=== PATIENT | male | born 1940 | race Caucasian/White ===

== ENCOUNTER 2016-07-22 03:59 | Observation (INO) | payer OTHER ==
[2016-07-22] MEDS ORDERED: DILTIAZEM 25 MG/5 ML VIAL IVP ONE (04:08)
[2016-07-22 04:13] LABS: % IMMATURE GRANULYOCYTES 0.2 % (0.0-1.1); ABSOLUTE IMMATURE GRANULOCYTES 0.02 10^3/uL (0.00-0.10); ADD DIFF? NO; ADD MORPH? NO; ADD SCAN? NO; ATYPICAL LYMPHOCYTE FLAG 0 (0-99); FRAGMENT RBC FLAG 0 (0-99); HEMATOCRIT 46.8 % (40.0-51.0); HEMOGLOBIN 16.5 g/dL (13.7-17.5); LEFT SHIFT FLG 0 (0-99); LIPEMIA HEMOLYSIS FLAG 90 (0-99); MEAN CELL HEMOGLOBIN 32.1 pg (27.9-34.1); MEAN CELL HEMOGLOBIN CONCENTR. 35.3 g/dL (32.4-36.7); MEAN CELL VOLUME 91.1 fL (81.5-99.8); MEAN PLATELET VOLUME 9.2 fL (8.7-11.7); PLATELET CLUMPS FLAG 10 (0-99); PLATELET COUNT 207 10^3/uL (150-400); RED BLOOD CELL COUNT 5.14 10^6/uL (4.40-6.38); RED CELL DISTRIBUTION WIDTH 13.9 % (11.5-15.2)
[2016-07-22 04:22] LABS: INR 1.3 (0.83-1.16); PROTIME(PATIENT) 16.2 SEC (12.0-15.0)
[2016-07-22 04:23] LABS: APTT 35.1 SEC (23.0-38.0)
[2016-07-22 04:24] LABS: ANION GAP 17 mEq/L (8-16); CALCIUM 9.3 mg/dL (8.5-10.4); CARBON DIOXIDE 16 mEq/l (22-31); CHLORIDE 109 mEq/L (97-110); CREATININE 1.2 mg/dL (0.7-1.3); GLOMERULAR FILTRATION RATE 59; GLUCOSE 170 mg/dL (70-100); POTASSIUM 4.2 mEq/L (3.5-5.2); SODIUM 142 mEq/L (134-144)
[2016-07-22 04:38] LABS: DIGOXIN < 0.4 ng/mL (0.8-2.0)
[2016-07-22 04:41] LABS: TROPONIN I 0.076 ng/mL (0-0.034)
--- NOTE | 2016-07-22 05:56 | EDPHY ---
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 which awoke him from sleep tonight. He is brought in by ambulance after receiving an aspirin in the field. He describes it as a squeezing pain located in his epigastric region. It lasted for about 2 hours until he arrived in the emergency department. The pain was associated with a feeling of clamminess. He has had several episodes of similar pain. He has not had any associated shortness of breath, nausea, vomiting, diaphoresis. He is followed by Dr. Mack and he says his last appointment was 1 week ago. He has been compliant with all of his medications and is keeping a journal. He was admitted to the hospital in May for chest pain. He had a normal evaluation, please see Dr. gustafson takes discharge summary for further information. REVIEW OF SYSTEMS Constitutional: No fever, no chills. Eyes: No discharge. ENT: No sore throat. Cardiovascular: +chest pain, no palpitations. Respiratory: No cough, no shortness of breath. Gastrointestinal: No abdominal pain, no vomiting. Genitourinary: No hematuria. Musculoskeletal: No back pain. Skin: No rashes. Neurological: No headache. PMHx: CAD with stent in place in the LAD, CHF Soc Hx: Lives alone PHYSICAL General Appearance: Alert, no distress Eyes: Pupils equal and round no pallor or injection ENT, Mouth: Mucous membranes moist Respiratory: There are no retractions, lungs are clear to auscultation Cardiovascular: Tachycardic and irregular Gastrointestinal: Abdomen is soft and non-tender, no masses, bowel sounds normal Neurological: A&O, moves all extremities Skin: Warm and dry, no rashes Musculoskeletal: Neck is supple non tender Extremities: symmetrical, full range of motion Psychiatric: Patient is oriented X 3, there is no agitation Source: Patient, EMS Exam Limitations: No limitations - Personal History Tetanus Vaccine Date: 09/2009 - Medical/Surgical History Hx Asthma: No Hx Chronic Respiratory Disease: No Hx Diabetes: No Hx Cardiac Disease: Yes Hx Renal Disease: Yes Hx Cirrhosis: No Hx Alcoholism: No Hx HIV/AIDS: No Hx Splenectomy or Spleen Trauma: No Other PMH: 1. Chronic systolic heart failure the chest Ibis fraction of 25%. 2. Coronary artery disease status post stenting on 05/25/2016. 3. Chronic atrial fibrillation. 4. Hypertension. 5. Chronic renal insufficiency. 6. Nephrolithiasis with ureteral stent placement May of 2016. 7. Gout. 8. Right total knee arthroplasty. 9. Appendectomy - Social History Smoking Status: Never smoked Constitutional: Initial Vital Signs Temperature (C) 36.7 C 07/22/16 04:07 Heart Rate 117 H 07/22/16 04:07 Respiratory Rate 26 H 07/22/16 04:07 Blood Pressure 144/90 H 07/22/16 04:07 O2 Sat (%) 94 07/22/16 04:07 O2 Delivery Mode Nasal Cannula O2 (L/minute) 2 Allergies/Adverse Reactions: atorvastatin calcium [From Lipitor] Allergy (Severe, Verified 07/22/16 04:13) Other-Enter Comments Home Medications: Medication Instructions Recorded Allopurinol [Allopurinol 300 MG 150 mg PO DAILY 06/01/16 (RX)] Aspirin EC [Aspirin EC 81 mg (*)] 81 mg PO DAILY 06/01/16 Clopidogrel Bisulfate [Plavix (*)] 75 mg PO DAILY 06/01/16 Digoxin [Lanoxin 125 mcg (RX)] 125 mcg PO HS 06/01/16 Furosemide [Lasix 40 MG (*)] 40 mg PO DAILY PRN 06/01/16 Metoprolol Succinate Xr [Toprol Xl 50 mg PO DAILY 06/01/16 50 mg (*)] Spironolactone [Aldactone 25 MG 12.5 mg PO DAILY 06/01/16 (*)] Acetaminophen [Tylenol 325mg (*)] 650 mg PO Q4HRS PRN #0 tab 06/03/16 Isosorbide Mononitrate [Imdur 30 30 mg PO DAILY #30 tab.sr 06/03/16 mg (*)] Warfarin Sodium [Coumadin 5MG (*)] 5 mg PO MOWE@16 #0 tab 06/03/16 Warfarin Sodium [Coumadin 7.5MG 7.5 mg PO SUTUTHFRSA@16 #0 tab 06/03/16 (*)] Medical Decision Making - Diagnostics EKG Interpretation: EKG EKG: Complete interpretation has been separately recorded in the [employer] archive. Summary impression: 1. Demonstrates atrial fibrillation with RVR, EKG 2. Shows atrial fibrillation with rate in the 100s, no ST segment elevation Imaging: Chest x-ray two views shows cardiomegaly, no infiltrate, interpreted by me, radiology interpretation is pending. ED Course/Re-evaluation: 5:00 a.m.- The patient has had no recurrence of his chest pain. Labs have been checked and do demonstrate elevated troponin, similar to priors. His BNP is also elevated, higher than his usual. On reassessment he says he feels well. Plan to repeat troponin and will discuss the case with Cardiology. The patient has had frequent admissions for chest pain. 7:00 a.m.- The patient continues to be chest pain-free repeat troponin is slightly more elevated than the 1st. He was given a dose of diltiazem with improvement in his heart rate from the 160s to the low 100s. I discussed the case with the steward/stewardess dining room Dr. Izquierdo who recommends admission and is restarting the patient on his medications that he does not appear to be taking at home. I have discussed the case with the hospitalist Dr. Mcclure and we will admit the patient to the PCU. Differential Diagnosis: This is a 76-year-old male with past medical history of CAD, ischemic cardiomyopathy, chronic kidney disease, possible cognitive impairment who presents brought in by ambulance for chest pain which began at 2:00 a.m. this morning while at rest and is now resolved. On exam, he is in atrial fibrillation with RVR. The remainder of his exam is unremarkable. Differential diagnosis includes ACS, decompensated CHF, GERD. - Data Points Laboratory Results: Laboratory Results 07/22/16 04:03 07/22/16 04:03 07/22/16 07/22/16 06:01 04:03 WBC 10.70 H 10^3/uL (3.80-9.50) RBC 5.14 10^6/uL (4.40-6.38) Hgb 16.5 g/dL (13.7-17.5) Hct 46.8 % (40.0-51.0) MCV 91.1 fL (81.5-99.8) MCH 32.1 pg (27.9-34.1) MCHC 35.3 g/dL (32.4-36.7) RDW 13.9 % (11.5-15.2) Plt Count 207 10^3/uL (150-400) MPV 9.2 fL (8.7-11.7) Neut % (Auto) 78.0 H % (39.3-74.2) Lymph % (Auto) 15.3 % (15.0-45.0) [place] % (Auto) 5.3 % (4.5-13.0) Eos % (Auto) 0.5 L % (0.6-7.6) Baso % (Auto) 0.7 % (0.3-1.7) Nucleat RBC Rel Count 0.0 % (0.0-0.2) Absolute Neuts (auto) 8.35 H 10^3/uL (1.70-6.50) Absolute Lymphs (auto) 1.64 10^3/uL (1.00-3.00) Absolute Monos (auto) 0.57 10^3/uL (0.30-0.80) Absolute Eos (auto) 0.05 10^3/uL (0.03-0.40) Absolute Basos (auto) 0.07 10^3/uL (0.02-0.10) Absolute Nucleated RBC 0.00 10^3/uL (0-0.01) Immature Gran % 0.2 % (0.0-1.1) Immature Gran # 0.02 10^3/uL (0.00-0.10) PT 16.2 H SEC (12.0-15.0) INR 1.30 H (0.83-1.16) APTT 35.1 SEC (23.0-38.0) Sodium 142 mEq/L (134-144) Potassium 4.2 mEq/L (3.5-5.2) Chloride 109 mEq/L (97-110) Carbon Dioxide 16 L mEq/l (22-31) Anion Gap 17 mEq/L (8-16) BUN 18 mg/dL (7-23) Creatinine 1.2 mg/dL (0.7-1.3) Estimated GFR 59 Glucose 170 H mg/dL (70-100) Calcium 9.3 mg/dL (8.5-10.4) Troponin I 0.079 H ng/mL 0.076 H ng/mL (0-0.034) (0-0.034) NT-Pro-B Natriuret Pep 33674 H pg/mL (0-450) Digoxin < 0.4 L ng/mL (0.8-2.0) Medications Given: Discontinued Medications Diltiazem HCl (Cardizem 25 Mg/5 Ml Vial) 20 mg IVP EDNOW ONE Stop: 07/22/16 04:09 Last Admin: 07/22/16 04:24 Dose: 20 mg Departure - Departure Disposition: [facility] Inpatient Acute Clinical Impression: Acute exacerbation of CHF (congestive heart failure), Chest pain, Atrial fibrillation with rapid ventricular response Condition: Fair
--- NOTE | 2016-07-22 05:59 | CPEKG ---
Heart Rate: 107 RR Interval: 561 QRSD Interval: 162 QT Interval: 400 QTC Interval: 534 QRS [place]: 2 T Wave [place]: 89 EKG Severity - ABNORMAL ECG - EKG Impression: ATRIAL FIBRILLATION, V-RATE 75-136 EKG Impression: PAIRED VENTRICULAR PREMATURE COMPLEXES EKG Impression: RIGHT BUNDLE BRANCH BLOCK EKG Impression: ST DEPRESSION, CONSIDER ISCHEMIA, ANT-LAT LDS Electronically Signed By: Lalito Borja 26-Jul-2016 13:43:14
[2016-07-22] MEDS ORDERED: ONDANSETRON 4 MG/2 ML VIAL IVP PRN (07:50)
[2016-07-22] MEDS ORDERED: ACETAMINOPHEN 325 MG TAB PO PRN ×2 (07:50→13:01)
[2016-07-22] MEDS ORDERED: METOPROLOL TARTRATE 5 MG/5 ML INJ IVP PRN (07:51)
[2016-07-22] MEDS ORDERED: FUROSEMIDE 20 MG/2 ML VIAL IVP ONE (07:51)
--- NOTE | 2016-07-22 08:10 | DX ---
PA and Lateral Chest July 22, 2016 Clinical Indications: Chest pain. Comparison: June 01, 2016. Findings: The lungs are clear, and no masses are found. The heart is enlarged and pulmonary vessels are normal. There are no pleural effusions and no pneumothorax. The bones are unremarkable for thi s age. Impression: Stable cardiomegaly without failure.
--- NOTE | 2016-07-22 08:38 | GHP ---
[f rep st] HISTORY AND PHYSICAL DATE OF ADMISSION: 07/22/2016 CHIEF COMPLAINT: Shortness of breath. HISTORY: Moses Alvarez is a 76-year-old male, with systolic congestive heart failure, ejection fract ion 25%, who has recurrent admissions for CHF exacerbation. Despite weekly visits with Dr. Mack we have been unable to keep him out of the hospital for any sustained period of time. There has been co ncern about his cognition and inability to take his medications properly. He now re-presents to the hospital with acute onset of shortness of breath which woke him from sleep at 2 o'clock in the mornin g. He did have some associated chest tightness. He adamantly denies any medication noncompliance; h vickeyever, on presentation his digoxin level is undetectable, and his INR is only 1.3, despite him repor tedly on Coumadin. He does admit that sometimes he falls asleep in the evening and misses his evenin g medication, but otherwise has a journal and pill boxes and tries to be very consistent with his med ications. He also felt confused and foggy when he woke up in the middle of the night. He now feels back to baseline and he is hoping to go home. He does complain that his daily fatigue it is increasi ng and he gets exhausted just going to the grocery store for 30 minutes. He denies any lower extremi ty edema and his weight has been very stable. He weighs himself twice a day. He also recently has h ad viral upper respiratory tract infections and is concerned he may have developed the flu. PAST MEDICAL HISTORY: Systolic congestive heart failure. Ejection fraction 25%. Coronary artery raine anthony, status post stent to the LAD, May 2016. Chronic kidney disease. Atrial fibrillation. Chalino keene stone status post stent. Dementia. PAST SURGERIES: Appendectomy. MEDICATIONS: Please see computer record for full detailed list. ALLERGIES: Atorvastatin. SOCIAL HISTORY: No smoking. No alcohol. He lives alone. REVIEW OF SYSTEMS: Complete review of systems obtained. Review of systems negative for constitution al, HEENT, GI, pulmonary, cardiovascular, , hematology, skin, musculoskeletal, endocrine, psych, e xcept for positives and negatives as in HPI. FAMILY HISTORY: Reviewed, noncontributory to presenting complaint. PHYSICAL EXAMINATION: GENERAL: Well-developed, well-nourished male, in no acute distress. VITAL SI GNS: Temp 36.7, pulse 117, blood pressure 123/86, saturating 94% on room air. HEENT: Eye examination normal conjunctiva. Pupils equal and react to light. ENT, normal ears and nose. Hearing intact. Normal teeth. Oropharynx moist. NECK: Trachea midline. No thyromegaly. CHEST: Normal. LUNGS: C lear to auscultation bilaterally. CARDIOVASCULAR: Irregularly irregular. No murmur. No lower extre mity edema. ABDOMEN: Soft, nontender. No hepatosplenomegaly. SKIN: Warm, dry, intact. No rash. MUSCULOSKELETAL: No cyanosis or clubbing. Strength 5/5 upper and lower extremities. NEURO: Crani al nerves intact. Normal sensation to light touch. PSYCHOSOCIAL: Alert and oriented x3. Normal moo d and affect. Normal judgment and insight. Normal memory On gross testing. LABS: White count 10.7, hematocrit 46.8, platelets 207. Sodium 142, potassium 4.2, chloride 109, bi carb 16, BUN 18, creatinine 1.2. Glucose 170. Troponin initially 0.076. BNP is 16,200. INR is 1.3 . Digoxin level is undetectable. EKG reviewed by me. My personal interpretation is atrial fibrillation with right bundle branch block . Chest x-ray shows possible mild pulmonary edema. ASSESSMENT/PLAN: 1. Shortness of breath. Acute onset at 2 a.m. Differential diagnosis is congestive heart failure e xacerbation versus infection versus ischemia versus pulmonary embolus versus obstructive sleep apnea. We will give a 1 time dose of IV Lasix. Will check flu swab. Will follow serial troponins. We wi ll check a D-dimer as he is on warfarin, but likely noncompliant given his INR on presentation of 1.3 . These recurrent episodes also seem to happen in the middle of the night. Perhaps he is having nig httime hypoxemia. Would consider outpatient nocturnal oximetry. 2. Acute on chronic systolic congestive heart failure. Ejection fraction 25%. Medication complianc e has been the main issue in the past. Patient seems motivated and denies noncompliance although con cern for dementia and cognitive issues have been raised in the past. Will order a cognitive evaluati on and speech therapy. 3. Coronary artery disease, status post recent stent on May 25. Lack of Plavix compliance woul d be very concerning in this situation. Will follow troponins. 4. Chronic kidney disease, is currently at his baseline. 5. Atrial fibrillation, rapid ventricular response. Suspect this is also due to poor medication com pliance. We will resume metoprolol. 6. Suspected dementia. Cognitive evaluation with speech therapy as discussed above. CODE STATUS: Full. ADMISSION STATUS: Will admit to observation as hopefully can discharge after 1 midnight. DVT PROPHYLAXIS: He is high risk due to his Coumadin noncompliance. Will give him subcu Lovenox. /[id number]/MODL
[2016-07-22] MEDS ORDERED: FUROSEMIDE 20 MG/2 ML VIAL ONE (09:49)
[2016-07-22] MEDS: ENOXAPARIN 40 MG/0.4 ML SYR SC SCH (10:08)
--- NOTE | 2016-07-22 10:15 | ECHO ---
[id number] + + [address] : : [place] [id number] : : [phone] + + Adult Echocardiographic Report + -----+ :Name: BRIA MALONE CStudy Date: 07/22/2016 08:09 AM : : Hospital Admission Number: [id number] Locatio n: ER: :: 1940 Gender: Male Height: 852 in : :Age: 76 yrs Race: WH,UN,U Weight: 189 lb : :Reason For Study: Eval LV Fx : : BSA: 12.5 meter s2 : :History: Known History of CHF, New onset A-Fib, SOB : + -----+ MMode/2D Measurements & Calculations IVSd: 1.4 cm LVIDd: 8.5 cm FS: 10.6 % MV Diam: 4.7 cm LVPWd: 1.3 cm LVIDs: 7.6 cm EDV(Teich): 391.2 ml ESV(Teich): 304.5 ml EF(Teich): 22.2 % Ao root diam: LVOT diam: 2.1 cmLVLd ap4: 8.4 cm SV(MOD-sp4): 3.9 cm LVOT area: EDV(MOD-sp4): 69.0 ml ACS: 2.1 cm 3.5 cm2 206.0 ml LA dimension: LVLs ap4: 8.3 cm 5.2 cm ESV(MOD-sp4): 137.0 ml EF(MOD-sp4): 33.5 % Normal Measurement Values: + + :LVIDd (3.5-5.7cm) IVSd (0.6-1.1cm) LVPWd (0.6-1.1cm) Aortic Root (2.0-3.7cm)Left Atrium (1.5-4.0cm): :LV Vol(d) (76-115ml) LV Vol(s) (29-48ml) Ejec Fraction (50-65%)PV Josué (0.6- 1.2m/s) TV Josué (0.4-1.0m/s) : :MV E Josué (0.8-1.0m/s)MV A Josué (0.3-1.0m/s)LVOT Josué (0.7-1.2m/s) Asc Ao Josué ( 0.9-1.8m/s) : + + Doppler Measurements & Calculations MV V2 max: Ao mean PG: AI max josué: LV V1 mean P.2 cm/sec 7.8 mmHg 439.4 cm/sec 2.0 mmHg MV max P.3 mmHg Ao V2 mean: AI max PG: LV V1 mean: MV V2 mean: 130.4 cm/sec 77.2 mmHg 62.6 cm/sec 71.5 cm/sec Ao V2 VTI: 30.8 cm AI dec slope: LV V1 VTI: MV mean P.3 mmHgAVA(I,D): 2.0 cm2 208.6 cm/sec2 17.4 cm MV V2 VTI: 20.1 cm AI P1/2t: MV area (1 diam): 616.9 msec 17.4 cm2 MVA(VTI): 3.0 cm2 MV Flow area(1diam): 17.4 cm2 MR max josué: MR(RF 1 diam): SV(MV 1 diam): PA V2 max: 482.8 cm/sec 10.2 % 349.7 ml 100.4 cm/sec MR max P.5 mmHg SI(MV 1 diam): PA max P.0 ml/m2 4.0 mmHg SV(LVOT): 60.3 ml TR max josué: RF(MV,Ao)(1 diam): 308.1 cm/sec -0.06 TR max P.0 mmHgRF(MV,LVOT) RAP systole: (1diam): 0.83 5.0 mmHg RVSP(TR): 43.0 mmHg Left Ventricle The left ventricle is severely dilated. There is mild to moderate concentric left ventricular hypertrophy. Ejection Fraction = 15-20%. The rhythm is atrial fibrillation. There is severe global hypokinesis of the left ventricle. Right Ventricle The right ventricle is normal size. The right ventricular systolic function is mildly reduced. Atria The left atrium is moderate to severely dilated. The Left Atrial Volume is 48 ml/m2. The right atrium is mildly dilated. Mitral Valve There is mild to moderate mitral annular calcification. There is no evidence of mitral valve prolapse. There is no mitral valve stenosis. There is moderate to severe mitral regurgitation. Tricuspid Valve There is mild tricuspid regurgitation. Aortic Valve The aortic valve is trileaflet. The aortic valve opens well. There is no aortic stenosis. Moderate aortic regurgitation. Pulmonic Valve The pulmonic valve is normal in structure and function. There is no pulmonic valvular regurgitation. Great Vessels The aortic root is normal size. Pericardium/Pleural There is no pericardial effusion. Conclusion A complete two-dimensional transthoracic echocardiogram was performed (2D, M-mode, Doppler and color flow Doppler). Compared to previous the rhythm is atrial fibrillation and the EF appears to have decreased to 20% range from 30%. The left ventricle is severely dilated. There is mild to moderate concentric left ventricular hypertrophy. Ejection Fraction = 15-20%. The rhythm is atrial fibrillation. The right ventricular systolic function is mildly reduced. The left atrium is moderate to severely dilated. There is mild to moderate mitral annular calcification. There is moderate to severe mitral regurgitation. There is mild tricuspid regurgitation. The aortic valve is trileaflet. The aortic valve opens well. Moderate aortic regurgitation. The aortic root is normal size. Compared to previous the rhythm is atrial fibrillation and the EF appears to have decreased to 20% range from 30% There is severe global hypokinesis of the left ventricle. Final Reading Physician: Marisol Gonsalves signed on 07/22/2016 10:13 AM Ordering Physician: Dotty Mcclure Performed By: Froylan Fish, CS
[2016-07-22] MEDS ORDERED: CLOPIDOGREL BISULFATE 75 MG TAB ONE (13:33)
[2016-07-22] MEDS: CLOPIDOGREL BISULFATE 75 MG TAB PO SCH (14:34)
[2016-07-22] MEDS: ISOSORBIDE MONONITRATE 30 MG TAB.SR PO SCH (14:34)
[2016-07-22] MEDS: SPIRONOLACTONE 25 MG TAB PO SCH (14:35)
--- NOTE | 2016-07-22 15:32 | PDCARPN ---
Cardiology Progress Note Assessment/Plan: 76-year-old male well-known to our practice. Has a long-standing history of systolic CHF related to cardiomyopathy with severely reduced left ventricular systolic function out of proportion to his coronary artery disease. Has had multiple catheterizations over the years demonstrating mild to moderate irregularities. Ultimately, underwent PCI of the mid-LAD 2 months ago. LVEF is chronically in the range of 20%. He also has chronic atrial fibrillation. Has a history of issues with medical noncompliance in part due to cognitive issues. This has improved recently with a systematic plan including a medication journal. Presented to the emergency room early this morning after he woke at approximately 2 AM with significant shortness of breath and chest discomfort. Two troponin levels have been minimally elevated with a "flat curve" consistent with myocardial oxygen supply/demand mismatch. Received intravenous Lasix in the emergency room. He is not experiencing chest discomfort at the time of my evaluation. Does not demonstrate evidence of significant volume overload. His chest x-ray is clear. Perhaps trace rales at the lung bases. No peripheral edema. Currently borderline with respect to rate control of his atrial fibrillation. Interestingly, has not been on a standing dose of a loop diuretic for the past few weeks since he had not manifested significant volume retention. He will be going to PCU. Would consider one or 2 additional doses of intravenous Lasix since his BNP is significantly higher than usual. Will be seen by Dr. Mack over the weekend. Agree with additional metoprolol via IV ass needed to help with rate control. Continue the other components of his CHF med regimen. He has declined ICD implantation. Has been declined by [facility] for destination LVAD. 07/22/16 15:42 Subjective: Shortness of breath and chest discomfort. Objective: Vital Signs (8 Hrs) Pulse Resp BP Pulse Ox 07/22/16 10:00 110 H 21 H 103/71 94 Result Diagrams: 07/22/16 04:03 07/22/16 04:03 Cardiac Labs: Cardiac Lab Results (72 Hrs) 07/22/16 12:10 Troponin I 0.094 H - Physical Exam Constitutional: WDWN, no apparent distress Eyes: anicteric sclera Ears, Nose, Mouth, Throat: moist mucous membranes Cardiovascular: irregularly irregular, No jugular vein distention Respiratory: other (trace rales at bases) Gastrointestinal: normoactive bowel sounds, no tenderness, no masses Skin: no rashes, no edema Neurologic: AAOx3 Psychiatric: interactive, not anxious ICD10 Worksheet Patient Problems: Problems Problem Status Diagnosed Acute exacerbation of CHF (congestive heart failure) Acute Atrial fibrillation Acute Atrial fibrillation with rapid ventricular response Acute Cardiomyopathy Acute Chest pain Acute Chest pain at rest Acute Congestive heart failure Acute Constipation Acute Nephrolithiasis Acute Ureterolithiasis Acute Chest pain in adult Acute Confusion with nonfocal neurological examination Acute Near syncope Acute
[2016-07-22] MEDS ORDERED: WARFARIN SODIUM 7.5 MG TAB PO SCH (16:00)
[2016-07-22] MEDS ORDERED: DIGOXIN 125 MCG TAB PO SCH (21:00)
[2016-07-23 04:06] VITALS: BP 110/79
[2016-07-23 07:54] VITALS: TEMP 97.6; O2SAT 95
[2016-07-23 08:18] VITALS: PULSE 105; RESP 20
[2016-07-23] MEDS ORDERED: METOPROLOL SUCCINATE XR 50 MG TAB PO SCH (09:00)
[2016-07-23] MEDS ORDERED: ASPIRIN EC 81 MG TAB PO SCH (09:00)
[2016-07-23] MEDS ORDERED: ALLOPURINOL 300 MG TAB PO SCH (09:00)
[2016-07-23] MEDS: SPIRONOLACTONE 25 MG TAB PO SCH (09:13)
[2016-07-23] MEDS: CLOPIDOGREL BISULFATE 75 MG TAB PO SCH (09:13)
[2016-07-23] MEDS: ISOSORBIDE MONONITRATE 30 MG TAB.SR PO SCH (09:13)
[2016-07-23] MEDS: ENOXAPARIN 40 MG/0.4 ML SYR SC SCH (09:16)
--- NOTE | 2016-07-23 09:31 | SOAPPROG ---
FLORENCIO Progress Note Assessment/Plan: Assessment: 76 y/o man with CAD s/p several PCI, permanent afib, and chronic ischemic systolic CHF LVEF 27% having refused AICDs in past with brief decompensation of his CHF with pulmomary edema doing better now after IV lasix. Appears compensated and wants to go home. I do not think he is having unstable angina. REC: 1)start Lasix 40mg PO qam daily,,,,, not prn 2)restart Losartan 25mg PO qHS. 3)increase Toprol XL to 75mg PO qam 4)rest of meds without changes. 5)okay to discharge home from CHF standpoint today. Was scheduled to see me in [facility] in ten days but will move his appt up to this MondayJul 25 to make sure doing stable to better. 6)Thanks. 07/23/16 09:28 Subjective: overall feels better and back to his baseline. Denies CP, PND, near syncope, palpitations or cough. Wants to go home. Objective: Vital Signs Temp Pulse Resp BP Pulse Ox 36.4 C 105 H 20 110/79 95 07/23/16 07:48 07/23/16 08:18 07/23/16 08:18 07/23/16 07:48 07/23/16 07:48 07/22/16 07/23/16 07/24/16 05:59 05:59 05:59 Intake Total 970 240 Output Total 175 Balance 795 240 PT 16.2 SEC (12.0-15.0) H 07/22/16 04:03 INR 1.30 (0.83-1.16) H 07/22/16 04:03 Physical Exam - Physical Exam General Appearance: alert EENT: PERRL/EOMI Neck: non-tender Respiratory: lungs clear Cardiac/Chest: gallop, JVD (jvp to 7-8cm), systolic murmur, irregularly irregular Peripheral Pulses: 2+: carotid (R), carotid (L), femoral (R), femoral (L), dorsalis-pedis (R), dorsalis-pedis (L) Abdomen: normal bowel sounds, non-tender, soft, No ascites Skin: warm/dry Extremities: non-tender, No pedal edema Neuro/Psych: alert ICD10 Worksheet Patient Problems: Problems Problem Status Diagnosed Acute exacerbation of CHF (congestive heart failure) Acute Atrial fibrillation Acute Atrial fibrillation with rapid ventricular response Acute Cardiomyopathy Acute Chest pain Acute Chest pain at rest Acute Congestive heart failure Acute Constipation Acute Nephrolithiasis Acute Ureterolithiasis Acute Chest pain in adult Acute Confusion with nonfocal neurological examination Acute Near syncope Acute
[2016-07-23] MEDS ORDERED: FUROSEMIDE 40 MG TAB PO SCH (10:00)
[2016-07-23] MEDS ORDERED: METOPROLOL SUCCINATE XR 100 MG TAB PO SCH (10:00)
[2016-07-23] MEDS ORDERED: METOPROLOL SUCCINATE XR 25 MG TAB PO SCH (10:00)
[2016-07-23] MEDS ORDERED: LOSARTAN POTASSIUM 25 MG TAB PO SCH (10:00)
--- NOTE | 2016-07-23 15:01 | GDS ---
[f rep st] DISCHARGE SUMMARY DISCHARGE DIAGNOSES: 1. Acute on chronic systolic congestive heart failure. 2. Chronic ischemic systolic heart failure with left ventricular ejection fraction of 27%, refusing AICD. 3. Coronary artery disease. 4. Chronic kidney disease. 5. Atrial fibrillation. CONSULTANTS: Dr. Byron Mack, [facility]. HOSPITAL COURSE AND STAY BY PROBLEM: Acute on chronic systolic heart failure: The patient was place d on observation, where he received 2 doses of IV Lasix. With diuresis, the patient's symptoms seeme d to be better. He was seen by Cardiology, who did not think his symptoms were consistent with acute coronary syndrome. On the day of discharge, the patient states he feels well and would like to go home. Once again, he has been seen by Cardiology, who thought discharge was appropriate. PHYSICAL EXAM: VITAL SIGNS: On the day of discharge, blood pressure 110/79, pulse 105, respiratory rate 20, O2 sat 95% on 2 L, temperature afebrile. GENERAL: No acute distress. HEART: S1, S2. Tac hycardic. LUNGS: Clear. No wheezes or rales. ABDOMEN: Soft. EXTREMITIES: No edema. PROCEDURES DONE THIS HOSPITAL STAY: Echocardiogram done 07/22/2016. Refer to report. DISCHARGE MEDICATIONS: Please refer to discharge medication reconciliation in [facility] for full deta ils. Below is a preliminary list. Home medications that have been changed: Lasix was changed to 40 mg daily instead of p.r.n. Metopro lol was increased to 75 mg daily. Losartan was ordered at 25 mg daily. All other home medications were continued at the same dosages. DISCHARGE INSTRUCTIONS: The patient will be discharged from the hospital, where he is to follow up a t the [facility] next week as scheduled. /[id number]/MODL
[2016-07-24] MEDS ORDERED: METOPROLOL SUCCINATE XR 25 MG TAB PO SCH (09:00)
[2016-07-25] MEDS ORDERED: WARFARIN SODIUM 5 MG TAB PO SCH (16:00)
== END 2016-07-23 11:47 | disposition home or self-care (01) ==
LOC: EDBD → EDUNIT# → F2W 16:50
PROVIDERS: ADMIT Internal Medicine; ATTEND Internal Medicine
DX: I50.23 Acute on chronic systolic (congestive) heart failure (principal); I25.10 Atherosclerotic heart disease of native coronary artery without angina pectoris; R07.9 Chest pain, unspecified; R06.02 Shortness of breath; N18.9 Chronic kidney disease, unspecified; I42.9 Cardiomyopathy, unspecified; I48.2 Chronic atrial fibrillation; Z95.5 Presence of coronary angioplasty implant and graft; I50.22 Chronic systolic (congestive) heart failure; I13.0 Hypertensive heart and chronic kidney disease with heart failure and stage 1 through stage 4 chronic kidney disease, or unspecified chronic kidney disease; M10.9 Gout, unspecified; Z91.19 Patient's noncompliance with other medical treatment and regimen; G31.84 Mild cognitive impairment of uncertain or unknown etiology; Z87.442 Personal history of urinary calculi; Z96.651 Presence of right artificial knee joint; Z79.01 Long term (current) use of anticoagulants
CPT/HCPCS: 71020; 93005; 93306; 96374; 99285; G0378; J1650

== ENCOUNTER 2016-07-28 05:14 | Inpatient (IN) | payer OTHER ==
[2016-07-28] MEDS ORDERED: NS 500 ML IV ONE (05:22)
--- NOTE | 2016-07-28 05:23 | CPEKG ---
Heart Rate: 114 RR Interval: 526 QRSD Interval: 170 QT Interval: 392 QTC Interval: 540 QRS [place]: 78 T Wave [place]: 15 EKG Severity - ABNORMAL ECG - EKG Impression: ATRIAL FIBRILLATION, V-RATE 85-158 EKG Impression: PAIRED VENTRICULAR PREMATURE COMPLEXES EKG Impression: RBBB AND LPFB Electronically Signed By: Dionicio Bergeron 28-Jul-2016 06:53:10
[2016-07-28 05:29] LABS: % IMMATURE GRANULYOCYTES 0.3 % (0.0-1.1); ABSOLUTE IMMATURE GRANULOCYTES 0.03 10^3/uL (0.00-0.10); ADD DIFF? NO; ADD MORPH? NO; ADD SCAN? NO; ATYPICAL LYMPHOCYTE FLAG 0 (0-99); FRAGMENT RBC FLAG 0 (0-99); HEMATOCRIT 47.2 % (40.0-51.0); HEMOGLOBIN 15.9 g/dL (13.7-17.5); LEFT SHIFT FLG 0 (0-99); LIPEMIA HEMOLYSIS FLAG 80 (0-99); MEAN CELL HEMOGLOBIN 32.1 pg (27.9-34.1); MEAN CELL HEMOGLOBIN CONCENTR. 33.7 g/dL (32.4-36.7); MEAN CELL VOLUME 95.4 fL (81.5-99.8); MEAN PLATELET VOLUME 9.5 fL (8.7-11.7); PLATELET CLUMPS FLAG 0 (0-99); PLATELET COUNT 218 10^3/uL (150-400); RED BLOOD CELL COUNT 4.95 10^6/uL (4.40-6.38); RED CELL DISTRIBUTION WIDTH 14.4 % (11.5-15.2)
--- NOTE | 2016-07-28 05:32 | EDPHY ---
[id number] male he has significant past medical history for congestive heart failure EF of 27%, coronary artery disease, chronic kidney disease, AFib, presents emergency room by EMS for shortness of breath and pressure type pain in his chest. He states he woke up around 2:00 a.m. feeling short of breath having discomfort pressure like in his chest. He called 911 and EMS brought him to the emergency room they gave him full-dose aspirin and his chest pain resolved. He tells me that he is due to see Dr. Borja today for his AFib and pacemaker. Past Medical History: Coronary artery disease with stents, CHF, ischemic cardiomyopathy, last known EF 27%, AFib Past Surgical History: Coronary artery disease with stents Social History: Denies use of drugs alcohol tobacco products Family History: Noncontributory ROS REVIEW OF SYSTEMS: A comprehensive 10 point review of systems is otherwise negative aside from elements mentioned in the history of present illness. Exam Constitutional triage nursing summary reviewed, vital signs reviewed, awake/ alert. Eyes normal conjunctivae and sclera, EOMI, PERRLA. HENT normal inspection, atraumatic, moist mucus membranes, no epistaxis, neck supple/ no meningismus, no raccoon eyes. Respiratory clear to auscultation bilaterally, normal breath sounds, no respiratory distress, no wheezing. Cardiovascular rate normal, regular rhythm, no murmur, no edema, distal pulses normal. Gastrointestinal soft, non-tender, no rebound, no guarding, normal bowel sounds, no distension, no pulsatile mass. Genitourinary no CVA tenderness. Musculoskeletal no midline vertebral tenderness, full range of motion, no calf swelling, no tenderness of extremities, no meningismus, good pulses, neurovascularly intact. Skin pink, warm, & dry, no rash, skin atraumatic. Neurologic awake, alert and oriented x 3, AAOx3, moves all 4 extremities equally, motor intact, sensory intact, CN II-XII intact, normal cerebellar, normal vision, normal speech. Psychiatric normal mood/affect. Heme/Lymph/Immune no lymphadenopathy. Differential diagnosis includes but is not limited to: ACS, atypical chest pain , pneumothorax, pneumonia, pulmonary embolism, aortic dissection, congestive heart failure, tumor, musculoskeletal pain, esophageal pain, GERD, peptic ulcer disease, pancreatitis Medical Decision Making: this patient had an IV established will obtain blood work patient will have an EKG, chest x-ray troponin he is chest pain-free at this time. Receive full-dose aspirin prior to arrival. Most likely patient will need to be admitted given he was here with recent stent placement now has chest discomfort. Re-evaluation: EKG interpretation by me on record in [employer] system. Impression time of EKG 5:21 a.m., this is AFib rate of 114, PVC present right bundle-branch block present. This is similar in appearance to his previous EKG dated 07/22/2016 I do not appreciate any acute focal ischemic changes specifically ST elevation. 0628: Re-evaluation at this time I have ordered this patient IV Lasix 40 mg patient is requiring 3 L nasal cannula. I have ordered this patient's stat echocardiogram. 0628: I spoke with her Dr. Reynolds, section cutter business applications analyst who will be glad to see this patient and evaluate him inpatient. Is noted I did review this patient's recent hospitalization for decompensated heart failure. ED x-ray chest one view: Shows significant cardiomegaly increased in size from his previous x-ray 5 days ago he has pulmonary edema present there is no pleural effusions. Image interpreted by me. Echo is pending. 0629: at this time this patient is hemodynamically stable no acute distress he is requiring 3 L nasal cannula supplemental oxygen he is not requiring BiPAP he is not overtly hypertensive he is resting comfortably and is safe for admission to the PCU. It is also noted he has a positive troponin most likely due to decompensated heart failure. Source: Patient, EMS - Personal History Tetanus Vaccine Date: 09/2009 - Medical/Surgical History Hx Asthma: No Hx Chronic Respiratory Disease: No Hx Diabetes: No Hx Cardiac Disease: Yes Hx Renal Disease: Yes Hx Cirrhosis: No Hx Alcoholism: No Hx HIV/AIDS: No Hx Splenectomy or Spleen Trauma: No Other PMH: 1. Chronic systolic heart failure the chest Ibis fraction of 25%. 2. Coronary artery disease status post stenting on 05/25/2016. 3. Chronic atrial fibrillation. 4. Hypertension. 5. Chronic renal insufficiency. 6. Nephrolithiasis with ureteral stent placement May of 2016. 7. Gout. 8. Right total knee arthroplasty. 9. Appendectomy - Social History Smoking Status: Never smoked Constitutional: Initial Vital Signs O2 Sat (%) 96 07/28/16 05:15 O2 Delivery Mode Nasal Cannula O2 (L/minute) 2 Allergies/Adverse Reactions: atorvastatin calcium [From Lipitor] Allergy (Severe, Verified 07/22/16 04:13) Other-Enter Comments Home Medications: Medication Instructions Recorded Allopurinol [Allopurinol 300 MG 300 mg PO DAILY 06/01/16 (RX)] Aspirin EC [Aspirin EC 81 mg (*)] 81 mg PO DAILY 06/01/16 Clopidogrel Bisulfate [Plavix (*)] 75 mg PO DAILY 06/01/16 Digoxin [Lanoxin 125 mcg (RX)] 125 mcg PO HS 06/01/16 Furosemide [Lasix 40 MG (*)] 60 mg PO DAILY 06/01/16 Spironolactone [Aldactone 25 MG 12.5 mg PO DAILY 06/01/16 (*)] Acetaminophen [Tylenol 325mg (*)] 325 mg PO Q4HRS PRN 07/28/16 Losartan Potassium [Cozaar 25 mg 12.5 mg PO DAILY 07/28/16 (*)] Metoprolol Succinate Xr [Toprol Xl 100 mg PO DAILY 07/28/16 100 mg (*)] Warfarin Sodium [Coumadin 5MG (*)] 5 mg PO DAILY 07/28/16 Medical Decision Making - Data Points Laboratory Results: Laboratory Results 07/28/16 05:18 07/28/16 05:18 Medications Given: Discontinued Medications Bacitracin (Bacitracin 1000 Ml Irrigation) 50,000 units IRR ONCALL ONE Stop: 07/28/16 09:38 Last Admin: 07/28/16 10:11 Dose: Not Given Diazepam (Valium) 5 mg PO ONCALL ONE Stop: 07/28/16 09:38 Last Admin: 07/28/16 10:11 Dose: Not Given Diphenhydramine HCl (Benadryl) 25 mg PO ONCALL ONE Stop: 07/28/16 09:38 Last Admin: 07/28/16 10:11 Dose: Not Given Furosemide (Lasix Injection) 40 mg IVP EDNOW ONE Stop: 07/28/16 06:19 Last Admin: 07/28/16 06:38 Dose: 40 mg Sodium Chloride (Ns) 500 mls @ 0 mls/hr IV ONCE ONE PRN Reason: As Directed Stop: 07/28/16 05:23 Last Admin: 07/28/16 06:43 Dose: Not Given Sodium Chloride (Ns) 1,000 mls @ 0 mls/hr IV ONCALL ONE PRN Reason: TKO Stop: 07/28/16 09:38 Last Admin: 07/28/16 10:11 Dose: Not Given Sodium Chloride (Ns) 1,000 mls @ 0 mls/hr IV ONCALL ONE PRN Reason: TKO Stop: 07/28/16 09:41 Last Admin: 07/28/16 10:11 Dose: Not Given Cefazolin Sodium/Dextrose (Ancef 2 Gm (Premix)) 100 mls @ 200 mls/hr IV ONCALL ONE Stop: 07/28/16 10:29 Last Admin: 07/28/16 10:11 Dose: Not Given Metoprolol Succinate (Toprol Xl) 100 mg PO DAILY GENOVEVA Stop: 01/25/17 08:59 Last Admin: 07/29/16 08:40 Dose: 100 mg Metoprolol Succinate (Toprol Xl) 50 mg PO ONCE ONE Stop: 07/29/16 12:31 Last Admin: 07/29/16 12:27 Dose: 50 mg Departure - Departure Disposition: [facility] Acute Clinical Impression: Acute decompensated heart failure Condition: Fair
[2016-07-28 05:39] LABS: INR 1.41 (0.83-1.16); PROTIME(PATIENT) 17.2 SEC (12.0-15.0)
[2016-07-28 05:40] LABS: APTT 46.2 SEC (23.0-38.0)
[2016-07-28 05:42] LABS: ALANINE AMINOTRANSFERASE 27 IU/L (21-72); ALBUMIN 4.3 g/dL (3.5-5.0); ALKALINE PHOSPHATASE 114 IU/L (38-126); ANION GAP 15 mEq/L (8-16); ASPARTATE AMINOTRANSFERASE 26 IU/L (17-59); BILIRUBIN,TOTAL 1.4 mg/dL (0.1-1.4); BILIRUBIN-CONJUGATED 0.3 mg/dL (0.0-0.5); BILIRUBIN-UNCONJUGATED 1.1 mg/dL (0.0-1.1); CALCIUM 9.6 mg/dL (8.5-10.4); CARBON DIOXIDE 19 mEq/l (22-31); CHLORIDE 110 mEq/L (97-110); CREATININE 1.2 mg/dL (0.7-1.3); GLOMERULAR FILTRATION RATE 59; GLUCOSE 119 mg/dL (70-100); POTASSIUM 4.5 mEq/L (3.5-5.2); SODIUM 144 mEq/L (134-144); TOTAL PROTEIN 7.7 g/dL (6.3-8.2)
[2016-07-28 05:54] LABS: CREATINE KINASE-MB FRACTION 1.36 ng/mL (0-3.19); TROPONIN I 0.105 ng/mL (0-0.034)
[2016-07-28] MEDS ORDERED: FUROSEMIDE 40 MG/4 ML VIAL IVP ONE (06:18)
[2016-07-28] MEDS ORDERED: ceFAZolin 2 GM/DEXTROSE 100 ML IV ONE ×2 (09:37→10:00)
[2016-07-28] MEDS ORDERED: BACITRACIN IRRIGATION/NS 50,000 UNITS/1,000 ML BTL IRR ONE (09:37)
[2016-07-28] MEDS ORDERED: diphenhydrAMINE 25 MG CAP PO ONE (09:37)
[2016-07-28] MEDS ORDERED: DIAZEPAM 5 MG TAB PO ONE (09:37)
[2016-07-28] MEDS ORDERED: NS 1,000 ML IV ONE ×2 (09:37→09:40)
--- NOTE | 2016-07-28 10:19 | DX ---
Portable AP Upright Chest, at 5:36 a.m. Clinical History: 76-year-old male with chest pain. COMPARISON STUDY: Chest, dated July 22, 2016, at 3:50 a.m. FINDINGS: Oxygen tubing and telemetry monitoring lead lines are present. The cardiac silhouette remai ns enlarged. There is mild peribronchial thickening, and the pulmonary vasculature is equalized, alth ough there is no peripheral interstitial edema, focal infiltrate, pleural effusion, or pneumothorax. The osseous structures are age-appropriate, and unchanged. IMPRESSION: Cardiac silhouette enlargement with mild pulmonary venous hypertension, but no evidence o f interstitial edema or focal infiltrate.
[2016-07-28 10:26] LABS: % IMMATURE GRANULYOCYTES 0.3 % (0.0-1.1); ABSOLUTE IMMATURE GRANULOCYTES 0.02 10^3/uL (0.00-0.10); ADD DIFF? NO; ADD MORPH? NO; ADD SCAN? NO; ATYPICAL LYMPHOCYTE FLAG 0 (0-99); FRAGMENT RBC FLAG 0 (0-99); HEMATOCRIT 43.4 % (40.0-51.0); HEMOGLOBIN 14.9 g/dL (13.7-17.5); LEFT SHIFT FLG 0 (0-99); LIPEMIA HEMOLYSIS FLAG 90 (0-99); MEAN CELL HEMOGLOBIN 32.2 pg (27.9-34.1); MEAN CELL HEMOGLOBIN CONCENTR. 34.3 g/dL (32.4-36.7); MEAN CELL VOLUME 93.7 fL (81.5-99.8); PLATELET CLUMPS FLAG 0 (0-99); PLATELET COUNT 183 10^3/uL (150-400); RED BLOOD CELL COUNT 4.63 10^6/uL (4.40-6.38); RED CELL DISTRIBUTION WIDTH 14.3 % (11.5-15.2)
[2016-07-28 10:29] LABS: INR 1.37 (0.83-1.16); PROTIME(PATIENT) 16.9 SEC (12.0-15.0)
[2016-07-28 10:30] LABS: APTT 36.5 SEC (23.0-38.0)
[2016-07-28 10:32] LABS: ANION GAP 10 mEq/L (8-16); CARBON DIOXIDE 21 mEq/l (22-31); CHLORIDE 112 mEq/L (97-110); CREATININE 1.2 mg/dL (0.7-1.3); GLOMERULAR FILTRATION RATE 59; GLUCOSE 103 mg/dL (70-100); MAGNESIUM 1.9 mg/dL (1.6-2.3); POTASSIUM 5.1 mEq/L (3.5-5.2); SODIUM 143 mEq/L (134-144); SPECIMEN HEMOLYSIS 127
--- NOTE | 2016-07-28 11:05 | CPEKG ---
Heart Rate: 88 RR Interval: 682 QRSD Interval: 166 QT Interval: 404 QTC Interval: 489 QRS [place]: 82 T Wave [place]: 56 EKG Severity - ABNORMAL ECG - EKG Impression: ATRIAL FIBRILLATION, V-RATE 63-111 EKG Impression: MULTIFORM VENTRICULAR PREMATURE COMPLEXES EKG Impression: RIGHT BUNDLE BRANCH BLOCK EKG Impression: BORDERLINE ST DEPRESSION, LATERAL LEADS Electronically Signed By: Jay Izquierdo 28-Jul-2016 15:04:09
[2016-07-28] MEDS ORDERED: HEPARIN 10,000 UNIT/10 ML MDV ONE (11:31)
[2016-07-28] MEDS ORDERED: ISOPROTERENOL HCL 0.2 MG/ML 5ML AMP ONE (11:31)
[2016-07-28] MEDS ORDERED: BUPIVACAINE 0.5% 30 ML SDV ONE ×2 (11:31→11:33)
[2016-07-28] MEDS ORDERED: LIDOCAINE 1% 30 ML SDV ONE ×2 (11:31→11:32)
[2016-07-28] MEDS ORDERED: IOPAMIDOL (ISOVUE-300) 50 ML VIAL IV ONE (11:33)
--- NOTE | 2016-07-28 11:58 | ECHO ---
[id number] + + [address] : : [place] [address] : : [phone] + + Adult Echocardiographic Report + ------+ :Name: BRIA MALONE CStudy Date: 07/28/2016 07:43 AM : : Hospital Admission Number: [id number] Locatio n: ER5: :: 1940 Gender: Male Height: 71 in : :Age: 76 yrs Race: WH,UN,U Weight: 184 lb : :Reason For Study: Eval LV Fx : : BSA: 2.0 meters 2 : :History: Acute SOB, A-Fib : + ------+ MMode/2D Measurements & Calculations IVSd: 1.4 cm LVIDd: 9.2 cm FS: 9.6 % LVLd ap4: 8.9 cm LVPWd: 1.3 cm LVIDs: 8.3 cm EDV(Teich): 466.5 mlEDV(MOD-sp4): 304.0 ml ESV(Teich): 373.1 mlLVLs ap4: 9.1 cm EF(Teich): 20.0 % ESV(MOD-sp4): 243.0 ml EF(MOD-sp4): 20.1 % SV(MOD-sp4): 61.0 ml Normal Measurement Values: + + :LVIDd (3.5-5.7cm) IVSd (0.6-1.1cm) LVPWd (0.6-1.1cm) Aortic Root (2.0-3.7cm)Left Atrium (1.5-4.0cm): :LV Vol(d) (76-115ml) LV Vol(s) (29-48ml) Ejec Fraction (50-65%)PV Josué (0.6- 1.2m/s) TV Josué (0.4-1.0m/s) : :MV E Josué (0.8-1.0m/s)MV A Josué (0.3-1.0m/s)LVOT Josué (0.7-1.2m/s) Asc Ao Josué ( 0.9-1.8m/s) : + + Doppler Measurements & Calculations TR max josué: 303.0 cm/sec TR max P.7 mmHg RAP systole: 10.0 mmHg RVSP(TR): 46.7 mmHg Left Ventricle The left ventricle is severely dilated. There is mild to moderate concentric left ventricular hypertrophy. The rhythm is atrial fibrillation. Ejection Fraction = 20%%. There is severe global hypokinesis of the left ventricle. There is severe apical wall akinesis. Atria Known Severly dilated LA...on some views a possible mobile LA mass noted..d/w dr Aguillon who will perform KIMMY to further evaluate. Mitral Valve There is moderate to severe mitral regurgitation. Tricuspid Valve There is mild tricuspid regurgitation. Right ventricular systolic pressure is 47mmHg. There is Doppler evidence for moderate pulmonary hypertension. Aortic Valve Moderate aortic regurgitation. Pericardium/Pleural There is no pericardial effusion. Conclusion This is a limited echo to evaluate for LV function. The left ventricle is severely dilated. There is mild to moderate concentric left ventricular hypertrophy. There is severe global hypokinesis of the left ventricle. The rhythm is atrial fibrillation. There is moderate to severe mitral regurgitation. There is mild tricuspid regurgitation. Right ventricular systolic pressure is 47mmHg. There is Doppler evidence for moderate pulmonary hypertension. Moderate aortic regurgitation. There is no pericardial effusion. Ejection Fraction = 20%%. There is severe apical wall akinesis. Known Severly dilated LA...on some views a possible mobile LA mass noted..d/w dr Aguillon who will perform KIMMY to further evaluate Final Reading Physician: Marisol Garcia signed on 07/28/2016 11:57 AM Ordering Physician: Dionicio Bergeron Performed By: Froylan Fish, RDCS
[2016-07-28] MEDS ORDERED: fentaNYL 100 MCG/2 ML INJ ONE (12:06)
[2016-07-28] MEDS ORDERED: ETOMIDATE 20 MG/10 ML VIAL ONE (12:27)
[2016-07-28] MEDS ORDERED: PHENYLEPHRINE HCL 100 MCG/ML SYR ONE (13:07)
[2016-07-28] MEDS ORDERED: epHEDrine SULFATE 10 MG/ML SYR ONE (13:10)
[2016-07-28] MEDS ORDERED: ONDANSETRON 4 MG/2 ML VIAL ONE (13:25)
[2016-07-28] MEDS ORDERED: DEXAMETHASONE 4 MG/ML VIAL ONE (13:25)
[2016-07-28] MEDS ORDERED: ACETAMINOPHEN 325 MG TAB PO PRN (15:30)
--- NOTE | 2016-07-28 15:53 | PDCARPN ---
Cardiology Progress Note Chief Complaint: sCHF Assessment/Plan: Assessment: 76 y/o M with ischemic CM with most recent measured EF 17%, CAD s/p PCI LAD in 05/25, permanent AF, frequent CHF hospitalizations, here for CHF exacerbation. He was admitted this AM for worsening shortness of breath at rest. #. sCHF: NYHA FC III-IV symptoms he is mildly volume overloaded based on CXR, elevated BNP, and crackles on lung auscultation was to have bi-V ICD implantation today with AVN ablation but found to have LA thrombus on TTE.KIMMY #. AF: permanent Dr. Mack feels RVR is contributing to worsening CHF his Metoprolol dose was just increased at his OV yesterday will keep on tele and evaluate #. LA thrombus he has been on coumadin but there is some concern about medical noncompliance will change to Xarelto 20 mg daily/ R/B/A reviewed #. CKD: at b/l currently #. CAD: no cp currently continue Plavix and med mgmt for CAD 07/28/16 15:53 Subjective: Feels improved. No cp currently. Reviewed/Discussed With: hospitalist Objective: Vital Signs (8 Hrs) Temp Pulse Resp BP Pulse Ox 07/28/16 14:47 107 H 25 H 103/73 93 07/28/16 08:48 97.3 F 103 H 18 98/72 L 97 Intake/Output (24 Hrs) 07/27/16 07/28/16 07/29/16 05:59 05:59 05:59 Other: Weight 83.461 kg Result Diagrams: 07/28/16 10:05 07/28/16 10:05 - Physical Exam Constitutional: no apparent distress, No general pain Eyes: PERRL, anicteric sclera Ears, Nose, Mouth, Throat: moist mucous membranes Cardiovascular: systolic murmur, irregularly irregular Respiratory: reduced air movement, inspiratory crackles Gastrointestinal: normoactive bowel sounds, no tenderness Genitourinary: No serna in urethra Skin: no ulcers, warm Psychiatric: following commands, No anxious ICD10 Worksheet Patient Problems: Problems Problem Status Diagnosed Acute decompensated heart failure Acute Atrial fibrillation Acute Cardiomyopathy Acute Chest pain at rest Acute Congestive heart failure Acute Constipation Acute Nephrolithiasis Acute Ureterolithiasis Acute Acute exacerbation of CHF (congestive heart failure) Acute Atrial fibrillation with rapid ventricular response Acute Chest pain Acute Chest pain in adult Acute Confusion with nonfocal neurological examination Acute Near syncope Acute
--- NOTE | 2016-07-28 16:41 | GHP ---
[f rep st] HISTORY AND PHYSICAL DATE OF ADMISSION: 07/28/2016 CHIEF COMPLAINT: Chest pain and shortness of breath. HISTORY: The patient is a 76-year-old male with multiple recurrent admissions for acute CHF exacerba tion and chest pain. He has a known ejection fraction of only 25%. He follows closely with Dr. Montez polanco. There has been concern about his cognitive ability, as he is clearly noncompliant with medication s although he adamantly denies this. He always presents with an INR near normal despite being on Cou madin, and the digoxin level also often undetectable. He usually presents after acute onset of short ness of breath in the middle of the night. This episode is the exact same as last time. He was awok en at 2 a.m. with acute onset of shortness of breath and chest pain. He states it persisted for 2 ho urs until 4 a.m. when he finally called 911. He describes an anterior chest tightness. He is curren tly chest pain free. He has not had any increased lower extremity edema. PAST MEDICAL HISTORY: 1. Systolic congestive heart failure, ejection fraction 25%. 2. Coronary disease, status post stent to the LAD, May 2016. 3. Chronic kidney disease. 4. Atrial fibrillation. 5. Kidney stones, status post stent. 6. Dementia. PAST SURGICAL HISTORY: Appendectomy. MEDICATIONS: Please see computer record for full detailed list. ALLERGIES: Atorvastatin. SOCIAL HISTORY: No smoking. No alcohol. He lives alone. REVIEW OF SYSTEMS: Complete review of systems obtained. Review of systems is negative regarding con stitutional, HEENT, GI, pulmonary, vascular, , hematology, skin, musculoskeletal, endocrine, psych, except for positive and pertinent negatives as in HPI. FAMILY HISTORY: Reviewed and noncontributory to presenting complaint. PHYSICAL EXAMINATION: GENERAL: Well-developed, well-nourished male in no acute distress. VITAL SIG NS: Blood pressure 154/88, pulse 113, respiration rate 16, saturating 94% on room air, temperature i s 36.9. HEENT: Normal conjunctivae. Pupils equal, round, reactive to light. ENT: Normal ears and nose. Hearing intact. Normal lips. Normal teeth. Oropharynx moist. NECK: Trachea midline. No thyromegaly. CHEST: Normal respiratory effort. LUNGS: Clear to auscultation bilaterally. CARDIOV ASCULAR: Regular rate and rhythm. No murmur. No lower extremity edema. ABDOMEN: Soft, nontender. No hepatosplenomegaly. SKIN: Warm, dry, intact without rash. MUSCULOSKELETAL: No cyanosis or cl ubbing. Strength 5/5 bilateral upper and lower extremities. NEURO: Cranial nerves intact. Normal sensation to light touch. PSYCH: Alert and oriented x3. Normal mood and affect. Normal judgment a nd insight. Normal memory. LABS: White count 9.0, hematocrit 47, platelets 218. Sodium 144, potassium 4.5, chloride 110, bicar b 19, BUN 20, creatinine 1.2, glucose 119. LFTs are normal. Troponin 0.105. BNP is 16,000. Lipase is 202. INR is 1.37. Digoxin level 0.6. EKG interpreted by me. My personal interpretation is atrial fibrillation with a heart rate of 114. Suspect ST changes relatively stable. Chest x-ray shows mild pulmonary edema. Echocardiogram shows severely dilated left atrium with a pos sible mobile left atrial mass. ASSESSMENT/PLAN: 1. Recurrent congestive heart failure exacerbation, systolic ejection fraction 25%. Suspect this is due to medication noncompliance. He has received a dose of IV Lasix in the emergency room and now a ppears to be approaching baseline. We will resume his usual medications and monitor. 2. Left atrial thrombus. This was found on initial echo and Cardiology has since brought him to [facility] and confirmed. This is likely due to his warfarin noncompliance. I have spoken with Laurita Flanagan, who intends to switch him to Xarelto. Hopefully, this will improve his compliance. 3. Coronary artery disease, status post recent stent in May with triple therapy with aspirin, P lavix and warfarin. His greater than 30 days out from his stent, so aspirin can be discontinued and he is to continue on Plavix and anticoagulation only. We will continue to follow troponins. 4. Chronic kidney disease. Currently at baseline creatinine of 1.2. 5. Atrial fibrillation. We will continue metoprolol. 6. Cognitive issues. Neurology has seen him in consultation in the past. They did feel he had a mi ld dementia. It is unclear whether this is truly significant, however, because at times he has a lakhwinder y good memory for recent details. There has been some question of malingering. Unclear what his mot ivations are. His story is inconsistent regarding his home compliance and what we are seeing when he presents. We will have speech therapy see him for a repeat of formal cognitive evaluation as it has not been done in some time. I have also asked Tamie Guidry of Psychiatry to see him to see whether th ere may be some underlying psych contribution to his poor compliance. We did do a tox screen in the past that was unremarkable. CODE STATUS: Full. ADMISSION STATUS: 1. We will admit to inpatient as with this left atrial thrombus we will definitely need further obse rvation to ensure stability and compliance is obtained at the time of hospital discharge. 2. DVT prophylaxis. He is high risk. Cardiology likely to put him on Xarelto soon. /[id number]/MODL
[2016-07-28] MEDS: RIVAROXABAN 10 MG TAB PO SCH (18:18)
[2016-07-28] MEDS: DIGOXIN 125 MCG TAB PO SCH (20:09)
[2016-07-29 04:38] LABS: % IMMATURE GRANULYOCYTES 0.1 % (0.0-1.1); ABSOLUTE IMMATURE GRANULOCYTES 0.01 10^3/uL (0.00-0.10); ADD DIFF? NO; ADD MORPH? NO; ADD SCAN? NO; ATYPICAL LYMPHOCYTE FLAG 0 (0-99); FRAGMENT RBC FLAG 0 (0-99); HEMATOCRIT 42.8 % (40.0-51.0); HEMOGLOBIN 14.3 g/dL (13.7-17.5); LEFT SHIFT FLG 0 (0-99); LIPEMIA HEMOLYSIS FLAG 80 (0-99); MEAN CELL HEMOGLOBIN 31.2 pg (27.9-34.1); MEAN CELL HEMOGLOBIN CONCENTR. 33.4 g/dL (32.4-36.7); MEAN CELL VOLUME 93.4 fL (81.5-99.8); MEAN PLATELET VOLUME 9.6 fL (8.7-11.7); PLATELET CLUMPS FLAG 0 (0-99); PLATELET COUNT 164 10^3/uL (150-400); RED BLOOD CELL COUNT 4.58 10^6/uL (4.40-6.38); RED CELL DISTRIBUTION WIDTH 14.3 % (11.5-15.2)
[2016-07-29 05:04] LABS: ANION GAP 8 mEq/L (8-16); CALCIUM 8.7 mg/dL (8.5-10.4); CARBON DIOXIDE 22 mEq/l (22-31); CHLORIDE 110 mEq/L (97-110); CHOLESTEROL 138 mg/dL (140-220); CHOLESTEROL/HDL RATIO 5.31 RATIO (1.00-4.97); CREATININE 1.3 mg/dL (0.7-1.3); GLOMERULAR FILTRATION RATE 54; GLUCOSE 91 mg/dL (70-100); HIGH DENSITY LIPOPROTEIN 26 mg/dL (40-65); LDL/HDL RATIO 3.19 RATIO (1.00-3.64); LOW DENSITY LIPOPROTEIN 83 mg/dL (80-100); NON-HIGH DENSITY LIPOPROTEIN 112 mg/dL (90-129); POTASSIUM 4.2 mEq/L (3.5-5.2); SODIUM 140 mEq/L (134-144); TRIGLYCERIDE 148 mg/dL (40-150); VERY LOW DENSITY LIPOPROTEINS 29 mg/dL (8-25)
--- NOTE | 2016-07-29 06:33 | CPEKG ---
Heart Rate: 94 RR Interval: 638 QRSD Interval: 166 QT Interval: 412 QTC Interval: 516 QRS [place]: 70 T Wave [place]: 108 EKG Severity - ABNORMAL ECG - EKG Impression: ATRIAL FIBRILLATION, V-RATE 77-107 EKG Impression: MULTIFORM VENTRICULAR PREMATURE COMPLEXES EKG Impression: RBBB AND LPFB EKG Impression: BORDERLINE ST DEPRESSION, LATERAL LEADS Electronically Signed By: Jon Sarmiento 30-Jul-2016 13:10:59
[2016-07-29] MEDS: CLOPIDOGREL BISULFATE 75 MG TAB PO SCH (08:39)
[2016-07-29] MEDS: SPIRONOLACTONE 25 MG TAB PO SCH (08:40)
[2016-07-29] MEDS: ALLOPURINOL 300 MG TAB PO SCH (08:41)
[2016-07-29] MEDS: LOSARTAN POTASSIUM 25 MG TAB PO SCH (08:41)
[2016-07-29] MEDS: FUROSEMIDE 40 MG TAB PO SCH (08:41)
[2016-07-29] MEDS ORDERED: METOPROLOL SUCCINATE XR 100 MG TAB PO SCH (09:00)
--- NOTE | 2016-07-29 12:17 | SOAPPROG ---
[facility] Progress Note Assessment/Plan: Assessment: 76 y/o man with CAD s/p previous stents most recently LAD PCI in 05/25 with chronic ischemic systolic CHF with LVEF 17%, moderate AI and severe MR, permanent afib with RVR. He is doing better but not ready for discharge yet. We have corrected all aspects but his fast afib and his valvular issues. He is not a VAD, OHT or multivalvuar replacement candidate. REC: 1)increase Toprol XL to 150mg PO qday (give extra 50mg PO now). 2)rest of meds without changes. 3)repeat labs in AM (07/30): CBC, BMP and BNP level 4)if afib rate < 90bpm most of time and feels well, can discharge home Monday. 5)I have scheduled f/u [facility] Tuesday 08/01 with me. 6)planned AV nicola ablation and BIVAICD in four weeks with Dr. Aguillon. Thanks. 07/29/16 12:14 Subjective: feels better. Denies CP, PND or orthopnea. Walked hallway with PT with mild STANLEY. No dizziness. Objective: Vital Signs Temp Pulse Resp BP Pulse Ox 37.2 C 82 14 109/62 92 07/29/16 10:55 07/29/16 10:55 07/29/16 10:55 07/29/16 10:55 07/29/16 10:55 Laboratory Results 07/29/16 04:20 07/29/16 04:20 07/28/16 07/29/16 07/30/16 05:59 05:59 05:59 Intake Total 2290 Output Total 1800 Balance 490 PT 16.9 SEC (12.0-15.0) H 07/28/16 10:05 INR 1.37 (0.83-1.16) H 07/28/16 10:05 Physical Exam - Physical Exam EENT: PERRL/EOMI Neck: non-tender Respiratory: lungs clear Cardiac/Chest: gallop, JVD (JVP to 8cm.), systolic murmur, irregularly irregular Peripheral Pulses: 2+: carotid (R), carotid (L), femoral (R), femoral (L), dorsalis-pedis (R), dorsalis-pedis (L) Abdomen: normal bowel sounds, non-tender, soft, No organomegaly, No ascites Skin: warm/dry Extremities: No pedal edema Neuro/Psych: alert ICD10 Worksheet Patient Problems: Problems Problem Status Diagnosed Acute decompensated heart failure Acute Atrial fibrillation Acute Cardiomyopathy Acute Chest pain at rest Acute Congestive heart failure Acute Constipation Acute Nephrolithiasis Acute Ureterolithiasis Acute Acute exacerbation of CHF (congestive heart failure) Acute Atrial fibrillation with rapid ventricular response Acute Chest pain Acute Chest pain in adult Acute Confusion with nonfocal neurological examination Acute Near syncope Acute
[2016-07-29] MEDS ORDERED: METOPROLOL SUCCINATE XR 50 MG TAB PO ONE (12:30)
--- NOTE | 2016-07-29 16:32 | HOSPPROG ---
Hospitalist Progress Note Assessment/Plan: * CHF - EF 17% - acute on chronic systolic -recurrent admissions for medication non-compliance -cognitive testing by ST completely normal -patient now admits to being "creative" with his meds -counselled at length regarding life threatening nature of his non-compliance -s/p IV Lasix -continue Cozaar, PO Lasix, Aldactone -previously decline AICD -now agreeable but has new LA clot - needs 1 month anticoag before procedure -bi-V ICD in [address] Aguillon planned -consider life vest * Rapid afib -increasing metoprolol per Dr. 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 but INR < 1.5 with each presentation -change to Xarelto for improved compliance * CAD/stent - May 2016 -continue ASA/Plavix -chronic low level troponin elevation * Hyperlipidemia - atorvastatin allergy * CKD - baseline creatinine 1.2 Subjective: Feels good Objective: Vital Signs Temp Pulse Resp BP Pulse Ox 37.2 C 94 14 109/62 92 07/29/16 10:55 07/29/16 12:27 07/29/16 10:55 07/29/16 12:27 07/29/16 10:55 Laboratory Results 07/29/16 04:20 07/29/16 04:20 07/28/16 07/29/16 07/30/16 05:59 05:59 05:59 Intake Total 2290 Output Total 1800 475 Balance 490 -475 PT 16.9 SEC (12.0-15.0) H 07/28/16 10:05 INR 1.37 (0.83-1.16) H 07/28/16 10:05 d/w Laurita HENDERSON regarding strategies for improved compliance EKG viewed, my personal interpretation is: afib, rate 94 - Physical Exam Constitutional: no apparent distress, appears nourished, not in pain Cardiovascular: regular rate and rhythym, no murmur, rub, or gallop Respiratory: no respiratory distress, no rales or rhonchi, clear to auscultation Gastrointestinal: normoactive bowel sounds, soft, non-tender abdomen, no palpable masses Skin: no rashes or abrasions, no fluctuance, no induration Neurologic: AAOx3, sensation intact bilaterally Psychiatric: interacting appropriately, not anxious, not encephalopathic, thought process linear ICD10 Worksheet Patient Problems: Problems Problem Status Diagnosed Acute decompensated heart failure Acute Atrial fibrillation Acute Cardiomyopathy Acute Chest pain at rest Acute Congestive heart failure Acute Constipation Acute Nephrolithiasis Acute Ureterolithiasis Acute Acute exacerbation of CHF (congestive heart failure) Acute Atrial fibrillation with rapid ventricular response Acute Chest pain Acute Chest pain in adult Acute Confusion with nonfocal neurological examination Acute Near syncope Acute
[2016-07-29] MEDS: RIVAROXABAN 10 MG TAB PO SCH (18:46)
[2016-07-29] MEDS: DIGOXIN 125 MCG TAB PO SCH (20:57)
[2016-07-30] MEDS ORDERED: TEMAZEPAM 15 MG CAP PO PRN (00:30)
[2016-07-30 04:38] LABS: HEMATOCRIT 42.6 % (40.0-51.0); HEMOGLOBIN 14.4 g/dL (13.7-17.5); MEAN CELL HEMOGLOBIN 32.2 pg (27.9-34.1); MEAN CELL HEMOGLOBIN CONCENTR. 33.8 g/dL (32.4-36.7); MEAN CELL VOLUME 95.3 fL (81.5-99.8); RED BLOOD CELL COUNT 4.47 10^6/uL (4.40-6.38)
[2016-07-30 04:51] LABS: ANION GAP 10 mEq/L (8-16); CALCIUM 9.1 mg/dL (8.5-10.4); CARBON DIOXIDE 24 mEq/l (22-31); CHLORIDE 106 mEq/L (97-110); CREATININE 1.4 mg/dL (0.7-1.3); GLOMERULAR FILTRATION RATE 49; GLUCOSE 93 mg/dL (70-100); POTASSIUM 4.4 mEq/L (3.5-5.2); SODIUM 140 mEq/L (134-144)
[2016-07-30] MEDS: ONDANSETRON 4 MG/2 ML VIAL IVP PRN ×2 (08:28→21:32)
[2016-07-30] MEDS: SPIRONOLACTONE 25 MG TAB PO SCH (08:32)
[2016-07-30] MEDS: ALLOPURINOL 300 MG TAB PO SCH (08:32)
[2016-07-30] MEDS: CLOPIDOGREL BISULFATE 75 MG TAB PO SCH (08:32)
[2016-07-30] MEDS: LOSARTAN POTASSIUM 25 MG TAB PO SCH (08:33)
[2016-07-30] MEDS: METOPROLOL SUCCINATE XR 50 MG TAB PO SCH (08:33)
[2016-07-30] MEDS: FUROSEMIDE 40 MG TAB PO SCH (08:34)
--- NOTE | 2016-07-30 08:47 | HOSPPROG ---
Hospitalist Progress Note Assessment/Plan: #Acutely decompensated systolic HF (EF 17%) -due to med noncompliance -agreeable to AICD now, but has to be anticoagulated 4 weeks with new LV thrombus before procedure -cont ARB, lasix, digoxin, BB -at high risk for sudden cardiac . Cards had lengthy conversation with him and declines vest at this time #LV thrombus -Xarelto #Permanent a fib -BB, digoxin -Xarelto #CAD -ASA, BB, Plavix. Not currently on statin bc patient stopped it. Will readdress outpatient #CONSTANTIN: due to diuresis. Cont current lasix dose #Diet: cardiac #DVT ppx: on Xarelto Disp: plan for DC in morning Time spent on visit: 60 min in which >50% spent counseling on medication compliance, treatment plan Subjective: CP and SOB this morning Objective: Vital Signs Temp Pulse Resp BP Pulse Ox 36.8 C 80 16 115/62 96 07/30/16 07:56 07/30/16 08:33 07/30/16 07:56 07/30/16 08:33 07/30/16 07:56 Laboratory Results 07/30/16 03:47 07/30/16 03:47 07/29/16 07/30/16 07/31/16 05:59 05:59 05:59 Intake Total 2290 700 Output Total 1800 1425 100 Balance 490 -725 -100 PT 16.9 SEC (12.0-15.0) H 07/28/16 10:05 INR 1.37 (0.83-1.16) H 07/28/16 10:05 - Physical Exam Constitutional: no apparent distress Eyes: PERRL Ears, Nose, Mouth, Throat: moist mucous membranes Cardiovascular: regular rate and rhythym, edema (trace LE edema) Respiratory: no respiratory distress, no rales or rhonchi Gastrointestinal: normoactive bowel sounds, soft, non-tender abdomen Genitourinary: no bladder fullness Skin: warm Musculoskeletal: full muscle strength Neurologic: AAOx3 Psychiatric: anxious ICD10 Worksheet Patient Problems: Problems Problem Status Diagnosed Acute decompensated heart failure Acute Atrial fibrillation Acute Cardiomyopathy Acute Chest pain at rest Acute Congestive heart failure Acute Constipation Acute Nephrolithiasis Acute Ureterolithiasis Acute Acute exacerbation of CHF (congestive heart failure) Acute Atrial fibrillation with rapid ventricular response Acute Chest pain Acute Chest pain in adult Acute Confusion with nonfocal neurological examination Acute Near syncope Acute
--- NOTE | 2016-07-30 10:35 | PDCARPN ---
Cardiology Progress Note Chief Complaint: Continuation of shortness of breath and fatigue Assessment/Plan: Assessment: 76-year-old male with history of CAD status post PCI of LAD/2015, permanent atrial fibrillation ischemic cardiomyopathy, and history medication noncompliance. Admitted hospital worsening shortness of rest, admitted for CHF exacerbation. Noted to have elevated troponin 16,100 on admission. Limited Echocardiogram (07/28/2016) showed severely dilated LV [id number] concentric LVH severe global hypokinesis, EF decreased to 20%, moderate to severe MR, mild TR, moderate AI, RVSP 47 mm Hg. Was plan to undergo Bi V AICD implantation on 07/28/2016, KIMMY noted left atrial appendage thrombus. Patient noted to have long history of subtherapeutic INRs, recently had been switched to Xarelto warfarin for hopefully better medication compliance. AV node ablation/Bi V AICD procedure delayed for a minimum of 4 weeks. IV diuresed and switch back to home dose of Lasix. Increased Toprol XL to 150 mg q.day yesterday for better rate control AFib. Patient reporting overnight no chest pain pressure or pressure. Troponins have been flat since hospital admission. Denies of any palpitations or lightheadedness. Does report mild shortness of breath. [place] [id number]. Continues cardiac technologist showing AFib, occasional premature ventricular contraction, no significant pauses noted. Plan: 1. Systolic heart failure, NYHA class III-IV: Improvement in symptoms with better rate control with Toprol. No change in current dosage. Continue on Cozaar, Aldactone, and Lasix dosage. Plan on Bi V AICD implantation in the next 4 weeks. 2. Permanent AF: Better rate control on higher dose of Toprol and digoxin, no change at this time. Noted LA thrombus on KIMMY, history of noncompliance he on warfarin, switched over to Xarelto. AV nicola ablation to be done at the same time Bi V AICD implanted 3. CAD: Patient denies any chest pressure, history of previous stent to the LAD 05/2016. The troponin since hospital admission, probably due worsening systolic CHF. In greater than 30 days since PCI, ASA discontinued due to being on Xarelto, continue on clopidogrel. Mildly flat elevated troponin to hospitalization. Repeat troponin level today to make sure downward decline. Reviewing our office notes, patient had been on simvastatin in the past, for our outpatient notes patient had self discontinued. When asked, patient is uncertain why he stopped it. He has history of allergy to atorvastatin, will revisit with her starting statin therapy as an outpatient. 4. Renal insufficiency: mildly elevated creatinine today of 1.4, probable due to diuresis, no changes at this time, but will monitor as an outpatient. 5. LA thrombus: Patient with history of noncompliance he on warfarin therapy, recently switched to Xarelto for hopes of better compliance. Re-evaluate in 4 weeks. 6. Risk of sudden cardiac : With patient's history of CAD, dilated cardiomyopathy with EF of less than 35%, does place him at high risk sudden cardiac . AICD implantation held due to recent LA thrombus. Patient does meet criteria life vest until AICD implantation can be done. Long discussion with patient today with recommendation of having life vest as outpatient until AICD implantation can be done. He verbalizes understanding risks and benefits, does not want to have life vest fitted at this time, if he changes his mind, he will notify our office. Pending on troponin level, patient could potentially be discharged today. He has follow-up office visit set with Dr. Bowling on Monday. 07/30/16 10:33 Subjective: Patient reports improvement in his dyspnea on exertion, but still experiences shortness of breath after walking 20-30 feet. Denies of any chest pain or pressure. Denies of any palpitations. Reviewed/Discussed With: hospitalist (Dr Valencia), other (Dr Jensen) Objective: Vital Signs (8 Hrs) Temp Pulse Resp BP Pulse Ox 07/30/16 08:33 80 115/62 07/30/16 07:56 36.8 C 80 16 115/62 96 07/30/16 04:00 36.8 C 55 L 20 107/70 94 Intake/Output (24 Hrs) 07/29/16 07/30/16 07/31/16 05:59 05:59 05:59 Intake Total 2290 700 Output Total 1800 1425 100 Balance 490 -725 -100 Intake: Oral (ml) 1540 700 IV Infused (ml) 750 Ns 1,000 ml @ TKO IV 750 ONCALL ONE Rx#:[id number] Output: Urine (ml) 1800 1425 100 Urinal 1300 1425 100 Catheter 500 Other: Weight 83.461 kg 83.2 kg Output Comment Urinal It was hard to tell if it was brown or dark red. Catheter catheter placed in union laborer for procedure and removed prior to xfer to unit Number of Voids Urinal 3 1 Result Diagrams: 07/30/16 03:47 07/30/16 03:47 Cardiac Labs: Cardiac Lab Results (72 Hrs) 07/29/16 07/28/16 04:20 18:05 Troponin I 0.110 H 0.082 H - Physical Exam Constitutional: WDWN Ears, Nose, Mouth, Throat: moist mucous membranes Cardiovascular: no murmurs, systolic murmur (2 to 3/6 left sternal border), irregularly irregular (AFib with normal rate.), jugular vein distention (5-6 cm above sternal at 45 degree angle), pulses symmetric bilat, No carotid bruit Peripheral Pulses: 1+: dorsalis-pedis (R), dorsalis-pedis (L), 2+: carotid (R), carotid (L) Respiratory: other (Lungs diminished in bases bilateral, no rhonchi rales or wheezes noted.) Gastrointestinal: normoactive bowel sounds Skin: warm, no edema Neurologic: AAOx3 Psychiatric: cooperative, anxious ICD10 Worksheet Patient Problems: Problems Problem Status Diagnosed Acute decompensated heart failure Acute Atrial fibrillation Acute Cardiomyopathy Acute Chest pain at rest Acute Congestive heart failure Acute Constipation Acute Nephrolithiasis Acute Ureterolithiasis Acute Acute exacerbation of CHF (congestive heart failure) Acute Atrial fibrillation with rapid ventricular response Acute Chest pain Acute Chest pain in adult Acute Confusion with nonfocal neurological examination Acute Near syncope Acute
[2016-07-30] MEDS: RIVAROXABAN 10 MG TAB PO SCH (19:01)
[2016-07-30] MEDS: DIGOXIN 125 MCG TAB PO SCH (21:41)
[2016-07-31 04:35] LABS: CARBON DIOXIDE 22 mEq/l (22-31); CHLORIDE 107 mEq/L (97-110); CREATININE 1.5 mg/dL (0.7-1.3); GLOMERULAR FILTRATION RATE 45; GLUCOSE 93 mg/dL (70-100); MAGNESIUM 1.9 mg/dL (1.6-2.3); SODIUM 139 mEq/L (134-144)
[2016-07-31 04:37] LABS: ANION GAP 10 mEq/L (8-16); POTASSIUM 4.3 mEq/L (3.5-5.2)
[2016-07-31] MEDS: CLOPIDOGREL BISULFATE 75 MG TAB PO SCH (09:09)
[2016-07-31] MEDS: ALLOPURINOL 300 MG TAB PO SCH (09:09)
[2016-07-31] MEDS: METOPROLOL SUCCINATE XR 50 MG TAB PO SCH (09:15)
[2016-07-31] MEDS: LOSARTAN POTASSIUM 25 MG TAB PO SCH (09:17)
[2016-07-31] MEDS: FUROSEMIDE 40 MG TAB PO SCH (09:18)
[2016-07-31] MEDS: SPIRONOLACTONE 25 MG TAB PO SCH (09:18)
[2016-07-31 11:06] VITALS: O2SAT 90
[2016-07-31 12:52] VITALS: BP 107/69; PULSE 70; RESP 16; TEMP 98.6
--- NOTE | 2016-07-31 17:17 | GDS ---
[f rep st] DISCHARGE SUMMARY DISCHARGE DIAGNOSES: 1. Acutely decompensated systolic heart failure EF 17% 2. Left atrial thrombus. 3. Permanent atrial fibrillation. 4. Coronary artery disease. 5. Acute kidney injury. 6. Hypotension. CONSULTATIONS: Cardiology. PROCEDURES: Echocardiogram 07/28/2016: Limited echo. The LV is severely dilated. EF is 20%. There is severe apical wall akinesis and then an LA mass was noted. HPI: Patient is a 76-year-old male with known heart failure and CAD with multiple admissions recently for CHF exacerbation and chest pain. He had a known ejection fraction of 25%. He follows with Dr. Mack. There has been some concern about his cognitive ability as he is clearly noncompliant with his medications, although he denies this. He presented day of admission with acute onset shortness of breath in the middle of the night. Also with chest pain that lasted approximately 2 hours and then he finally called 9-1-1. The pain was tight in nature. He did not endorse PND, pillow orthopnea, or lower extremity edema. HOSPITAL COURSE BY PROBLEM: 1. Acutely decompensated systolic heart failure, NYH class 3-4: Patient was evaluated by Cardiology. TTE showed decreased EF to 20% with moderate to severe MR,TR, moderate AI. Was to undergo BiV AICD implantation, but, KIMMY showed LA thrombus. IV diuresis while here and Toprol-XL was increased to 150 mg daily. Had a mild bump in his creatinine day of discharge, so rec take only 40 mg of Lasix tomorrow and then follow up with Dr. Mack. 2. Permanent atrial fibrillation: increased Toprol to 150 mg and digoxin. Changed to Xarelto since warfarin noncompliant. Plan for AV nicola ablation to be done at the same time as Bi V AICD implantation. 3. CAD: no CP. LAD stent May 2016. Cont Xarelto, BB. He stopped his statin. Reconsider as outpatient. 4. CONSTANTIN: Creatinine bumped to 1.4-1.5. He was taking 60 of Lasix. Rec only take 40 tomorrow and then follow up with Dr. Mack with a repeat BMP. 5. LA thrombus: noncompliant with warfarin. Switched to Xarelto x 4 weeks. 6. Risks of sudden cardiac : Given complicated cardiac history of CAD, dilated cardiomyopathy, and reduced EF, this does place him at a high risk of cardiac . Cardiology had several extensive conversations regarding a LifeVest until AICD could be implanted, but he declined. 7. Mild hypotension: had a systolic of 88 this afternoon with some dizziness. The symptoms resolved and most recent blood pressure was 107. His Toprol was just uptitrated to 150 yesterday. I would recommend repeat blood pressure in clinic tomorrow and determine if a dose reduction is needed. 8. Health care maintenance: Query if patient has the cognitive ability to manage all these medications. I offered a home health nurse to help assist. He states that he has 2 nurses who live by him who assist with those medications. However, the concern is that he is noncompliant given he has had undetectable digoxin and low INRs when states was compliant with warfarin and digoxin. Would readdress this as an outpatient. DISPOSITION: Patient is stable for discharge, MEDICATIONS: New medications: 1. Toprol-XL 150 mg daily. 2. Xarelto 20 mg daily. 3. Recommend patient take only 40 of Lasix tomorrow until he gets a repeat BMP with Dr. Mack. FOLLOWUP: With Dr. Mack on Monday, August 01. Time spent on discharge 60 minutes, of which greater than 50% was spent on coordinating, explaining medications to the patient. /[id number]/MODL MTDD
--- NOTE | 2016-08-24 15:54 | ECHO ---
[id number] + + [address] : : [place] [address] : : [phone] + + Transesophageal Echocardiographic Report + + :Name: BRIA MALONE Esther Study Date: 07/28/2016 12:43 PM : : Hospital Admission Number: [id number] : :: 1940 Gender: Male : :Age: 76 yrs Race: WH,UN,U : :Reason For Study: Eval for clot : + + Atria Echodensity on ridge entering LA appendage suggestive of thrombus. Mitral Valve The mitral valve is normal in structure and function. Aortic Valve The aortic valve is normal in structure and function. Pericardium There is no pericardial effusion. Conclusion A 2D transesophageal echocardiogram with color flow Doppler was performed. Echodensity on ridge entering LA appendage suggestive of thrombus. The aortic valve is normal in structure and function. Final Reading Physician: Marisol Persaud signed on 08/24/2016 03:52 PM Ordering Physician: Margareth North Performed By: Saurabh Aguillon MD
== END 2016-07-31 15:58 | disposition home or self-care (01) | DRG 292 ==
LOC: EDUNIT# → F2N 08:26 → F2W 07-29 10:48
PROVIDERS: ADMIT Internal Medicine; ATTEND Internal Medicine
DX: I50.21 Acute systolic (congestive) heart failure (principal); N17.9 Acute kidney failure, unspecified; I51.3 Intracardiac thrombosis, not elsewhere classified; T45.516A Underdosing of anticoagulants, initial encounter; I48.2 Chronic atrial fibrillation; I25.10 Atherosclerotic heart disease of native coronary artery without angina pectoris; I95.9 Hypotension, unspecified; I11.0 Hypertensive heart disease with heart failure; Z96.651 Presence of right artificial knee joint; Z53.09 Procedure and treatment not carried out because of other contraindication
CPT/HCPCS: 92523-GN; 96374; 97161-GP; 97165-GO; G8987-GO-CI; G8988-GO-CI; G8989-GO-CI; J0690; J1100; J1644; J2370; J2405; J3010; Q9967

== ENCOUNTER 2016-08-06 15:29 | Observation (INO) | payer OTHER ==
[2016-08-06] MEDS ORDERED: NS 1,000 ML IV ONE (15:39)
--- NOTE | 2016-08-06 15:53 | EDPHY ---
H & P Time Seen by Provider: 08/06/16 15:30 HPI/ROS: CHIEF COMPLAINT: Hematuria HISTORY OF PRESENT ILLNESS: Patient is a 76-year-old male who comes to the emergency department complaining of hematuria. He was supposed to go to [facility] but when EMS arrived they noticed that he was in atrial fibrillation and decided to bring him here. However it turns out that the atrial fibrillation is permanent and chronic and that he is currently on Plavix and Xarelto. He denies chest pain or shortness of breath. He denies having any dysuria or pelvic pain. No fevers. He did have a the left ureteral stent placed in May for kidney stones. He follows with Dr. Puente and Dr. Becky Hernandez. He was admitted 2 weeks ago for heart failure and found to have a left atrial thrombus and a ejection fraction of 20%. Because of this thrombus he was switched from Coumadin to Xarelto. He had been noncompliant on the Coumadin. He states that he called the nurse advice line to ask about the hematuria he had been experiencing for the last 2 days and they advised him to come into the [facility] to be seen. REVIEW OF SYSTEMS: Constitutional: denies: chills, fever, recent illness, recent injury EENTM: denies: blurred vision, double vision, nose congestion Respiratory: denies: cough, shortness of breath Cardiac: denies: chest pain, irregular heart rate, lightheadedness, palpitations Gastrointestinal/Abdominal: denies: abdominal pain, diarrhea, nausea, vomiting, blood streaked stools Genitourinary: See HPI Musculoskeletal: denies: joint pain, muscle pain Skin: denies: lesions, rash, jaundice, bruising Neurological: denies: headache, numbness, paresthesia, tingling, dizziness, weakness Hematologic/Lymphatic: denies: blood clots, easy bleeding, easy bruising Immunologic/allergic: denies: HIV/AIDS, transplant EXAM: GENERAL: Well-appearing, well-nourished and in no acute distress. HEAD: Atraumatic, normocephalic. EYES: Pupils equal round and reactive to light, extraocular movements intact, sclera anicteric, conjunctiva are normal. ENT: TMs normal, nares patent, oropharynx clear without exudates. Moist mucous membranes. NECK: Normal range of motion, supple without lymphadenopathy or JVD. LUNGS: Breath sounds clear to auscultation bilaterally and equal. No wheezes rales or rhonchi. HEART: Regular rate and rhythm without murmurs, rubs or gallops. ABDOMEN: Soft, nontender, normoactive bowel sounds. No guarding, no rebound. No masses appreciated. BACK: No CVA tenderness, no spinal tenderness, step-offs or deformities EXTREMITIES: Normal range of motion, no pitting or edema. No clubbing or cyanosis. NEUROLOGICAL: Cranial nerves II through XII grossly intact. Normal speech, normal gait. 5/5 strength, normal movement in all extremities, normal sensation PSYCH: Normal mood, normal affect. SKIN: Warm, dry, normal turgor, no visible rashes or lesions. Source: Patient, EMS Exam Limitations: No limitations - Personal History Tetanus Vaccine Date: 09/2009 - Medical/Surgical History Hx Asthma: No Hx Chronic Respiratory Disease: No Hx Diabetes: No Hx Cardiac Disease: Yes Hx Renal Disease: Yes Hx Cirrhosis: No Hx Alcoholism: No Hx HIV/AIDS: No Hx Splenectomy or Spleen Trauma: No Other PMH: 1. Chronic systolic heart failure the chest Ibis fraction of 25%. 2. Coronary artery disease status post stenting on 05/25/2016. 3. Chronic atrial fibrillation. 4. Hypertension. 5. Chronic renal insufficiency. 6. Nephrolithiasis with ureteral stent placement May of 2016. 7. Gout. 8. Right total knee arthroplasty. 9. Appendectomy - Family History Significant Family History: No pertinent family hx - Social History Smoking Status: Never smoked Alcohol Use: Sober Drug Use: None Constitutional: Initial Vital Signs Temperature (C) 36.5 C 08/06/16 15:51 Heart Rate 81 08/06/16 15:51 Respiratory Rate 20 08/06/16 15:51 Blood Pressure 119/85 H 08/06/16 15:51 O2 Sat (%) 96 08/06/16 15:51 O2 Delivery Mode Room Air Allergies/Adverse Reactions: atorvastatin calcium [From Lipitor] Allergy (Severe, Verified 07/22/16 04:13) Other-Enter Comments Home Medications: Medication Instructions Recorded Allopurinol [Allopurinol 300 MG 300 mg PO DAILY 06/01/16 (RX)] Aspirin EC [Aspirin EC 81 mg (*)] 81 mg PO DAILY 06/01/16 Clopidogrel Bisulfate [Plavix (*)] 75 mg PO DAILY 06/01/16 Acetaminophen [Tylenol 325mg (*)] 325 mg PO Q4HRS PRN 07/28/16 Digoxin [Lanoxin 125 mcg (RX)] 125 mcg PO HS #30 tab 07/30/16 Furosemide [Lasix 40 MG (*)] 60 mg PO DAILY #45 tab 07/30/16 Spironolactone [Aldactone 25 MG 12.5 mg PO DAILY #30 tab 07/30/16 (*)] Losartan Potassium [Cozaar 25 mg 12.5 mg PO DAILY #30 tab 07/31/16 (*)] Metoprolol Succinate Xr [Toprol Xl 50 mg PO TIDMEAL 08/06/16 50 mg (*)] Rivaroxaban [Xarelto 15mg (*)] 15 mg PO DAILY@1800 08/06/16 Medical Decision Making - Diagnostics EKG Interpretation: An EKG obtained and was read and documented in trace view. Please see trace view for full reading and report. Atrial fibrillation, no acute ischemic changes, similar to previous ED Course/Re-evaluation: The patient is somewhat confused about his history. Initially he told me that the stent was placed this week and that he spoke with Dr. Puente about his hematuria. On my 2nd interview the patient Denies ever saying this. 5:45 p.m. I discussed the case with Dr. Becky Hernandez. He recommends hydration of the patient is safely as possible considering his CHF and minimal activity to try and help the bleeding to stop. He was asking about the options for stopping Xarelto. I will also discussed the case with Cardiology. 6:00 p.m. I discussed the case with Dr. Reynolds to agrees with the plan and definitely does not want to stop his Xarelto. He will follow up with the patient early next week. He will also follow up with Urology. 6:30 p.m. the patient has nitrates and white cells in his urine as well. I will treat him for urinary tract infection. This is concerning in the setting of a stent in his ureter. On re-evaluation he does complain of mild left flank pain. He is slightly tachycardic but this is in the setting of atrial fibrillation. His blood pressures remained stable. I will admit him to the hospital and start him on IV antibiotics. I spoke with Dr. Dale Monge who agrees and have paged Dr. Hernandez again. 6:40 p.m. I discussed the case with Dr. Hernandez agrees with admission and will consult if needed. Differential Diagnosis: Partial list of the Differential diagnosis considered include but were not limited to; hematuria, anticoagulation, infection and although unlikely based on the history and physical exam, I also considered aneurysm, fistula, stone. I discussed these differential diagnoses and the plan with the patient as well as the usual and expected course. The patient understands that the diagnosis is provisional and that in medicine we are not always correct and that further workup is often warranted. Usual and customary warnings were given. All of the patient's questions were answered. The patient was instructed to return to the emergency department should the symptoms at all worsen or return, otherwise to followup with the physician as we discussed. - Data Points Laboratory Results: Laboratory Results 08/06/16 15:42 08/06/16 15:42 08/06/16 08/06/16 17:58 15:42 WBC 7.58 10^3/uL (3.80-9.50) RBC 4.90 10^6/uL (4.40-6.38) Hgb 15.5 g/dL (13.7-17.5) Hct 45.2 % (40.0-51.0) MCV 92.2 fL (81.5-99.8) MCH 31.6 pg (27.9-34.1) MCHC 34.3 g/dL (32.4-36.7) RDW 13.9 % (11.5-15.2) Plt Count 205 10^3/uL (150-400) MPV 10.0 fL (8.7-11.7) Neut % (Auto) 66.2 % (39.3-74.2) Lymph % (Auto) 24.8 % (15.0-45.0) Dickens % (Auto) 6.5 % (4.5-13.0) Eos % (Auto) 1.6 % (0.6-7.6) Baso % (Auto) 0.8 % (0.3-1.7) Nucleat RBC Rel Count 0.0 % (0.0-0.2) Absolute Neuts (auto) 5.02 10^3/uL (1.70-6.50) Absolute Lymphs (auto) 1.88 10^3/uL (1.00-3.00) Absolute Monos (auto) 0.49 10^3/uL (0.30-0.80) Absolute Eos (auto) 0.12 10^3/uL (0.03-0.40) Absolute Basos (auto) 0.06 10^3/uL (0.02-0.10) Absolute Nucleated RBC 0.00 10^3/uL (0-0.01) Immature Gran % 0.1 % (0.0-1.1) Immature Gran # 0.01 10^3/uL (0.00-0.10) PT 20.8 H SEC (12.0-15.0) INR 1.78 H (0.83-1.16) APTT 44.8 H SEC (23.0-38.0) Sodium 140 mEq/L (134-144) Potassium 3.9 mEq/L (3.5-5.2) Chloride 106 mEq/L (97-110) Carbon Dioxide 22 mEq/l (22-31) Anion Gap 12 mEq/L (8-16) BUN 26 H mg/dL (7-23) Creatinine 1.3 mg/dL (0.7-1.3) Estimated GFR 54 Glucose 111 H mg/dL (70-100) Calcium 9.0 mg/dL (8.5-10.4) Urine Color RED Urine Appearance MODERATELY TURBID Urine pH 6.0 (5.0-7.5) Ur Specific Barnard 1.011 (1.002-1.030) Urine Protein 2+ H (NEGATIVE) Urine Ketones NEGATIVE (NEGATIVE) Urine Blood 3+ H (NEGATIVE) Urine Nitrate POSITIVE H (NEGATIVE) Urine Bilirubin NEGATIVE (NEGATIVE) Urine Urobilinogen NEGATIVE EU (0.2-1.0) Ur Leukocyte Esterase 3+ H (NEGATIVE) Urine RBC 50-182 H /hpf (0-3) Urine WBC 50-182 H /hpf (0-3) Ur Epithelial Cells NONE SEEN /lpf (NONE-1+) Urine Bacteria TRACE H /hpf (NONE SEEN) Ur Culture Indicated? INDICATED H (NI) Urine Glucose NEGATIVE (NEGATIVE) Digoxin 0.8 ng/mL (0.8-2.0) Medications Given: Discontinued Medications Cephalexin HCl (Keflex) 500 mg PO EDNOW ONE PRN Reason: Protocol Stop: 08/06/16 18:16 Last Admin: 08/06/16 20:01 Dose: Not Given Sodium Chloride (Ns) 1,000 mls @ 0 mls/hr IV ONCE ONE PRN Reason: Wide Open Stop: 08/06/16 15:40 Last Admin: 08/06/16 15:56 Dose: 1,000 mls Ceftriaxone Sodium/Dextrose (Rocephin 1 Gm (Premix)) 50 mls @ 100 mls/hr IV EDNOW ONE PRN Reason: Protocol Stop: 08/06/16 18:55 Last Admin: 08/06/16 18:41 Dose: 50 mls Departure - Departure Disposition: Home, Routine, Self-Care Clinical Impression: Hematuria Condition: Fair
--- NOTE | 2016-08-06 15:53 | CPEKG ---
Heart Rate: 86 RR Interval: 698 QRSD Interval: 126 QT Interval: 384 QTC Interval: 460 QRS [place]: -36 T Wave [place]: 159 EKG Severity - ABNORMAL ECG - EKG Impression: ATRIAL FIBRILLATION, V-RATE 51-60 EKG Impression: MULTIFORM VENTRICULAR PREMATURE COMPLEXES EKG Impression: NONSPECIFIC IVCD WITH LAD EKG Impression: LVH WITH SECONDARY REPOLARIZATION ABNORMALITY EKG Impression: Similar to previous Electronically Signed By: Teodoro Morris 06-Aug-2016 15:55:16
[2016-08-06 16:23] LABS: INR 1.78 (0.83-1.16); PROTIME(PATIENT) 20.8 SEC (12.0-15.0)
[2016-08-06 16:24] LABS: APTT 44.8 SEC (23.0-38.0)
[2016-08-06 16:25] LABS: % IMMATURE GRANULYOCYTES 0.1 % (0.0-1.1); ABSOLUTE IMMATURE GRANULOCYTES 0.01 10^3/uL (0.00-0.10); ADD DIFF? NO; ADD MORPH? NO; ADD SCAN? NO; ANION GAP 12 mEq/L (8-16); ATYPICAL LYMPHOCYTE FLAG 20 (0-99); CARBON DIOXIDE 22 mEq/l (22-31); CHLORIDE 106 mEq/L (97-110); CREATININE 1.3 mg/dL (0.7-1.3); FRAGMENT RBC FLAG 0 (0-99); GLOMERULAR FILTRATION RATE 54; GLUCOSE 111 mg/dL (70-100); HEMATOCRIT 45.2 % (40.0-51.0); HEMOGLOBIN 15.5 g/dL (13.7-17.5); LEFT SHIFT FLG 0 (0-99); LIPEMIA HEMOLYSIS FLAG 90 (0-99); MEAN CELL HEMOGLOBIN 31.6 pg (27.9-34.1); MEAN CELL HEMOGLOBIN CONCENTR. 34.3 g/dL (32.4-36.7); MEAN CELL VOLUME 92.2 fL (81.5-99.8); PLATELET CLUMPS FLAG 10 (0-99); PLATELET COUNT 205 10^3/uL (150-400); POTASSIUM 3.9 mEq/L (3.5-5.2); RED CELL DISTRIBUTION WIDTH 13.9 % (11.5-15.2); SODIUM 140 mEq/L (134-144)
--- NOTE | 2016-08-06 17:57 | US ---
Ultrasound Abdomen Retroperitoneal Comparison: Abdomen x-ray from May 2016. History: Left flank pain. Hematuria. Findings: Left kidney measures 13.8 cm in length and the right kidney measures 14 cm in length. No si gnificant hydronephrosis is seen in either kidney. Focal area of echogenicity and shadowing is seen i n the superior pole of the left kidney and in the midpole right kidney indicating nephrolithiasis. Th e one in the midpole right kidney measures 16 mm. A cyst is seen in the inferior pole the of right ki dney, measuring 3.3 cm. Images of the bladder demonstrate significant debris in the bladder. The left ureteral stent is seen in the bladder. Bilateral ureteral jets are visualized. There is mild cortica l thinning in both kidneys. Small gallstones are incidentally seen in the gallbladder without evidenc e for gallbladder wall thickening or pericholecystic fluid. Impression: 1. Bilateral nonobstructive nephrolithiasis. No significant hydronephrosis. 2. Ureteral stent is seen in the left bladder. Both ureteral jets are visualized. Debris in the bladd er. 3. Incidental cholelithiasis. Results called to Dr. Teodoro Morris.
[2016-08-06 18:12] LABS: COLOR RED; LEUKOCYTE ESTERASE,URINE 3+ (NEGATIVE); NITRITE,URINE POSITIVE (NEGATIVE)
[2016-08-06] MEDS ORDERED: CEPHALEXIN 500 MG CAP PO ONE (18:15)
[2016-08-06 18:18] LABS: BACTERIA TRACE /hpf (NONE SEEN); RBC,URINE 50-182 /hpf (0-3); WBC,URINE 50-182 /hpf (0-3)
[2016-08-06] MEDS ORDERED: ONDANSETRON DISINTEGRATING 4 MG TAB PO PRN (19:03)
[2016-08-06] MEDS ORDERED: ACETAMINOPHEN 325 MG TAB PO PRN (19:03)
[2016-08-06] MEDS ORDERED: ONDANSETRON 4 MG/2 ML VIAL IVP PRN (19:03)
[2016-08-06] MEDS ORDERED: RIVAROXABAN 20 MG TAB PO SCH (19:30)
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
[2016-08-07] MEDS ORDERED: oxyCODONE IR 5 MG TAB PO PRN (04:15)
[2016-08-07 05:50] LABS: % IMMATURE GRANULYOCYTES 0.3 % (0.0-1.1); ABSOLUTE IMMATURE GRANULOCYTES 0.02 10^3/uL (0.00-0.10); ADD DIFF? NO; ADD MORPH? NO; ADD SCAN? NO; ATYPICAL LYMPHOCYTE FLAG 40 (0-99); FRAGMENT RBC FLAG 0 (0-99); HEMATOCRIT 41.2 % (40.0-51.0); HEMOGLOBIN 13.8 g/dL (13.7-17.5); LEFT SHIFT FLG 10 (0-99); LIPEMIA HEMOLYSIS FLAG 80 (0-99); MEAN CELL HEMOGLOBIN 31.4 pg (27.9-34.1); MEAN CELL HEMOGLOBIN CONCENTR. 33.5 g/dL (32.4-36.7); MEAN CELL VOLUME 93.8 fL (81.5-99.8); MEAN PLATELET VOLUME 9.7 fL (8.7-11.7); PLATELET CLUMPS FLAG 10 (0-99); PLATELET COUNT 168 10^3/uL (150-400); RED BLOOD CELL COUNT 4.39 10^6/uL (4.40-6.38); RED CELL DISTRIBUTION WIDTH 13.8 % (11.5-15.2)
[2016-08-07 06:11] LABS: INR 2.97 (0.83-1.16); PROTIME(PATIENT) 31.3 SEC (12.0-15.0)
[2016-08-07 06:19] LABS: ANION GAP 11 mEq/L (8-16); CALCIUM 8.3 mg/dL (8.5-10.4); CARBON DIOXIDE 20 mEq/l (22-31); CHLORIDE 109 mEq/L (97-110); CREATININE 1.1 mg/dL (0.7-1.3); GLOMERULAR FILTRATION RATE > 60; GLUCOSE 104 mg/dL (70-100); POTASSIUM 3.6 mEq/L (3.5-5.2); SODIUM 140 mEq/L (134-144)
[2016-08-07 07:48] VITALS: RESP 16; TEMP 98; O2SAT 96
[2016-08-07] MEDS: METOPROLOL SUCCINATE XR 50 MG TAB PO SCH ×2 (08:43→12:45)
[2016-08-07] MEDS ORDERED: FUROSEMIDE 40 MG TAB PO SCH (09:00)
[2016-08-07] MEDS ORDERED: ASPIRIN EC 81 MG TAB PO SCH (09:00)
[2016-08-07] MEDS ORDERED: LOSARTAN POTASSIUM 25 MG TAB PO SCH (09:00)
[2016-08-07] MEDS ORDERED: SPIRONOLACTONE 25 MG TAB PO SCH (09:00)
[2016-08-07] MEDS ORDERED: CLOPIDOGREL BISULFATE 75 MG TAB PO SCH (09:00)
[2016-08-07] MEDS ORDERED: ALLOPURINOL 300 MG TAB PO SCH (09:00)
[2016-08-07 12:50] VITALS: BP 115/79; PULSE 74
[2016-08-07] MEDS ORDERED: CEPHALEXIN 500 MG CAP PO ONE (13:12)
--- NOTE | 2016-08-07 13:13 | PDDCSUM ---
Discharge Summary Discharge Summary: Dates of service 08/06-08/07/16 Procedures/consultations: none Hospital course by problem # hematuria # UTI # left atrial clot # CAD # nephrolithiasis with indwelling stent # persistent atrial fibrillation # chronic systolic HF w/EF of 20% Patient w/hx of a fib, left atrial clot, sysotlic HF on chronic AC presenting with hematuria and UTI Hospital course: # hematuria: resolved, likely realted to ureteral stent. Will need to continue AC given comorbidities # UTI: culture with >100k Staph aureus, s/s pending. Dc on keflex, will need to f/u s/s # Left atrial clot/afib/CHF: continue current meds including AC Dc home f/u with urology and cardiology >35 min spent in care of this patient more than half in coordination of care
[2016-08-07] MEDS ORDERED: DIGOXIN 125 MCG TAB PO SCH (21:00)
== END 2016-08-07 13:50 | disposition home or self-care (01) ==
LOC: EDUNIT# → F3N 19:37
PROVIDERS: ADMIT Internal Medicine; ATTEND Internal Medicine
DX: R31.9 Hematuria, unspecified (principal); N39.0 Urinary tract infection, site not specified; B95.61 Methicillin susceptible Staphylococcus aureus infection as the cause of diseases classified elsewhere; N20.0 Calculus of kidney; Z96.0 Presence of urogenital implants; I48.2 Chronic atrial fibrillation; I50.22 Chronic systolic (congestive) heart failure; I51.3 Intracardiac thrombosis, not elsewhere classified; I25.10 Atherosclerotic heart disease of native coronary artery without angina pectoris; I11.0 Hypertensive heart disease with heart failure; I13.0 Hypertensive heart and chronic kidney disease with heart failure and stage 1 through stage 4 chronic kidney disease, or unspecified chronic kidney disease; N18.9 Chronic kidney disease, unspecified; M10.9 Gout, unspecified; F03.90 Unspecified dementia, unspecified severity, without behavioral disturbance, psychotic disturbance, mood disturbance, and anxiety; K80.20 Calculus of gallbladder without cholecystitis without obstruction; Z79.01 Long term (current) use of anticoagulants; Z87.440 Personal history of urinary (tract) infections; Z96.651 Presence of right artificial knee joint; Z95.5 Presence of coronary angioplasty implant and graft
CPT/HCPCS: 76770; 93005; 97161; G0378; G8978; G8979; G8980; J0696; 96365

== ENCOUNTER 2016-08-08 09:10 | Emergency (ER) | payer OTHER ==
--- NOTE | 2016-08-08 09:16 | EDPHY ---
H & P Time Seen by Provider: 08/08/16 09:12 HPI/ROS: CHIEF COMPLAINT: Hematuria HISTORY OF PRESENT ILLNESS: The patient presents to the emergency department with complaints of hematuria. The patient was discharged from the hospital yesterday after he was admitted for treatment of urinary tract infection and concurrent hematuria. The patient is anticoagulated for history of chronic atrial fibrillation and cardiomyopathy with an ejection fraction of 20%. The patient has a chronic left ureteral stent. The patient was noted to have a Staph aureus UTI which was sensitive to Keflex during his last hospitalization. The patient reports that yesterday prior to discharge he did get catheterized so that he urine sample could be obtained. The patient reported his hematuria had resolved prior to being discharged yesterday but returned today. The patient reports he is still urinating with normal frequency. He denies fever or flank pain. REVIEW OF SYSTEMS: A comprehensive 10 point review of systems is otherwise negative aside from elements mentioned in the history of present illness. Source: Patient, EMS Exam Limitations: No limitations - Personal History Tetanus Vaccine Date: 09/2009 - Medical/Surgical History Hx Asthma: No Hx Chronic Respiratory Disease: No Hx Diabetes: No Hx Cardiac Disease: Yes Hx Renal Disease: Yes Hx Cirrhosis: No Hx Alcoholism: No Hx HIV/AIDS: No Hx Splenectomy or Spleen Trauma: No Other PMH: 1. Chronic systolic heart failure the chest Ibis fraction of 25%. 2. Coronary artery disease status post stenting on 05/25/2016. 3. Chronic atrial fibrillation. 4. Hypertension. 5. Chronic renal insufficiency. 6. Nephrolithiasis with ureteral stent placement May of 2016. 7. Gout. 8. Right total knee arthroplasty. 9. Appendectomy - Social History Smoking Status: Never smoked - Physical Exam Exam: General Appearance: Alert, no distress Eyes: Pupils equal and round no pallor or injection ENT, Mouth: Mucous membranes moist Respiratory: There are no retractions, lungs are clear to auscultation Cardiovascular: Regular rate and rhythm Gastrointestinal: Abdomen is soft and nontender, no masses, bowel sounds normal Genitourinary: Blood noted at urethral meatus Neurological: 5/5 strength all 4 extremities Skin: Warm and dry, no rashes Musculoskeletal: Neck is supple nontender Extremities: symmetrical, full range of motion Constitutional: Initial Vital Signs Temperature (C) 36.7 C 08/08/16 09:16 Heart Rate 89 08/08/16 09:16 Respiratory Rate 20 08/08/16 09:16 Blood Pressure 135/75 H 08/08/16 09:16 O2 Sat (%) 94 08/08/16 09:16 O2 Delivery Mode Room Air Allergies/Adverse Reactions: atorvastatin calcium [From Lipitor] Allergy (Severe, Verified 08/08/16 09:16) Other-Enter Comments Home Medications: Medication Instructions Recorded Allopurinol [Allopurinol 300 MG 300 mg PO DAILY 06/01/16 (RX)] Aspirin EC [Aspirin EC 81 mg (*)] 81 mg PO DAILY 06/01/16 Clopidogrel Bisulfate [Plavix (*)] 75 mg PO DAILY 06/01/16 Acetaminophen [Tylenol 325mg (*)] 325 mg PO Q4HRS PRN 07/28/16 Digoxin [Lanoxin 125 mcg (RX)] 125 mcg PO HS #30 tab 07/30/16 Furosemide [Lasix 40 MG (*)] 60 mg PO DAILY #45 tab 07/30/16 Spironolactone [Aldactone 25 MG 12.5 mg PO DAILY #30 tab 07/30/16 (*)] Losartan Potassium [Cozaar 25 mg 12.5 mg PO DAILY #30 tab 07/31/16 (*)] Metoprolol Succinate Xr [Toprol Xl 50 mg PO TIDMEAL 08/06/16 50 mg (*)] Rivaroxaban [Xarelto 15mg (*)] 15 mg PO DAILY@1800 08/06/16 Acetaminophen [Tylenol 325mg (*)] 650 mg PO Q4HRS PRN #0 tab 08/07/16 Cephalexin [Keflex (*)] 500 mg PO BID #20 cap 08/07/16 Medical Decision Making ED Course/Re-evaluation: The patient presents to the ED with ongoing hematuria in the setting of urinary tract infection and anticoagulant use. It is fairly well documented the patient 's history of AFib and cardiomyopathy would warrant ongoing anticoagulation. The patient has no evidence of urinary retention. His postvoid residual is 150 mL. The patient is currently being treated with Keflex for his UTI. I did speak with the patient's regular non destructive testing supervisor Dr. Byron Mack who reports the patient can stop taking his Xarelto for the next several days. He will see him in follow-up later this week. Differential Diagnosis: Differential diagnosis considered includes urinary tract infection, urinary retention, excessive anticoagulation Departure - Departure Disposition: Home, Routine, Self-Care Clinical Impression: Atrial fibrillation, Hematuria, Cardiomyopathy Condition: Good Instructions: Hematuria (ED) Additional Instructions: 1. Your non destructive testing supervisor states that it is okay to stop Xarelto given your ongoing bloody urine. 2. Please follow up with them as scheduled this week. 3. Please work with your [place] primary care provider and schedule a follow-up with Urology. Referrals: Byron Mack MD [Medical Doctor] - As per Instructions
[2016-08-08 12:03] VITALS: BP 108/72; PULSE 71; RESP 18; TEMP 98.2; O2SAT 96
== END 2016-08-08 12:02 | disposition home or self-care (01) ==
LOC: EDBD → EDUNIT#
DX: R31.9 Hematuria, unspecified (principal); I48.91 Unspecified atrial fibrillation; I42.9 Cardiomyopathy, unspecified; I25.10 Atherosclerotic heart disease of native coronary artery without angina pectoris; I12.9 Hypertensive chronic kidney disease with stage 1 through stage 4 chronic kidney disease, or unspecified chronic kidney disease; N18.9 Chronic kidney disease, unspecified; Z79.82 Long term (current) use of aspirin

== ENCOUNTER 2016-10-26 06:49 | Emergency (ER) | payer OTHER ==
--- NOTE | 2016-10-26 06:56 | EDPHY ---
H & P HPI/ROS: CHIEF COMPLAINT: Chest pain HPI: The patient is a 76 year old male, brought in by EMS, who complains of chest pain that started 1.5 hours ago when he woke up.The patient is anticoagulated for history of chronic atrial fibrillation and cardiomyopathy with an ejection fraction of 20%. The patient had a ureteral stent placed last week because of nephrolithiasis. This morning her reports 8/10 chest pain when he woke up. He felt lightheaded and off balance. The patient has associated arm tingling and shortness of breath. He states it "feels like someone is sitting on my chest". He received 324mg Aspirin and 0.4mg Nitro during transport. His pain is now a 6/10. Vitals in the field were BP of 100/74 and HR of 86. REVIEW OF SYSTEMS: Aside from elements discussed in the HPI, a comprehensive 10-point review of systems was reviewed and is negative. PMH: 1. Chronic systolic heart failure. 2. CAD s/p stent placement 05/25/16. 3. Chronic atrial fibrillation. 4. Hypertension. 5. Chronic renal insufficiency. 6 Nephrolithiasis with ureteral stent placed 2015. 7. Gout. 8. Right total knee arthroplasty. 9. Appendectomy. SOCIAL HISTORY: Nonsmoker. No alcohol. Lives alone. [place] patient. PHYSICAL EXAM: General: Patient is alert, in no acute distress. ENT: Eyes are normal to inspection. ENT inspection normal. Neck: Normal inspection. Full range of motion. Respiratory: No respiratory distress. Breath sounds normal bilaterally. Cardiovascular: Irregularly irregular. Strong peripheral pulses. Abdomen: The abdomen is nontender to palpation. There are no peritoneal signs. There are normal bowel sounds. Back: Normal to inspection. No tenderness to palpation. Skin: Normal color. No rash. Warm and dry. Extremities: Normal appearance. Full range of motion. Neuro: Oriented x3. Normal motor function. Normal sensory function. Source: Patient, EMS - Personal History Tetanus Vaccine Date: 09/2009 - Medical/Surgical History Hx Asthma: No Hx Chronic Respiratory Disease: No Hx Diabetes: No Hx Cardiac Disease: Yes Hx Renal Disease: Yes Hx Cirrhosis: No Hx Alcoholism: No Hx HIV/AIDS: No Hx Splenectomy or Spleen Trauma: No Other PMH: 1. Chronic systolic heart failure the chest Ibis fraction of 25%. 2. Coronary artery disease status post stenting on 05/25/2016. 3. Chronic atrial fibrillation. 4. Hypertension. 5. Chronic renal insufficiency. 6. Nephrolithiasis with ureteral stent placement May of 2016. 7. Gout. 8. Right total knee arthroplasty. 9. Appendectomy - Social History Smoking Status: Never smoked Constitutional: Initial Vital Signs Temperature (C) 36.4 C 10/26/16 06:59 Heart Rate 63 10/26/16 06:59 Respiratory Rate 20 10/26/16 06:59 Blood Pressure 122/84 H 10/26/16 06:59 O2 Sat (%) 97 10/26/16 06:59 O2 Delivery Mode Room Air Allergies/Adverse Reactions: atorvastatin calcium [From Lipitor] Allergy (Severe, Verified 10/26/16 06:58) Other-Enter Comments haloperidol [From Haldol] Allergy (Verified 10/26/16 06:58) Home Medications: Medication Instructions Recorded Allopurinol [Allopurinol 300 MG 300 mg PO DAILY 06/01/16 (RX)] Aspirin EC [Aspirin EC 81 mg (*)] 81 mg PO DAILY 06/01/16 Clopidogrel Bisulfate [Plavix (*)] 75 mg PO DAILY 06/01/16 Acetaminophen [Tylenol 325mg (*)] 325 mg PO Q4HRS PRN 07/28/16 Digoxin [Lanoxin 125 mcg (RX)] 125 mcg PO HS #30 tab 07/30/16 Furosemide [Lasix 40 MG (*)] 60 mg PO DAILY #45 tab 07/30/16 Spironolactone [Aldactone 25 MG 12.5 mg PO DAILY #30 tab 07/30/16 (*)] Losartan Potassium [Cozaar 25 mg 12.5 mg PO DAILY #30 tab 07/31/16 (*)] Metoprolol Succinate Xr [Toprol Xl 50 mg PO TIDMEAL 08/06/16 50 mg (*)] Rivaroxaban [Xarelto 15mg (*)] 15 mg PO DAILY@1800 08/06/16 Acetaminophen [Tylenol 325mg (*)] 650 mg PO Q4HRS PRN #0 tab 08/07/16 Cephalexin [Keflex (*)] 500 mg PO BID #20 cap 08/07/16 Medical Decision Making ED Course/Re-evaluation: The patient is a 76 year old male who complains of 8/10 chest pain. The patient is anticoagulated for history of chronic atrial fibrillation and cardiomyopathy with an ejection fraction of 20%. The patient had a ureteral stent placed last week because of nephrolithiasis. I reviewed the patient's past medical records from last admission here 06/01/16 and last ED visit 08/08/16. The patient's security incident handler is Byron Mack at [facility]. EMS was en route there, but patient complained his chest pain was getting worse so EMS diverted here. Plan for cardiac workup including chest x-ray, EKG, labs, and troponin. Chemistry is normal. INR is therapeutic. Patient has an elevated troponin of 0.057. Creatinine is elevated at 1.4, this is normal for the patient. 7:30 a.m.: I spoke to [place]. The patient will be transferred to [facility]. - Data Points Laboratory Results: Laboratory Results 10/26/16 06:45 10/26/16 06:45 10/26/16 10/26/16 10/26/16 06:45 06:45 06:45 WBC 6.45 10^3/uL 10^3/uL (3.80-9.50) RBC 5.40 10^6/uL 10^6/uL (4.40-6.38) Hgb 16.5 g/dL g/dL (13.7-17.5) Hct 48.2 % % (40.0-51.0) MCV 89.3 fL fL (81.5-99.8) MCH 30.6 pg pg (27.9-34.1) MCHC 34.2 g/dL g/dL (32.4-36.7) RDW 14.6 % % (11.5-15.2) Plt Count 208 10^3/uL 10^3/uL (150-400) MPV 9.4 fL fL (8.7-11.7) Neut % (Auto) 57.8 % % (39.3-74.2) Lymph % (Auto) 33.8 % % (15.0-45.0) [place] % (Auto) 5.6 % % (4.5-13.0) Eos % (Auto) 1.6 % % (0.6-7.6) Baso % (Auto) 0.9 % % (0.3-1.7) Nucleat RBC Rel Count 0.0 % % (0.0-0.2) Absolute Neuts (auto) 3.73 10^3/uL 10^3/uL (1.70-6.50) Absolute Lymphs (auto) 2.18 10^3/uL 10^3/uL (1.00-3.00) Absolute Monos (auto) 0.36 10^3/uL 10^3/uL (0.30-0.80) Absolute Eos (auto) 0.10 10^3/uL 10^3/uL (0.03-0.40) Absolute Basos (auto) 0.06 10^3/uL 10^3/uL (0.02-0.10) Absolute Nucleated RBC 0.00 10^3/uL 10^3/uL (0-0.01) Immature Gran % 0.3 % % (0.0-1.1) Immature Gran # 0.02 10^3/uL 10^3/uL (0.00-0.10) PT 23.1 SEC H SEC (12.0-15.0) INR 2.03 H (0.83-1.16) APTT 41.1 SEC H SEC (23.0-38.0) Sodium 141 mEq/L mEq/L (134-144) Potassium 3.5 mEq/L mEq/L (3.5-5.2) Chloride 105 mEq/L mEq/L (97-110) Carbon Dioxide 25 mEq/l mEq/l (22-31) Anion Gap 11 mEq/L mEq/L (8-16) BUN 27 mg/dL H mg/dL (7-23) Creatinine 1.4 mg/dL H mg/dL (0.7-1.3) Estimated GFR 49 Glucose 117 mg/dL H mg/dL (70-100) Calcium 9.1 mg/dL mg/dL (8.5-10.4) Troponin I 0.057 ng/mL H ng/mL (0-0.034) NT-Pro-B Natriuret Pep 5470 pg/mL H pg/mL (0-450) Departure - Departure Referrals: Patient,NotPresent [Unknown] - As per Instructions Report Scribed for: Binu Franks Report Scribed by: Nguyen Hameed Date of Report: 10/26/16 Time of Report: 07:09
--- NOTE | 2016-10-26 07:01 | CPEKG ---
Heart Rate: 80 RR Interval: 750 QRSD Interval: 170 QT Interval: 468 QTC Interval: 540 QRS [place]: -50 T Wave [place]: 22 EKG Severity - ABNORMAL ECG - EKG Impression: ATRIAL FIBRILLATION, V-RATE 60-103 EKG Impression: VENTRICULAR PREMATURE COMPLEX EKG Impression: RBBB AND LPFB Electronically Signed By: Denae Hogan 26-Oct-2016 18:58:22
[2016-10-26 07:03] LABS: % IMMATURE GRANULYOCYTES 0.3 % (0.0-1.1); ABSOLUTE IMMATURE GRANULOCYTES 0.02 10^3/uL (0.00-0.10); ADD DIFF? NO; ADD MORPH? NO; ADD SCAN? NO; ATYPICAL LYMPHOCYTE FLAG 10 (0-99); FRAGMENT RBC FLAG 0 (0-99); HEMATOCRIT 48.2 % (40.0-51.0); HEMOGLOBIN 16.5 g/dL (13.7-17.5); LEFT SHIFT FLG 0 (0-99); LIPEMIA HEMOLYSIS FLAG 90 (0-99); MEAN CELL HEMOGLOBIN 30.6 pg (27.9-34.1); MEAN CELL HEMOGLOBIN CONCENTR. 34.2 g/dL (32.4-36.7); MEAN CELL VOLUME 89.3 fL (81.5-99.8); MEAN PLATELET VOLUME 9.4 fL (8.7-11.7); PLATELET CLUMPS FLAG 0 (0-99); PLATELET COUNT 208 10^3/uL (150-400); RED CELL DISTRIBUTION WIDTH 14.6 % (11.5-15.2)
[2016-10-26 07:13] LABS: ANION GAP 11 mEq/L (8-16); CALCIUM 9.1 mg/dL (8.5-10.4); CARBON DIOXIDE 25 mEq/l (22-31); CHLORIDE 105 mEq/L (97-110); CREATININE 1.4 mg/dL (0.7-1.3); GLOMERULAR FILTRATION RATE 49; GLUCOSE 117 mg/dL (70-100); INR 2.03 (0.83-1.16); POTASSIUM 3.5 mEq/L (3.5-5.2); PROTIME(PATIENT) 23.1 SEC (12.0-15.0); SODIUM 141 mEq/L (134-144)
[2016-10-26 07:14] LABS: APTT 41.1 SEC (23.0-38.0)
[2016-10-26 07:25] LABS: TROPONIN I 0.057 ng/mL (0-0.034)
--- NOTE | 2016-10-26 07:49 | EDPHY ---
HPI/HX/ROS/PE/MDM Narrative: CHIEF COMPLAINT: Chest pain HPI: The patient is a 76 year old male, brought in by EMS, who complains of chest pain that started 1.5 hours ago when he woke up.The patient is anticoagulated for history of chronic atrial fibrillation and cardiomyopathy with an ejection fraction of 20%. The patient had a ureteral stent placed 2015 and claims he had one placed last week as well because of nephrolithiasis. This morning her reports 8/10 chest pain when he woke up. He felt lightheaded and off balance. The patient has associated arm tingling and shortness of breath. He states it "feels like someone is sitting on my chest". He received 324mg Aspirin and 0.4mg Nitro during transport. His pain is now a 6/10. Vitals in the field were BP of 100/74 and HR of 86. History is difficult to obtain from the patient. Apparently the patient was en route to [facility] by ambulance when he demanded to go to the nearest hospital, which is [facility]. REVIEW OF SYSTEMS: Aside from elements discussed in the HPI, a comprehensive 10-point review of systems was reviewed and is negative. PMH: 1. Chronic systolic heart failure. 2. CAD s/p stent placement 05/25/16. 3. Chronic atrial fibrillation. 4. Hypertension. 5. Chronic renal insufficiency. 6 Nephrolithiasis with ureteral stent placed 2015. 7. Gout. 8. Right total knee arthroplasty. 9. Appendectomy. SOCIAL HISTORY: Nonsmoker. No alcohol. Lives alone. [place] patient. PHYSICAL EXAM: General: Patient is alert, in no acute distress. ENT: Eyes are normal to inspection. ENT inspection normal. Neck: Normal inspection. Full range of motion. Respiratory: No respiratory distress. Breath sounds normal bilaterally. Cardiovascular: Irregularly irregular. Strong peripheral pulses. Abdomen: The abdomen is nontender to palpation. There are no peritoneal signs. There are normal bowel sounds. Back: Normal to inspection. No tenderness to palpation. Skin: Normal color. No rash. Warm and dry. Extremities: Normal appearance. Full range of motion. Neuro: Normal motor function. Normal sensory function. ED Course: The patient is a 76 year old male who complains of 8/10 chest pain. The patient is anticoagulated for history of chronic atrial fibrillation and cardiomyopathy with an ejection fraction of 20%. The patient had a ureteral stent placed in 2015 because of nephrolithiasis. I reviewed the patient's past medical records from last admission here 06/01/16 and last ED visit 08/08/16. 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 EMS was en route there, but patient complained his chest pain was getting worse so EMS diverted here. Plan for cardiac workup including chest x-ray, EKG, labs, and troponin. Chemistry is normal. INR is therapeutic. Patient has slightly elevated troponin of 0.057 this is normal for him. Creatinine is elevated at 1.4, this is normal for the patient. EKG was ordered and interpreted by myself. Please see [employer] Just [employer] system for official reading. No change from prior. 7:30 a.m.: I spoke to [facility]. They will have a doctor call back in regards to transferring the patient to [facility]. 8:00 a.m.: I called [facility] again, they said the patient did not get a ureteral stent last week as patient claimed. They will call back with a decision about transfer. 8:20 a.m.: I spoke to Dr. Marinelli who said the patient will be admitted to Dr. Shoemaker. An x-ray of chest was obtained. I viewed the images myself on the PACS system. See the full radiology report in the imaging section. MDM: This patient presents with chest pain in the setting of cardiac history and mildly elevated troponin. His ECG does not show signs of acute ischemia. 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 The patient tells me he had several stents placed last week at [facility], but they nor us have record of this. The patient is now demanding to be transferred to [facility], who has accepted him. I think he is safe for transfer. - Data Points Imaging Results: Imaging Impressions Chest X-Ray 10/26/16 06:57 Impression: 1. Stable mild cardiomegaly. 2. No active cardiopulmonary disease seen. 3. Smooth oval nodule right upper lobe and left base that may have developed. Findings discussed with Binu Franks MD at 8:54 hour, 10/26/2016. Laboratory Results: Laboratory Results 10/26/16 06:45 10/26/16 06:45 0410/26/16 10/26/16 06:45 06:45 06:45 WBC 6.45 10^3/uL 10^3/uL (3.80-9.50) RBC 5.40 10^6/uL 10^6/uL (4.40-6.38) Hgb 16.5 g/dL g/dL (13.7-17.5) Hct 48.2 % % (40.0-51.0) MCV 89.3 fL fL (81.5-99.8) MCH 30.6 pg pg (27.9-34.1) MCHC 34.2 g/dL g/dL (32.4-36.7) RDW 14.6 % % (11.5-15.2) Plt Count 208 10^3/uL 10^3/uL (150-400) MPV 9.4 fL fL (8.7-11.7) Neut % (Auto) 57.8 % % (39.3-74.2) Lymph % (Auto) 33.8 % % (15.0-45.0) [place] % (Auto) 5.6 % % (4.5-13.0) Eos % (Auto) 1.6 % % (0.6-7.6) Baso % (Auto) 0.9 % % (0.3-1.7) Nucleat RBC Rel Count 0.0 % % (0.0-0.2) Absolute Neuts (auto) 3.73 10^3/uL 10^3/uL (1.70-6.50) Absolute Lymphs (auto) 2.18 10^3/uL 10^3/uL (1.00-3.00) Absolute Monos (auto) 0.36 10^3/uL 10^3/uL (0.30-0.80) Absolute Eos (auto) 0.10 10^3/uL 10^3/uL (0.03-0.40) Absolute Basos (auto) 0.06 10^3/uL 10^3/uL (0.02-0.10) Absolute Nucleated RBC 0.00 10^3/uL 10^3/uL (0-0.01) Immature Gran % 0.3 % % (0.0-1.1) Immature Gran # 0.02 10^3/uL 10^3/uL (0.00-0.10) PT 23.1 SEC H SEC (12.0-15.0) INR 2.03 H (0.83-1.16) APTT 41.1 SEC H SEC (23.0-38.0) Sodium 141 mEq/L mEq/L (134-144) Potassium 3.5 mEq/L mEq/L (3.5-5.2) Chloride 105 mEq/L mEq/L (97-110) Carbon Dioxide 25 mEq/l mEq/l (22-31) Anion Gap 11 mEq/L mEq/L (8-16) BUN 27 mg/dL H mg/dL (7-23) Creatinine 1.4 mg/dL H mg/dL (0.7-1.3) Estimated GFR 49 Glucose 117 mg/dL H mg/dL (70-100) Calcium 9.1 mg/dL mg/dL (8.5-10.4) Troponin I 0.057 ng/mL H ng/mL (0-0.034) NT-Pro-B Natriuret Pep 5470 pg/mL H pg/mL (0-450) General Time Seen by Provider: 10/26/16 06:54 Initial Vital Signs: Initial Vital Signs Temperature (C) 36.4 C 10/26/16 06:59 Heart Rate 63 10/26/16 06:59 Respiratory Rate 20 10/26/16 06:59 Blood Pressure 122/84 H 10/26/16 06:59 O2 Sat (%) 97 10/26/16 06:59 O2 Delivery Mode Room Air Allergies/Adverse Reactions: atorvastatin calcium [From Lipitor] Allergy (Severe, Verified 10/26/16 06:58) Other-Enter Comments haloperidol [From Haldol] Allergy (Verified 10/26/16 06:58) Home Medications: Medication Instructions Recorded Allopurinol [Allopurinol 300 MG 300 mg PO DAILY 06/01/16 (RX)] Aspirin EC [Aspirin EC 81 mg (*)] 81 mg PO DAILY 06/01/16 Clopidogrel Bisulfate [Plavix (*)] 75 mg PO DAILY 06/01/16 Acetaminophen [Tylenol 325mg (*)] 325 mg PO Q4HRS PRN 07/28/16 Digoxin [Lanoxin 125 mcg (RX)] 125 mcg PO HS #30 tab 07/30/16 Furosemide [Lasix 40 MG (*)] 60 mg PO DAILY #45 tab 07/30/16 Spironolactone [Aldactone 25 MG 12.5 mg PO DAILY #30 tab 07/30/16 (*)] Losartan Potassium [Cozaar 25 mg 12.5 mg PO DAILY #30 tab 07/31/16 (*)] Metoprolol Succinate Xr [Toprol Xl 50 mg PO TIDMEAL 08/06/16 50 mg (*)] Rivaroxaban [Xarelto 15mg (*)] 15 mg PO DAILY@1800 08/06/16 Acetaminophen [Tylenol 325mg (*)] 650 mg PO Q4HRS PRN #0 tab 08/07/16 Cephalexin [Keflex (*)] 500 mg PO BID #20 cap 08/07/16 Departure - Departure Disposition: [facility] hospital Clinical Impression: Elevated troponin Chest pain Qualifiers: Chest pain type: unspecified Qualified Code(s): R07.9 - Chest pain, unspecified Condition: Good Referrals: JAIDEN SALINAS [Other] - As per Instructions Report Scribed for: Binu Franks Report Scribed by: Nguyen Hameed Date of Report: 10/26/16 Time of Report: 07:49
[2016-10-26 08:52] VITALS: TEMP 97.9
[2016-10-26 09:44] VITALS: BP 111/73; PULSE 61; RESP 16; O2SAT 94
== END 2016-10-26 10:06 | disposition short-term general hospital (02) ==
LOC: EDUNIT#
DX: R07.9 Chest pain, unspecified (principal); R79.89 Other specified abnormal findings of blood chemistry; I25.10 Atherosclerotic heart disease of native coronary artery without angina pectoris; I10 Essential (primary) hypertension; I50.9 Heart failure, unspecified; Z95.5 Presence of coronary angioplasty implant and graft; Z79.82 Long term (current) use of aspirin; Z79.01 Long term (current) use of anticoagulants

== ENCOUNTER 2016-11-01 13:48 | Emergency (ER) | payer OTHER ==
--- NOTE | 2016-11-01 14:33 | EDPHY ---
H & P Time Seen by Provider: 11/01/16 13:48 HPI/ROS: Chief complaint. Chest pain HPI. 76-year-old male here by EMS after being discharged earlier today from [facility]. He went to [facility] this morning after developing chest discomfort shortness of breath at 4:00 a.m.. He has had similar symptoms off and on for the past 3 months. He describes a pressure sensation across his chest without radiation. Associated shortness of breath. However his pain is not worse with breathing, exertion or movement. In the emergency department he was apparently ruled out at [facility]. They did diagnose a infection in his kidney the patient says. He was prescribed antibiotics and has taken 1 dose. ROS Constitutional. no fever/chills, no weakness Eyes. no problems with vision ENT. no sore throat, no nasal drainage Cardiovascular. Chest pain Respiratory. shortness of breath Abdominal. no abdominal pain, no nausea/vomiting, no diarrhea . Urinary frequency MS. no calf pain/swelling, no neck/back pain, no joint pain Skin. no rash Lymph. no swollen glands Neuro. no headache, no dizziness, no difficulty walking or with speech Past Medical/Surgical History: Past fall history significant for chronic systolic heart failure, coronary artery disease with stent, chronic atrial fibrillation on anticoagulation, hypertension, chronic renal insufficiency, kidney stones with ureteral stent, gout, knee replacement, appendectomy Social History: Single, nonsmoker, no alcohol Smoking Status: Never smoked Physical Exam: General Appearance: Alert well-developed male mild distress vital signs are stable Eyes: Pupils equal and round no pallor or injection. ENT, Mouth: Mucous membranes are moist. Respiratory: There are no retractions, lungs are clear to auscultation. Cardiovascular: Regular rate and rhythm. Gastrointestinal: Abdomen is soft and nontender, no masses, bowel sounds normal. Neurological: Awake and alert, sensory and motor exams grossly normal. Skin: Warm and dry, no rashes. Musculoskeletal: Neck is supple nontender. Extremities symmetrical, full range of motion. Psychiatric: Patient is oriented X 3, there is no agitation. Constitutional: Initial Vital Signs Temperature (C) 36.6 C 11/01/16 14:00 Heart Rate 80 11/01/16 14:00 Respiratory Rate 18 11/01/16 14:00 Blood Pressure 107/81 H 11/01/16 14:00 O2 Sat (%) 97 11/01/16 14:00 O2 Delivery Mode Room Air Allergies/Adverse Reactions: atorvastatin calcium [From Lipitor] Allergy (Severe, Verified 10/26/16 06:58) Other-Enter Comments haloperidol [From Haldol] Allergy (Verified 10/26/16 06:58) Home Medications: Medication Instructions Recorded Allopurinol [Allopurinol 300 MG 300 mg PO DAILY 06/01/16 (RX)] Aspirin EC [Aspirin EC 81 mg (*)] 81 mg PO DAILY 06/01/16 Clopidogrel Bisulfate [Plavix (*)] 75 mg PO DAILY 06/01/16 Acetaminophen [Tylenol 325mg (*)] 325 mg PO Q4HRS PRN 07/28/16 Digoxin [Lanoxin 125 mcg (RX)] 125 mcg PO HS #30 tab 07/30/16 Furosemide [Lasix 40 MG (*)] 60 mg PO DAILY #45 tab 07/30/16 Spironolactone [Aldactone 25 MG 12.5 mg PO DAILY #30 tab 07/30/16 (*)] Losartan Potassium [Cozaar 25 mg 12.5 mg PO DAILY #30 tab 07/31/16 (*)] Metoprolol Succinate Xr [Toprol Xl 50 mg PO TIDMEAL 08/06/16 50 mg (*)] Rivaroxaban [Xarelto 15mg (*)] 15 mg PO DAILY@1800 08/06/16 Acetaminophen [Tylenol 325mg (*)] 650 mg PO Q4HRS PRN #0 tab 08/07/16 Cephalexin [Keflex (*)] 500 mg PO BID #20 cap 08/07/16 Medical Decision Making - Diagnostics Imaging Results: Imaging Impressions Chest X-Ray 11/01/16 14:50 Impression: 1. Cardiomegaly and mild pulmonary venous hypertension. 2. No focal pneumonia. Procedures: IV normal saline, monitor ED Course/Re-evaluation: 3:25 p.m. the patient on re-evaluation tells me he wants to leave. The patient and I discussed existing lab EKG and imaging studies that we have done. We discussed treatment plan. I had already told the patient that I would like to speak to [facility] and would happy to work on admission for him there. I have reiterated this discussion however he refuses and he says I am going to go home want to go home. We discussed risks and benefits of this including going home, following up with his regular physician at [facility], being admitted for continuing chest discomfort and shortness of breath. He tells me he will follow up with his regular physician at [facility] but he does not wish to be admitted he does not wish further workup and he wants to be discharged. Patient appears competent to make decision and have a discussion about risks and benefits of this decision Differential Diagnosis: Chronic chest discomfort and shortness of breath. No acute findings at this point. The patient is in chronic atrial fibrillation. His chest x-ray shows no pneumonia does show pulmonary hypertension. He was diagnosed with urinary tract infection at [facility] earlier today and prescribed an antibiotic which he has had his 1st dose after filling it at the pharmacy. I considered acute coronary syndrome, pulmonary embolus, congestive heart failure - Data Points Laboratory Results: Laboratory Results 11/01/16 14:00 11/01/16 14:00 11/01/16 11/01/16 11/01/16 14:41 14:41 14:00 WBC RBC Hgb Hct MCV MCH MCHC RDW Plt Count MPV Neut % (Auto) Lymph % (Auto) [place] % (Auto) Eos % (Auto) Baso % (Auto) Nucleat RBC Rel Count Absolute Neuts (auto) Absolute Lymphs (auto) Absolute Monos (auto) Absolute Eos (auto) Absolute Basos (auto) Absolute Nucleated RBC Immature Gran % Immature Gran # PT 22.5 SEC H SEC (12.0-15.0) INR 1.97 H (0.83-1.16) APTT 40.5 SEC H SEC (23.0-38.0) Sodium 143 mEq/L mEq/L (134-144) Potassium 3.6 mEq/L mEq/L (3.5-5.2) Chloride 105 mEq/L mEq/L (97-110) Carbon Dioxide 22 mEq/l mEq/l (22-31) Anion Gap 16 mEq/L mEq/L (8-16) BUN 23 mg/dL mg/dL (7-23) Creatinine 1.3 mg/dL mg/dL (0.7-1.3) Estimated GFR 54 Glucose 132 mg/dL H mg/dL (70-100) Calcium 9.9 mg/dL mg/dL (8.5-10.4) Troponin I Pending 11/01/16 14:00 WBC 7.98 10^3/uL 10^3/uL (3.80-9.50) RBC 5.26 10^6/uL 10^6/uL (4.40-6.38) Hgb 16.4 g/dL g/dL (13.7-17.5) Hct 48.6 % % (40.0-51.0) MCV 92.4 fL fL (81.5-99.8) MCH 31.2 pg pg (27.9-34.1) MCHC 33.7 g/dL g/dL (32.4-36.7) RDW 15.0 % % (11.5-15.2) Plt Count 187 10^3/uL 10^3/uL (150-400) MPV 10.1 fL fL (8.7-11.7) Neut % (Auto) 79.9 % H % (39.3-74.2) Lymph % (Auto) 15.2 % % (15.0-45.0) [place] % (Auto) 2.6 % L % (4.5-13.0) Eos % (Auto) 1.4 % % (0.6-7.6) Baso % (Auto) 0.6 % % (0.3-1.7) Nucleat RBC Rel Count 0.0 % % (0.0-0.2) Absolute Neuts (auto) 6.38 10^3/uL 10^3/uL (1.70-6.50) Absolute Lymphs (auto) 1.21 10^3/uL 10^3/uL (1.00-3.00) Absolute Monos (auto) 0.21 10^3/uL L 10^3/uL (0.30-0.80) Absolute Eos (auto) 0.11 10^3/uL 10^3/uL (0.03-0.40) Absolute Basos (auto) 0.05 10^3/uL 10^3/uL (0.02-0.10) Absolute Nucleated RBC 0.00 10^3/uL 10^3/uL (0-0.01) Immature Gran % 0.3 % % (0.0-1.1) Immature Gran # 0.02 10^3/uL 10^3/uL (0.00-0.10) PT INR APTT Sodium Potassium Chloride Carbon Dioxide Anion Gap BUN Creatinine Estimated GFR Glucose Calcium Troponin I Departure - Departure Disposition: Home, Routine, Self-Care Clinical Impression: Atrial fibrillation Qualifiers: Atrial fibrillation type: chronic Qualified Code(s): I48.2 - Chronic atrial fibrillation Chest pain Qualifiers: Chest pain type: unspecified Qualified Code(s): R07.9 - Chest pain, unspecified Condition: Good Instructions: Chest Pain (ED) Additional Instructions: Continue your antibiotics at [facility] were prescribed to you for urinary tract infection at [facility] this morning. Return for worsening chest discomfort or trouble breathing. Please call your regular physician at [facility] in the morning and make a follow-up appointment in the next 2-3 days Referrals: NONE *PRIMARY CARE P,. [Primary Care Provider] - As per Instructions [facility] [Outside] - 2-3 days, call for appt.
[2016-11-01 14:49] LABS: % IMMATURE GRANULYOCYTES 0.3 % (0.0-1.1); ABSOLUTE IMMATURE GRANULOCYTES 0.02 10^3/uL (0.00-0.10); ADD DIFF? NO; ADD MORPH? NO; ADD SCAN? NO; ATYPICAL LYMPHOCYTE FLAG 0 (0-99); FRAGMENT RBC FLAG 0 (0-99); HEMATOCRIT 48.6 % (40.0-51.0); HEMOGLOBIN 16.4 g/dL (13.7-17.5); LEFT SHIFT FLG 0 (0-99); LIPEMIA HEMOLYSIS FLAG 80 (0-99); MEAN CELL HEMOGLOBIN 31.2 pg (27.9-34.1); MEAN CELL HEMOGLOBIN CONCENTR. 33.7 g/dL (32.4-36.7); MEAN CELL VOLUME 92.4 fL (81.5-99.8); MEAN PLATELET VOLUME 10.1 fL (8.7-11.7); PLATELET CLUMPS FLAG 0 (0-99); PLATELET COUNT 187 10^3/uL (150-400); RED BLOOD CELL COUNT 5.26 10^6/uL (4.40-6.38)
[2016-11-01 15:00] LABS: ANION GAP 16 mEq/L (8-16); CALCIUM 9.9 mg/dL (8.5-10.4); CARBON DIOXIDE 22 mEq/l (22-31); CHLORIDE 105 mEq/L (97-110); CREATININE 1.3 mg/dL (0.7-1.3); GLOMERULAR FILTRATION RATE 54; GLUCOSE 132 mg/dL (70-100); POTASSIUM 3.6 mEq/L (3.5-5.2); SODIUM 143 mEq/L (134-144)
[2016-11-01 15:00] LABS: INR 1.97 (0.83-1.16); PROTIME(PATIENT) 22.5 SEC (12.0-15.0)
[2016-11-01 15:01] LABS: APTT 40.5 SEC (23.0-38.0)
--- NOTE | 2016-11-01 15:02 | CPEKG ---
Heart Rate: 89 RR Interval: 674 QRSD Interval: 170 QT Interval: 428 QTC Interval: 521 QRS [place]: 80 T Wave [place]: 11 EKG Severity - ABNORMAL ECG - EKG Impression: ATRIAL FIBRILLATION, V-RATE 66-105 EKG Impression: RBBB AND LPFB Electronically Signed By: Alejandro Campos 01-Nov-2016 15:49:52
[2016-11-01 16:05] VITALS: BP 121/72; PULSE 75; RESP 16; TEMP 97.5; O2SAT 96
== END 2016-11-01 16:00 | disposition home or self-care (01) ==
LOC: EDUNIT#
DX: I48.2 Chronic atrial fibrillation (principal); I50.9 Heart failure, unspecified; I25.10 Atherosclerotic heart disease of native coronary artery without angina pectoris; I10 Essential (primary) hypertension; Z79.01 Long term (current) use of anticoagulants; Z79.82 Long term (current) use of aspirin; Z95.5 Presence of coronary angioplasty implant and graft

== ENCOUNTER 2016-11-18 18:23 | Inpatient (IN) | payer OTHER ==
--- NOTE | 2016-11-18 18:31 | EDPHY ---
H & P Time Seen by Provider: 11/18/16 18:23 HPI/ROS: CHIEF COMPLAINT: Chest pain HISTORY OF PRESENT ILLNESS: Patient is a history of coronary disease in atrial fibrillation with stenting in May in his LAD her at [facility]. He was admitted 2 days ago for kidney stones at [facility]. He presents today with 2 hours of substernal chest pain without radiation. No associated cough or nausea or diaphoresis. Symptoms were moderate but in our ED states pretty much gone. He got full-dose aspirin by paramedics. REVIEW OF SYSTEMS: Eye: no change in vision ENT: no sore throat Cardiac: HPI Pulmonary: no cough or SOB Abdomen: no vomiting, diarrhea, abdominal pain Musculoskeletal: no back pain Skin: no rash Neuro: no headache Constitutional: no fever : no urinary symptoms A comprehensive 10 point review of systems is otherwise negative aside from elements mentioned in the history of present illness. PAST MEDICAL HISTORY: Discussed [facility] 182, Admit 11/14 EGS nonischemic CM, Atrial fibrillation on warfarin, diabetes, renal colic, CKD. CHF, PCI to LAD on 05/25/2016. Admit 10/09/16 for CP at [facility]. Recent admission to [facility] for kidney stones with ureteral stent. Social history: Nonsmoker General Appearance: Alert and conversant, cooperative. Eyes: No scleral icterus. ENT, Mouth: Normal mucous membranes. Respiratory: Normal respiratory effort, breath sounds equal, lungs are clear to auscultation. Cardiovascular: Regular rate and rhythm. Gastrointestinal: Abdomen is soft and non tender. Neurological: Alert and oriented x3. Normally conversant. Face symmetric, normal movement and sensation in all extremities. Skin: Warm and dry, no rashes. Musculoskeletal: No peripheral edema and no joint swelling. No calf tenderness. Psychiatric: Not agitated. Emergency Department course/MDM: Received aspirin in the field by EMS. 1930: Troponin 0.091 Per [facility] the a requests that we admit the patient to [facility], no transfer. No CP now after 2 hours of symptoms. Admit for risk stratification patient with chest pain elevated troponin and recent cardiac stenting within the past year. Smoking Status: Never smoked Constitutional: Initial Vital Signs Temperature (C) 36.9 C 11/18/16 18:37 Heart Rate 94 11/18/16 18:37 Respiratory Rate 16 11/18/16 18:37 Blood Pressure 118/84 H 11/18/16 18:37 O2 Sat (%) 95 11/18/16 18:37 O2 Delivery Mode Room Air Allergies/Adverse Reactions: atorvastatin calcium [From Lipitor] Allergy (Severe, Verified 10/26/16 06:58) Other-Enter Comments haloperidol [From Haldol] Allergy (Verified 10/26/16 06:58) simvastatin Allergy (Verified 11/18/16 18:42) Home Medications: Medication Instructions Recorded Acetaminophen [Tylenol 325mg (*)] 325 - 650 mg PO Q4H PRN 11/18/16 Allopurinol [Allopurinol 300 MG 150 mg PO DAILY 11/18/16 (RX)] Clopidogrel Bisulfate [Plavix (*)] 75 mg PO DAILY 11/18/16 Digoxin [Lanoxin 125 mcg (RX)] 125 mcg PO HS 11/18/16 Furosemide [Lasix 20 MG (*)] 20 mg PO DAILY@1600 11/18/16 Furosemide [Lasix 40 MG (*)] 40 mg PO DAILY 11/18/16 Losartan Potassium [Cozaar 25 mg 12.5 mg PO DAILY 11/18/16 (*)] Metoprolol Succinate Xr [Toprol Xl 100 mg PO DAILY 11/18/16 100 mg (*)] Nitroglycerin [Nitrostat 0.4 mg 0.4 mg SL AD PRN 11/18/16 (*)] Spironolactone [Aldactone 25 MG 12.5 mg PO DAILY 11/18/16 (*)] Warfarin Sodium [Coumadin 5MG (*)] 5 mg PO SUMOWETHFR 11/18/16 Warfarin Sodium [Coumadin 7.5MG 7.5 mg PO TUSA 11/18/16 (*)] oxyCODONE IR [Oxycodone Ir (*)] 2.5 - 5 mg PO Q4H PRN 11/18/16 Medical Decision Making - Diagnostics EKG Interpretation: 12-lead EKG interpreted by me; official reading is in trace master. My interpretation is atrial fibrillation rate 94 with PVC and right bundle branch block. Imaging Results: Imaging Impressions Chest X-Ray 11/18/16 18:31 Impression: Cardiomegaly and pulmonary venous hypertension. No rodrigue failure. Differential Diagnosis: Differential diagnosis considered for chest pain including but not limited to myocardial ischemia, aortic dissection, pericarditis, pulmonary embolus, chest wall pain, pleural inflammation and pulmonary infectious causes. Consult/Admit Bed Type: Nishant Cooley [facility] 193, [place] 1958 - Data Points Laboratory Results: Laboratory Results 11/18/16 18:35 11/18/16 18:35 11/18/1617 11/18/16 18:35 18:35 18:35 WBC 7.09 10^3/uL 10^3/uL (3.80-9.50) RBC 4.78 10^6/uL 10^6/uL (4.40-6.38) Hgb 14.9 g/dL g/dL (13.7-17.5) Hct 44.7 % % (40.0-51.0) MCV 93.5 fL fL (81.5-99.8) MCH 31.2 pg pg (27.9-34.1) MCHC 33.3 g/dL g/dL (32.4-36.7) RDW 15.4 % H % (11.5-15.2) Plt Count 273 10^3/uL 10^3/uL (150-400) MPV 9.3 fL fL (8.7-11.7) Neut % (Auto) 61.9 % % (39.3-74.2) Lymph % (Auto) 29.6 % % (15.0-45.0) [place] % (Auto) 6.5 % % (4.5-13.0) Eos % (Auto) 0.8 % % (0.6-7.6) Baso % (Auto) 0.8 % % (0.3-1.7) Nucleat RBC Rel Count 0.0 % % (0.0-0.2) Absolute Neuts (auto) 4.38 10^3/uL 10^3/uL (1.70-6.50) Absolute Lymphs (auto) 2.10 10^3/uL 10^3/uL (1.00-3.00) Absolute Monos (auto) 0.46 10^3/uL 10^3/uL (0.30-0.80) Absolute Eos (auto) 0.06 10^3/uL 10^3/uL (0.03-0.40) Absolute Basos (auto) 0.06 10^3/uL 10^3/uL (0.02-0.10) Absolute Nucleated RBC 0.00 10^3/uL 10^3/uL (0-0.01) Immature Gran % 0.4 % % (0.0-1.1) Immature Gran # 0.03 10^3/uL 10^3/uL (0.00-0.10) PT 16.5 SEC H SEC (12.0-15.0) INR 1.33 H (0.83-1.16) APTT 36.0 SEC SEC (23.0-38.0) Sodium 141 mEq/L mEq/L (134-144) Potassium 4.1 mEq/L mEq/L (3.5-5.2) Chloride 107 mEq/L mEq/L (97-110) Carbon Dioxide 21 mEq/l L mEq/l (22-31) Anion Gap 13 mEq/L mEq/L (8-16) BUN 23 mg/dL mg/dL (7-23) Creatinine 1.3 mg/dL mg/dL (0.7-1.3) Estimated GFR 54 Glucose 98 mg/dL mg/dL (70-100) Calcium 9.9 mg/dL mg/dL (8.5-10.4) Troponin I 0.091 ng/mL H ng/mL (0-0.034) Medications Given: Discontinued Medications Furosemide (Lasix Injection) 40 mg IVP ONCE ONE Stop: 11/18/16 21:46 Last Admin: 11/18/16 22:29 Dose: 40 mg Departure - Departure Disposition: [facility] In[facility] Acute Clinical Impression: Troponin level elevated Chest pain Qualifiers: Chest pain type: unspecified Qualified Code(s): R07.9 - Chest pain, unspecified Condition: Good
--- NOTE | 2016-11-18 18:32 | CPEKG ---
Heart Rate: 94 RR Interval: 638 QRSD Interval: 164 QT Interval: 432 QTC Interval: 541 QRS [place]: 100 T Wave [place]: 17 EKG Severity - ABNORMAL ECG - EKG Impression: ATRIAL FIBRILLATION, V-RATE 65-115 EKG Impression: VENTRICULAR PREMATURE COMPLEX EKG Impression: RIGHT BUNDLE BRANCH BLOCK EKG Impression: LVH BY VOLTAGE Electronically Signed By: Ozzy Delgadillo 18-Nov-2016 23:01:10
[2016-11-18 18:42] LABS: % IMMATURE GRANULYOCYTES 0.4 % (0.0-1.1); ABSOLUTE IMMATURE GRANULOCYTES 0.03 10^3/uL (0.00-0.10); ADD DIFF? NO; ADD MORPH? NO; ADD SCAN? NO; ATYPICAL LYMPHOCYTE FLAG 0 (0-99); FRAGMENT RBC FLAG 0 (0-99); HEMATOCRIT 44.7 % (40.0-51.0); HEMOGLOBIN 14.9 g/dL (13.7-17.5); LEFT SHIFT FLG 0 (0-99); LIPEMIA HEMOLYSIS FLAG 80 (0-99); MEAN CELL HEMOGLOBIN 31.2 pg (27.9-34.1); MEAN CELL HEMOGLOBIN CONCENTR. 33.3 g/dL (32.4-36.7); MEAN CELL VOLUME 93.5 fL (81.5-99.8); MEAN PLATELET VOLUME 9.3 fL (8.7-11.7); PLATELET CLUMPS FLAG 0 (0-99); PLATELET COUNT 273 10^3/uL (150-400); RED BLOOD CELL COUNT 4.78 10^6/uL (4.40-6.38); RED CELL DISTRIBUTION WIDTH 15.4 % (11.5-15.2)
[2016-11-18 18:53] LABS: INR 1.33 (0.83-1.16); PROTIME(PATIENT) 16.5 SEC (12.0-15.0)
[2016-11-18 18:56] LABS: ANION GAP 13 mEq/L (8-16); CALCIUM 9.9 mg/dL (8.5-10.4); CARBON DIOXIDE 21 mEq/l (22-31); CHLORIDE 107 mEq/L (97-110); CREATININE 1.3 mg/dL (0.7-1.3); GLOMERULAR FILTRATION RATE 54; GLUCOSE 98 mg/dL (70-100); POTASSIUM 4.1 mEq/L (3.5-5.2); SODIUM 141 mEq/L (134-144)
[2016-11-18 19:20] LABS: TROPONIN I 0.091 ng/mL (0-0.034)
[2016-11-18] MEDS ORDERED: ACETAMINOPHEN 325 MG TAB PO PRN (21:03)
--- NOTE | 2016-11-18 21:38 | PDGENHP ---
History and Physical - Chief Complaint acute chest pain - History of Present Illness primary care provider: [facility] Primary automotive electrical helper: Dr. Kurtz Primary urologist: Dr. Puente HPI: 76-year-old male presenting with acute chest pain characterized as a pressure sensation located on his left anterior chest with associated shortness of breath, symptom onset mid afternoon and duration approximately 2 hours. Patient reports the symptoms began at rest while he was asleep and awoke him from a nap. The symptoms were alleviated by full-dose aspirin received during EMS transport. They went from level 6 to level 3. he reports that it is difficult to determine whether his chest pain symptoms are similar to those which he has experienced in the past in the setting of CHF as well as obstructive coronary disease. He reports he has otherwise been taking all of his home medications and prior to his onset of symptoms, he had otherwise been feeling well. He reports he is not particularly physically active but he has not been experiencing any chest pain or shortness of breath with the minimal physical exertion he does do. History Information - Allergies/Home Medication List Allergies/Adverse Reactions: atorvastatin calcium [From Lipitor] Allergy (Severe, Verified 10/26/16 06:58) Other-Enter Comments haloperidol [From Haldol] Allergy (Verified 10/26/16 06:58) simvastatin Allergy (Verified 11/18/16 18:42) Home Medications: Acetaminophen [Tylenol 325mg (*)] 325 - 650 mg PO Q4H PRN 11/18/16 [Last Taken Unknown] Allopurinol [Allopurinol 300 MG (RX)] 150 mg PO DAILY 11/18/16 [Last Taken 11/18] Clopidogrel Bisulfate [Plavix (*)] 75 mg PO DAILY 11/18/16 [Last Taken 11/18/16] Digoxin [Lanoxin 125 mcg (RX)] 125 mcg PO HS 11/18/16 [Last Taken 11/17/16] Furosemide [Lasix 20 MG (*)] 20 mg PO DAILY@1600 11/18/16 [Last Taken 11/18/16] Furosemide [Lasix 40 MG (*)] 40 mg PO DAILY 11/18/16 [Last Taken 11/18/16] Losartan Potassium [Cozaar 25 mg (*)] 12.5 mg PO DAILY 11/18/16 [Last Taken 06/25] Metoprolol Succinate Xr [Toprol Xl 100 mg (*)] 100 mg PO DAILY 11/18/16 [Last Taken 11/18/16] Nitroglycerin [Nitrostat 0.4 mg (*)] 0.4 mg SL AD PRN 11/18/16 [Last Taken Unknown] Spironolactone [Aldactone 25 MG (*)] 12.5 mg PO DAILY 11/18/16 [Last Taken 11/18] Warfarin Sodium [Coumadin 5MG (*)] 5 mg PO SUMOWETHFR 11/18/16 [Last Taken 11/18] Warfarin Sodium [Coumadin 7.5MG (*)] 7.5 mg PO TUSA 11/18/16 [Last Taken ] oxyCODONE IR [Oxycodone Ir (*)] 2.5 - 5 mg PO Q4H PRN 11/18/16 [Last Taken Unknown] I have personally reviewed and updated: family history, medical history, social history, surgical history - Past Medical History atrial fibrillation ( Permanent), coronary artery disease ( with LAD stent May of 2016, ischemic cardiomyopathy), CHF ( systolic with ejection fraction 25%) Additional medical history: nonobstructive CAD. Afib on systemic anticoagulation. HTN. gout. nephrolithiasis with recent stent placed. Left atrial thrombus. Cognitive impairment - Surgical History Additional surgical history: R total knee replacement. appendectomy. Recent ureteral stent placement. 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 Lives alone, is independent in ADLs. Review of Systems ROS: 10pt was reviewed & negative except for what was stated in HPI & below Cardiac: Reports: chest pain Respiratory: Reports: shortness of breath Physical Exam Temp Pulse Resp BP Pulse Ox 35.6 C L 98 20 116/84 H 96 11/18/16 20:51 11/18/16 20:51 11/18/16 20:51 11/18/16 20:51 11/18/16 20:51 Constitutional: no apparent distress, not in pain, chronically ill appearing, No uncomfortable Eyes: PERRL, anicteric sclera, EOMI Ears, Nose, Mouth, Throat: moist mucous membranes, hearing normal, ears appear normal, no oral mucosal ulcers Cardiovascular: systolic murmur ( 3/6 at apex radiating into the axilla), irregularly irregular, edema ( trace bilateral lower extremity), No tachycardia Respiratory: inspiratory crackles ( bilateral bases), No reduced air movement, No expiratory wheeze, No bronchial breath sounds Gastrointestinal: normoactive bowel sounds, soft, non-tender abdomen, no palpable masses Musculoskeletal: normal joint ROM ( left shoulder), other ( no tenderness to palpation over the bilateral pectoralis) Neurologic: AAOx3, sensation intact bilaterally, No weakness ( motor strength 5/ 5 bilateral lower extremity) Psychiatric: interacting appropriately, not anxious, not encephalopathic, thought process linear Lab Data & Imaging Review 11/18/16 18:35 11/18/16 18:35 WBC 7.09 10^3/uL (3.80-9.50) 11/18/16 18:35 RBC 4.78 10^6/uL (4.40-6.38) 11/18/16 18:35 Hgb 14.9 g/dL (13.7-17.5) 11/18/16 18:35 Hct 44.7 % (40.0-51.0) 11/18/16 18:35 MCV 93.5 fL (81.5-99.8) 11/18/16 18:35 MCH 31.2 pg (27.9-34.1) 11/18/16 18:35 MCHC 33.3 g/dL (32.4-36.7) 11/18/16 18:35 RDW 15.4 % (11.5-15.2) H 11/18/16 18:35 Plt Count 273 10^3/uL (150-400) 11/18/16 18:35 MPV 9.3 fL (8.7-11.7) 11/18/16 18:35 Neut % (Auto) 61.9 % (39.3-74.2) 11/18/16 18:35 Lymph % (Auto) 29.6 % (15.0-45.0) 11/18/16 18:35 Sioux % (Auto) 6.5 % (4.5-13.0) 11/18/16 18:35 Eos % (Auto) 0.8 % (0.6-7.6) 11/18/16 18:35 Baso % (Auto) 0.8 % (0.3-1.7) 11/18/16 18:35 Nucleat RBC Rel Count 0.0 % (0.0-0.2) 11/18/16 18:35 Absolute Neuts (auto) 4.38 10^3/uL (1.70-6.50) 11/18/16 18:35 Absolute Lymphs (auto) 2.10 10^3/uL (1.00-3.00) 11/18/16 18:35 Absolute Monos (auto) 0.46 10^3/uL (0.30-0.80) 11/18/16 18:35 Absolute Eos (auto) 0.06 10^3/uL (0.03-0.40) 11/18/16 18:35 Absolute Basos (auto) 0.06 10^3/uL (0.02-0.10) 11/18/16 18:35 Absolute Nucleated RBC 0.00 10^3/uL (0-0.01) 11/18/16 18:35 Immature Gran % 0.4 % (0.0-1.1) 11/18/16 18:35 Immature Gran # 0.03 10^3/uL (0.00-0.10) 11/18/16 18:35 PT 16.5 SEC (12.0-15.0) H 11/18/16 18:35 INR 1.33 (0.83-1.16) H 11/18/16 18:35 APTT 36.0 SEC (23.0-38.0) 11/18/16 18:35 Sodium 141 mEq/L (134-144) 11/18/16 18:35 Potassium 4.1 mEq/L (3.5-5.2) 11/18/16 18:35 Chloride 107 mEq/L (97-110) 11/18/16 18:35 Carbon Dioxide 21 mEq/l (22-31) L 11/18/16 18:35 Anion Gap 13 mEq/L (8-16) 11/18/16 18:35 BUN 23 mg/dL (7-23) 11/18/16 18:35 Creatinine 1.3 mg/dL (0.7-1.3) 11/18/16 18:35 Estimated GFR 54 11/18/16 18:35 Glucose 98 mg/dL (70-100) 11/18/16 18:35 Calcium 9.9 mg/dL (8.5-10.4) 11/18/16 18:35 Troponin I 0.091 ng/mL (0-0.034) H 11/18/16 18:35 Visualized and Interpreted Chest x-ray results: Yes Chest X-Ray results: other ( mild pulmonary vascular congestion) Visualized and Interpreted EKG results: Yes EKG Interpretation: Positive for: other ( right bundle branch block with atrial fibrillation) Assessment & Plan Assessment: 76-year-old male presenting with acute chest pain in the setting of known coronary artery disease, chronic systolic congestive heart failure Plan: 1. Chest pain. Acute, new problem this provider, further workup indicated. Potential etiologies include unstable angina versus acute systolic CHF exacerbation versus GERD verses distinctly atypical chest pain symptoms. - I suspect the patient's chest pain is either atypical or secondary to small vessel ischemia with a marginally elevated troponin level but cardiac catheterization within the last 6 months -outside records reviewed including 0 at presentation to emergency department for similar symptoms comma chest pain and shortness of breath, evaluated by Dr. Alejandro Campos, patient decided to leave prior to any further risk stratification - he does not appear to have overt congestive heart failure but with his trace bilateral lower extremity edema and mild pulmonary vascular congestion will give him 1 dose of IV Lasix this evening and gauge response in a.m., monitoring urine output and serum creatinine level - cycle cardiac enzymes -monitor on telemetry -will consult with Cardiology and request that they help us determine whether to risk stratify further 2. chronic systolic congestive heart failure. No evidence of overt exacerbation , check BNP, monitor urine output 3. Coronary artery disease. Chronic, most recent LAD stent placed in May, patient reports he has been adherent to his medications 4. left atrial thrombus. Patient previously had a left atrial clot identified and systemically anticoagulated -continue on Coumadin, monitor INR -patient would like guidance as to when he is supposed to discontinue Coumadin and initiate bridging Lovenox prior to his ureteral stent removal procedure next week 5. Chronic kidney disease stage 3. creatinine is currently within his baseline of 1.3-1.7 Diet. Cardiac diet, NPO in a.m. in case a procedure is indicated Prophylaxis. Currently systemically anticoagulated Code. Full per patient, sister is MPOA Disposition. Anticipated discharge 11/19/2016, pending further workup as outlined above. I have discussed patient's presentation with Dr. Ozzy Delgadillo, we both agree that the patient is appropriate for the EACU. Dr. Delgadillo has contacted [facility] and they have authorized from to provide patient with care since there hospital is currently full.
[2016-11-18] MEDS ORDERED: FUROSEMIDE 40 MG/4 ML VIAL IVP ONE (21:45)
[2016-11-18] MEDS: DIGOXIN 125 MCG TAB PO SCH (22:29)
[2016-11-18] MEDS: oxyCODONE IR 5 MG TAB PO PRN (22:30)
[2016-11-19 05:24] LABS: % IMMATURE GRANULYOCYTES 0.3 % (0.0-1.1); ABSOLUTE IMMATURE GRANULOCYTES 0.02 10^3/uL (0.00-0.10); ADD DIFF? NO; ADD MORPH? NO; ADD SCAN? NO; ATYPICAL LYMPHOCYTE FLAG 0 (0-99); FRAGMENT RBC FLAG 0 (0-99); HEMATOCRIT 41.3 % (40.0-51.0); HEMOGLOBIN 13.9 g/dL (13.7-17.5); LEFT SHIFT FLG 0 (0-99); LIPEMIA HEMOLYSIS FLAG 80 (0-99); MEAN CELL HEMOGLOBIN 31.3 pg (27.9-34.1); MEAN CELL HEMOGLOBIN CONCENTR. 33.7 g/dL (32.4-36.7); MEAN PLATELET VOLUME 9.2 fL (8.7-11.7); PLATELET CLUMPS FLAG 0 (0-99); PLATELET COUNT 221 10^3/uL (150-400); RED BLOOD CELL COUNT 4.44 10^6/uL (4.40-6.38); RED CELL DISTRIBUTION WIDTH 15.4 % (11.5-15.2)
[2016-11-19 05:33] LABS: INR 1.36 (0.83-1.16); PROTIME(PATIENT) 16.8 SEC (12.0-15.0)
[2016-11-19 05:50] LABS: ALBUMIN 3.6 g/dL (3.5-5.0); ANION GAP 10 mEq/L (8-16); CALCIUM 8.9 mg/dL (8.5-10.4); CARBON DIOXIDE 21 mEq/l (22-31); CHLORIDE 109 mEq/L (97-110); CREATININE 1.2 mg/dL (0.7-1.3); GLOMERULAR FILTRATION RATE 59; GLUCOSE 105 mg/dL (70-100); POTASSIUM 4.3 mEq/L (3.5-5.2); SODIUM 140 mEq/L (134-144); TOTAL PROTEIN 6.5 g/dL (6.3-8.2)
[2016-11-19 05:51] LABS: ALANINE AMINOTRANSFERASE 27 IU/L (21-72); ALKALINE PHOSPHATASE 103 IU/L (38-126); ASPARTATE AMINOTRANSFERASE 28 IU/L (17-59); BILIRUBIN,TOTAL 1.3 mg/dL (0.1-1.4)
[2016-11-19 06:01] LABS: TROPONIN I 0.108 ng/mL (0-0.034)
--- NOTE | 2016-11-19 08:12 | CPEKG ---
Heart Rate: 94 RR Interval: 638 QRSD Interval: 172 QT Interval: 448 QTC Interval: 561 QRS [place]: 108 T Wave [place]: -9 EKG Severity - ABNORMAL ECG - EKG Impression: ATRIAL FIBRILLATION, V-RATE 71-110 EKG Impression: VENTRICULAR PREMATURE COMPLEX EKG Impression: ABERRANT COMPLEX, POSSIBLY SUPRAVENTRICULAR EKG Impression: RIGHT BUNDLE BRANCH BLOCK Electronically Signed By: Lizeth Pandey 21-Nov-2016 07:02:41
[2016-11-19] MEDS: NITROGLYCERIN 0.4 MG BTL SL PRN ×2 (08:18→08:31)
[2016-11-19] MEDS ORDERED: WARFARIN SODIUM 7.5 MG TAB PO SCH (09:00)
[2016-11-19] MEDS: CLOPIDOGREL BISULFATE 75 MG TAB PO SCH (09:46)
[2016-11-19] MEDS: ALLOPURINOL 300 MG TAB PO SCH (09:46)
[2016-11-19] MEDS: FUROSEMIDE 40 MG TAB PO SCH ×2 (09:47→10:49)
[2016-11-19] MEDS: METOPROLOL SUCCINATE XR 100 MG TAB PO SCH (09:47)
[2016-11-19] MEDS: SPIRONOLACTONE 25 MG TAB PO SCH (09:48)
[2016-11-19] MEDS: LOSARTAN POTASSIUM 25 MG TAB PO SCH (10:06)
[2016-11-19] MEDS ORDERED: FUROSEMIDE 40 MG/4 ML VIAL IVP ONE (11:03)
[2016-11-19] MEDS: ASPIRIN 325 MG TAB PO SCH (11:18)
--- NOTE | 2016-11-19 11:57 | GCON ---
[f rep st] CONSULTATION CARDIOLOGY CONSULTATION DATE OF CONSULTATION: 11/19/2016 REASON FOR CONSULTATION: Chest pain and shortness of breath. HISTORY OF PRESENT ILLNESS: The patient is a pleasant 76-year-old gentleman well known to [facility] and well known to [facility] who is followed for heart failure by Dr. Mack. He has a known history of chronic cardiomyopathy which is out of proportion with his degree of coronary artery disease with LVEF of 17%, single-vessel coronary artery disease with PCI to the proximal LAD in May of 2016, permanent atrial fibrillation, Ransom Heart Association class 3 systolic congestive heart failure, chronic renal insufficiency, sleep apnea, and history of nephrolithiasis who is scheduled for a urologic procedure to address his kidney stones next week. I spent the last 2 hours reviewing his records in detail and discussing with the patient, as well as reviewing his cardiac cath films and office notes from [facility]. The patient has had approximately 8 admissions to [facility] for chest pain or heart failure exacerbation. There are questions about medical noncompliance. The patient assures me he has been compliant with his medications to date. The patient presented to [facility] early this morning after waking from sleep with what he describes as substernal chest pressure, 7/10, nonradiating, associated with shortness of breath, nausea and diaphoresis. These symptoms prompted him to seek medical attention. He was admitted to the observation unit. He has continued to have occasional episodes of substernal chest pressure this morning. He again describes this episode as 7/10. His pain resolved with a single sublingual nitroglycerin. At the time of my exam, he is resting comfortably without complaints and telling me jokes. In reviewing his records, he has been seen in consultation by Dr. Aguillon of Electrophysiology for consideration of biventricular ICD. He informs me the biventricular ICD is scheduled to be performed sometime in the near future. He is primarily followed by a dough cutting machine operator at [facility]. Currently at the time of my exam, he is resting comfortably. PAST MEDICAL HISTORY: 1. Coronary artery disease with PCI to the LAD in May of 2016 at [facility] with evidence of nonobstructive disease within the RCA and LCX with mild luminal irregularities between 20% and 30%. 2. Ransom Heart Association class 3 systolic congestive heart failure. 3. Cardiomyopathy of unclear etiology. I do not think his coronary disease is responsible for global left ventricular hypokinesis of 17%. 4. Chronic atrial fibrillation. 5. Chronic renal insufficiency. 6. Sleep apnea. MEDICATIONS ON ADMISSION: 1. Metoprolol succinate 100 mg daily. 2. Digoxin 125 mcg daily. 3. Plavix 75 mg daily. 4. Lasix 40 mg in the morning and 20 mg at 1600. 5. Losartan 12.5 mg daily. 6. Spironolactone 12.5 mg daily. 7. Coumadin 5 mg on Monday, Monday, Monday, , Monday, and 7.5 mg Monday, Monday. 8. Allopurinol 150 mg daily. 9. Oxycodone 2.5 to 5 mg p.o. q.4 hours p.r.n. pain. 10. Nitroglycerin 0.4 mg sublingual q.5 minutes p.r.n. chest pain. 11. Tylenol p.r.n. ALLERGIES: To medication include: Atorvastatin, simvastatin, and Haldol. SOCIAL HISTORY: The patient is . He lives alone in a [place] park in [place]. He is a nonsmoker. PHYSICAL EXAMINATION: VITAL SIGNS: Blood pressure is 117/70, heart rate 92 in controlled atrial fibrillation, respiratory rate 16, oxygen saturation 95% on 2 L. His weight on admission was 82.3 kg. GENERAL: He is awake, alert, oriented , appropriate, in no apparent distress. NECK: There is no evidence of JVP or carotid bruits. LUNGS: Clear to auscultation bilaterally. CARDIAC: S1, S2. Irregularly irregular. There is a 2/6 systolic murmur at the apex consistent with mitral regurgitation. ABDOMEN: Soft, nontender, nondistended. There is no pulsatile mass or abdominal bruit. There is no evidence of abdominal distention or bloating. Bowel sounds are normal. EXTREMITIES: He has 2+ bilateral radial artery pulses. He has 2+ bilateral femoral artery pulses, 2+ dorsalis pedis and posterior tibial pulses. He has no evidence of cyanosis, clubbing or edema. LABORATORY DATA: White blood cell count 5.86, hemoglobin 13.9, hematocrit 43.3 , platelets 221, INR 1.36, sodium 140, potassium 4.3, chloride 109, bicarb 21, BUN 24, creatinine 1.2, glucose 105, AST 28, ALT 27. Troponins: Initial troponin was 0.091 increasing to 0.102 and most recently 0.108. N-terminal proBNP 11,600. He did have a BNP in October of 5469, prior to that a BNP of 12, 300 in August of 2016. IMAGING: Chest x-ray shows cardiomegaly with pulmonary venous hypertension. No evidence of failure. No interstitial edema or effusion. Lungs are clear. ECG demonstrates atrial fibrillation with no acute ischemic changes. IMPRESSION: 1. New onset of atypical substernal chest pressure. 2. History of coronary artery disease with PCI to the LAD. 3. Ransom Heart Association class 3 congestive heart failure with LVEF of 17% . 4. History of left atrial thrombus. 5. Chronic atrial fibrillation with rate control and anticoagulation with Coumadin. 6. Chronic renal insufficiency. 7. Nephrolithiasis with plan for urologic procedure next week. Summary: The patient is a pleasant 76-year-old gentleman with multiple medical comorbidities as outlined above with new episodes of substernal chest pressure and tightness. Troponin is relatively flat, although slightly elevated. The previous troponin on admission was 0.05. I question his compliance with medications in the setting of an INR of 1.3 coupled with a BNP that has doubled in the last month in the setting of a history of noncompliance. At this time I would recommend Lexiscan nuclear stress test to assess for ischemic burden. Would prefer not to take him directly to the prosthetics lab technician without further risk stratification. Will plan to continue to treat heart failure. PLAN: 1. Lasix 40 mg IV b.i.d. 2. Check digoxin level. 3. Hold Coumadin for consideration of left heart catheterization pending results of nuclear stress test. 4. Continue Plavix 75 mg daily. 5. Add aspirin 325 mg daily. 6. Limited echocardiogram to assess ventricular function. 7. Lexiscan nuclear stress test. 8. Continue outpatient dose of metoprolol, spironolactone,digoxin and losartan. 9. We will continue to follow. Two hours were spent reviewing his records, consulting with his hospitalist physician and RN, coupled with speaking to the outside providers regarding his medical history. /[id number]/MODL MTDD
[2016-11-19] MEDS ORDERED: REGADENOSON 0.4 MG/5 ML SYR IVP ONE (12:15)
[2016-11-19 12:50] LABS: COLOR YELLOW; LEUKOCYTE ESTERASE,URINE 3+ (NEGATIVE); NITRITE,URINE NEGATIVE (NEGATIVE)
[2016-11-19 12:57] LABS: MUCUS TRACE /lpf (NONE-1+); RBC,URINE 50-182 /hpf (0-3); WBC,URINE 25-50 /hpf (0-3)
--- NOTE | 2016-11-19 13:02 | GPN ---
[f rep st] PROCEDURE NOTE DATE OF PROCEDURE: 11/19/2016 PROCEDURE PERFORMED: Lexiscan pharmacologic nuclear stress test. INDICATIONS: Substernal chest pain and pressure in the setting of a known history of coronary arter y disease with previous PCI to the proximal LAD in May 2016 with mildly elevated troponin. PROCEDURE: After informed consent was obtained for Lexiscan nuclear stress test, initial vital sign s were obtained, demonstrating a resting heart rate of 93 beats per minute, irregularly irregular rh ythm of atrial fibrillation with right bundle branch block. Blood pressure was 121/88 and oxygen sa turation of 97%. He received an injection of Lexiscan 0.4 mg in 5 mL, [facility] was [facility] with 20.2 mg of TC-99m sestamibi. The patient had no complaints of ch est pain or chest pressure throughout the course of the study. He had no complaints at all through the study. He had no ECG changes through the course of the entire study. Vital signs in the recovery phase of atrial fibrillation at 93 beats per minute with blood pressure of 120/85 and oxygen saturation of 95%. Repeat values were essentially unchanged, with a heart rate of 95 beats per minute, blood pressure 120/85, and oxygen saturation of 97%. CONCLUSIONS: 1. Normal pharmacologic stress test without symptoms or ECG changes. 2. Nuclear imaging pending. /[id number]/MODL
[2016-11-19 13:28] LABS: PHENCYCLIDINE URINE BCH < 6 ng/ml (NEGATIVE); PHENCYCLIDINE URINE BCH NEGATIVE (NEGATIVE)
[2016-11-19 13:40] LABS: TETRAHYDROCANNABINOL URINE 399 ng/mL (NEGATIVE)
[2016-11-19 14:07] LABS: TETRAHYDROCANNABINOL URINE 399 ng/mL (NEGATIVE)
--- NOTE | 2016-11-19 14:20 | ECHO ---
[id number] + + [address] : : [place] [address] : : [phone] + + Adult Echocardiographic Report + ------+ :Name: BRIA MALONE CStudy Date: 11/19/2016 11:56 AM : : Hospital Admission Number: [id number] Locatio n: 142: :: 1940 Gender: Male Height: 72 in : :Age: 76 yrs Race: WH,UN,U Weight: 188 lb : :Reason For Study: Postitional CP/nausea/orthopnea/eval : :EF/pericardial effusion BSA: 2.1 meters 2 : + ------+ MMode/2D Measurements \T\ Calculations LVIDd: 8.4 cm EDV(Teich): 389.3 ml Normal Measurement Values: + + :LVIDd (3.5-5.7cm) IVSd (0.6-1.1cm) LVPWd (0.6-1.1cm) Aortic Root (2.0-3.7cm)Left Atrium (1.5-4.0cm): :LV Vol(d) (76-115ml) LV Vol(s) (29-48ml) Ejec Fraction (50-65%)PV Josué (0.6- 1.2m/s) TV Josué (0.4-1.0m/s) : :MV E Josué (0.8-1.0m/s)MV A Josué (0.3-1.0m/s)LVOT Josué (0.7-1.2m/s) Asc Ao Josué ( 0.9-1.8m/s) : + + Left Ventricle The left ventricle is severely dilated. EF estimate is 20%. There is severe global hypokinesis of the left ventricle. Mitral Valve The mitral valve is normal in structure and function. There is severe mitral regurgitation. Aortic Valve The aortic valve is trileaflet. Moderate aortic regurgitation. Pericardium/Pleural There is no pericardial effusion. Conclusion Limited 2-D echo. Compared to prior study, there is no significant change. EF estimate is 20%. The left ventricle is severely dilated. There is severe mitral regurgitation. There is no pericardial effusion. Moderate aortic regurgitation. There is severe global hypokinesis of the left ventricle. Compared to prior study, there is no significant change. Final Reading Physician: Ronnie Sauer electronically signed on 11/19/2016 02:19 PM Ordering Physician: Samantha Strange Performed By: Michelle Mendez, BRYAN
[2016-11-19 15:33] VITALS: RESP 18
[2016-11-19] MEDS ORDERED: FUROSEMIDE 20 MG TAB PO SCH (16:00)
[2016-11-19] MEDS: FUROSEMIDE 40 MG/4 ML VIAL IVP SCH (16:06)
--- NOTE | 2016-11-19 18:12 | HOSPPROG ---
Hospitalist Progress Note Assessment/Plan: The patient is a a 76-year-old male with PMH cardiomyopathy who was admitted for chest pain, nausea, left arm numbness. ASSESSMENT/PLAN: Acute chest pain - suspect unstable angina Chronic systolic CHF Nonischemic cardiomyopathy Coronary artery disease-history of LAD stent Atrial fibrillation Left atrial thrombus Chronic anticoagulation with warfarin -sub therapeutic CKD stage 3 Nephrolithiasis with left-sided flank pain Suspect medical noncompliance Poor social support -Cardiology recommendations appreciated. -PCU status - monitor on telemetry -TTE checked - no change. -Lexiscan stress test - spoke w/ Radiologist Dr. Jauregui - stress portion demonstrates defect in inferolateral jay, apex. Resting images tomorrow. -Suspect noncompliance since subtherapeutic and w/ recurrent admissions with similar CP. -Attempted to call [facility] for Dr. Garrett, this patient claims he is getting a urology procedure on the at [facility]. Could not leave a message with their telephone system. Requested case management assist with this matter. -per Cardiology recommendations, placed patient on full-dose aspirin. Stopped warfarin. Checked digoxin level. Checked BNP level. VTE prophylaxis: Adding Lovenox GI prophylaxis: Not needed Code Status: Full. Patient says he has 9 children most of whom are in [place]. Status: Changing to inpatient for greater than 2 midnight stay. Disposition: PCU This patient is new to me. Reviewed patient's chart/records for this visit. Personally discussed case with RNs, cardiologists, radiologist. ____ SUBJECTIVE: Today patient was complaining of retrosternal chest pain, diaphoresis, nausea. He admitted that his symptoms are worse when he lies down. Lying down makes him gasp for air. His symptoms are better when he sits upright or stands. He denies any swelling in his legs. He denies a cough or shortness of breath. OBJECTIVE: Physical Exam: General: The patient is an elderly male who is alert and in mild acute distress. HEENT: normocephalic, extraocular movements intact, conjunctivae clear. Mucous membranes moist. Neck: trachea midline, no visible masses. CV: +S1/S2, irregular rhythm, rate is not slow or fast, + rub vs grade 4 murmur best auscultated at apex of heart. + displaced PMI. Resp: unlabored, CTAB no RRW. Abd: soft and nondistended. Bowel sounds present. Mildly tender left upper quadrant. Musculoskeletal: Normal muscle tone/bulk. Neuro: cranial nerves II XII grossly intact. Intact gross motor and sensory function. Psych: anxious mood and appropriate affect. Skin: Mild pallor. No petechiae. Heme/lymph: No peripheral edema at bilateral lower extremities. Labs/Imaging/Other Tests: Personally reviewed/interpreted. EKG: Atrial fibrillation, no acute ischemia, several PVCs. Chest x-ray: No acute cardiopulmonary abnormality. Troponins: Mildly elevated. BMP: Around 11,000. Objective: Vital Signs Temp Pulse Resp BP Pulse Ox 36.4 C 65 18 106/79 94 11/19/16 15:31 11/19/16 15:31 11/19/16 15:31 11/19/16 15:31 11/19/16 15:31 Laboratory Results 11/19/16 04:58 11/19/16 04:58 11/18/16 11/19/16 11/20/16 05:59 05:59 05:59 Intake Total 450 Output Total 1200 Balance -750 PT 16.8 SEC (12.0-15.0) H 11/19/16 04:58 INR 1.36 (0.83-1.16) H 11/19/16 04:58 ICD10 Worksheet Patient Problems: Problems Problem Status Onset Chest pain Acute Troponin level elevated Acute Acute decompensated heart failure Acute Acute exacerbation of CHF (congestive heart failure) Acute Atrial fibrillation with rapid ventricular response Acute Cardiomyopathy Acute Chest pain Acute Chest pain at rest Acute Chest pain in adult Acute Confusion with nonfocal neurological examination Acute Congestive heart failure Acute Constipation Acute Hematuria Acute Near syncope Acute Nephrolithiasis Acute Ureterolithiasis Acute
[2016-11-19] MEDS ORDERED: PROMETHAZINE HCL 25 MG TAB PO PRN (18:51)
[2016-11-19] MEDS: DIGOXIN 125 MCG TAB PO SCH (20:19)
[2016-11-19] MEDS: oxyCODONE IR 5 MG TAB PO PRN (22:01)
[2016-11-20] MEDS: FUROSEMIDE 40 MG/4 ML VIAL IVP SCH ×2 (08:34→15:21)
[2016-11-20] MEDS: ALLOPURINOL 300 MG TAB PO SCH (08:34)
[2016-11-20] MEDS: SPIRONOLACTONE 25 MG TAB PO SCH (08:35)
[2016-11-20] MEDS: ASPIRIN 325 MG TAB PO SCH (08:35)
[2016-11-20] MEDS: METOPROLOL SUCCINATE XR 100 MG TAB PO SCH (08:35)
[2016-11-20] MEDS: CLOPIDOGREL BISULFATE 75 MG TAB PO SCH (08:35)
[2016-11-20] MEDS: LOSARTAN POTASSIUM 25 MG TAB PO SCH (08:36)
[2016-11-20] MEDS ORDERED: WARFARIN SODIUM 5 MG TAB PO SCH (09:00)
[2016-11-20] MEDS ORDERED: ENOXAPARIN 40 MG/0.4 ML SYR SC SCH (09:00)
--- NOTE | 2016-11-20 09:21 | PDCARPN ---
Cardiology Progress Note Chief Complaint: Mr. Alvarez is doing well this AM. No complaints over night. No new episodes of chest pain. Remains in rate controlled afib. Note pauses of up to 2.5 seconds at night on telemetry. Asymptomatic. Final nuclear results pending, rest imaging this AM. Assessment/Plan: Assessment: 1. Atypical chest pain 2. Cardiomyopathy with LVEF 20% 3. CAD with pci to LAD in May 2016 4. Severe MR 5. Chronic Afib 6. Medical non compliance Plan: -hold lovenox this am -rest nuclear images this Am -discussed with pt the importance of compliance with medications 11/20/16 09:22 Objective: Vital Signs (8 Hrs) Temp Pulse Resp BP Pulse Ox 11/20/16 08:36 117/63 11/20/16 08:35 87 /11/20/16 07:10 36.6 C 87 18 117/63 93 11/20/16 04:00 36.5 C 91 18 96/73 L 93 Intake/Output (24 Hrs) 11/19/16 11/20/16 11/21/16 05:59 05:59 05:59 Intake Total 350 Output Total 1450 Balance -1100 Intake: Oral (ml) 350 Output: Urine (ml) 1450 Urinal 1450 Other: Weight 81.1 kg Number of Voids Urinal 1 Result Diagrams: 11/19/16 04:58 11/19/16 04:58 - Physical Exam Constitutional: WDWN Eyes: PERRL Ears, Nose, Mouth, Throat: moist mucous membranes Cardiovascular: systolic murmur, irregularly irregular Peripheral Pulses: 2+: carotid (R), carotid (L) Respiratory: clear to auscultate bilat Skin: no rashes Musculoskeletal: no muscular tenderness Neurologic: AAOx3, CN II-XII grossly intact Psychiatric: cooperative, interactive ICD10 Worksheet Patient Problems: Problems Problem Status Onset Chest pain Acute Troponin level elevated Acute Acute decompensated heart failure Acute Acute exacerbation of CHF (congestive heart failure) Acute Atrial fibrillation with rapid ventricular response Acute Cardiomyopathy Acute Chest pain Acute Chest pain at rest Acute Chest pain in adult Acute Confusion with nonfocal neurological examination Acute Congestive heart failure Acute Constipation Acute Hematuria Acute Near syncope Acute Nephrolithiasis Acute Ureterolithiasis Acute
[2016-11-20 11:15] VITALS: BP 129/73; PULSE 76; TEMP 98; O2SAT 98
== END 2016-11-20 15:07 | disposition home or self-care (01) | DRG 313 ==
LOC: EDUNIT# → F1N 20:47 → OBSVTOIN 11-19 10:44 → F2W 11-19 15:09
PROVIDERS: ADMIT Internal Medicine; ATTEND Internal Medicine
DX: R07.9 Chest pain, unspecified (principal); I25.10 Atherosclerotic heart disease of native coronary artery without angina pectoris; I51.89 Other ill-defined heart diseases; I48.2 Chronic atrial fibrillation; I50.22 Chronic systolic (congestive) heart failure; N20.0 Calculus of kidney; N18.3 Chronic kidney disease, stage 3 (moderate); Z95.5 Presence of coronary angioplasty implant and graft
CPT/HCPCS: 80307; A9500; G0378; G0480; J1650; J2785

== ENCOUNTER 2016-11-21 09:03 | Emergency (ER) | payer OTHER ==
--- NOTE | 2016-11-21 09:14 | EDPHY ---
H & P HPI/ROS: CHIEF COMPLAINT: Flank pain, chest pain, dizziness. HISTORY OF PRESENT ILLNESS: The patient is a 76 y/o male, with 12 previous ED visits in the last year, complaining of ongoing left lateral flank pain, substernal chest pain, shortness of breath, and dizziness. He has a significant cardiac history with NHHA class 3 CHF, chronic Afib, cardiomyopathy, and PCI to LAD 05/25. He was admitted to [facility] on 11/18 with chest pain, discharged yesterday after cardiology consultation and nuclear stress testing that did not show ischemia. He recently underwent a stenting procedure for nephrolithiasis. He says his dizziness is causing difficulty walking and is not aggravated by turning his head. It is not a spinning sensation. He denies headache, visual changes, loss of hearing, weakness or numbness. All of his current complaints are similar to what he was experiencing when he was admitted on 11/18. He has a kidney stone surgery scheduled for this week. REVIEW OF SYSTEMS: A ten point review of systems was performed and is negative with the exception of the items mentioned in the HPI. Source: Patient - Personal History Tetanus Vaccine Date: 09/2009 - Medical/Surgical History Hx Asthma: No Hx Chronic Respiratory Disease: No Hx Diabetes: No Hx Cardiac Disease: Yes Hx Renal Disease: Yes Hx Cirrhosis: No Hx Alcoholism: No Hx HIV/AIDS: No Hx Splenectomy or Spleen Trauma: No Other PMH: 1. Chronic systolic heart failure ejection fraction of 25%. 2. Coronary artery disease status post stenting on 05/25/2016. 3. Chronic atrial fibrillation. 4. Hypertension. 5. Chronic renal insufficiency. 6. Nephrolithiasis with ureteral stent placement May of 2016. 7. Gout. 8. Right total knee arthroplasty. 9. Appendectomy - Social History Smoking Status: Never smoked Additional Social History: No tobacco, alcohol, illicit drug use. He lives in a trailer in [place], [place]. PCP through [email or web address]. - Physical Exam Exam: General Appearance: Alert. Vital signs reviewed. BP 107/83. Eyes: Pupils equal and round, no conjunctival injection, no discharge. Anicteric. ENT, Mouth: Mucous membranes are moist, no oropharyngeal erythema or edema. Neck: No lymphadenopathy, supple. No JVD. Respiratory: Lungs are clear to auscultation; no wheezes, rales, or rhonchi. Cardiovascular: irregularly irregular; 3/6 murmur, no rub, no gallop. Gastrointestinal: Abdomen is soft and nontender, no masses or organomegaly, bowel sounds normal. Skin: Warm and dry, no rashes on exposed skin, normal color. Back: Nontender to palpation over the thoracolumbar spine. No CVAT. Extremities: No lower extremity edema, no calf tenderness or swelling. Neurological: Alert and oriented. Moving all four extremities easily and equally. Cranial nerves II through XII are examined and are intact (visual acuity not tested). Strength is 5 over 5 bilaterally with testing of all major motor groups. Sensation is intact to light touch over all 4 extremities. Deep tendon reflexes are 2+ in the biceps and knees bilaterally. Gait is normal. [id number] is performed accurately. Psychiatric: Normal affect. Constitutional: Initial Vital Signs Temperature (C) 36.6 C 11/21/16 09:12 Heart Rate 94 11/21/16 09:12 Respiratory Rate 16 11/21/16 09:12 Blood Pressure 107/83 H 11/21/16 09:12 O2 Sat (%) 98 11/21/16 09:12 O2 Delivery Mode Room Air Allergies/Adverse Reactions: atorvastatin calcium [From Lipitor] Allergy (Severe, Verified 10/26/16 06:58) Other-Enter Comments haloperidol [From Haldol] Allergy (Verified 10/26/16 06:58) simvastatin Allergy (Verified 11/18/16 18:42) Home Medications: Medication Instructions Recorded Acetaminophen [Tylenol 325mg (*)] 325 - 650 mg PO Q4H PRN 11/18/16 Allopurinol [Allopurinol 300 MG 150 mg PO DAILY 11/18/16 (RX)] Clopidogrel Bisulfate [Plavix (*)] 75 mg PO DAILY 11/18/16 Digoxin [Lanoxin 125 mcg (RX)] 125 mcg PO HS 11/18/16 Furosemide [Lasix 20 MG (*)] 20 mg PO DAILY@1600 11/18/16 Furosemide [Lasix 40 MG (*)] 40 mg PO DAILY 11/18/16 Losartan Potassium [Cozaar 25 mg 12.5 mg PO DAILY 11/18/16 (*)] Metoprolol Succinate Xr [Toprol Xl 100 mg PO DAILY 11/18/16 100 mg (*)] Nitroglycerin [Nitrostat 0.4 mg 0.4 mg SL AD PRN 11/18/16 (*)] Spironolactone [Aldactone 25 MG 12.5 mg PO DAILY 11/18/16 (*)] Warfarin Sodium [Coumadin 5MG (*)] 5 mg PO SUMOWETHFR 11/18/16 Warfarin Sodium [Coumadin 7.5MG 7.5 mg PO TUSA 11/18/16 (*)] oxyCODONE IR [Oxycodone Ir (*)] 2.5 - 5 mg PO Q4H PRN 11/18/16 Medical Decision Making - Diagnostics EKG Interpretation: The 12 lead EKG was interpreted by myself. EKG shows atrial fibrillation rate 91 , RBBB, LPFB. See hard copy and/or "tracemaster" electronic copy for interpretation. Imaging: I viewed and interpreted images myself ED Course/Re-evaluation: Patient placed on child monitor. EKG reviewed. Patient not experiencing chest pain or shortness of breath at the time of my evaluation. He complains of vague dizziness. He has a normal neurologic exam, no headache, normal gait. It seems that the dizziness has passed. He was hospitalized 11/18 to 11/20 with similar complaints and underwent a thorough evaluation. I do not feel that further cardiac evaluation is warranted at this time. I do not feel that there is an urgent medical condition such as ACS, worsening CHF, infections, or stroke. He has ongoing flank pain, likely related to his ureteral stent, and has an appointment in three days with urology for treatment of ureterolithiasis. He has arranged transportation to this appointment and plans to keep it. I do not suspect UTI/pyelo. Case management met with him and discussed repatriating to [place] facility. Departure - Departure Disposition: Home, Routine, Self-Care Clinical Impression: Flank pain Condition: Good Instructions: Flank Pain (ED) Additional Instructions: Follow up with your urologist as scheduled. Return for worsening of condition. Keep your apointment tomorrow. Referrals: Daniel Hernandez MD [Medical Doctor] - As per Instructions Report Scribed for: Cady Driver Report Scribed by: Alida Mclaughlin Date of Report: 11/21/16 Time of Report: 09:37 Physician Review and Approval Statement: 11/21/16 09:14 Portions of this note were transcribed by the medical supervisor. I, Dr. Cady Driver, personally performed the history, physical exam, and medical decision- making; and confirmed the accuracy of the information in the transcribed note.
[2016-11-21 09:15] VITALS: RESP 16; TEMP 97.9
--- NOTE | 2016-11-21 09:36 | CPEKG ---
Heart Rate: 91 RR Interval: 659 QRSD Interval: 172 QT Interval: 440 QTC Interval: 542 QRS [place]: 24 T Wave [place]: -30 EKG Severity - ABNORMAL ECG - EKG Impression: ATRIAL FIBRILLATION, V-RATE 60-106 EKG Impression: PAIRED VENTRICULAR PREMATURE COMPLEXES EKG Impression: RBBB AND LPFB Electronically Signed By: Cady Driver 21-Nov-2016 15:22:20
[2016-11-21 11:47] VITALS: BP 100/71; PULSE 74; O2SAT 96
== END 2016-11-21 11:46 | disposition home or self-care (01) ==
LOC: EDUNIT#
DX: R10.9 Unspecified abdominal pain (principal); I25.10 Atherosclerotic heart disease of native coronary artery without angina pectoris; I50.9 Heart failure, unspecified; I12.9 Hypertensive chronic kidney disease with stage 1 through stage 4 chronic kidney disease, or unspecified chronic kidney disease; N18.9 Chronic kidney disease, unspecified; Z90.49 Acquired absence of other specified parts of digestive tract

== ENCOUNTER 2016-11-26 00:21 | Observation (INO) | payer OTHER ==
--- NOTE | 2016-11-26 00:27 | EDPHY ---
H & P Stated Complaint: chest pain HPI/ROS: HPI CHIEF COMPLAINT: Shortness of breath HISTORY OF PRESENT ILLNESS: This patient very pleasant 76-year-old male, extensive cardiac history, was recently here in the hospital and had a ureteral stent exchange, and kidney stones operated on of his left kidney, he presents emergency room by cab from his local residence in [place] where he lives alone for shortness of breath. He also states that he has left kidney pain. The patient tells me that he decided come to the emergency room due to shortness of breath. He complains of PND and dyspnea on exertion. He denies chest pain to me. However it is reported that he did check-in up front by cab and complained to the triage nurse that he was having chest pain. He tells me that he was lying about this. He does endorse shortness of breath. States he is compliant with his medications including his Coumadin. He denies any peripheral edema. He does endorse PND. He tells me that he usually sleeps with 3 pillows however currently is sleeping 90 degrees. He also distally tells me has left kidney pain. Ever since having his procedure yesterday. Past Medical History: Significant past medical history for CAD(STENT LAD), ICM , EF of 20%, systolic heart failure, severe MR, AFib, medication noncompliance Past Surgical History: Ureteral stent exchange yesterday Social History: Lives locally in [place], denies drugs, alcohol, tobacco Family History: Noncontributory ROS REVIEW OF SYSTEMS: A comprehensive 10 point review of systems is otherwise negative aside from elements mentioned in the history of present illness. Exam Constitutional appears well nontoxic, triage nursing summary reviewed, vital signs reviewed, awake/alert. Eyes normal conjunctivae and sclera, EOMI, PERRLA. HENT normal inspection, atraumatic, moist mucus membranes, no epistaxis, neck supple/ no meningismus, no raccoon eyes. Respiratory clear to auscultation bilaterally, normal breath sounds, no respiratory distress, no wheezing. Cardiovascular rate normal, regular rhythm, no murmur, no edema, distal pulses normal. Gastrointestinal soft, non-tender, no rebound, no guarding, normal bowel sounds, no distension, no pulsatile mass. Genitourinary no CVA tenderness. Musculoskeletal no midline vertebral tenderness, full range of motion, no calf swelling, no tenderness of extremities, no meningismus, good pulses, neurovascularly intact. Skin pink, warm, & dry, no rash, skin atraumatic. Neurologic awake, alert and oriented x 3, AAOx3, moves all 4 extremities equally, motor intact, sensory intact, CN II-XII intact, normal cerebellar, normal vision, normal speech. Psychiatric normal mood/affect. Heme/Lymph/Immune no lymphadenopathy. Differential diagnosis includes but is not limited to: UTI, pyelonephritis, hydroureter, stent malfunction ACS, atypical chest pain, pneumothorax, pneumonia , pulmonary embolism, aortic dissection, congestive heart failure, tumor, musculoskeletal pain, esophageal pain, GERD, peptic ulcer disease, pancreatitis Medical Decision Making: Plan for this patient full back panel padder, EKG, IV establishment, ultrasound kidney, urinalysis, blood work. Chest x-ray. Re-evaluation: EKG interpretation by me on record in [facility] system. Impression time of EKG 12:37 a.m. this is AFib rate of 89 PVCs present. 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 Abnormal ST depression V4 V5 V6. However when I compare this EKG to his old EKG dated 11/21/2016 has similar morphology. ED x-ray chest one view: Cardiomegaly present. No significant pulmonary edema. Image interpreted myself. Initially this patient was noted to be ordered 1 L normal saline I have held his fluids as he has elevated BNP and troponin. Ultrasound of the Kidney/retroperitoneal The results of the study are Multiple stones, No hydro either kidneys. I discussed the results of this study with the radiologist Dr. Salcido. 0200: Spoke with the hospitalist service Dr. North who agrees to admit this patient. Reason for admission elevated BNP, positive troponin with shortness of breath. I have ordered this patient 40 mg IV Lasix. I have held his IV fluids. I did update this patient that that due to his dyspnea on exertion, PND elevated BNP elevated troponin he will be staying in the hospital. I have ordered him IV Lasix for diuresis. Patient is fine with this plan. Patient does tell me he is compliant with all his medications including Coumadin but his INR is low. Source: Patient - Personal History Tetanus Vaccine Date: 09/2009 - Medical/Surgical History Hx Asthma: No Hx Chronic Respiratory Disease: No Hx Diabetes: No Hx Cardiac Disease: Yes Hx Renal Disease: Yes Hx Cirrhosis: No Hx Alcoholism: No Hx HIV/AIDS: No Hx Splenectomy or Spleen Trauma: No Other PMH: 1. Chronic systolic heart failure ejection fraction of 25%. 2. Coronary artery disease status post stenting on 05/25/2016. 3. Chronic atrial fibrillation. 4. Hypertension. 5. Chronic renal insufficiency. 6. Nephrolithiasis with ureteral stent placement May of 2016. 7. Gout. 8. Right total knee arthroplasty. 9. Appendectomy - Social History Smoking Status: Never smoked Constitutional: Initial Vital Signs Temperature (C) 36.5 C 11/26/16 00:27 Heart Rate 102 H 11/26/16 00:27 Respiratory Rate 17 11/26/16 00:27 Blood Pressure 124/90 H 11/26/16 00:27 O2 Sat (%) 94 11/26/16 00:27 O2 Delivery Mode Room Air Allergies/Adverse Reactions: atorvastatin calcium [From Lipitor] Allergy (Severe, Verified 10/26/16 06:58) Other-Enter Comments haloperidol [From Haldol] Allergy (Verified 10/26/16 06:58) simvastatin Allergy (Verified 11/18/16 18:42) Home Medications: Medication Instructions Recorded Acetaminophen [Tylenol 325mg (*)] 325 - 650 mg PO Q4H PRN 11/18/16 Allopurinol [Allopurinol 300 MG 150 mg PO DAILY 11/18/16 (RX)] Clopidogrel Bisulfate [Plavix (*)] 75 mg PO DAILY 11/18/16 Digoxin [Lanoxin 125 mcg (RX)] 125 mcg PO HS 11/18/16 Furosemide [Lasix 20 MG (*)] 20 mg PO DAILY@1600 11/18/16 Furosemide [Lasix 40 MG (*)] 40 mg PO DAILY 11/18/16 Losartan Potassium [Cozaar 25 mg 12.5 mg PO DAILY 11/18/16 (*)] Metoprolol Succinate Xr [Toprol Xl 100 mg PO DAILY 11/18/16 100 mg (*)] Nitroglycerin [Nitrostat 0.4 mg 0.4 mg SL AD PRN 11/18/16 (*)] Spironolactone [Aldactone 25 MG 12.5 mg PO DAILY 11/18/16 (*)] Warfarin Sodium [Coumadin 5MG (*)] 5 mg PO SUMOWETHFR 11/18/16 Warfarin Sodium [Coumadin 7.5MG 7.5 mg PO TUSA 11/18/16 (*)] oxyCODONE IR [Oxycodone Ir (*)] 2.5 - 5 mg PO Q4H PRN 11/18/16 Medical Decision Making - Data Points Laboratory Results: Laboratory Results 11/26/16 00:55 11/26/16 00:55 11/26/16 11/26/16 11/26/16 00:55 00:55 00:55 WBC RBC Hgb Hct MCV MCH MCHC RDW Plt Count MPV Neut % (Auto) Lymph % (Auto) [place] % (Auto) Eos % (Auto) Baso % (Auto) Nucleat RBC Rel Count Absolute Neuts (auto) Absolute Lymphs (auto) Absolute Monos (auto) Absolute Eos (auto) Absolute Basos (auto) Absolute Nucleated RBC Immature Gran % Immature Gran # PT 15.8 SEC H SEC (12.0-15.0) INR 1.26 H (0.83-1.16) APTT 34.8 SEC SEC (23.0-38.0) Sodium 137 mEq/L mEq/L (134-144) Potassium 3.7 mEq/L mEq/L (3.5-5.2) Chloride 106 mEq/L mEq/L (97-110) Carbon Dioxide 22 mEq/l mEq/l (22-31) Anion Gap 9 mEq/L mEq/L (8-16) BUN 43 mg/dL H mg/dL (7-23) Creatinine 1.5 mg/dL H mg/dL (0.7-1.3) Estimated GFR 45 Glucose 110 mg/dL H mg/dL (70-100) Calcium 8.8 mg/dL mg/dL (8.5-10.4) Magnesium 1.8 mg/dL mg/dL (1.6-2.3) Total Bilirubin 0.6 mg/dL mg/dL (0.1-1.4) Conjugated Bilirubin 0.3 mg/dL mg/dL (0.0-0.5) Unconjugated Bilirubin 0.3 mg/dL mg/dL (0.0-1.1) AST 19 IU/L IU/L (17-59) ALT 26 IU/L IU/L (21-72) Alkaline Phosphatase 93 IU/L IU/L (38-126) Creatine Kinase 38 IU/L IU/L (0-224) CK-MB (CK-2) Fraction 1.13 ng/mL ng/mL (0-3.19) Troponin I 0.064 ng/mL H ng/mL (0-0.034) NT-Pro-B Natriuret Pep Pending 34859 pg/mL H pg/mL (0-450) Total Protein 6.4 g/dL g/dL (6.3-8.2) Albumin 3.7 g/dL g/dL (3.5-5.0) Lipase 249.0 IU/L IU/L (23-300) 11/26/16 00:55 WBC 8.11 10^3/uL 10^3/uL (3.80-9.50) RBC 4.19 10^6/uL L 10^6/uL (4.40-6.38) Hgb 13.0 g/dL L g/dL (13.7-17.5) Hct 39.2 % L % (40.0-51.0) MCV 93.6 fL fL (81.5-99.8) MCH 31.0 pg pg (27.9-34.1) MCHC 33.2 g/dL g/dL (32.4-36.7) RDW 15.2 % % (11.5-15.2) Plt Count 154 10^3/uL 10^3/uL (150-400) MPV 9.8 fL fL (8.7-11.7) Neut % (Auto) 63.1 % % (39.3-74.2) Lymph % (Auto) 27.1 % % (15.0-45.0) [place] % (Auto) 7.0 % % (4.5-13.0) Eos % (Auto) 1.5 % % (0.6-7.6) Baso % (Auto) 0.9 % % (0.3-1.7) Nucleat RBC Rel Count 0.0 % % (0.0-0.2) Absolute Neuts (auto) 5.12 10^3/uL 10^3/uL (1.70-6.50) Absolute Lymphs (auto) 2.20 10^3/uL 10^3/uL (1.00-3.00) Absolute Monos (auto) 0.57 10^3/uL 10^3/uL (0.30-0.80) Absolute Eos (auto) 0.12 10^3/uL 10^3/uL (0.03-0.40) Absolute Basos (auto) 0.07 10^3/uL 10^3/uL (0.02-0.10) Absolute Nucleated RBC 0.00 10^3/uL 10^3/uL (0-0.01) Immature Gran % 0.4 % % (0.0-1.1) Immature Gran # 0.03 10^3/uL 10^3/uL (0.00-0.10) PT INR APTT Sodium Potassium Chloride Carbon Dioxide Anion Gap BUN Creatinine Estimated GFR Glucose Calcium Magnesium Total Bilirubin Conjugated Bilirubin Unconjugated Bilirubin AST ALT Alkaline Phosphatase Creatine Kinase CK-MB (CK-2) Fraction Troponin I NT-Pro-B Natriuret Pep Total Protein Albumin Lipase Medications Given: Discontinued Medications Sodium Chloride (Ns) 1,000 mls @ 0 mls/hr IV ONCE ONE PRN Reason: Wide Open Stop: 11/26/16 00:41 Last Admin: 11/26/16 01:05 Dose: Not Given Departure - Departure Disposition: [facility] Inpatient Acute Clinical Impression: Shortness of breath Condition: Fair Referrals: JAIDEN PADRON [Other] - As per Instructions
--- NOTE | 2016-11-26 00:39 | CPEKG ---
Heart Rate: 89 RR Interval: 674 QRSD Interval: 174 QT Interval: 436 QTC Interval: 531 QRS [place]: 56 T Wave [place]: 22 EKG Severity - ABNORMAL ECG - EKG Impression: ATRIAL FIBRILLATION, V-RATE 68-103 EKG Impression: PAIRED VENTRICULAR PREMATURE COMPLEXES EKG Impression: RBBB AND LPFB EKG Impression: ST DEPRESSION, CONSIDER ISCHEMIA, ANT-LAT LDS Electronically Signed By: Dionicio Bergeron 26-Nov-2016 06:53:33
[2016-11-26] MEDS ORDERED: NS 1,000 ML IV ONE (00:40)
[2016-11-26 01:05] LABS: % IMMATURE GRANULYOCYTES 0.4 % (0.0-1.1); ABSOLUTE IMMATURE GRANULOCYTES 0.03 10^3/uL (0.00-0.10); ADD DIFF? NO; ADD MORPH? NO; ADD SCAN? NO; ATYPICAL LYMPHOCYTE FLAG 10 (0-99); FRAGMENT RBC FLAG 0 (0-99); HEMATOCRIT 39.2 % (40.0-51.0); LEFT SHIFT FLG 0 (0-99); LIPEMIA HEMOLYSIS FLAG 80 (0-99); MEAN CELL HEMOGLOBIN CONCENTR. 33.2 g/dL (32.4-36.7); MEAN CELL VOLUME 93.6 fL (81.5-99.8); MEAN PLATELET VOLUME 9.8 fL (8.7-11.7); PLATELET CLUMPS FLAG 10 (0-99); PLATELET COUNT 154 10^3/uL (150-400); RED BLOOD CELL COUNT 4.19 10^6/uL (4.40-6.38); RED CELL DISTRIBUTION WIDTH 15.2 % (11.5-15.2)
[2016-11-26 01:12] LABS: INR 1.26 (0.83-1.16); PROTIME(PATIENT) 15.8 SEC (12.0-15.0)
[2016-11-26 01:13] LABS: APTT 34.8 SEC (23.0-38.0)
[2016-11-26 01:24] LABS: ALANINE AMINOTRANSFERASE 26 IU/L (21-72); ALBUMIN 3.7 g/dL (3.5-5.0); ALKALINE PHOSPHATASE 93 IU/L (38-126); ANION GAP 9 mEq/L (8-16); ASPARTATE AMINOTRANSFERASE 19 IU/L (17-59); BILIRUBIN,TOTAL 0.6 mg/dL (0.1-1.4); BILIRUBIN-CONJUGATED 0.3 mg/dL (0.0-0.5); BILIRUBIN-UNCONJUGATED 0.3 mg/dL (0.0-1.1); CALCIUM 8.8 mg/dL (8.5-10.4); CARBON DIOXIDE 22 mEq/l (22-31); CHLORIDE 106 mEq/L (97-110); CREATININE 1.5 mg/dL (0.7-1.3); GLOMERULAR FILTRATION RATE 45; GLUCOSE 110 mg/dL (70-100); MAGNESIUM 1.8 mg/dL (1.6-2.3); POTASSIUM 3.7 mEq/L (3.5-5.2); SODIUM 137 mEq/L (134-144); TOTAL PROTEIN 6.4 g/dL (6.3-8.2)
[2016-11-26 01:37] LABS: CREATINE KINASE-MB FRACTION 1.13 ng/mL (0-3.19); TROPONIN I 0.064 ng/mL (0-0.034)
[2016-11-26] MEDS ORDERED: FUROSEMIDE 40 MG/4 ML VIAL IVP ONE ×2 (01:55→09:00)
[2016-11-26 02:15] LABS: COLOR RED; LEUKOCYTE ESTERASE,URINE 3+ (NEGATIVE); NITRITE,URINE NEGATIVE (NEGATIVE)
[2016-11-26 02:19] LABS: RBC,URINE 50-182 /hpf (0-3); WBC,URINE 50-182 /hpf (0-3)
[2016-11-26] MEDS ORDERED: ACETAMINOPHEN 325 MG TAB PO PRN (02:53)
[2016-11-26] MEDS ORDERED: ONDANSETRON 4 MG/2 ML VIAL IVP PRN (02:53)
[2016-11-26] MEDS ORDERED: ONDANSETRON DISINTEGRATING 4 MG TAB PO PRN (02:53)
--- NOTE | 2016-11-26 02:58 | PDGENHP ---
History and Physical - Chief Complaint anxiety - History of Present Illness Pt is 76/M with nonischemic cardiomyopathy (EF 15-20%), CAD, Afib on systemic anticoagulation, HTN, multiple ED/[facility] visits admissions for chest pain/chf exacerbations due to presumed medication noncompliance who presents to the ED today with complaint of anxiety, dizziness and shortness of breath. Patient was admitted to [facility] 1 week ago for dyspnea and chest pain, had an unremarkable nuclear stress test and and was discharged home on 11/20, stressing the importance of medication compliance. He was seen again in the ED on 11/21 also for dizziness and was discharged home when symptoms spontaneously resolved. He presents today complaining of shortness of breath when trying to lie down flat the previous night. In addition, he also reports dizziness/lightheadedness intermittently throughout the day. He currently denies any chest pain, palpitations. He also reports complete compliance with all his prescribed medications. In addition to his cardiac history and symptoms, patient was recently diagnosed with nephrolithiasis and had a ureteral stent replaced on 11/24. He is complaining of residual hematuria and some flank discomfort since this procedure. He denies dysuria, fever, chills. On arrival to the ED, patient is afebrile and hemodynamically stable. Labs reveal normal cbc, subtherapeutic INR, indeterminant troponin and elevated BNP. EKG is abnormal with lateral ST depressions, however, this appears unchanged from previous EKGs. CXR does not show significant volume overload. He was given a dose of IV lasix and admitted to the hospitalist service for further management. History Information - Allergies/Home Medication List Allergies/Adverse Reactions: atorvastatin calcium [From Lipitor] Allergy (Severe, Verified 10/26/16 06:58) Other-Enter Comments haloperidol [From Haldol] Allergy (Verified 10/26/16 06:58) simvastatin Allergy (Verified 11/18/16 18:42) Home Medications: Acetaminophen [Tylenol 325mg (*)] 325 - 650 mg PO Q4H PRN 11/18/16 [Last Taken Unknown] Allopurinol [Allopurinol 300 MG (RX)] 150 mg PO DAILY 11/18/16 [Last Taken 11/18] Clopidogrel Bisulfate [Plavix (*)] 75 mg PO DAILY 11/18/16 [Last Taken 11/18/16] Digoxin [Lanoxin 125 mcg (RX)] 125 mcg PO HS 11/18/16 [Last Taken 11/17/16] Furosemide [Lasix 20 MG (*)] 20 mg PO DAILY@1600 11/18/16 [Last Taken 11/18/16] Furosemide [Lasix 40 MG (*)] 40 mg PO DAILY 11/18/16 [Last Taken 11/18/16] Losartan Potassium [Cozaar 25 mg (*)] 12.5 mg PO DAILY 11/18/16 [Last Taken 06/25] Metoprolol Succinate Xr [Toprol Xl 100 mg (*)] 100 mg PO DAILY 11/18/16 [Last Taken 11/18/16] Nitroglycerin [Nitrostat 0.4 mg (*)] 0.4 mg SL AD PRN 11/18/16 [Last Taken Unknown] Spironolactone [Aldactone 25 MG (*)] 12.5 mg PO DAILY 11/18/16 [Last Taken 11/18] Warfarin Sodium [Coumadin 5MG (*)] 5 mg PO SUMOWETHFR 11/18/16 [Last Taken 11/18] Warfarin Sodium [Coumadin 7.5MG (*)] 7.5 mg PO TUSA 11/18/16 [Last Taken ] oxyCODONE IR [Oxycodone Ir (*)] 2.5 - 5 mg PO Q4H PRN 11/18/16 [Last Taken Unknown] I have personally reviewed and updated: family history, medical history, social history, surgical history - Past Medical History atrial fibrillation ( Permanent), coronary artery disease ( with LAD stent May of 2016, ischemic cardiomyopathy), CHF ( systolic with ejection fraction 25%) Additional medical history: nonobstructive CAD. Afib on systemic anticoagulation. HTN. gout. nephrolithiasis with recent stent placed. history of left atrial thrombus. Cognitive impairment - Surgical History Additional surgical history: R total knee replacement. appendectomy. Recent ureteral stent placement. LAD stent May 2016 - Family History Additional family history: Pt reports every male family member has of CAD/ heart disease - Social History Smoking Status: Never smoked Alcohol Use: None Drug Use: None Additional social history: Retired lives alone, reportedly is independent in ADLs. Review of Systems ROS: 10pt was reviewed & negative except for what was stated in HPI & below Physical Exam Temp Pulse Resp BP Pulse Ox 36.5 C 83 16 108/80 91 L 11/26/16 00:27 11/26/16 02:21 11/26/16 02:21 11/26/16 02:21 11/26/16 02:21 Constitutional: no apparent distress, appears nourished, not in pain Eyes: PERRL, anicteric sclera, EOMI Ears, Nose, Mouth, Throat: moist mucous membranes, hearing normal, ears appear normal, no oral mucosal ulcers Cardiovascular: no murmur, rub, or gallop, irregularly irregular, No JVD, No edema Peripheral Pulses: 2+: dorsalis-pedis (R), dorsalis-pedis (L) Respiratory: no respiratory distress, no rales or rhonchi, clear to auscultation Gastrointestinal: normoactive bowel sounds, soft, non-tender abdomen, no palpable masses Genitourinary: no bladder fullness, no bladder tenderness Skin: warm, normal color, no rashes or abrasions, no fluctuance, no induration, No mottled Musculoskeletal: full muscle strength, no muscle tenderness, normal joint ROM, no joint effusions Neurologic: AAOx3, sensation intact bilaterally, CN II-XII Intact, No weakness, No numbness, No pronator drift Psychiatric: interacting appropriately, not anxious, not encephalopathic, poor insight Lab Data & Imaging Review 11/26/16 00:55 11/26/16 00:55 WBC 8.11 10^3/uL (3.80-9.50) 11/26/16 00:55 RBC 4.19 10^6/uL (4.40-6.38) L 11/26/16 00:55 Hgb 13.0 g/dL (13.7-17.5) L 11/26/16 00:55 Hct 39.2 % (40.0-51.0) L 11/26/16 00:55 MCV 93.6 fL (81.5-99.8) 11/26/16 00:55 MCH 31.0 pg (27.9-34.1) 11/26/16 00:55 MCHC 33.2 g/dL (32.4-36.7) 11/26/16 00:55 RDW 15.2 % (11.5-15.2) 11/26/16 00:55 Plt Count 154 10^3/uL (150-400) 11/26/16 00:55 MPV 9.8 fL (8.7-11.7) 11/26/16 00:55 Neut % (Auto) 63.1 % (39.3-74.2) 11/26/16 00:55 Lymph % (Auto) 27.1 % (15.0-45.0) 11/26/16 00:55 Callahan % (Auto) 7.0 % (4.5-13.0) 11/26/16 00:55 Eos % (Auto) 1.5 % (0.6-7.6) 11/26/16 00:55 Baso % (Auto) 0.9 % (0.3-1.7) 11/26/16 00:55 Nucleat RBC Rel Count 0.0 % (0.0-0.2) 11/26/16 00:55 Absolute Neuts (auto) 5.12 10^3/uL (1.70-6.50) 11/26/16 00:55 Absolute Lymphs (auto) 2.20 10^3/uL (1.00-3.00) 11/26/16 00:55 Absolute Monos (auto) 0.57 10^3/uL (0.30-0.80) 11/26/16 00:55 Absolute Eos (auto) 0.12 10^3/uL (0.03-0.40) 11/26/16 00:55 Absolute Basos (auto) 0.07 10^3/uL (0.02-0.10) 11/26/16 00:55 Absolute Nucleated RBC 0.00 10^3/uL (0-0.01) 11/26/16 00:55 Immature Gran % 0.4 % (0.0-1.1) 11/26/16 00:55 Immature Gran # 0.03 10^3/uL (0.00-0.10) 11/26/16 00:55 PT 15.8 SEC (12.0-15.0) H 11/26/16 00:55 INR 1.26 (0.83-1.16) H 11/26/16 00:55 APTT 34.8 SEC (23.0-38.0) 11/26/16 00:55 Sodium 137 mEq/L (134-144) 11/26/16 00:55 Potassium 3.7 mEq/L (3.5-5.2) 11/26/16 00:55 Chloride 106 mEq/L (97-110) 11/26/16 00:55 Carbon Dioxide 22 mEq/l (22-31) 11/26/16 00:55 Anion Gap 9 mEq/L (8-16) 11/26/16 00:55 BUN 43 mg/dL (7-23) H 11/26/16 00:55 Creatinine 1.5 mg/dL (0.7-1.3) H 11/26/16 00:55 Estimated GFR 45 11/26/16 00:55 Glucose 110 mg/dL (70-100) H 11/26/16 00:55 Calcium 8.8 mg/dL (8.5-10.4) 11/26/16 00:55 Magnesium 1.8 mg/dL (1.6-2.3) 11/26/16 00:55 Total Bilirubin 0.6 mg/dL (0.1-1.4) 11/26/16 00:55 Conjugated Bilirubin 0.3 mg/dL (0.0-0.5) 11/26/16 00:55 Unconjugated Bilirubin 0.3 mg/dL (0.0-1.1) 11/26/16 00:55 AST 19 IU/L (17-59) 11/26/16 00:55 ALT 26 IU/L (21-72) 11/26/16 00:55 Alkaline Phosphatase 93 IU/L (38-126) 11/26/16 00:55 Creatine Kinase 38 IU/L (0-224) 11/26/16 00:55 CK-MB (CK-2) Fraction 1.13 ng/mL (0-3.19) 11/26/16 00:55 Troponin I 0.064 ng/mL (0-0.034) H 11/26/16 00:55 NT-Pro-B Natriuret Pep 16711 pg/mL (0-450) H 11/26/16 00:55 Total Protein 6.4 g/dL (6.3-8.2) 11/26/16 00:55 Albumin 3.7 g/dL (3.5-5.0) 11/26/16 00:55 Lipase 249.0 IU/L (23-300) 11/26/16 00:55 Urine Color RED 11/26/16 02:00 Urine Appearance HAZY 11/26/16 02:00 Urine pH 6.0 (5.0-7.5) 11/26/16 02:00 Ur Specific [place] 1.012 (1.002-1.030) 11/26/16 02:00 Urine Protein 2+ (NEGATIVE) H 11/26/16 02:00 Urine Ketones NEGATIVE (NEGATIVE) 11/26/16 02:00 Urine Blood 3+ (NEGATIVE) H 11/26/16 02:00 Urine Nitrate NEGATIVE (NEGATIVE) 11/26/16 02:00 Urine Bilirubin NEGATIVE (NEGATIVE) 11/26/16 02:00 Urine Urobilinogen NEGATIVE EU (0.2-1.0) 11/26/16 02:00 Ur Leukocyte Esterase 3+ (NEGATIVE) H 11/26/16 02:00 Urine RBC 50-182 /hpf (0-3) H 11/26/16 02:00 Urine WBC 50-182 /hpf (0-3) H 11/26/16 02:00 Ur Epithelial Cells TRACE /lpf (NONE-1+) 11/26/16 02:00 Urine Glucose NEGATIVE (NEGATIVE) 11/26/16 02:00 Visualized and Interpreted Chest x-ray results: Yes Chest X-Ray results: no infiltrate, other (no effusions or edema) Visualized and Interpreted imaging results: Yes Interpretation: Abd US: stent in ureter, no hydronephrosis, bilateral nephrolithiasis Visualized and Interpreted EKG results: Yes EKG additional interpertation: afib with RBBB and ST depression in V4-V6 (old) Assessment & Plan Assessment: Pt is 76/M with nonischemic cardiomyopathy (EF 15-20%), CAD, Afib on systemic anticoagulation, HTN, multiple ED/[facility] visits admissions for chest pain/chf exacerbations due to presumed medication noncompliance who presents to the ED with complaint of mild dyspnea and shortness of breath. ED evaluation reveals elevated BNP and indeterminant troponin. EKG shows afib, largely unchanged from prior EKGs. Plan: # dizziness Patient is nonfocal on exam, and although his is a very poor history with poor insight, he does not appear encephalopathic. EKG shows RBBB and LPFB (old) but also shows many PVCs and afib. Dizziness may be related to arrhythmia vs underlying cardiomyopathy. Will rule out ACS and monitor on telemetry. Will not repeat TTE/Nuclear stress, which were just performed in most recent admission. Per previous notes, patient has not been fitted with an AICD for his cardiomyopathy due to medication noncompliance. If symptoms persist, consider neurology consultation. # chronic systolic CHF without acute exacerbation Patient has NYHA class 3 systolic heart failure and his symptoms today appear to be his baseline chronic heart failure symptoms. His BNP is chronically elevated and currently not significantly above previously levels. CXR and exam also do not indicate significant fluid overload. Will give one dose of IV lasix and then continue his home PO chf medication regimen. # nephrolithiasis Patient is s/p repeat ureteral stent placement on 11/24. UA shows hematuria and pyuria, however, patient has no clinical symptoms of UTI and does not meet SIRS/ sepsis criteria. No indication for antibiotics at this time. Abd US also confirms stent placement and is negative for obvious hydronephrosis. # Afib Currently rate controlled with home meds, will continue. INR is subtherapeutic, will dose and trend. # HTN BP stable, cont home meds. # dispo: admit to observation status for dizziness # gen: Cardiac diet DVT ppx: on systemic warfarin Full Code
--- NOTE | 2016-11-26 05:30 | CPEKG ---
Heart Rate: 84 RR Interval: 714 QRSD Interval: 174 QT Interval: 444 QTC Interval: 525 QRS Nickerson: 76 T Wave Nickerson: 10 EKG Severity - ABNORMAL ECG - EKG Impression: ATRIAL FIBRILLATION, V-RATE 82-105 EKG Impression: MULTIFORM VENTRICULAR PREMATURE COMPLEXES EKG Impression: RIGHT BUNDLE BRANCH BLOCK EKG Impression: BORDERLINE ST DEPRESSION, LATERAL LEADS Electronically Signed By: Dionicio Bergeron 26-Nov-2016 06:53:33
[2016-11-26 07:01] LABS: % IMMATURE GRANULYOCYTES 0.3 % (0.0-1.1); ABSOLUTE IMMATURE GRANULOCYTES 0.02 10^3/uL (0.00-0.10); ADD DIFF? NO; ADD MORPH? NO; ADD SCAN? NO; ATYPICAL LYMPHOCYTE FLAG 0 (0-99); FRAGMENT RBC FLAG 0 (0-99); HEMATOCRIT 40.2 % (40.0-51.0); HEMOGLOBIN 13.5 g/dL (13.7-17.5); LEFT SHIFT FLG 0 (0-99); LIPEMIA HEMOLYSIS FLAG 80 (0-99); MEAN CELL HEMOGLOBIN 31.2 pg (27.9-34.1); MEAN CELL HEMOGLOBIN CONCENTR. 33.6 g/dL (32.4-36.7); MEAN CELL VOLUME 92.8 fL (81.5-99.8); MEAN PLATELET VOLUME 9.9 fL (8.7-11.7); PLATELET CLUMPS FLAG 0 (0-99); PLATELET COUNT 147 10^3/uL (150-400); RED BLOOD CELL COUNT 4.33 10^6/uL (4.40-6.38)
[2016-11-26 07:11] LABS: INR 1.31 (0.83-1.16); PROTIME(PATIENT) 16.3 SEC (12.0-15.0)
[2016-11-26 07:12] LABS: APTT 35.4 SEC (23.0-38.0)
[2016-11-26 07:33] LABS: ANION GAP 9 mEq/L (8-16); CARBON DIOXIDE 24 mEq/l (22-31); CHLORIDE 105 mEq/L (97-110); CREATININE 1.3 mg/dL (0.7-1.3); GLOMERULAR FILTRATION RATE 54; GLUCOSE 106 mg/dL (70-100); MAGNESIUM 1.8 mg/dL (1.6-2.3); POTASSIUM 3.6 mEq/L (3.5-5.2); SODIUM 138 mEq/L (134-144)
[2016-11-26 07:44] LABS: CREATINE KINASE-MB FRACTION 1.06 ng/mL (0-3.19); TROPONIN I 0.061 ng/mL (0-0.034)
[2016-11-26] MEDS ORDERED: FUROSEMIDE 40 MG/4 ML VIAL IVP SCH (09:00)
[2016-11-26] MEDS ORDERED: oxyCODONE IR 5 MG TAB PO PRN (10:03)
[2016-11-26] MEDS ORDERED: NITROGLYCERIN 0.4 MG BTL SL PRN (10:03)
--- NOTE | 2016-11-26 10:07 | PDDCSUM ---
Discharge Summary Discharge Summary: Dates of service 11/25-11/26/2016 Discharge diagnosis: # dizzyness # chronic systolic heart failure # nephrolithiasis # medication non compliance # a fib # htn Procedures/consultations: none Hospital course by problem: # dizzyness: resolved overnight after resuming home medications, no syncope or chest pain reported. He notes that he sometimes gets anxious at home and calls his pcp or service specialist who recommend that he be brought in by ambulance, and that he often feels better immediately and regrets coming in. He states that at the moment he feels much better, ambulating w/o issue, eating well, eager to dc home. # chronic systolic heart failure: appears euvolemic, had nuc stress 1 week ago showing essentially stably low EF at 15%, will continue usual meds and encouraged him to maintain compliance # nephrolithiasis: followed by Dr. Puente, has f/u scheduled in coming weeks, no acute issues # a fib/chronic: rate controlled, no change on ecg # anxiety: leading to recurrent hospitalizations and ER visits, he recognizes anxiety plays a role in his repeat hospital stays. REcommend close f/u with his usual doctor to help minimize repeat hospitalizations Dispo: dc home f/u with PCP and [employer] [facility] [place] > 35 minutes spent in care of this patient, more than half in face to face counseling regarding f/u care plans
[2016-11-26] MEDS ORDERED: LOSARTAN POTASSIUM 25 MG TAB PO SCH (10:15)
[2016-11-26] MEDS ORDERED: CLOPIDOGREL BISULFATE 75 MG TAB PO SCH (10:15)
[2016-11-26] MEDS ORDERED: ALLOPURINOL 300 MG TAB PO SCH (10:15)
[2016-11-26] MEDS ORDERED: SPIRONOLACTONE 25 MG TAB PO SCH (10:15)
[2016-11-26] MEDS ORDERED: METOPROLOL SUCCINATE XR 100 MG TAB PO SCH (10:15)
[2016-11-26 10:40] VITALS: BP 118/83; PULSE 85; RESP 16; TEMP 96.9; O2SAT 95
[2016-11-26] MEDS ORDERED: FUROSEMIDE 40 MG TAB PO SCH (16:00)
[2016-11-26] MEDS ORDERED: FUROSEMIDE 20 MG TAB PO SCH (16:00)
[2016-11-26] MEDS ORDERED: WARFARIN SODIUM 5 MG TAB PO SCH (16:00)
[2016-11-26] MEDS ORDERED: DIGOXIN 125 MCG TAB PO SCH (21:00)
[2016-11-27] MEDS ORDERED: FUROSEMIDE 40 MG TAB PO SCH (09:00)
[2016-11-27] MEDS ORDERED: WARFARIN SODIUM 5 MG TAB PO SCH (16:00)
--- NOTE | 2016-11-28 07:39 | CPEKG ---
Heart Rate: 85 RR Interval: 706 QRSD Interval: 176 QT Interval: 428 QTC Interval: 509 QRS [place]: 57 T Wave [place]: 17 EKG Severity - ABNORMAL ECG - EKG Impression: ATRIAL FIBRILLATION, V-RATE 69-109 EKG Impression: MULTIFORM VENTRICULAR PREMATURE COMPLEXES EKG Impression: RIGHT BUNDLE BRANCH BLOCK Preliminary Awaiting MD Review
== END 2016-11-26 11:25 | disposition home or self-care (01) ==
LOC: INTOOBSV 01:58 → F2W 03:03
PROVIDERS: ADMIT Internal Medicine; ATTEND Internal Medicine
DX: R42 Dizziness and giddiness (principal); I50.22 Chronic systolic (congestive) heart failure; N20.0 Calculus of kidney; I48.2 Chronic atrial fibrillation; I13.0 Hypertensive heart and chronic kidney disease with heart failure and stage 1 through stage 4 chronic kidney disease, or unspecified chronic kidney disease; F41.9 Anxiety disorder, unspecified; R94.31 Abnormal electrocardiogram [ECG] [EKG]; I42.9 Cardiomyopathy, unspecified; I25.10 Atherosclerotic heart disease of native coronary artery without angina pectoris; N18.9 Chronic kidney disease, unspecified; Z96.0 Presence of urogenital implants; Z91.19 Patient's noncompliance with other medical treatment and regimen; M10.9 Gout, unspecified; Z79.01 Long term (current) use of anticoagulants; Z82.49 Family history of ischemic heart disease and other diseases of the circulatory system; Z95.5 Presence of coronary angioplasty implant and graft; Z96.651 Presence of right artificial knee joint
CPT/HCPCS: 71010; 76770; 93005; G0378; 96374; J1940

== ENCOUNTER 2016-11-26 14:10 | Emergency (ER) | payer OTHER ==
--- NOTE | 2016-11-26 14:25 | CPEKG ---
Heart Rate: 93 RR Interval: 645 QRSD Interval: 170 QT Interval: 448 QTC Interval: 558 QRS [place]: 65 T Wave [place]: -3 EKG Severity - ABNORMAL ECG - EKG Impression: ATRIAL FIBRILLATION, V-RATE 69-123 EKG Impression: VENTRICULAR PREMATURE COMPLEX EKG Impression: RBBB AND LPFB EKG Impression: BORDERLINE ST DEPRESSION, LATERAL LEADS Electronically Signed By: Denae Hogan 26-Nov-2016 21:06:43
[2016-11-26 14:36] LABS: % IMMATURE GRANULYOCYTES 0.3 % (0.0-1.1); ABSOLUTE IMMATURE GRANULOCYTES 0.02 10^3/uL (0.00-0.10); ADD DIFF? NO; ADD MORPH? NO; ADD SCAN? NO; ATYPICAL LYMPHOCYTE FLAG 10 (0-99); FRAGMENT RBC FLAG 0 (0-99); HEMATOCRIT 45.5 % (40.0-51.0); HEMOGLOBIN 15.5 g/dL (13.7-17.5); LEFT SHIFT FLG 0 (0-99); LIPEMIA HEMOLYSIS FLAG 90 (0-99); MEAN CELL HEMOGLOBIN 31.5 pg (27.9-34.1); MEAN CELL HEMOGLOBIN CONCENTR. 34.1 g/dL (32.4-36.7); MEAN CELL VOLUME 92.5 fL (81.5-99.8); PLATELET CLUMPS FLAG 10 (0-99); PLATELET COUNT 182 10^3/uL (150-400); RED BLOOD CELL COUNT 4.92 10^6/uL (4.40-6.38); RED CELL DISTRIBUTION WIDTH 14.8 % (11.5-15.2)
[2016-11-26 14:47] LABS: ANION GAP 15 mEq/L (8-16); CALCIUM 9.4 mg/dL (8.5-10.4); CARBON DIOXIDE 23 mEq/l (22-31); CHLORIDE 103 mEq/L (97-110); CREATININE 1.5 mg/dL (0.7-1.3); GLOMERULAR FILTRATION RATE 45; GLUCOSE 91 mg/dL (70-100); SODIUM 141 mEq/L (134-144)
[2016-11-26 14:59] LABS: TROPONIN I 0.057 ng/mL (0-0.034)
--- NOTE | 2016-11-26 15:13 | EDPHY ---
H & P Time Seen by Provider: 11/26/16 15:11 HPI/ROS: CHIEF COMPLAINT: Syncope HISTORY OF PRESENT ILLNESS: This patient is an anticoagulated 76-year-old male with history of poorly controlled congestive heart failure who presents to the Emergency Department via EMS following a self-reported, unwitnessed episode of syncope and collapse around 1300 today. He has been seen in this facility frequently over the past few months for CHF exacerbations which often present with chest pain and dyspnea. He was most recently seen here today at 230 for complaints of dyspnea when he was admitted for an acute CHF exacerbation; he was discharged home this morning at 1000. He states that he was lying down when he felt dizzy at home; he then stood up and reportedly lost consciousness, falling down the stairs. Upon presentation this afternoon, he states that he "doesn't know what to do," and he is "afraid he will suffocate to ." He denies any injuries secondary to his fall today. No head, neck, or back trauma. He denies any focal medical complaints at this time. He lives alone but reports that his PCP is in the process of setting him up with an at-home nursing service. REVIEW OF SYSTEMS: Constitutional: No fever, no chills Eyes: No visual changes ENT: No sore throat Respiratory: No cough, no shortness of breath Cardiac: No chest pain Gastrointestinal: No nausea, no vomiting, no abdominal pain Genitourinary: No hematuria, no dysuria Musculoskeletal: No leg pain or swelling Skin: No rash Neurological: No headache, no numbness, no weakness Psychiatric: No depression Past Medical/Surgical History: 1. Atrial fibrillation, permanent (Coumadin) 2. CAD with stenting 3. CHF, systolic ejection fraction 25% 4. Hypertension 5. Nephrolithiasis with ureteral stent placed on 11/24 Social History: Lives alone, adult children living elsewhere. Non-smoker. Retired. Smoking Status: Never smoked Physical Exam: General Appearance: Alert, hard of hearing, appears anxious Eyes: Pupils equal and round, no conjunctival pallor or injection ENT, Mouth: Hard of hearing, mucous membranes moist Neck: Normal inspection. NT, ROM without pain Respiratory: normal inspection, NT, Lungs are clear to auscultation Cardiovascular: Irregularly irregular rate and rhythm Gastrointestinal: Abdomen is soft and non-tender Neurological: A&O, nonfocal exam Skin: Warm and dry, no signs of injury Extremities: Nontender, no pedal edema Psychiatric: Anxious affect Constitutional: Initial Vital Signs Temperature (C) 36.3 C 11/26/16 14:10 Heart Rate 80 11/26/16 14:10 Respiratory Rate 16 11/26/16 14:10 Blood Pressure 94/77 L 11/26/16 14:10 O2 Sat (%) 97 11/26/16 14:10 O2 Delivery Mode Room Air Allergies/Adverse Reactions: atorvastatin calcium [From Lipitor] Allergy (Severe, Verified 10/26/16 06:58) Other-Enter Comments haloperidol [From Haldol] Allergy (Verified 10/26/16 06:58) simvastatin Allergy (Verified 11/18/16 18:42) Home Medications: Medication Instructions Recorded Acetaminophen [Tylenol 325mg (*)] 325 - 650 mg PO Q4H PRN 11/18/16 Allopurinol [Allopurinol 300 MG 150 mg PO DAILY 11/18/16 (RX)] Clopidogrel Bisulfate [Plavix (*)] 75 mg PO DAILY 11/18/16 Digoxin [Lanoxin 125 mcg (RX)] 125 mcg PO HS 11/18/16 Furosemide [Lasix 40 MG (*)] 40 mg PO DAILY 11/18/16 Losartan Potassium [Cozaar 25 mg 12.5 mg PO DAILY 11/18/16 (*)] Metoprolol Succinate Xr [Toprol Xl 100 mg PO DAILY 11/18/16 100 mg (*)] Nitroglycerin [Nitrostat 0.4 mg 0.4 mg SL AD PRN 11/18/16 (*)] Spironolactone [Aldactone 25 MG 12.5 mg PO DAILY 11/18/16 (*)] Warfarin Sodium [Coumadin 5MG (*)] 5 mg PO SUMOWETHFR@11/18/16 oxyCODONE IR [Oxycodone Ir (*)] 2.5 - 5 mg PO Q4H PRN 11/18/16 Furosemide [Lasix 40 MG (*)] 20 mg PO DAILY@11/26/16 Warfarin Sodium [Coumadin 5MG (*)] 7.5 mg PO TUSA@11/26/16 Medical Decision Making - Diagnostics EKG Interpretation: EKG interpreted by me reveals atrial fibrillation, ventricular rate 69-123; ventricular premature complex; RBBB and LPFB. ED Course/Re-evaluation: This 76-year-old male presents following a self-reported syncopal event after returning home from the hospital around 1300 today. This event was unwitnessed. He denies any injuries or head trauma secondary to the event. No evidence of trauma on exam. He was admitted to the hospital early this morning for CHF exacerbation with dyspnea; this is a common occurrence for the patient. The patient appears anxious about his care at home; he lives alone. I discussed with him my recommendation that he consider assisted living and continue down the path of arranging care at home. He expresses agreement to this. His children are out of town this week, and his 2 neighbors (both nurses) are away. He states that this is making him anxious. Will proceed with labs and EKG. He does report increased Lasix use which may provide an underlying explanation for his possible syncopal episode. Labs obtained. Troponin is elevated at 0.057, similar to prior troponins (no evidence of ACS). 1554: Consultation with Dr. Dale Monge, hospitalist who discharged the patient home this morning. Multiple ongoing social factors, including medication non-compliance and falsifications, which makes evaluating and caring for this pt challenging. This assessment is in line with my assessment today. There is no evidence of falling down stairs today; I would expect at least areas of tenderness with such a fall. Regardless, this pt is not thriving at home and will likely need a step-up in his care. 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 I discussed lab and EKG results with the patient. There is no evident underlying etiology for a syncopal episode, if this is indeed what the patient experienced. I advised admission for continue observation and evaluation with likely NH placement. After a lengthy discussion, he declines admission and feels that he is safe at home. He is able to walk with a steady gait. The patient will be discharged home in good condition with strict return precautions. Differential Diagnosis: The differential diagnosis for the patient's syncope included but was not limited to vasovagal syncope, arrhythmia, dehydration, cardiogenic causes, neurogenic causes, and blood loss. - Data Points Laboratory Results: Laboratory Results 11/26/16 14:16 11/26/16 14:16 Departure - Departure Disposition: Home, Routine, Self-Care Clinical Impression: Syncope Qualifiers: Syncope type: vasovagal syncope Qualified Code(s): R55 - Syncope and collapse Condition: Fair Instructions: Syncope (ED) Additional Instructions: 1. Continue to arrange the home care through your primary care provider like you discussed with me. This may help you feel safer at home. 2. Return to the Emergency Department if you lose consciousness, have chest pain , if it becomes more difficult for you to breathe, or for other serious concerns. Referrals: JAIDEN PADRON [Other] - As per Instructions Report Scribed for: Denae Hogan Report Scribed by: Madonna Hurst Date of Report: 11/26/16 Time of Report: 15:12 Physician Review and Approval Statement: 11/26/16 15:12 Portions of this note were transcribed by a biomedical instrument technician. I personally performed a history, physical exam, medical decision making, and confirmed accuracy of information the transcribed note.
[2016-11-26 16:03] LABS: INR 1.22 (0.83-1.16); PROTIME(PATIENT) 15.4 SEC (12.0-15.0)
[2016-11-26 16:39] VITALS: BP 117/82; PULSE 96; RESP 15; TEMP 98.2; O2SAT 93
== END 2016-11-26 16:51 | disposition home or self-care (01) ==
LOC: EDUNIT#
DX: R55 Syncope and collapse (principal); I50.9 Heart failure, unspecified; I10 Essential (primary) hypertension; I25.10 Atherosclerotic heart disease of native coronary artery without angina pectoris; Z95.5 Presence of coronary angioplasty implant and graft; Z79.01 Long term (current) use of anticoagulants

== ENCOUNTER 2016-11-27 20:54 | Emergency (ER) | payer OTHER ==
[2016-11-27 21:11] VITALS: TEMP 97.9; O2SAT 93
--- NOTE | 2016-11-27 21:28 | EDPHY ---
H & P Stated Complaint: dizziness, shortness of breath, "confusion" tonight Time Seen by Provider: 11/27/16 21:07 HPI/ROS: CHIEF COMPLAINT: chest pain HISTORY OF PRESENT ILLNESS: the patient is a 76-year-old man who is brought by EMS for chest pain, dizziness, shortness of breath and anxiety that began this evening. It woke him from sleep about an hour ago. He has been here multiple times this week and several times to [facility] for the same complaints. He has a history of chronic systolic heart failure with an ejection fraction of 15 sent seen on a nuclear stress test a week ago. He also has atrial fibrillation and takes plavix and Coumadin. He also has severe anxiety. He states that every time when he called ambulance with the symptoms when the arrive and he gets into the back of the ambulance his symptoms completely resolve. Even without medication. He did take aspirin this evening as well. REVIEW OF SYSTEMS: Constitutional: denies: chills, fever, recent illness, recent injury EENTM: denies: blurred vision, double vision, nose congestion Respiratory: denies: cough, shortness of breath Cardiac: See HPI Gastrointestinal/Abdominal: denies: abdominal pain, diarrhea, nausea, vomiting, blood streaked stools Genitourinary: denies: dysuria, frequency, hematuria, pain Musculoskeletal: denies: joint pain, muscle pain Skin: denies: lesions, rash, jaundice, bruising Neurological: denies: headache, numbness, paresthesia, tingling, dizziness, weakness Hematologic/Lymphatic: denies: blood clots, easy bleeding, easy bruising Immunologic/allergic: denies: HIV/AIDS, transplant EXAM: GENERAL: Well-appearing, anxious. HEAD: Atraumatic, normocephalic. EYES: Pupils equal round and reactive to light, extraocular movements intact, sclera anicteric, conjunctiva are normal. ENT: TMs normal, nares patent, oropharynx clear without exudates. Moist mucous membranes. NECK: Normal range of motion, supple without lymphadenopathy or JVD. LUNGS: Breath sounds clear to auscultation bilaterally and equal. No wheezes rales or rhonchi. HEART: Regular rate and rhythm without murmurs, rubs or gallops. ABDOMEN: Soft, nontender, normoactive bowel sounds. No guarding, no rebound. No masses appreciated. BACK: No CVA tenderness, no spinal tenderness, step-offs or deformities EXTREMITIES: Normal range of motion, no pitting or edema. No clubbing or cyanosis. NEUROLOGICAL: Cranial nerves II through XII grossly intact. Normal speech, normal gait. 5/5 strength, normal movement in all extremities, normal sensation PSYCH: Normal mood, normal affect. SKIN: Warm, dry, normal turgor, no visible rashes or lesions. Source: Patient Exam Limitations: No limitations - Personal History Current Tetanus/Diphtheria Vaccine: Yes Current Tetanus Diphtheria and Acellular Pertussis (TDAP): Yes Tetanus Vaccine Date: 09/2009 - Medical/Surgical History Hx Asthma: No Hx Chronic Respiratory Disease: No Hx Diabetes: No Hx Cardiac Disease: Yes Hx Renal Disease: Yes Hx Cirrhosis: No Hx Alcoholism: No Hx HIV/AIDS: No Hx Splenectomy or Spleen Trauma: No Other PMH: 1. Chronic systolic heart failure ejection fraction of 25%. 2. Coronary artery disease status post stenting on 05/25/2016. 3. Chronic atrial fibrillation. 4. Hypertension. 5. Chronic renal insufficiency. 6. Nephrolithiasis with ureteral stent placement May of 2016. 7. Gout. 8. Right total knee arthroplasty. 9. Appendectomy. 10. kidney stones - Family History Significant Family History: No pertinent family hx - Social History Smoking Status: Never smoked Alcohol Use: Sober Drug Use: None Constitutional: Initial Vital Signs Temperature (C) 36.6 C 11/27/16 21:09 Heart Rate 75 11/27/16 21:09 Respiratory Rate 18 11/27/16 21:09 Blood Pressure 114/82 H 11/27/16 21:09 O2 Sat (%) 93 11/27/16 21:09 O2 Delivery Mode Room Air Allergies/Adverse Reactions: atorvastatin calcium [From Lipitor] Allergy (Severe, Verified 10/26/16 06:58) Other-Enter Comments haloperidol [From Haldol] Allergy (Verified 10/26/16 06:58) simvastatin Allergy (Verified 11/18/16 18:42) Home Medications: Medication Instructions Recorded Acetaminophen [Tylenol 325mg (*)] 325 - 650 mg PO Q4H PRN 11/18/16 Allopurinol [Allopurinol 300 MG 150 mg PO DAILY 11/18/16 (RX)] Clopidogrel Bisulfate [Plavix (*)] 75 mg PO DAILY 11/18/16 Digoxin [Lanoxin 125 mcg (RX)] 125 mcg PO HS 11/18/16 Furosemide [Lasix 40 MG (*)] 40 mg PO DAILY 11/18/16 Losartan Potassium [Cozaar 25 mg 12.5 mg PO DAILY 11/18/16 (*)] Metoprolol Succinate Xr [Toprol Xl 100 mg PO DAILY 11/18/16 100 mg (*)] Nitroglycerin [Nitrostat 0.4 mg 0.4 mg SL AD PRN 11/18/16 (*)] Spironolactone [Aldactone 25 MG 12.5 mg PO DAILY 11/18/16 (*)] Warfarin Sodium [Coumadin 5MG (*)] 5 mg PO SUMOWETHFR@16 11/18/16 oxyCODONE IR [Oxycodone Ir (*)] 2.5 - 5 mg PO Q4H PRN 11/18/16 Furosemide [Lasix 40 MG (*)] 20 mg PO DAILY@16 11/26/16 Warfarin Sodium [Coumadin 5MG (*)] 7.5 mg PO TUSA@16 11/26/16 Medical Decision Making - Diagnostics EKG Interpretation: An EKG obtained and was read and documented in trace view. Please see trace view for full reading and report. Atrial fibrillation, left bundle branch block , unchanged from previous, PVC ED Course/Re-evaluation: the patient now regrets coming here. He states that he was anxious and over- reacted. He asked to go to [facility] but they would not take him there. He was on the phone with the nursing line there. He states that he will just go home. He has an appointment in 12 hours for 2 doctors to come and evaluate his home and assess his need for home care versus penitentiary facility. After much discussion we agreed to have him stay for an EKG and lab work. 10:15 p.m. the patient is asymptomatic. His troponin is slightly elevated but baseline for him. I discussed this with the physician at [place]. He recommended follow-up in the Cardiology Clinic tomorrow. The patient is happy with this. He does not wish to stay. We discussed indications for returning. Differential Diagnosis: Partial list of the Differential diagnosis considered include but were not limited to; Acute coronary disease, anxiety, PE and although unlikely based on the history and physical exam, I also considered dissection, pneumonia,. - Data Points Laboratory Results: Laboratory Results 11/27/16 21:15 11/27/16 21:15 11/27/16 11/27/16 11/27/16 21:15 21:15 21:15 WBC 7.51 10^3/uL 10^3/uL (3.80-9.50) RBC 4.87 10^6/uL 10^6/uL (4.40-6.38) Hgb 15.2 g/dL g/dL (13.7-17.5) Hct 45.0 % % (40.0-51.0) MCV 92.4 fL fL (81.5-99.8) MCH 31.2 pg pg (27.9-34.1) MCHC 33.8 g/dL g/dL (32.4-36.7) RDW 14.9 % % (11.5-15.2) Plt Count 198 10^3/uL 10^3/uL (150-400) MPV 10.2 fL fL (8.7-11.7) Neut % (Auto) 53.0 % % (39.3-74.2) Lymph % (Auto) 35.4 % % (15.0-45.0) [place] % (Auto) 8.8 % % (4.5-13.0) Eos % (Auto) 1.7 % % (0.6-7.6) Baso % (Auto) 0.8 % % (0.3-1.7) Nucleat RBC Rel Count 0.0 % % (0.0-0.2) Absolute Neuts (auto) 3.98 10^3/uL 10^3/uL (1.70-6.50) Absolute Lymphs (auto) 2.66 10^3/uL 10^3/uL (1.00-3.00) Absolute Monos (auto) 0.66 10^3/uL 10^3/uL (0.30-0.80) Absolute Eos (auto) 0.13 10^3/uL 10^3/uL (0.03-0.40) Absolute Basos (auto) 0.06 10^3/uL 10^3/uL (0.02-0.10) Absolute Nucleated RBC 0.00 10^3/uL 10^3/uL (0-0.01) Immature Gran % 0.3 % % (0.0-1.1) Immature Gran # 0.02 10^3/uL 10^3/uL (0.00-0.10) PT 17.2 SEC H SEC (12.0-15.0) INR 1.41 H (0.83-1.16) APTT 34.7 SEC SEC (23.0-38.0) Sodium 140 mEq/L mEq/L (134-144) Potassium 3.9 mEq/L mEq/L (3.5-5.2) Chloride 104 mEq/L mEq/L (97-110) Carbon Dioxide 23 mEq/l mEq/l (22-31) Anion Gap 13 mEq/L mEq/L (8-16) BUN 35 mg/dL H mg/dL (7-23) Creatinine 1.3 mg/dL mg/dL (0.7-1.3) Estimated GFR 54 Glucose 81 mg/dL mg/dL (70-100) Calcium 9.4 mg/dL mg/dL (8.5-10.4) Troponin I 0.067 ng/mL H ng/mL (0-0.034) Departure - Departure Disposition: Home, Routine, Self-Care Clinical Impression: Chest pain in adult, Anxiety Condition: Fair Instructions: Chest Pain (ED), Anxiety (ED) Additional Instructions: follow-up with your [place] log roper tomorrow as discussed. Your INR today was 1.4. Referrals: [facility] ,. [Edm Groups for Call Sched] - As per Instructions
--- NOTE | 2016-11-27 21:33 | CPEKG ---
Heart Rate: 76 RR Interval: 789 QRSD Interval: 138 QT Interval: 440 QTC Interval: 495 QRS [place]: -37 T Wave [place]: 202 EKG Severity - ABNORMAL ECG - EKG Impression: ATRIAL FIBRILLATION, V-RATE 42-42 EKG Impression: RUN OF VENTRICULAR PREMATURE COMPLEXES EKG Impression: LEFT BUNDLE BRANCH BLOCK EKG Impression: similar to previous Electronically Signed By: Teodoro Morris 27-Nov-2016 21:54:04
[2016-11-27 21:37] LABS: % IMMATURE GRANULYOCYTES 0.3 % (0.0-1.1); ABSOLUTE IMMATURE GRANULOCYTES 0.02 10^3/uL (0.00-0.10); ADD DIFF? NO; ADD MORPH? NO; ADD SCAN? NO; ATYPICAL LYMPHOCYTE FLAG 0 (0-99); FRAGMENT RBC FLAG 0 (0-99); HEMOGLOBIN 15.2 g/dL (13.7-17.5); LEFT SHIFT FLG 0 (0-99); LIPEMIA HEMOLYSIS FLAG 90 (0-99); MEAN CELL HEMOGLOBIN 31.2 pg (27.9-34.1); MEAN CELL HEMOGLOBIN CONCENTR. 33.8 g/dL (32.4-36.7); MEAN CELL VOLUME 92.4 fL (81.5-99.8); MEAN PLATELET VOLUME 10.2 fL (8.7-11.7); PLATELET CLUMPS FLAG 10 (0-99); PLATELET COUNT 198 10^3/uL (150-400); RED BLOOD CELL COUNT 4.87 10^6/uL (4.40-6.38); RED CELL DISTRIBUTION WIDTH 14.9 % (11.5-15.2)
[2016-11-27 21:46] LABS: ANION GAP 13 mEq/L (8-16); CALCIUM 9.4 mg/dL (8.5-10.4); CARBON DIOXIDE 23 mEq/l (22-31); CHLORIDE 104 mEq/L (97-110); CREATININE 1.3 mg/dL (0.7-1.3); GLOMERULAR FILTRATION RATE 54; GLUCOSE 81 mg/dL (70-100); POTASSIUM 3.9 mEq/L (3.5-5.2); SODIUM 140 mEq/L (134-144)
[2016-11-27 21:48] LABS: INR 1.41 (0.83-1.16); PROTIME(PATIENT) 17.2 SEC (12.0-15.0)
[2016-11-27 21:49] LABS: APTT 34.7 SEC (23.0-38.0)
[2016-11-27 21:58] LABS: TROPONIN I 0.067 ng/mL (0-0.034)
[2016-11-27 22:21] VITALS: BP 132/78; PULSE 70; RESP 16
== END 2016-11-27 22:32 | disposition home or self-care (01) ==
LOC: EDUNIT#
DX: R07.9 Chest pain, unspecified (principal); F41.9 Anxiety disorder, unspecified; I25.10 Atherosclerotic heart disease of native coronary artery without angina pectoris; I12.9 Hypertensive chronic kidney disease with stage 1 through stage 4 chronic kidney disease, or unspecified chronic kidney disease; N18.9 Chronic kidney disease, unspecified; I50.22 Chronic systolic (congestive) heart failure; I11.0 Hypertensive heart disease with heart failure; Z90.49 Acquired absence of other specified parts of digestive tract; Z79.01 Long term (current) use of anticoagulants

== ENCOUNTER 2016-12-08 01:58 | Emergency (ER) | payer OTHER ==
[2016-12-08 02:13] VITALS: RESP 16; TEMP 98.1; O2SAT 96
--- NOTE | 2016-12-08 02:16 | CPEKG ---
Heart Rate: 91 RR Interval: 659 QRSD Interval: 174 QT Interval: 448 QTC Interval: 552 QRS [place]: 22 T Wave [place]: -7 EKG Severity - ABNORMAL ECG - EKG Impression: ATRIAL FIBRILLATION, V-RATE 61-112 EKG Impression: VENTRICULAR PREMATURE COMPLEX EKG Impression: RIGHT BUNDLE BRANCH BLOCK Electronically Signed By: Dionicio Bergeron 08-Dec-2016 07:31:02
--- NOTE | 2016-12-08 02:35 | EDPHY ---
H & P Stated Complaint: CP/back, resolved HPI/ROS: HPI CHIEF COMPLAINT: Anxiety, SOB HISTORY OF PRESENT ILLNESS: This patient is a 76-year-old male's who I am very familiar with, presents emergency room by EMS for chest pain and back pain now resolved prior to arrival. Does have significant past medical history of coronary artery disease with stent in his LAD, ischemic cardiomyopathy, low ejection fraction of 15%, AFib, on Coumadin, ureteral stent, he presents to the emergency room stating that he woke up suddenly around 2:00 a.m. feeling short of breath he became anxious. Denies to me he ever had chest pain does admit that he had some very low back pain. He states all this resolved now he feels much better being in the emergency room. I am very familiar with him this is 17th ER visit I offered him a medical evaluation and workup as he does have a very ill heart with multiple medical problems. However the patient is declining any evaluation here in the emergency room he does not want blood work it does not want imaging, does not want any medical attention he states that he thinks he got anxious and short of breath and now wants to go home. Due to his cardiac risk factors he does appear well however he does have extensive medical history and risk factors he will need to sign out against medical advice given that he arrived in the emergency room shortness of breath as now refusing evaluation. The patient does believe that this is acute anxiety. Past Medical History:coronary artery disease with stent in his LAD, ischemic cardiomyopathy, low ejection fraction of 15%, AFib, on Coumadin, ureteral stent , Past Surgical History: PTCA, ureteral stent Social History: Lives locally, denies daily use drugs alcohol tobacco Family History: Noncontributory ROS REVIEW OF SYSTEMS: A comprehensive 10 point review of systems is otherwise negative aside from elements mentioned in the history of present illness. Exam Constitutional appears well nontoxic triage nursing summary reviewed, vital signs reviewed, awake/alert. Eyes normal conjunctivae and sclera, EOMI, PERRLA. HENT normal inspection, atraumatic, moist mucus membranes, no epistaxis, neck supple/ no meningismus, no raccoon eyes. Respiratory clear to auscultation bilaterally, normal breath sounds, no respiratory distress, no wheezing. Cardiovascular rate normal, regular rhythm, no murmur, no edema, distal pulses normal. Gastrointestinal soft, non-tender, no rebound, no guarding, normal bowel sounds, no distension, no pulsatile mass. Genitourinary no CVA tenderness. Musculoskeletal no midline vertebral tenderness, full range of motion, no calf swelling, no tenderness of extremities, no meningismus, good pulses, neurovascularly intact. Skin pink, warm, & dry, no rash, skin atraumatic. Neurologic awake, alert and oriented x 3, AAOx3, moves all 4 extremities equally, motor intact, sensory intact, CN II-XII intact, normal cerebellar, normal vision, normal speech. Psychiatric normal mood/affect. Heme/Lymph/Immune no lymphadenopathy. Differential Diagnosis: Includes but is not limited to in a particular order, ACS, CHF, pneumonia, anxiety, pulmonary edema Medical Decision Making: Plan for this patient since arriving to the emergency room is now declining any evaluation he does not want blood or imaging. He is requesting be let go. He has declined any medical evaluation. He understands the need to sign against medical advice given his extensive medical history. I did offer him medical workup and possible admission however he has declined. He thinks that was just acute anxiety they brought him to the emergency room. Re-evaluation: EKG interpretation by me on record in [id number] system. Impression time of EKG 2:15 a.m., atrial fib rate of 91 this is abnormal appearing EKG with ST depression in lead V4 V5 V6 right bundle-branch block present. When I compare this EKG to his previous EKG dated 11/27/2016 this is exact same morphology no acute new changes. I do not appreciate acute ischemic change on the EKG today. [id number]: Patient is hemodynamically stable no acute distress with normal vital signs appears well. EKG is unchanged from previous. Patient signed out against medical advice at this time. Does understand is 1 welcome to return at any time if he has any further questions or concerns including chest pain shortness of breath or changes his mind. Source: Patient, EMS - Personal History Current Tetanus/Diphtheria Vaccine: Yes Current Tetanus Diphtheria and Acellular Pertussis (TDAP): Yes Tetanus Vaccine Date: 09/2009 - Medical/Surgical History Hx Asthma: No Hx Chronic Respiratory Disease: No Hx Diabetes: No Hx Cardiac Disease: Yes Hx Renal Disease: Yes Hx Cirrhosis: No Hx Alcoholism: No Hx HIV/AIDS: No Hx Splenectomy or Spleen Trauma: No Other PMH: 1. Chronic systolic heart failure ejection fraction of 25%. 2. Coronary artery disease status post stenting on 05/25/2016. 3. Chronic atrial fibrillation. 4. Hypertension. 5. Chronic renal insufficiency. 6. Nephrolithiasis with ureteral stent placement May of 2016. 7. Gout. 8. Right total knee arthroplasty. 9. Appendectomy. 10. kidney stones - Social History Smoking Status: Never smoked Constitutional: Initial Vital Signs Temperature (C) 36.7 C 12/08/16 02:11 Heart Rate 80 12/08/16 02:11 Respiratory Rate 16 12/08/16 02:11 Blood Pressure 122/87 H 12/08/16 02:11 O2 Sat (%) 96 12/08/16 02:11 O2 Delivery Mode Room Air Allergies/Adverse Reactions: atorvastatin calcium [From Lipitor] Allergy (Severe, Verified 10/26/16 06:58) Other-Enter Comments haloperidol [From Haldol] Allergy (Verified 10/26/16 06:58) simvastatin Allergy (Verified 11/18/16 18:42) Home Medications: Medication Instructions Recorded Acetaminophen [Tylenol 325mg (*)] 325 - 650 mg PO Q4H PRN 11/18/16 Allopurinol [Allopurinol 300 MG 150 mg PO DAILY 11/18/16 (RX)] Clopidogrel Bisulfate [Plavix (*)] 75 mg PO DAILY 11/18/16 Digoxin [Lanoxin 125 mcg (RX)] 125 mcg PO HS 11/18/16 Furosemide [Lasix 40 MG (*)] 40 mg PO DAILY 11/18/16 Losartan Potassium [Cozaar 25 mg 12.5 mg PO DAILY 11/18/16 (*)] Metoprolol Succinate Xr [Toprol Xl 100 mg PO DAILY 11/18/16 100 mg (*)] Nitroglycerin [Nitrostat 0.4 mg 0.4 mg SL AD PRN 11/18/16 (*)] Spironolactone [Aldactone 25 MG 12.5 mg PO DAILY 11/18/16 (*)] Warfarin Sodium [Coumadin 5MG (*)] 5 mg PO SUMOWETHFR@16 11/18/16 oxyCODONE IR [Oxycodone Ir (*)] 2.5 - 5 mg PO Q4H PRN 11/18/16 Furosemide [Lasix 40 MG (*)] 20 mg PO DAILY@11/26/16 Warfarin Sodium [Coumadin 5MG (*)] 7.5 mg PO TUSA@11/26/16 Departure - Departure Disposition: Against Medical Advice Clinical Impression: Shortness of breath Condition: Good Instructions: Dyspnea (ED) Additional Instructions: 1. Return emergency room immediately if he changed her mind 1 medical attention. I would recommend returning if you have chest pain or shortness of breath. Referrals: JA[facility] PADRON [Other] - As per Instructions
[2016-12-08 03:15] VITALS: BP 109/71; PULSE 74
== END 2016-12-08 03:15 | disposition left against medical advice (07) ==
LOC: EDUNIT#
DX: R06.02 Shortness of breath (principal); I25.10 Atherosclerotic heart disease of native coronary artery without angina pectoris; I10 Essential (primary) hypertension; Z79.01 Long term (current) use of anticoagulants

== ENCOUNTER 2017-01-22 01:56 | Emergency (ER) | payer OTHER ==
[2017-01-22 02:03] VITALS: TEMP 98.4
--- NOTE | 2017-01-22 04:25 | EDPHY ---
H & P Stated Complaint: sob/nausea x 1 hr Time Seen by Provider: 01/22/17 02:05 HPI/ROS: Chief Complaint: Shortness of breath HPI: 76-year-old male woke this morning with shortness of breath. He has had multiple admissions for the same in the past several months. He was recently discharged from [facility] 4 days ago for the same episode. Patient has been on nocturnal oxygen for the last couple weeks that after having a renal stent placed and removed. Patient states that he is continuing to have episodes of shortness of breath at night but intermittently. States that recently had his Lasix dose in increased and had his fluid allowing us decreased during the day. He has a history of significant cardiomyopathy with poor ejection fraction and valvular disease. Did not have any chest pain. No nausea or vomiting. Patient states he got up walk around but did not feel significantly improved. States he was wearing his oxygen at 2 L as instructed. Has not had any episodes of shortness of breath the last couple of mornings all at home. He does live alone in a trailer. Does have multiple family members in town. ROS: 10 point Review of Systems is negative except as noted in the HPI. PMH: Cardiomyopathy with ejection fraction 20%, mitral regurgitation, aortic regurgitation Social History: No smoking, no alcohol, no recreational drug use Family History: non-contributory Physical Exam: Gen: Awake, Alert, No Distress HEENT: Nose: no rhinorrhea Eyes: PERRLA, EOMI Mouth: Moist mucosa Neck: Supple, no JVD Chest: nontender, lungs clear to auscultation Heart: S1, S2 normal, no murmur Abd: Soft, non-tender, no guarding Back: no CVA tenderness, no midline tenderness Ext: no edema, non-tender Skin: no rash Neuro: CN II-XII intact, Sensation grossly intact, Strength 5/5 in bilateral upper and lower extremities - Personal History Tetanus Vaccine Date: 09/2009 - Medical/Surgical History Hx Asthma: No Hx Chronic Respiratory Disease: No Hx Diabetes: No Hx Cardiac Disease: Yes Hx Renal Disease: Yes Hx Cirrhosis: No Hx Alcoholism: No Hx HIV/AIDS: No Hx Splenectomy or Spleen Trauma: No Other PMH: 1. Chronic systolic heart failure ejection fraction of 25%. hyperlipidemia. 2. Coronary artery disease status post stenting on 05/25/2016. 3. Chronic atrial fibrillation. 4. Hypertension. 5. Chronic renal insufficiency. 6. Nephrolithiasis with ureteral stent placement May of 2016. 7. Gout. 8. Right total knee arthroplasty. 9. Appendectomy. 10. kidney stones - Social History Smoking Status: Never smoked Constitutional: Initial Vital Signs Temperature (C) 36.9 C 01/22/17 02:01 Heart Rate 65 01/22/17 02:01 Respiratory Rate 20 01/22/17 02:01 Blood Pressure 122/85 H 01/22/17 02:01 O2 Sat (%) 95 01/22/17 02:01 O2 Delivery Mode Room Air Allergies/Adverse Reactions: atorvastatin calcium [From Lipitor] Allergy (Severe, Verified 01/22/17 02:03) Other-Enter Comments haloperidol [From Haldol] Allergy (Verified 01/22/17 02:03) simvastatin Allergy (Verified 01/22/17 02:03) Home Medications: Medication Instructions Recorded Acetaminophen [Tylenol 325mg (*)] 325 - 650 mg PO Q4H PRN 11/18/16 Allopurinol [Allopurinol 300 MG 150 mg PO DAILY 11/18/16 (RX)] Clopidogrel Bisulfate [Plavix (*)] 75 mg PO DAILY 11/18/16 Digoxin [Lanoxin 125 mcg (RX)] 125 mcg PO HS 11/18/16 Furosemide [Lasix 40 MG (*)] 40 mg PO DAILY 11/18/16 Losartan Potassium [Cozaar 25 mg 12.5 mg PO DAILY 11/18/16 (*)] Metoprolol Succinate Xr [Toprol Xl 100 mg PO DAILY 11/18/16 100 mg (*)] Nitroglycerin [Nitrostat 0.4 mg 0.4 mg SL AD PRN 11/18/16 (*)] Spironolactone [Aldactone 25 MG 12.5 mg PO DAILY 11/18/16 (*)] Warfarin Sodium [Coumadin 5MG (*)] 5 mg PO SUMOWETHFR@11/18/16 oxyCODONE IR [Oxycodone Ir (*)] 2.5 - 5 mg PO Q4H PRN 11/18/16 Furosemide [Lasix 40 MG (*)] 20 mg PO DAILY@11/26/16 Warfarin Sodium [Coumadin 5MG (*)] 7.5 mg PO TUSA@11/26/16 Medical Decision Making ED Course/Re-evaluation: As reviewed the patient's discharge summary from [facility] 4 days ago. It is documented on his discharge summary that he has had 20+ presentations for nocturnal shortness of breath over the last 6 months. He is also noted to have significant history for severe cardiomyopathy with 20% ejection fraction, implantable cardiac defibrillator, moderate to severe mitral regurgitation, moderate aortic regurgitation, dementia, atrial fibrillation, and personality disorder. Patient was admitted for an episode of shortness of breath similar to this morning's. Had a negative workup was discharged home with the plan of continuing his nocturnal oxygen. No other acute findings on him during that admission. Here the patient is awake alert and appears in no distress. Oxygen saturations in the mid 90s but do note to fall off into the 70s while he is sleeping. I wonder if there might be some sleep apnea component to this. Seeing as he had recent admission completely negative workup at that time I do not feel is necessary given his presentation and with normal vital signs and appearing well to repeat these tests at this time. I did repeat a chest x-ray which shows no focal infiltrates or significant changes from compared to priors. He is currently at his baseline. My plan will be to call and contact the [facility] to arrange close follow-up with him and alert him of his presentation this morning. Will continue to monitor his progress in the emergency department. 0430 patient is feeling better here. He has had no interventions other than 2 L of oxygen via nasal cannula. He states that he feels back to his baseline now and feels that he can go home. No acute finding on chest x-ray. I will call and notify the [facility] that he present to the emergency department this morning. He has been encouraged to return for any concerns. I do not think I see evidence of acute heart failure at this time. His oxygen with a hope is good. He has not have any edema at this time. He is otherwise at his baseline and a negative recent workup. Will discharge with follow up with his [place] doctors. Departure - Departure Disposition: Home, Routine, Self-Care Clinical Impression: Shortness of breath Condition: Good Instructions: Dyspnea (ED) Additional Instructions: Follow up with primary care physician in 2-3 days for further evaluation. Return to the emergency depart for increasing chest pain, shortness of breath, fevers, chills, or any other concerns. Referrals: [facility]ID[facility] PADRON [Other] - As per Instructions
[2017-01-22 04:54] VITALS: BP 117/90; PULSE 86; RESP 16; O2SAT 95
== END 2017-01-22 04:53 | disposition home or self-care (01) ==
LOC: EDUNIT#
DX: R06.02 Shortness of breath (principal); I10 Essential (primary) hypertension; I25.10 Atherosclerotic heart disease of native coronary artery without angina pectoris; Z79.01 Long term (current) use of anticoagulants

== ENCOUNTER 2017-02-06 13:14 | Emergency (ER) | payer OTHER ==
[2017-02-06 13:22] VITALS: TEMP 98.2
--- NOTE | 2017-02-06 13:32 | EDPHY ---
H & P Stated Complaint: dizzy, nausea Time Seen by Provider: 02/06/17 13:16 HPI/ROS: CHIEF COMPLAINT: Lightheaded HISTORY OF PRESENT ILLNESS: The patient is a 76-year-old man with a history chronic systolic heart failure with ejection fraction 20% also with atrial fibrillation on Plavix and Coumadin and severe anxiety. He has been seen multiple times here in this ER and also a good [facility] for similar symptoms. He was switched yesterday from Lasix to Demadex in an effort to increase diuresis and improve his chronic shortness of breath. He states that he took his 1st dose yesterday and felt immediately lightheaded. He took a 2nd dose this morning and has felt lightheaded ever since. He denies chest pain or shortness of breath today. He denies fevers. no nausea vomiting. REVIEW OF SYSTEMS: Constitutional: See HPI, denies: chills, fever, recent illness, recent injury EENTM: denies: blurred vision, double vision, nose congestion Respiratory: denies: cough, shortness of breath Cardiac: denies: chest pain, irregular heart rate, lightheadedness, palpitations Gastrointestinal/Abdominal: denies: abdominal pain, diarrhea, nausea, vomiting, blood streaked stools Genitourinary: denies: dysuria, frequency, hematuria, pain Musculoskeletal: denies: joint pain, muscle pain Skin: denies: lesions, rash, jaundice, bruising Neurological: denies: headache, numbness, paresthesia, tingling, dizziness, weakness Hematologic/Lymphatic: denies: blood clots, easy bleeding, easy bruising Immunologic/allergic: denies: HIV/AIDS, transplant EXAM: GENERAL: Well-appearing, well-nourished and in no acute distress. HEAD: Atraumatic, normocephalic. EYES: Pupils equal round and reactive to light, extraocular movements intact, sclera anicteric, conjunctiva are normal. ENT: TMs normal, nares patent, oropharynx clear without exudates. Moist mucous membranes. NECK: Normal range of motion, supple without lymphadenopathy or JVD. LUNGS: Breath sounds clear to auscultation bilaterally and equal. No wheezes rales or rhonchi. HEART: Regular rate and rhythm without murmurs, rubs or gallops. ABDOMEN: Soft, nontender, normoactive bowel sounds. No guarding, no rebound. No masses appreciated. BACK: No CVA tenderness, no spinal tenderness, step-offs or deformities EXTREMITIES: Normal range of motion, no pitting or edema. No clubbing or cyanosis. NEUROLOGICAL: Cranial nerves II through XII grossly intact. Normal speech, normal gait. 5/5 strength, normal movement in all extremities, normal sensation PSYCH: Normal mood, normal affect. SKIN: Warm, dry, normal turgor, no visible rashes or lesions. Source: Patient, EMS, Old records - Personal History Current Tetanus/Diphtheria Vaccine: Yes Current Tetanus Diphtheria and Acellular Pertussis (TDAP): Yes Tetanus Vaccine Date: 09/2009 - Medical/Surgical History Hx Asthma: No Hx Chronic Respiratory Disease: No Hx Diabetes: No Hx Cardiac Disease: Yes Hx Renal Disease: Yes Hx Cirrhosis: No Hx Alcoholism: No Hx HIV/AIDS: No Hx Splenectomy or Spleen Trauma: No Other PMH: 1. Chronic systolic heart failure ejection fraction of 25%. hyperlipidemia. 2. Coronary artery disease status post stenting on 05/25/2016. 3. Chronic atrial fibrillation. 4. Hypertension. 5. Chronic renal insufficiency. 6. Nephrolithiasis with ureteral stent placement May of 2016. 7. Gout. 8. Right total knee arthroplasty. 9. Appendectomy. 10. kidney stones - Family History Significant Family History: No pertinent family hx - Social History Smoking Status: Never smoked Alcohol Use: Sober Drug Use: None Constitutional: Initial Vital Signs Temperature (C) 36.8 C 02/06/17 13:20 Heart Rate 94 02/06/17 13:20 Respiratory Rate 16 02/06/17 13:20 Blood Pressure 109/86 H 02/06/17 13:20 O2 Sat (%) 94 02/06/17 13:20 O2 Delivery Mode Room Air Allergies/Adverse Reactions: atorvastatin calcium [From Lipitor] Allergy (Severe, Verified 01/22/17 02:03) Other-Enter Comments haloperidol [From Haldol] Allergy (Verified 01/22/17 02:03) simvastatin Allergy (Verified 01/22/17 02:03) Home Medications: Medication Instructions Recorded Acetaminophen [Tylenol 325mg (*)] 325 - 650 mg PO Q4H PRN 11/18/16 Allopurinol [Allopurinol 300 MG 150 mg PO DAILY 11/18/16 (RX)] Clopidogrel Bisulfate [Plavix (*)] 75 mg PO DAILY 11/18/16 Digoxin [Lanoxin 125 mcg (RX)] 125 mcg PO HS 11/18/16 Furosemide [Lasix 40 MG (*)] 40 mg PO DAILY 11/18/16 Losartan Potassium [Cozaar 25 mg 12.5 mg PO DAILY 11/18/16 (*)] Metoprolol Succinate Xr [Toprol Xl 100 mg PO DAILY 11/18/16 100 mg (*)] Nitroglycerin [Nitrostat 0.4 mg 0.4 mg SL AD PRN 11/18/16 (*)] Spironolactone [Aldactone 25 MG 12.5 mg PO DAILY 11/18/16 (*)] Warfarin Sodium [Coumadin 5MG (*)] 5 mg PO SUMOWETHFR@11/18/16 oxyCODONE IR [Oxycodone Ir (*)] 2.5 - 5 mg PO Q4H PRN 11/18/16 Furosemide [Lasix 40 MG (*)] 20 mg PO DAILY@11/26/16 Warfarin Sodium [Coumadin 5MG (*)] 7.5 mg PO TUSA@11/26/16 Medical Decision Making - Diagnostics EKG Interpretation: An EKG obtained and was read and documented in trace view. Please see trace view for full reading and report. atrial fibrillation, bundle branch block, unchanged from previous ED Course/Re-evaluation: The patient is here with frequent recurring symptoms. We will observe. He has stable vital signs. I will check an EKG and chest x-ray. 2:00 p.m. the patient we discussed the patient's EKG and chest x-ray. He states that he feels completely better. His vital signs are stable. I discussed the case with [facility]. I suggested he switch back to Lasix. 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 We discussed indications for returning. Differential Diagnosis: Partial list of the Differential diagnosis considered include but were not limited to; anxiety, medication reaction, and although unlikely based on the history and physical exam, I also considered acute coronary disease, CHF exacerbation, COPD, PE. I discussed these differential diagnoses and the plan with the patient as well as the usual and expected course. The patient understands that the diagnosis is provisional and that in medicine we are not always correct and that further workup is often warranted. Usual and customary warnings were given. All of the patient's questions were answered. The patient was instructed to return to the emergency department should the symptoms at all worsen or return, otherwise to followup with the physician as we discussed. - Data Points Laboratory Results: Laboratory Results 02/06/17 13:20 02/06/17 13:20 Departure - Departure Disposition: Home, Routine, Self-Care Clinical Impression: Anxiety about blushing, Lightheaded Medication reaction Qualifiers: Encounter type: initial encounter Qualified Code(s): T88.7XXA - Unspecified adverse effect of drug or medicament, initial encounter Condition: Fair Instructions: Lightheadedness (ED) Referrals: Patient,NotPresent [Unknown] - As per Instructions [facility] ,. [Edm Groups for Call Sched] - As per Instructions
--- NOTE | 2017-02-06 13:36 | CPEKG ---
Heart Rate: 99 RR Interval: 606 QRSD Interval: 166 QT Interval: 444 QTC Interval: 570 QRS Scott: 110 T Wave Scott: -61 EKG Severity - ABNORMAL ECG - EKG Impression: ATRIAL FIBRILLATION, V-RATE 69-120 EKG Impression: RBBB AND LPFB EKG Impression: BORDERLINE ST DEPRESSION, LATERAL LEADS EKG Impression: unchanged from previous Electronically Signed By: Teodoro Morris 06-Feb-2017 13:36:28
[2017-02-06 14:28] VITALS: BP 100/80; PULSE 86; RESP 18; O2SAT 93
== END 2017-02-06 14:27 | disposition home or self-care (01) ==
LOC: EDUNIT#
DX: R42 Dizziness and giddiness (principal); F41.9 Anxiety disorder, unspecified; T50.1X5A Adverse effect of loop [high-ceiling] diuretics, initial encounter; I10 Essential (primary) hypertension; I25.10 Atherosclerotic heart disease of native coronary artery without angina pectoris; Z79.01 Long term (current) use of anticoagulants

== ENCOUNTER 2017-02-13 21:09 | Observation (INO) | payer OTHER ==
--- NOTE | 2017-02-13 21:05 | EDPHY ---
H & P Constitutional: Initial Vital Signs Temperature (C) 36.7 C 02/13/17 21:15 Heart Rate 88 02/13/17 21:15 Respiratory Rate 20 02/13/17 21:15 Blood Pressure 117/81 H 02/13/17 21:15 O2 Sat (%) 94 02/13/17 21:15 O2 Delivery Mode Nasal Cannula O2 (L/minute) 2 Allergies/Adverse Reactions: atorvastatin calcium [From Lipitor] Allergy (Severe, Verified 02/13/17 21:18) Other-Enter Comments haloperidol [From Haldol] Allergy (Verified 02/13/17 21:18) simvastatin Allergy (Verified 02/13/17 21:18) Home Medications: Medication Instructions Recorded Acetaminophen [Tylenol 325mg (*)] 325 - 650 mg PO Q4H PRN 11/18/16 Allopurinol [Allopurinol 300 MG 150 mg PO DAILY 11/18/16 (RX)] Clopidogrel Bisulfate [Plavix (*)] 75 mg PO DAILY 11/18/16 Digoxin [Lanoxin 125 mcg (RX)] 125 mcg PO HS 11/18/16 Furosemide [Lasix 40 MG (*)] 40 mg PO DAILY 11/18/16 Losartan Potassium [Cozaar 25 mg 12.5 mg PO DAILY 11/18/16 (*)] Metoprolol Succinate Xr [Toprol Xl 100 mg PO DAILY 11/18/16 100 mg (*)] Nitroglycerin [Nitrostat 0.4 mg 0.4 mg SL AD PRN 11/18/16 (*)] Spironolactone [Aldactone 25 MG 12.5 mg PO DAILY 11/18/16 (*)] Warfarin Sodium [Coumadin 5MG (*)] 5 mg PO SUMOWETHFR@11/18/16 oxyCODONE IR [Oxycodone Ir (*)] 2.5 - 5 mg PO Q4H PRN 11/18/16 Furosemide [Lasix 40 MG (*)] 20 mg PO DAILY@11/26/16 Warfarin Sodium [Coumadin 5MG (*)] 7.5 mg PO TUSA@11/26/16 Medical Decision Making - Diagnostics Imaging: I viewed and interpreted images myself ED Course/Re-evaluation: CHIEF COMPLAINT: Shortness of breath, dizziness. HISTORY OF PRESENT ILLNESS: This patient is an anticoagulated (Coumadin) 76 year old male arriving via EMS from home complaining of shortness of breath, dizziness, and "foggy" discomfort. Per EMS, his EKG in transport showed atrial fibrillation with PVCs, but patient had stable vitals and was mentating well. He had steady gait and no focal findings on exam. The patient reports he has been feeling fatigued and short of breath since yesterday afternoon. He has been hospitalized recently for heart failure. He has also had a recent diagnosis of anxiety, and began taking Ativan 0.5mg on , four days ago. Monday, he took 1mg, and felt everything went "haywire" - he was unable to sleep, was very confused, did not know who he was, and generally felt poorly. His last dos was this morning at 7: 00. He had a change to his cardiology medication a few weeks ago, which also caused adverse symptoms, but he has returned to his original medications. Yesterday morning, his . He developed shortness of breath and increased dizziness and fogginess following this news. He has felt very fatigued. No fever, nausea, vomiting, or other associated symptoms. REVIEW OF SYSTEMS: A 10 point review of systems was performed and is negative with the exception of the elements mentioned in the history of present illness. PHYSICAL EXAM: HR, BP, O2 Sat, RR. Temp noted General Appearance: Alert, well hydrated, appropriate, and non-toxic appearing. Head: Atraumatic without scalp tenderness or obvious injury Eyes: Pupils equal, round, reactive to light and accommodation, EOMI, no trauma , no injection. Ears: Clear bilaterally, no perforation, normal landmarks Nose: Atraumatic, no rhinorrhea, clear. Throat: There is no erythema or exudates, no lesions, normal tonsils, mucus membranes moist. Neck: Supple, 2+ carotid upstroke, nontender, no lymphadenopathy. Respiratory: No retractions, no distress, no wheezes, and no accessory muscle use. Lungs are clear to auscultation bilaterally. Cardiovascular: Regular rate and rhythm, no murmurs, rubs, or gallops. Bilateral carotid, radial, dorsalis pedis, and posterior tibial pulses intact. Good capillary refill all extremities. Gastrointestinal: Abdomen is soft, nontender, non-distended, no masses, no rebound, no guarding, no peritoneal signs. Musculoskeletal: Normal active ROM of all extremities, atraumatic. Neurological: Alert, appropriate, and interactive. The patient has normal DTRs and non-focal cranial nerves, motor, sensory, and cerebellar exam. Skin: No rashes, good turgor, no nodules on palpation. 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 Lives in [place]. DIFFERENTIAL DIAGNOSIS: Includes but not limited to Takotsubo cardiomyopathy, congestive heart failure, myocardial infarction, pulmonary embolism, severe anxiety related to grieving. MEDICAL DECISION MAKING: The 12 lead EKG was interpreted by myself. See hard copy and/or "tracemaster" electronic copy for interpretation. Atrial fibrillation. Ventricular rate 101. Right bundle branch block. Plan to admit for renal insufficiency, CHF exacerbation, elevated troponin at 0.89, grieving, possible Takotsubo. The patient feels he is unable to care well for himself this evening and is comfortable with admission for continued observation and management of symptoms. 22:16 Spoke with hospitalist service. Dr. Mims accepts admission. - Data Points Laboratory Results: Laboratory Results 02/13/17 21:20 02/13/17 16:20 02/13/17 02/13/17 02/13/17 21:20 16:20 16:20 WBC 7.83 10^3/uL 10^3/uL (3.80-9.50) RBC 4.61 10^6/uL 10^6/uL (4.40-6.38) Hgb 13.5 g/dL L g/dL (13.7-17.5) Hct 41.7 % % (40.0-51.0) MCV 90.5 fL fL (81.5-99.8) MCH 29.3 pg pg (27.9-34.1) MCHC 32.4 g/dL g/dL (32.4-36.7) RDW 14.8 % % (11.5-15.2) Plt Count 210 10^3/uL 10^3/uL (150-400) MPV 10.1 fL fL (8.7-11.7) Neut % (Auto) 64.2 % % (39.3-74.2) Lymph % (Auto) 26.3 % % (15.0-45.0) [place] % (Auto) 6.6 % % (4.5-13.0) Eos % (Auto) 1.8 % % (0.6-7.6) Baso % (Auto) 1.0 % % (0.3-1.7) Nucleat RBC Rel Count 0.0 % % (0.0-0.2) Absolute Neuts (auto) 5.02 10^3/uL 10^3/uL (1.70-6.50) Absolute Lymphs (auto) 2.06 10^3/uL 10^3/uL (1.00-3.00) Absolute Monos (auto) 0.52 10^3/uL 10^3/uL (0.30-0.80) Absolute Eos (auto) 0.14 10^3/uL 10^3/uL (0.03-0.40) Absolute Basos (auto) 0.08 10^3/uL 10^3/uL (0.02-0.10) Absolute Nucleated RBC 0.00 10^3/uL 10^3/uL (0-0.01) Immature Gran % 0.1 % % (0.0-1.1) Immature Gran # 0.01 10^3/uL 10^3/uL (0.00-0.10) D-Dimer < 0.27 ug/mLFEU ug/mLFEU (0.00-0.50) Sodium 140 mEq/L mEq/L (134-144) Potassium 3.9 mEq/L mEq/L (3.5-5.2) Chloride 104 mEq/L mEq/L (97-110) Carbon Dioxide 19 mEq/l L mEq/l (22-31) Anion Gap 17 mEq/L H mEq/L (8-16) BUN 31 mg/dL H mg/dL (7-23) Creatinine 1.4 mg/dL H mg/dL (0.7-1.3) Estimated GFR 49 Glucose 164 mg/dL H mg/dL (70-100) Calcium 9.1 mg/dL mg/dL (8.5-10.4) Magnesium 2.0 mg/dL mg/dL (1.6-2.3) Troponin I 0.089 ng/mL H ng/mL (0-0.034) NT-Pro-B Natriuret Pep 02087 pg/mL H pg/mL (0-450) Departure - Departure Disposition: [facility] Inpatient Acute Clinical Impression: Renal insufficiency, Shortness of breath Condition: Fair Referrals: JAIDEN PADRON [Other] - As per Instructions Report Scribed for: iWllian Forbes Report Scribed by: Ella Marinelli Date of Report: 02/13/17 Time of Report: 21:24
--- NOTE | 2017-02-13 21:28 | CPEKG ---
Heart Rate: 101 RR Interval: 594 QRSD Interval: 164 QT Interval: 428 QTC Interval: 555 QRS [place]: 83 T Wave Madison: -28 EKG Severity - ABNORMAL ECG - EKG Impression: ATRIAL FIBRILLATION, V-RATE 66-118 EKG Impression: RIGHT BUNDLE BRANCH BLOCK Electronically Signed By: Lalito Borja 16-Feb-2017 08:05:49
[2017-02-13 21:31] LABS: % IMMATURE GRANULYOCYTES 0.1 % (0.0-1.1); ABSOLUTE IMMATURE GRANULOCYTES 0.01 10^3/uL (0.00-0.10); ADD DIFF? NO; ADD MORPH? NO; ADD SCAN? NO; ATYPICAL LYMPHOCYTE FLAG 0 (0-99); FRAGMENT RBC FLAG 0 (0-99); HEMATOCRIT 41.7 % (40.0-51.0); HEMOGLOBIN 13.5 g/dL (13.7-17.5); LEFT SHIFT FLG 0 (0-99); LIPEMIA HEMOLYSIS FLAG 80 (0-99); MEAN CELL HEMOGLOBIN 29.3 pg (27.9-34.1); MEAN CELL HEMOGLOBIN CONCENTR. 32.4 g/dL (32.4-36.7); MEAN CELL VOLUME 90.5 fL (81.5-99.8); MEAN PLATELET VOLUME 10.1 fL (8.7-11.7); PLATELET CLUMPS FLAG 0 (0-99); PLATELET COUNT 210 10^3/uL (150-400); RED BLOOD CELL COUNT 4.61 10^6/uL (4.40-6.38); RED CELL DISTRIBUTION WIDTH 14.8 % (11.5-15.2)
[2017-02-13 21:41] LABS: ANION GAP 17 mEq/L (8-16); CALCIUM 9.1 mg/dL (8.5-10.4); CARBON DIOXIDE 19 mEq/l (22-31); CHLORIDE 104 mEq/L (97-110); CREATININE 1.4 mg/dL (0.7-1.3); GLOMERULAR FILTRATION RATE 49; GLUCOSE 164 mg/dL (70-100); POTASSIUM 3.9 mEq/L (3.5-5.2); SODIUM 140 mEq/L (134-144)
[2017-02-13 21:53] LABS: TROPONIN I 0.089 ng/mL (0-0.034)
[2017-02-13] MEDS ORDERED: ONDANSETRON DISINTEGRATING 4 MG TAB PO PRN (22:57)
[2017-02-13] MEDS ORDERED: ONDANSETRON 4 MG/2 ML VIAL IVP PRN (22:57)
[2017-02-13] MEDS ORDERED: ACETAMINOPHEN 325 MG TAB PO PRN (22:57)
[2017-02-13 23:06] LABS: INR 3.4 (0.83-1.16); PROTIME(PATIENT) 34.9 SEC (12.0-15.0)
[2017-02-13 23:07] LABS: APTT 49.1 SEC (23.0-38.0)
--- NOTE | 2017-02-13 23:07 | PDGENHP ---
History and Physical - Chief Complaint Confusion - History of Present Illness 76 yo M w/ CHF, Afib presents with confusion after new start of lorazepam. Patient's has been very ill with cancer for some time and on the day prior to presentation. For the last weeks or months, the patient has had intermittent bouts of unexplained shortness of breath, which his doctor felt may be related to anxiety. These symptoms worsened over the last week as his neared end of life and he was prescribed lorazepam for the first time. Since starting lorazepam, patient felt confused, dizzy, disoriented, and had difficulty controlling his bladder. His last dose was early on the morning of admission, and he reports these symptoms have completely resolved in the interim. Currently he denies acute symptoms but feels afraid to go home. He weighs himself twice every day and his weight has been stable at 176 pounds for some time. He is on a stable dose of diuretics and has no other medication changes aside from the aforementioned lorazepam and a recent start of warfarin. He denies chest pain, current SOB, and all infectious symptoms. History Information - Allergies/Home Medication List Allergies/Adverse Reactions: atorvastatin calcium [From Lipitor] Allergy (Severe, Verified 02/13/17 21:18) Other-Enter Comments haloperidol [From Haldol] Allergy (Verified 02/13/17 21:18) simvastatin Allergy (Verified 02/13/17 21:18) Home Medications: Acetaminophen [Tylenol 325mg (*)] 325 - 650 mg PO Q4H PRN 11/18/16 [Last Taken Unknown] Allopurinol [Allopurinol 300 MG (RX)] 150 mg PO DAILY 11/18/16 [Last Taken 11/25 08:00] Clopidogrel Bisulfate [Plavix (*)] 75 mg PO DAILY 11/18/16 [Last Taken 11/25/16 08:00] Digoxin [Lanoxin 125 mcg (RX)] 125 mcg PO HS 11/18/16 [Last Taken 11/25/16 21:00 ] Furosemide [Lasix 40 MG (*)] 40 mg PO DAILY 11/18/16 [Last Taken 11/25/16 08:00] Losartan Potassium [Cozaar 25 mg (*)] 12.5 mg PO DAILY 11/18/16 [Last Taken 08:00] Metoprolol Succinate Xr [Toprol Xl 100 mg (*)] 100 mg PO DAILY 11/18/16 [Last Taken 11/25/16 08:00] Nitroglycerin [Nitrostat 0.4 mg (*)] 0.4 mg SL AD PRN 11/18/16 [Last Taken Unknown] Spironolactone [Aldactone 25 MG (*)] 12.5 mg PO DAILY 11/18/16 [Last Taken 11/25 08:00] Warfarin Sodium [Coumadin 5MG (*)] 5 mg PO SUMOWETHFR@11/18/16 [Last Taken ] oxyCODONE IR [Oxycodone Ir (*)] 2.5 - 5 mg PO Q4H PRN 11/18/16 [Last Taken Unknown] Furosemide [Lasix 40 MG (*)] 20 mg PO DAILY@11/26/16 [Last Taken 11/25/16 16: 00] Warfarin Sodium [Coumadin 5MG (*)] 7.5 mg PO TUSA@11/26/16 [Last Taken ] I have personally reviewed and updated: family history, medical history - Past Medical History atrial fibrillation ( Permanent), coronary artery disease ( with LAD stent May of 2016, ischemic cardiomyopathy), CHF ( systolic with ejection fraction 25%) Additional medical history: nonobstructive CAD. Afib on systemic anticoagulation. HTN. gout. nephrolithiasis with recent stent placed. history of left atrial thrombus. Cognitive impairment - Surgical History Additional surgical history: R total knee replacement. appendectomy. Recent ureteral stent placement. LAD stent May 2016 - Family History Additional family history: Pt reports every male family member has of CAD/ heart disease - Social History Smoking Status: Never smoked Additional social history: Retired lives alone, reportedly is independent in ADLs. Review of Systems ROS: 10pt was reviewed & negative except for what was stated in HPI & below Physical Exam Temp Pulse Resp BP Pulse Ox 36.7 C 91 21 H 112/86 H 95 02/13/17 21:15 02/13/17 22:48 02/13/17 22:48 02/13/17 22:48 02/13/17 22:48 O2 (L/minute) 2 Constitutional: no apparent distress, appears nourished Eyes: PERRL, EOMI Ears, Nose, Mouth, Throat: moist mucous membranes, no oral mucosal ulcers Cardiovascular: regular rate and rhythym, systolic murmur (2/6 EDMAR @ LUSB), No edema Respiratory: no respiratory distress, clear to auscultation Gastrointestinal: normoactive bowel sounds, soft, non-tender abdomen Skin: warm, no rashes or abrasions Neurologic: AAOx3, CN II-XII Intact Psychiatric: interacting appropriately, not anxious Lab Data & Imaging Review 02/13/17 21:20 02/13/17 21:20 WBC 7.83 10^3/uL (3.80-9.50) 02/13/17 21:20 RBC 4.61 10^6/uL (4.40-6.38) 02/13/17 21:20 Hgb 13.5 g/dL (13.7-17.5) L 02/13/17 21:20 Hct 41.7 % (40.0-51.0) 02/13/17 21:20 MCV 90.5 fL (81.5-99.8) 02/13/17 21:20 MCH 29.3 pg (27.9-34.1) 02/13/17 21:20 MCHC 32.4 g/dL (32.4-36.7) 02/13/17 21:20 RDW 14.8 % (11.5-15.2) 02/13/17 21:20 Plt Count 210 10^3/uL (150-400) 02/13/17 21:20 MPV 10.1 fL (8.7-11.7) 02/13/17 21:20 Neut % (Auto) 64.2 % (39.3-74.2) 02/13/17 21:20 Lymph % (Auto) 26.3 % (15.0-45.0) 02/13/17 21:20 [place] % (Auto) 6.6 % (4.5-13.0) 02/13/17 21:20 Eos % (Auto) 1.8 % (0.6-7.6) 02/13/17 21:20 Baso % (Auto) 1.0 % (0.3-1.7) 02/13/17 21:20 Nucleat RBC Rel Count 0.0 % (0.0-0.2) 02/13/17 21:20 Absolute Neuts (auto) 5.02 10^3/uL (1.70-6.50) 02/13/17 21:20 Absolute Lymphs (auto) 2.06 10^3/uL (1.00-3.00) 02/13/17 21:20 Absolute Monos (auto) 0.52 10^3/uL (0.30-0.80) 02/13/17 21:20 Absolute Eos (auto) 0.14 10^3/uL (0.03-0.40) 02/13/17 21:20 Absolute Basos (auto) 0.08 10^3/uL (0.02-0.10) 02/13/17 21:20 Absolute Nucleated RBC 0.00 10^3/uL (0-0.01) 02/13/17 21:20 Immature Gran % 0.1 % (0.0-1.1) 02/13/17 21:20 Immature Gran # 0.01 10^3/uL (0.00-0.10) 02/13/17 21:20 D-Dimer < 0.27 ug/mLFEU (0.00-0.50) 02/13/17 21:20 Sodium 140 mEq/L (134-144) 02/13/17 21:20 Potassium 3.9 mEq/L (3.5-5.2) 02/13/17 21:20 Chloride 104 mEq/L (97-110) 02/13/17 21:20 Carbon Dioxide 19 mEq/l (22-31) L 02/13/17 21:20 Anion Gap 17 mEq/L (8-16) H 02/13/17 21:20 BUN 31 mg/dL (7-23) H 02/13/17 21:20 Creatinine 1.4 mg/dL (0.7-1.3) H 02/13/17 21:20 Estimated GFR 49 02/13/17 21:20 Glucose 164 mg/dL (70-100) H 02/13/17 21:20 Calcium 9.1 mg/dL (8.5-10.4) 02/13/17 21:20 Magnesium 2.0 mg/dL (1.6-2.3) 02/13/17 21:20 Troponin I 0.089 ng/mL (0-0.034) H 02/13/17 21:20 NT-Pro-B Natriuret Pep 59418 pg/mL (0-450) H 02/13/17 21:20 EKG additional interpertation: Rate controlled atrial fibrillation Assessment & Plan Assessment: 76 yo M w/ CHF, Afib, CKD, gout presents with confusion after recently starting lorazepam. Plan: 1. Acute toxic encephalopathy - Resolved by time of admission. Caused by newly started lorazepam. Patient under significant emotional stress noting the of his on the day prior to admission. He is afraid to go home so he will be admitted for observation. 2. Indeterminate troponin - In the setting of stable renal insufficiency. He denies any symptoms of chest pain or shortness of breath. ECG without acute ischemia. - Will recheck troponin in the morning 3. Chronic systolic heart failure without decompensation - Patient on stable medication and diuretic regimen; weight unchanged for weeks at 176 lbs. Patient watches his diet and fluid intake very carefully and overall appears very well compensated despite BNP of 14,000. - Continue home medications 4. Afib - On metoprolol and warfarin 5. Gout - On allopurinol Diet - Cardiac Code - Full Ppx - Warfarin Dispo - Admit to observation, patient should be able to discharge home tomorrow without issue
[2017-02-14 05:24] LABS: % IMMATURE GRANULYOCYTES 0.1 % (0.0-1.1); ABSOLUTE IMMATURE GRANULOCYTES 0.01 10^3/uL (0.00-0.10); ADD DIFF? NO; ADD MORPH? NO; ADD SCAN? NO; ATYPICAL LYMPHOCYTE FLAG 0 (0-99); FRAGMENT RBC FLAG 0 (0-99); HEMATOCRIT 39.5 % (40.0-51.0); HEMOGLOBIN 12.7 g/dL (13.7-17.5); LEFT SHIFT FLG 0 (0-99); LIPEMIA HEMOLYSIS FLAG 80 (0-99); MEAN CELL HEMOGLOBIN 29.2 pg (27.9-34.1); MEAN CELL HEMOGLOBIN CONCENTR. 32.2 g/dL (32.4-36.7); MEAN CELL VOLUME 90.8 fL (81.5-99.8); MEAN PLATELET VOLUME 10.3 fL (8.7-11.7); PLATELET CLUMPS FLAG 0 (0-99); PLATELET COUNT 180 10^3/uL (150-400); RED BLOOD CELL COUNT 4.35 10^6/uL (4.40-6.38); RED CELL DISTRIBUTION WIDTH 14.6 % (11.5-15.2)
[2017-02-14 05:35] LABS: ANION GAP 13 mEq/L (8-16); CALCIUM 9.1 mg/dL (8.5-10.4); CARBON DIOXIDE 18 mEq/l (22-31); CHLORIDE 109 mEq/L (97-110); CREATININE 1.3 mg/dL (0.7-1.3); GLOMERULAR FILTRATION RATE 54; GLUCOSE 107 mg/dL (70-100); SODIUM 140 mEq/L (134-144)
[2017-02-14 05:47] LABS: TROPONIN I 0.089 ng/mL (0-0.034)
[2017-02-14] MEDS ORDERED: NITROGLYCERIN 0.4 MG BTL SL PRN (10:12)
[2017-02-14] MEDS: SPIRONOLACTONE 25 MG TAB PO SCH (10:35)
[2017-02-14] MEDS: LOSARTAN POTASSIUM 25 MG TAB PO SCH (10:36)
[2017-02-14] MEDS: CLOPIDOGREL BISULFATE 75 MG TAB PO SCH (10:37)
[2017-02-14] MEDS: METOPROLOL SUCCINATE XR 100 MG TAB PO SCH (10:37)
--- NOTE | 2017-02-14 11:09 | HOSPPROG ---
Hospitalist Progress Note Assessment/Plan: 76-year-old with a history of coronary artery disease and ischemic cardiomyopathy with EF of 25%, atrial fibrillation with pacemaker is admitted with confusion. He has a history of recurrent hospitalizations and ER visits for shortness of breath. He is followed closely at [facility] by a camp boss and by his primary care physician who have worked this up without clear etiology. It is felt that his symptoms are likely related to anxiety since his has been terminally ill with cancer and 2 days prior to admission.\\ # encephalopathy: Likely metabolic and acute. Secondary to medications likely lorazepam with underlying cognitive deficits. Will also check a digoxin level. He has improved today although is still unsteady on his feet * Check digoxin level * PT OT evaluation when at baseline or more stable can be discharged home # anxiety: Patient recently started on lorazepam, I suspect that his admitting confusion is related to this as he does have some underlying cognitive deficits. He says he is feeling better today but still unsteady on his feet. * Discontinue lorazepam, follow up with behavior Health at [facility] his appointment on February 17 # shortness of breath: I suspect this is related to anxiety. He likely has some chronic shortness of breath due to his ischemic cardiomyopathy as well. * Continue current meds except for lorazepam # elevated troponins, flat in the setting of chronic ischemic systolic failure. No further workup as he has been followed closely by Cardiology at [facility]. He currently has no chest pain. He has no ischemic changes on EKG. * Suspect his troponin is chronically elevated. * No workup for acute ischemia indicated at this time. # atrial fibrillation, permanent on anticoagulation with Coumadin with therapeutic/supratherapeutic INR # coronary artery disease: Recent LAD stent in May 2016 # ischemic cardiomyopathy with chronic systolic heart failure, chest x-ray personally reviewed and shows chronic findings. Continue usual medications. # hypertension: Blood pressure slightly elevated will treat as needed with IV medications and continue his usual medications. # gout currently on allopurinol Pt needs additional midnight stay, worked with PT and still unsteady due to encephalopathy and co morbidities, will continue to hold lorazepam and work with PT for possible dc when safe. Consider behavioral health specialist to see , Tamie Guidry, if she is in. Subjective: Patient new to me chart reviewed. Patient feeling better today although still feels unsteady and slightly foggy. No significant changes in his symptoms. He says he is continuously short of breath but his vital signs are stable. Objective: Vital Signs Temp Pulse Resp BP Pulse Ox 36.7 C 85 19 123/74 H 93 02/14/17 07:40 02/14/17 07:40 02/14/17 07:40 02/14/17 07:40 02/14/17 07:40 Laboratory Results 02/14/17 04:41 02/14/17 04:41 02/13/17 02/14/17 02/15/17 05:59 05:59 05:59 Intake Total 350 Output Total 150 225 Balance 200 -225 PT 34.9 SEC (12.0-15.0) H 02/13/17 21:20 INR 3.40 (0.83-1.16) H 02/13/17 21:20 - Physical Exam Constitutional: not in pain, chronically ill appearing Eyes: PERRL, EOMI Ears, Nose, Mouth, Throat: hearing normal Cardiovascular: regular rate and rhythym, systolic murmur Respiratory: no respiratory distress, reduced air movement Gastrointestinal: normoactive bowel sounds, soft, non-tender abdomen, no palpable masses Skin: warm Musculoskeletal: generalized weakness Psychiatric: interacting appropriately, anxious ICD10 Worksheet Patient Problems: Problems Problem Status Onset Near syncope Acute Confusion with nonfocal neurological examination Acute Chest pain Acute Congestive heart failure Acute Chest pain at rest Acute Cardiomyopathy Acute Acute exacerbation of CHF (congestive heart failure) Acute Constipation Acute Atrial fibrillation with rapid ventricular response Acute Nephrolithiasis Acute Ureterolithiasis Acute Acute decompensated heart failure Acute Hematuria Acute Chest pain Acute Troponin level elevated Acute Shortness of breath Acute Syncope Acute Anxiety about blushing Acute Medication reaction Acute Lightheaded Acute Renal insufficiency Acute Shortness of breath Acute
[2017-02-14] MEDS: FUROSEMIDE 40 MG TAB PO SCH (14:01)
[2017-02-14] MEDS ORDERED: DIGOXIN 125 MCG TAB PO SCH (21:00)
[2017-02-14] MEDS ORDERED: CALCIUM CARBONATE 500 MG CHEWABLE TAB PO PRN (22:15)
[2017-02-15 08:21] VITALS: BP 108/84; RESP 12; TEMP 97.6; O2SAT 95
[2017-02-15 08:24] LABS: INR 3.02 (0.83-1.16); PROTIME(PATIENT) 31.7 SEC (12.0-15.0)
[2017-02-15] MEDS: SPIRONOLACTONE 25 MG TAB PO SCH (08:41)
[2017-02-15] MEDS: METOPROLOL SUCCINATE XR 100 MG TAB PO SCH (08:42)
[2017-02-15] MEDS: LOSARTAN POTASSIUM 25 MG TAB PO SCH (08:43)
[2017-02-15] MEDS: FUROSEMIDE 40 MG TAB PO SCH (08:43)
[2017-02-15] MEDS: CLOPIDOGREL BISULFATE 75 MG TAB PO SCH (08:43)
[2017-02-15 08:44] VITALS: PULSE 102
[2017-02-15] MEDS ORDERED: ALLOPURINOL 300 MG TAB PO SCH (09:00)
--- NOTE | 2017-02-15 14:11 | PDIAF ---
- Diagnosis Diagnosis: confusion Code Status: Full Code - Medication Management Discharge Medications: Medications to Continue on Transfer Allopurinol [Allopurinol 300 MG (RX)] 150 mg PO DAILY 11/18/16 [Last Taken 02/13] Clopidogrel Bisulfate [Plavix (*)] 75 mg PO DAILY 11/18/16 [Last Taken 02/13/17] Digoxin [Lanoxin 125 mcg (RX)] 125 mcg PO HS 11/18/16 [Last Taken 02/13/17] Losartan Potassium [Cozaar 25 mg (*)] 12.5 mg PO DAILY 11/18/16 [Last Taken 01/23] Metoprolol Succinate Xr [Toprol Xl 100 mg (*)] 100 mg PO DAILY 11/18/16 [Last Taken 02/13/17] Nitroglycerin [Nitrostat 0.4 mg (*)] 0.4 mg SL AD PRN 11/18/16 [Last Taken Unknown] Spironolactone [Aldactone 25 MG (*)] 12.5 mg PO DAILY 11/18/16 [Last Taken 02/13] Warfarin Sodium [Coumadin 5MG (*)] 5 mg PO SUMOWETHFR@16 11/18/16 [Last Taken ] Furosemide [Lasix 40 MG (*)] 40 mg PO BID@,14 11/26/16 [Last Taken 02/13/17 14 :00] Warfarin Sodium [Coumadin 5MG (*)] 7.5 mg PO TUSA@11/26/16 [Last Taken ] Discharge Medications: Refer to the Discharge Home Medication list for PRN reason. - Orders Services needed: Home Care, Registered Nurse, Master Squirt Machine Operator, Physical Therapy Home Care Face to Face: I certify that this patient was under my care and that I had the required [id number] encounter meeting the encounter requirements on the discharge day. My findings support the fact that the patient is homebound as defined in CMS Chapter 7 Medicare Benefits Manual 30.1.1, The condition of the patient is such that there exists a normal inability to leave home and consequently, leaving home would require a considerable and taxing effort. - Follow Up Care Current Providers and Referrals: JAIDEN PADRON [Other] - As per Instructions
[2017-02-15] MEDS ORDERED: WARFARIN SODIUM 5 MG TAB PO SCH (16:00)
--- NOTE | 2017-02-15 16:47 | GDS ---
[f rep st] DISCHARGE SUMMARY DISCHARGE DIAGNOSES: Include: 1. Acute encephalopathy thought secondary to benzodiazepines. 2. Chronic heart failure. HISTORY OF PRESENT ILLNESS: A 76-year-old male with multiple cardiac comorbidities who presents to the hospital with complaints of somnolence and confusion. For details of patient's initial presenta tion, please see the history and physical dated 02/13/2017. CONSULTATIVE SERVICES: None. PROCEDURES: None. HOSPITAL COURSE BY ISSUE: 1. Acute encephalopathy. The patient reportedly was started by his outpatient care team on p.r.n. Ativan for what was presumed to be anxiety attacks. Patient reports taking 4 doses of his Ativan un til he realized that he was making no sense, unable to clearly communicate, manage himself at home. The patient called 911 for assistance and was brought to the hospital for evaluation. The patient was monitored for 48 hours at [facility] withholding all ongoing benzodiazepines and the patient is cleared on the day of disposition. He will be discharged home with home nursing and re-initiation of his o utpatient home health. 2. Suspected underlying anxiety. This has been discussed with the patient on previous hospitalizat ions, particularly pain. The patient does have a scheduled appointment with outpatient p sychiatry at [facility] on March 20, 2017. We recommend he keep this appointment, and additionally, recommend that he not continue benzodiazepine use in the home. 3. Chronic heart failure. Patient was continued on all of his cardiac medications without alterati on. MEDICATIONS AT THE TIME OF DISPOSITION: Please reference med rec printed on 02/15/2017. PENDING STUDIES AT THE TIME OF DISPOSITION: None. FOLLOWUP APPOINTMENTS: Include with home health care team through [facility] as well as home nursing in itiated by [facility]. Patient additionally to follow with outpatient [facility] psychiatry and his [facility] PHYSICIAN. I spent greater than 30 minutes in the planning and coordination of this discharge. /[id number]/MODL
[2017-02-18] MEDS ORDERED: WARFARIN SODIUM 5 MG TAB PO SCH (16:00)
== END 2017-02-15 12:42 | disposition home or self-care (01) ==
LOC: EDUNIT# → F2W 23:08
PROVIDERS: ADMIT Student in an Organized Health Care Education/Training Program; ATTEND Hospitalist
DX: T42.4X1A Poisoning by benzodiazepines, accidental (unintentional), initial encounter (principal); G92 Toxic encephalopathy; I50.22 Chronic systolic (congestive) heart failure; F41.9 Anxiety disorder, unspecified; I48.2 Chronic atrial fibrillation; R79.9 Abnormal finding of blood chemistry, unspecified; E78.5 Hyperlipidemia, unspecified; I25.10 Atherosclerotic heart disease of native coronary artery without angina pectoris; I11.0 Hypertensive heart disease with heart failure; N18.9 Chronic kidney disease, unspecified; I25.5 Ischemic cardiomyopathy; M10.9 Gout, unspecified; Z96.661 Presence of right artificial ankle joint; Z95.5 Presence of coronary angioplasty implant and graft; Z79.01 Long term (current) use of anticoagulants; Z87.442 Personal history of urinary calculi; Z95.0 Presence of cardiac pacemaker
CPT/HCPCS: 71020; 93005; 97165; 99285; G0378; G8987; G8988; G8989; J2405

== ENCOUNTER 2017-02-26 10:38 | Emergency (ER) | payer OTHER ==
[2017-02-26] MEDS ORDERED: NS 500 ML IV ONE (10:41)
--- NOTE | 2017-02-26 10:46 | CPEKG ---
Heart Rate: 104 RR Interval: 577 QRSD Interval: 164 QT Interval: 424 QTC Interval: 558 QRS [place]: 106 T Wave [place]: -32 EKG Severity - ABNORMAL ECG - EKG Impression: ATRIAL FIBRILLATION, V-RATE 60-125 EKG Impression: RBBB AND LPFB Electronically Signed By: Jon Sarmiento 27-Feb-2017 15:55:30
[2017-02-26 10:47] VITALS: RESP 18; TEMP 98.1
--- NOTE | 2017-02-26 10:57 | EDPHY ---
HPI/HX/ROS/PE/MDM Narrative: CHIEF COMPLAINT: Weakness HPI: The patient is an anticoagulated 76 y/o male, with 20 prior ED visits in the last 12 months, complaining of weakness and fogginess while sitting in restoration this morning. He has a medical history that includes atrial fibrillation , CAD with LAD stent in 2016, CHF, hypertension, gout, and nephrolithiasis with recent stent placement. He was evaluated at [facility] ED yesterday for hematuria and discharged home in good condition with complete resolution of those symptoms. Last night he began to feel worried about being alone and called the [facility] for reassurance that he could sleep. While sitting in restoration today, he began to feel diaphoretic, weak, and foggy. He developed some dizziness when he stood up to call 911. He denies associated chest pain or dyspnea at any point. EMS administered nitro and aspirin en route without change in symptoms. Upon assessment, he feels improved and thinks he could go home if his evaluation here is negative. He has been evaluated for similar symptoms frequently and understands he has anxiety related to his health. REVIEW OF SYSTEMS: Aside from elements discussed in the HPI, a comprehensive 10-point review of systems was reviewed and is negative. PMH: Atrial Fibrillation - Eliquis, CHF, CAD, LAD Stent 2016, kidney stent, CABG A past medical history was obtained through observation of past medical records. SOCIAL HISTORY: Patient lives alone, recently due to cancer. Lives in [place]. 9 kids live [id number]. Veneer Press Operator: Dr. Escalona, Urologist : Dr. Puente PHYSICAL EXAM: General:Patient is alert, in no acute distress. ENT:Eyes are normal to inspection. ENT inspection normal. Neck: Normal inspection. Full range of motion. Respiratory:No respiratory distress. Breath sounds normal bilaterally. Cardiovascular: Regular rate and rhythm. Strong peripheral pulses. Normal cap refill. Abdomen:The abdomen is nontender to palpation. There are no peritoneal signs. Back: Normal to inspection. No tenderness to palpation. Skin: Normal color. No rash. Warm and dry. Extremities: Normal appearance. Full range of motion. Neuro: Oriented x3. Normal motor function. Normal sensory function. ED Course: This is a 76 y/o male well-known to the department who presents with weakness and anxiety about his health. He is nearly asymptomatic upon assessment. His exam is unremarkable. Plan for IV, labs, EKG, and chest x-ray. The 12 lead EKG was interpreted by myself. Atrial Fibrillation, RBBB and LPFB, rate 104. See hard copy and/or "tracemaster" electronic copy for interpretation. Chest X-ray negative. Troponin levels elevated at 0.089. Discussed work up with the patient. He will be discharged home in good condition with referral to his PCP for follow up. Return precautions given. He is comfortable with this plan. MDM: This patient presents for recurrent episode of what sounds like a panic attack. He has been evaluated extensively in this as well as other EDs for the same symptoms and chronically has an elevated troponin. There are no signs of acute ischemia at this time. I offered him admission for observation and further workup but he declines. - Data Points Imaging: I viewed and interpreted images myself Laboratory Results: Laboratory Results 02/26/17 10:50 02/26/17 10:35 02/26/17 02/26/17 10:50 10:35 WBC 7.01 10^3/uL 10^3/uL (3.80-9.50) RBC 4.50 10^6/uL 10^6/uL (4.40-6.38) Hgb 12.8 g/dL L g/dL (13.7-17.5) Hct 39.7 % L % (40.0-51.0) MCV 88.2 fL fL (81.5-99.8) MCH 28.4 pg pg (27.9-34.1) MCHC 32.2 g/dL L g/dL (32.4-36.7) RDW 15.0 % % (11.5-15.2) Plt Count 197 10^3/uL 10^3/uL (150-400) MPV 9.6 fL fL (8.7-11.7) Neut % (Auto) 68.6 % % (39.3-74.2) Lymph % (Auto) 23.3 % % (15.0-45.0) [place] % (Auto) 5.8 % % (4.5-13.0) Eos % (Auto) 1.3 % % (0.6-7.6) Baso % (Auto) 0.9 % % (0.3-1.7) Nucleat RBC Rel Count 0.0 % % (0.0-0.2) Absolute Neuts (auto) 4.81 10^3/uL 10^3/uL (1.70-6.50) Absolute Lymphs (auto) 1.63 10^3/uL 10^3/uL (1.00-3.00) Absolute Monos (auto) 0.41 10^3/uL 10^3/uL (0.30-0.80) Absolute Eos (auto) 0.09 10^3/uL 10^3/uL (0.03-0.40) Absolute Basos (auto) 0.06 10^3/uL 10^3/uL (0.02-0.10) Absolute Nucleated RBC 0.00 10^3/uL 10^3/uL (0-0.01) Immature Gran % 0.1 % % (0.0-1.1) Immature Gran # 0.01 10^3/uL 10^3/uL (0.00-0.10) Sodium 138 mEq/L mEq/L (134-144) Potassium 4.5 mEq/L mEq/L (3.5-5.2) Chloride 106 mEq/L mEq/L (97-110) Carbon Dioxide 19 mEq/l L mEq/l (22-31) Anion Gap 13 mEq/L mEq/L (8-16) BUN 27 mg/dL H mg/dL (7-23) Creatinine 1.5 mg/dL H mg/dL (0.7-1.3) Estimated GFR 45 Glucose 130 mg/dL H mg/dL (70-100) Calcium 9.7 mg/dL mg/dL (8.5-10.4) Troponin I 0.089 ng/mL H ng/mL (0.000-0.034) Medications Given: Discontinued Medications Sodium Chloride (Ns) 500 mls @ 0 mls/hr IV EDNOW ONE; Wide Open PRN Reason: Protocol Stop: 02/26/17 10:42 Last Admin: 02/26/17 11:06 Dose: 500 mls General Time Seen by Provider: 02/26/17 10:41 Initial Vital Signs: Initial Vital Signs Temperature (C) 36.7 C 02/26/17 10:45 Heart Rate 86 02/26/17 10:45 Respiratory Rate 18 02/26/17 10:45 Blood Pressure 115/75 02/26/17 10:45 O2 Sat (%) 96 02/26/17 10:45 O2 Delivery Mode Room Air Allergies/Adverse Reactions: atorvastatin calcium [From Lipitor] Allergy (Severe, Verified 02/26/17 18:41) Other-Enter Comments haloperidol [From Haldol] Allergy (Verified 02/26/17 18:41) simvastatin Allergy (Verified 02/26/17 18:41) Home Medications: Medication Instructions Recorded Allopurinol [Allopurinol 300 MG 300 mg PO DAILY 11/18/16 (RX)] Clopidogrel Bisulfate [Plavix (*)] 75 mg PO DAILY 11/18/16 Digoxin [Lanoxin 125 mcg (RX)] 125 mcg PO DAILY@11/18/16 Losartan Potassium [Cozaar 25 mg 12.5 mg PO DAILY 11/18/16 (*)] Metoprolol Succinate Xr [Toprol Xl 100 mg PO DAILY 11/18/16 100 mg (*)] Nitroglycerin [Nitrostat 0.4 mg 0.4 mg SL AD PRN 11/18/16 (*)] Spironolactone [Aldactone 25 MG 12.5 mg PO DAILY 11/18/16 (*)] Warfarin Sodium [Coumadin 5MG (*)] 5 mg PO MOWEFR@11/18/16 Furosemide [Lasix 40 MG (*)] 40 mg PO DAILY 11/26/16 Warfarin Sodium [Coumadin 5MG (*)] 7.5 mg PO SUTUTHSA@11/26/16 Furosemide [Lasix 20 MG (*)] 20 mg PO DAILY@02/26/17 Departure - Departure Disposition: Home, Routine, Self-Care Clinical Impression: Elevated troponin, Anxiety Condition: Good Instructions: Anxiety (ED) Additional Instructions: 1. Follow up with your [facility] physician for unimproved symptoms over the next few days. 2. Return to the emergency department for worsening of your condition. Referrals: Patient,NotPresent [Unknown] - As per Instructions [facility] [Provider Group] - As per Instructions Report Scribed for: Binu Franks Report Scribed by: Alida Mclaughlin Date of Report: 02/26/17 Time of Report: 11:44 Physician Review and Approval Statement: Portions of this note were transcribed by an ED scribe. I personally performed the history, physical exam, and medical decision making; and confirm the accuracy of the information in the transcribed note.
[2017-02-26 11:04] LABS: ANION GAP 13 mEq/L (8-16); CALCIUM 9.7 mg/dL (8.5-10.4); CARBON DIOXIDE 19 mEq/l (22-31); CHLORIDE 106 mEq/L (97-110); CREATININE 1.5 mg/dL (0.7-1.3); GLOMERULAR FILTRATION RATE 45; GLUCOSE 130 mg/dL (70-100); POTASSIUM 4.5 mEq/L (3.5-5.2); SODIUM 138 mEq/L (134-144)
[2017-02-26 11:10] LABS: % IMMATURE GRANULYOCYTES 0.1 % (0.0-1.1); ABSOLUTE IMMATURE GRANULOCYTES 0.01 10^3/uL (0.00-0.10); ADD DIFF? NO; ADD MORPH? NO; ADD SCAN? NO; ATYPICAL LYMPHOCYTE FLAG 0 (0-99); FRAGMENT RBC FLAG 0 (0-99); HEMATOCRIT 39.7 % (40.0-51.0); HEMOGLOBIN 12.8 g/dL (13.7-17.5); LEFT SHIFT FLG 0 (0-99); LIPEMIA HEMOLYSIS FLAG 80 (0-99); MEAN CELL HEMOGLOBIN 28.4 pg (27.9-34.1); MEAN CELL HEMOGLOBIN CONCENTR. 32.2 g/dL (32.4-36.7); MEAN CELL VOLUME 88.2 fL (81.5-99.8); MEAN PLATELET VOLUME 9.6 fL (8.7-11.7); PLATELET CLUMPS FLAG 0 (0-99); PLATELET COUNT 197 10^3/uL (150-400)
[2017-02-26 11:16] LABS: TROPONIN I 0.089 ng/mL (0.000-0.034)
[2017-02-26 11:45] VITALS: O2SAT 94
[2017-02-26 12:24] VITALS: BP 106/73; PULSE 86
== END 2017-02-26 12:28 | disposition home or self-care (01) ==
LOC: EDUNIT#
DX: R79.89 Other specified abnormal findings of blood chemistry (principal); F41.9 Anxiety disorder, unspecified; I25.810 Atherosclerosis of coronary artery bypass graft(s) without angina pectoris; I50.9 Heart failure, unspecified; I10 Essential (primary) hypertension; Z79.01 Long term (current) use of anticoagulants; Z95.5 Presence of coronary angioplasty implant and graft

== ENCOUNTER 2017-02-26 18:23 | Emergency (ER) | payer OTHER ==
--- NOTE | 2017-02-26 18:34 | CPEKG ---
Heart Rate: 97 RR Interval: 619 QRSD Interval: 166 QT Interval: 448 QTC Interval: 569 QRS [place]: 127 T Wave [place]: -42 EKG Severity - ABNORMAL ECG - EKG Impression: ATRIAL FIBRILLATION, V-RATE 73-109 EKG Impression: VENTRICULAR PREMATURE COMPLEX EKG Impression: RIGHT BUNDLE BRANCH BLOCK EKG Impression: Similar to previous Electronically Signed By: Teodoro Morris 26-Feb-2017 17:39:31
--- NOTE | 2017-02-26 18:38 | EDPHY ---
H & P Time Seen by Provider: 02/26/17 18:23 HPI/ROS: CHIEF COMPLAINT: Chest pain HISTORY OF PRESENT ILLNESS: Patient is a 76-year-old man with a history of chronic chest pain who comes to the emergency department by EMS complaining of chest pain. He was seen here early this morning with hematuria after recent ureteral stent placement for nephrolithiasis 2 days ago at [facility]. He does take Coumadin. He also complained of chest pain at the time. He had a slightly elevated troponin but at his baseline. No significant EKG changes and was discharged home feeling well. He states that about 4 hours ago after he got home he began having chest pain and could not take a nap and decided to call for help. He has a history of atrial fibrillation, coronary artery disease with a LAD stent placed in May 2016, CHF with ejection fraction 25%, anxiety, cognitive impairment. REVIEW OF SYSTEMS: Constitutional: denies: chills, fever, recent illness, recent injury EENTM: denies: blurred vision, double vision, nose congestion Respiratory: denies: cough, shortness of breath Cardiac: denies: chest pain, irregular heart rate, lightheadedness, palpitations Gastrointestinal/Abdominal: denies: abdominal pain, diarrhea, nausea, vomiting, blood streaked stools Genitourinary: denies: dysuria, frequency, hematuria, pain Musculoskeletal: denies: joint pain, muscle pain Skin: denies: lesions, rash, jaundice, bruising Neurological: denies: headache, numbness, paresthesia, tingling, dizziness, weakness Hematologic/Lymphatic: denies: blood clots, easy bleeding, easy bruising Immunologic/allergic: denies: HIV/AIDS, transplant EXAM: GENERAL: Well-appearing, well-nourished and in no acute distress. HEAD: Atraumatic, normocephalic. EYES: Pupils equal round and reactive to light, extraocular movements intact, sclera anicteric, conjunctiva are normal. ENT: TMs normal, nares patent, oropharynx clear without exudates. Moist mucous membranes. NECK: Normal range of motion, supple without lymphadenopathy or JVD. LUNGS: Breath sounds clear to auscultation bilaterally and equal. No wheezes rales or rhonchi. HEART: Regular rate and rhythm without murmurs, rubs or gallops. ABDOMEN: Soft, nontender, normoactive bowel sounds. No guarding, no rebound. No masses appreciated. BACK: No CVA tenderness, no spinal tenderness, step-offs or deformities EXTREMITIES: Normal range of motion, no pitting or edema. No clubbing or cyanosis. NEUROLOGICAL: Cranial nerves II through XII grossly intact. Normal speech, normal gait. 5/5 strength, normal movement in all extremities, normal sensation PSYCH: Normal mood, normal affect. SKIN: Warm, dry, normal turgor, no visible rashes or lesions. Source: Patient, EMS, Old records Exam Limitations: No limitations - Personal History Tetanus Vaccine Date: 09/2009 - Medical/Surgical History Hx Asthma: No Hx Chronic Respiratory Disease: No Hx Diabetes: No Hx Cardiac Disease: Yes Hx Renal Disease: Yes Hx Cirrhosis: No Hx Alcoholism: No Hx HIV/AIDS: No Hx Splenectomy or Spleen Trauma: No Other PMH: 1. Chronic systolic heart failure ejection fraction of 25%,. hyperlipidemia. 2. Coronary artery disease status post stenting on 05/25/2016. 3. Chronic atrial fibrillation. 4. Hypertension. 5. Chronic renal insufficiency. 6. Nephrolithiasis with ureteral stent placement May of 2016. 7. Gout. 8. Right total knee arthroplasty. 9. Appendectomy. 10. kidney stones - Family History Significant Family History: No pertinent family hx - Social History Smoking Status: Never smoked Alcohol Use: Sober Drug Use: None Constitutional: Initial Vital Signs Temperature (C) 35.9 C L 02/26/17 18:41 Heart Rate 93 02/26/17 18:41 Respiratory Rate 22 H 02/26/17 18:41 Blood Pressure 123/86 H 02/26/17 18:41 O2 Sat (%) 96 02/26/17 18:41 O2 Delivery Mode Room Air Allergies/Adverse Reactions: atorvastatin calcium [From Lipitor] Allergy (Severe, Verified 02/26/17 18:41) Other-Enter Comments haloperidol [From Haldol] Allergy (Verified 02/26/17 18:41) simvastatin Allergy (Verified 02/26/17 18:41) Home Medications: Medication Instructions Recorded Allopurinol [Allopurinol 300 MG 300 mg PO DAILY 11/18/16 (RX)] Clopidogrel Bisulfate [Plavix (*)] 75 mg PO DAILY 11/18/16 Digoxin [Lanoxin 125 mcg (RX)] 125 mcg PO DAILY@19 11/18/16 Losartan Potassium [Cozaar 25 mg 12.5 mg PO DAILY 11/18/16 (*)] Metoprolol Succinate Xr [Toprol Xl 100 mg PO DAILY 11/18/16 100 mg (*)] Nitroglycerin [Nitrostat 0.4 mg 0.4 mg SL AD PRN 11/18/16 (*)] Spironolactone [Aldactone 25 MG 12.5 mg PO DAILY 11/18/16 (*)] Warfarin Sodium [Coumadin 5MG (*)] 5 mg PO MOWEFR@16 11/18/16 Furosemide [Lasix 40 MG (*)] 40 mg PO DAILY 11/26/16 Warfarin Sodium [Coumadin 5MG (*)] 7.5 mg PO SUTUTHSA@11/26/16 Furosemide [Lasix 20 MG (*)] 20 mg PO DAILY@02/26/17 Medical Decision Making - Diagnostics EKG Interpretation: An EKG obtained and was read and documented in trace view. Please see trace view for full reading and report. Atrial fibrillation with right bundle branch block and PVC similar to previous, no acute ischemic changes ED Course/Re-evaluation: 7:30 p.m. I discussed the case with Dr. Cassius Cabral who will admit to the medical service. The patient's troponin is slightly elevated compared to earlier today however it is still within his baseline range. We discussed his disposition. He is scared to go home because his last week and he has no one else there to care for him. He does have a history of significant cardiomyopathy. [address] Cabral the patient now wishes to go home. Dr. Cabral will prepare discharge paperwork. Differential Diagnosis: Partial list of the Differential diagnosis considered include but were not limited to; acute coronary disease, CHF, ischemia, arrhythmia, anxiety and although unlikely based on the history and physical exam, I also considered dissection, aneurysm, hemorrhage. - Data Points Laboratory Results: Laboratory Results 02/26/17 Unknown 02/26/17 Unknown Medications Given: Discontinued Medications Ondansetron HCl (Zofran Odt) 4 mg PO EDNOW ONE Stop: 02/26/17 19:19 Last Admin: 02/26/17 19:23 Dose: 4 mg Departure - Departure Disposition: Home, Routine, Self-Care Clinical Impression: Anxiety Chest pain Qualifiers: Chest pain type: unspecified Qualified Code(s): R07.9 - Chest pain, unspecified Condition: Fair Instructions: Chest Pain (ED) Referrals: Patient,NotPresent [Unknown] - As per Instructions
[2017-02-26 18:45] LABS: % IMMATURE GRANULYOCYTES 0.3 % (0.0-1.1); ABSOLUTE IMMATURE GRANULOCYTES 0.02 10^3/uL (0.00-0.10); ADD DIFF? NO; ADD MORPH? NO; ADD SCAN? NO; ATYPICAL LYMPHOCYTE FLAG 0 (0-99); FRAGMENT RBC FLAG 0 (0-99); HEMATOCRIT 43.8 % (40.0-51.0); HEMOGLOBIN 14.1 g/dL (13.7-17.5); LEFT SHIFT FLG 0 (0-99); LIPEMIA HEMOLYSIS FLAG 80 (0-99); MEAN CELL HEMOGLOBIN 28.9 pg (27.9-34.1); MEAN CELL HEMOGLOBIN CONCENTR. 32.2 g/dL (32.4-36.7); MEAN CELL VOLUME 89.8 fL (81.5-99.8); MEAN PLATELET VOLUME 9.8 fL (8.7-11.7); PLATELET CLUMPS FLAG 20 (0-99); PLATELET COUNT 212 10^3/uL (150-400); RED BLOOD CELL COUNT 4.88 10^6/uL (4.40-6.38); RED CELL DISTRIBUTION WIDTH 15.2 % (11.5-15.2)
[2017-02-26 18:54] LABS: INR 2.1 (0.83-1.16); PROTIME(PATIENT) 23.7 SEC (12.0-15.0)
[2017-02-26 18:55] LABS: APTT 40.4 SEC (23.0-38.0)
[2017-02-26 18:58] LABS: ANION GAP 14 mEq/L (8-16); CARBON DIOXIDE 20 mEq/l (22-31); CHLORIDE 105 mEq/L (97-110); CREATININE 1.6 mg/dL (0.7-1.3); GLOMERULAR FILTRATION RATE 42; GLUCOSE 105 mg/dL (70-100); POTASSIUM 4.5 mEq/L (3.5-5.2); SODIUM 139 mEq/L (134-144)
[2017-02-26 19:10] LABS: TROPONIN I 0.101 ng/mL (0.000-0.034)
[2017-02-26] MEDS ORDERED: ONDANSETRON DISINTEGRATING 4 MG TAB PO ONE (19:18)
[2017-02-26 20:12] VITALS: BP 105/68; PULSE 88; RESP 18; O2SAT 94
[2017-02-26 20:40] VITALS: TEMP 97.2
--- NOTE | 2017-02-26 21:02 | GHP ---
[f rep st] HISTORY AND PHYSICAL DATE OF ADMISSION: 02/26/2017 HISTORY OF PRESENT ILLNESS: This patient is a pleasant 76-year-old gentleman, with a history of isc hemic cardiomyopathy, recurrent chest pain admissions, chronically elevated troponin; who presents w ith chest pain. His life has been complex lately he was recently admitted with confusion after starting Ativan. His 1 week ago after a long cancer and he has a significant amount of anxiety. The pat ient does acknowledge that anxiety is driving his complaints of chest pain. He also was seen here this morning for hematuria, after recent ureteral stent placement. He is also on Coumadin. He returns today with chest pain. REVIEW OF SYSTEMS: Complete 10-point review of systems conducted negative except as noted in the HP I. PAST MEDICAL HISTORY: 1. Coronary disease LAD stent placement in May of 2016. 2. CHF with an EF of 25%. 3. Anxiety. 4. Cognitive impairment. 5. Atrial fibrillation. 6. Nephrolithiasis. 7. Ureteral stent placement. 8. History of right total knee replacement. 9. Appendectomy. 10. Gout. 11. History of left atrial thrombus. SOCIAL HISTORY: recently . Does not drink alcohol. Nonsmoker. FAMILY HISTORY: The men in the family have had coronary disease. ALLERGIES: Atorvastatin, haloperidol and simvastatin. MEDICATIONS: Allopurinol, furosemide, digoxin, Plavix, metoprolol, losartan, nitroglycerin, warfari n, spironolactone. PHYSICAL EXAMINATION: VITAL SIGNS: Temp 35.9, blood pressure 123/86, pulse 93, breathing 22 times a minute, 96% on room air. GENERAL: No acute distress. HEENT: Sclerae are anicteric. Oropharynx clear. Mucous membranes moist. NECK: Supple, without lymphadenopathy or JVD. LUNGS: Clear to a uscultation bilaterally. HEART: S1, S2. ABDOMEN: Soft, nontender, nondistended. EXTREMITIES: L ower extremities without edema, calves are nontender. SKIN: Without rash. NEUROLOGIC: Nonfocal. DATA REVIEWED: White count 7.3, hematocrit 43.8, platelets . These were all consistent w ith his baseline, drawn earlier today. INR is 2. Sodium 139, potassium 4.5, chloride 105, bicarb 2 0, BUN 28, creatinine 1.6. Again, baseline troponin is 0.089 this morning that is his baseline, it is 0.101 today. He had an EKG interpreted by me: Showing atrial fibrillation, right bundle branch block pattern. T his is unchanged from prior. He had a chest x-ray, which shows cardiomegaly, without failure. Unchanged from prior. I discussed the case Dr. Teodoro Morris. ASSESSMENT/PLAN: This is a 76-year-old gentleman presents chest pain: 1. Chest pain. The patient is not off his baseline. He thinks this is driven by anxiety. His tro ponin is chronically elevated. I would recommend not further work up. 2. Anxiety. The patient, when I am in there speaking with him, acknowledged that this is secondary to anxiety and he has a [facility] appointment for tomorrow. He has elected to leave the hospital and I will therefore discharge him. He will follow up with [facility] i n the morning. Let this service as a discharge summary as well. /[id number]/MODL
== END 2017-02-26 20:39 | disposition home or self-care (01) ==
LOC: EDUNIT# → UNDOADMOB 19:32
DX: R07.9 Chest pain, unspecified (principal); I25.10 Atherosclerotic heart disease of native coronary artery without angina pectoris; F41.9 Anxiety disorder, unspecified; I12.9 Hypertensive chronic kidney disease with stage 1 through stage 4 chronic kidney disease, or unspecified chronic kidney disease; N18.1 Chronic kidney disease, stage 1; Z79.01 Long term (current) use of anticoagulants

== ENCOUNTER 2017-03-03 06:30 | Emergency (ER) | payer OTHER ==
[2017-03-03 06:41] VITALS: RESP 16
--- NOTE | 2017-03-03 06:43 | CPEKG ---
Heart Rate: 97 RR Interval: 619 QRSD Interval: 170 QT Interval: 412 QTC Interval: 524 QRS [place]: 127 T Wave [place]: -31 EKG Severity - ABNORMAL ECG - EKG Impression: ATRIAL FIBRILLATION, V-RATE 71-114 EKG Impression: RIGHT BUNDLE BRANCH BLOCK Electronically Signed By: Alda Lawson 03-Mar-2017 08:43:32
[2017-03-03 07:30] LABS: % IMMATURE GRANULYOCYTES 0.4 % (0.0-1.1); ABSOLUTE IMMATURE GRANULOCYTES 0.02 10^3/uL (0.00-0.10); ADD DIFF? NO; ADD MORPH? NO; ADD SCAN? NO; ATYPICAL LYMPHOCYTE FLAG 10 (0-99); FRAGMENT RBC FLAG 0 (0-99); HEMOGLOBIN 11.3 g/dL (13.7-17.5); LEFT SHIFT FLG 0 (0-99); LIPEMIA HEMOLYSIS FLAG 80 (0-99); MEAN CELL HEMOGLOBIN 28.8 pg (27.9-34.1); MEAN CELL HEMOGLOBIN CONCENTR. 31.4 g/dL (32.4-36.7); MEAN CELL VOLUME 91.8 fL (81.5-99.8); MEAN PLATELET VOLUME 9.5 fL (8.7-11.7); PLATELET CLUMPS FLAG 30 (0-99); PLATELET COUNT 155 10^3/uL (150-400); RED BLOOD CELL COUNT 3.92 10^6/uL (4.40-6.38); RED CELL DISTRIBUTION WIDTH 15.7 % (11.5-15.2)
[2017-03-03 07:42] LABS: ANION GAP 14 mEq/L (8-16); CALCIUM 9.5 mg/dL (8.5-10.4); CARBON DIOXIDE 22 mEq/l (22-31); CHLORIDE 105 mEq/L (97-110); CREATININE 1.4 mg/dL (0.7-1.3); GLOMERULAR FILTRATION RATE 49; GLUCOSE 111 mg/dL (70-100); SODIUM 141 mEq/L (134-144)
--- NOTE | 2017-03-03 08:49 | EDPHY ---
HPI/HX/ROS/PE/MDM Narrative: CHIEF COMPLAINT: Medication side effect HISTORY OF PRESENT ILLNESS: The patient is a 76 y/o male with 22 previous visits in the last year arriving via EMS to the ED for evaluation of a medication side effect. He has a past medical history significant for cardiac disease and health anxiety, and has received extensive workup for his prior chest pain. He recently went to [facility] and was prescribed Ativan for his anxiety. He was watching a news talk show last night, began to feel upset about the news, and then developed shortness of breath. He then took 1 pill of Ativan which resolved his shortness of breath completely and he was able to sleep without issue. At woke at 05:30 to "a nurse shaking me and telling me I was going to the hospital". After he got dressed he realized that he was at home and that there was no nurse. He thinks this hallucination was caused by Ativan so he called 911. He currently denies complaints and says, "I just want to go home, there is nothing wrong with me and I don't want to be back in the hospital." Patient denies any chest pain. He denies any residual shortness of breath. He denies any nausea or vomiting. He states that he does not want to be admitted to the hospital again and he wants to go home. He has close follow-up at [place]. No fever, chills, chest pain, palpitations, vomiting, diarrhea, urinary complaints, headache, lightheadedness. REVIEW OF SYSTEMS: Aside from elements discussed in the HPI, a comprehensive 10-point review of systems was reviewed and is negative. PAST MEDICAL HISTORY: Afib, CAD (with LAD stent May,. Ischemic Cardiomyopathy.), CHF. Prior medical records reviewed including admission on 02/13/17 for confusion. SOCIAL HISTORY: in the past year, lives home alone, children are out of state. VITAL SIGNS: Reviewed by me GENERAL: Elderly, well-nourished, sitting on edge of bed with IV pulled out, in no respiratory distress. HEENT: Atraumatic. Eyes: No icterus, no injection. Mouth: moist mucous membranes. No erythema or lesions. Neck: supple with no adenopathy. LUNGS: Clear to auscultation bilaterally, no wheezes, rhonchi or rales. CARDIAC: Slightly irregular rate and rhythm, no rubs, murmurs or gallops. ABDOMEN: Soft, nontender, no guarding or rebound. EXTREMITIES: No trauma. No edema. Range of motion is normal throughout. NEURO: Alert and oriented, grossly nonfocal. SKIN: Warm and dry, no rash. PSYCHIATRIC: Normal mentation, no agitation. Portions of this note were transcribed by a medical services manager. I personally performed a history, physical exam, medical decision making, and confirmed accuracy of information the transcribed note. ED Course: 76 y/o male presents asymptomatic after hallucination following Ativan use. Physical exam is unremarkable aside from slightly irregular heart rate. IV established, basic labs drawn including troponin, patient placed on cardiac exercise physiologist. The 12 lead EKG was interpreted by myself. Afib rate 97 and RBBB. See hard copy and/or "tracemaster" electronic copy for interpretation. 0847: Patient's course discussed with the [facility]. They will make note of his visit to the emergency department. I asked them to ensure that [facility] contact the patient later today to see how he is doing. They said that they will be able to follow him closely . I recommended patient try taking half of his Ativan dose for recurrent anxiety related symptoms and to follow up with his [facility] Physician for any concerns regarding medication. He understands the instructions and agrees to this plan. Return precautions discussed. MDM: Differential diagnosis for the patient's shortness of breath was considered including but not limited to anxiety, congestive heart failure, pulmonary edema , cardiac causes, pneumonia. - Data Points Laboratory Results: Laboratory Results 03/03/17 06:30 03/03/17 06:30 03/03/17 03/03/17 06:30 06:30 WBC 5.52 10^3/uL 10^3/uL (3.80-9.50) RBC 3.92 10^6/uL L 10^6/uL (4.40-6.38) Hgb 11.3 g/dL L g/dL (13.7-17.5) Hct 36.0 % L % (40.0-51.0) MCV 91.8 fL fL (81.5-99.8) MCH 28.8 pg pg (27.9-34.1) MCHC 31.4 g/dL L g/dL (32.4-36.7) RDW 15.7 % H % (11.5-15.2) Plt Count 155 10^3/uL 10^3/uL (150-400) MPV 9.5 fL fL (8.7-11.7) Neut % (Auto) 58.3 % % (39.3-74.2) Lymph % (Auto) 30.6 % % (15.0-45.0) [place] % (Auto) 7.4 % % (4.5-13.0) Eos % (Auto) 2.0 % % (0.6-7.6) Baso % (Auto) 1.3 % % (0.3-1.7) Nucleat RBC Rel Count 0.0 % % (0.0-0.2) Absolute Neuts (auto) 3.22 10^3/uL 10^3/uL (1.70-6.50) Absolute Lymphs (auto) 1.69 10^3/uL 10^3/uL (1.00-3.00) Absolute Monos (auto) 0.41 10^3/uL 10^3/uL (0.30-0.80) Absolute Eos (auto) 0.11 10^3/uL 10^3/uL (0.03-0.40) Absolute Basos (auto) 0.07 10^3/uL 10^3/uL (0.02-0.10) Absolute Nucleated RBC 0.00 10^3/uL 10^3/uL (0-0.01) Immature Gran % 0.4 % % (0.0-1.1) Immature Gran # 0.02 10^3/uL 10^3/uL (0.00-0.10) Sodium 141 mEq/L mEq/L (134-144) Potassium 5.0 mEq/L mEq/L (3.5-5.2) Chloride 105 mEq/L mEq/L (97-110) Carbon Dioxide 22 mEq/l mEq/l (22-31) Anion Gap 14 mEq/L mEq/L (8-16) BUN 31 mg/dL H mg/dL (7-23) Creatinine 1.4 mg/dL H mg/dL (0.7-1.3) Estimated GFR 49 Glucose 111 mg/dL H mg/dL (70-100) Calcium 9.5 mg/dL mg/dL (8.5-10.4) Troponin I 0.090 ng/mL H ng/mL (0.000-0.034) General Time Seen by Provider: 03/03/17 08:04 Initial Vital Signs: Initial Vital Signs Temperature (C) 36.5 C 03/03/17 06:38 Heart Rate 81 03/03/17 06:38 Respiratory Rate 16 03/03/17 06:38 Blood Pressure 123/89 H 03/03/17 06:38 O2 Sat (%) 93 03/03/17 06:38 O2 Delivery Mode Room Air Allergies/Adverse Reactions: atorvastatin calcium [From Lipitor] Allergy (Severe, Verified 02/26/17 18:41) Other-Enter Comments haloperidol [From Haldol] Allergy (Verified 02/26/17 18:41) simvastatin Allergy (Verified 02/26/17 18:41) Home Medications: Medication Instructions Recorded Allopurinol [Allopurinol 300 MG 300 mg PO DAILY 11/18/16 (RX)] Clopidogrel Bisulfate [Plavix (*)] 75 mg PO DAILY 11/18/16 Digoxin [Lanoxin 125 mcg (RX)] 125 mcg PO DAILY@11/18/16 Losartan Potassium [Cozaar 25 mg 12.5 mg PO DAILY 11/18/16 (*)] Metoprolol Succinate Xr [Toprol Xl 100 mg PO DAILY 11/18/16 100 mg (*)] Nitroglycerin [Nitrostat 0.4 mg 0.4 mg SL AD PRN 11/18/16 (*)] Spironolactone [Aldactone 25 MG 12.5 mg PO DAILY 11/18/16 (*)] Warfarin Sodium [Coumadin 5MG (*)] 5 mg PO MOWEFR@11/18/16 Furosemide [Lasix 40 MG (*)] 40 mg PO DAILY 11/26/16 Warfarin Sodium [Coumadin 5MG (*)] 7.5 mg PO SUTUTHSA@11/26/16 Furosemide [Lasix 20 MG (*)] 20 mg PO DAILY@02/26/17 Departure - Departure Disposition: Home, Routine, Self-Care Clinical Impression: Anxiety Medication side effect Qualifiers: Encounter type: initial encounter Qualified Code(s): T88.7XXA - Unspecified adverse effect of drug or medicament, initial encounter Condition: Good Instructions: Lorazepam (By mouth) Additional Instructions: 1. Contact [facility] today to discuss your Ativan use for your symptoms. 2. If you have shortness of breath again tonight, you can start with a half pill of you Ativan. This will likely help reduce any side effects. 3. Return to the ER for worsening of condition. Referrals: NICKY PADRON [Other] - As per Instructions
[2017-03-03 09:13] VITALS: BP 135/87; PULSE 83; TEMP 98.1; O2SAT 92
== END 2017-03-03 09:13 | disposition home or self-care (01) ==
LOC: EDUNIT#
DX: F41.9 Anxiety disorder, unspecified (principal); T42.4X5A Adverse effect of benzodiazepines, initial encounter; I25.10 Atherosclerotic heart disease of native coronary artery without angina pectoris; I50.9 Heart failure, unspecified; Z79.01 Long term (current) use of anticoagulants

== ENCOUNTER 2017-03-06 14:16 | Observation (INO) | payer OTHER ==
--- NOTE | 2017-03-06 14:25 | EDPHY ---
H & P Time Seen by Provider: 03/06/17 14:17 HPI/ROS: CHIEF COMPLAINT: Syncope, head injury HISTORY OF PRESENT ILLNESS: 76-year-old male with medical history significant for atrial fibrillation, coronary artery disease, CHF, hypertension, gout, nephrolithiasis, anticoagulated , arrives via ambulance after he had an unwitnessed syncopal episode at home, states that he wound stood up from a sofa , had a syncopal episode hitting his head against the wall. This occurred approximately 2 hours ago. States has been complaining of headache ever since and is concerned and therefore called 911. Regarding his syncopal episode states that he denies antecedent symptoms such as chest pain, dyspnea, visual disturbance PRIMARY CARE PROVIDER:Bran REVIEW OF SYSTEMS: A ten point review of systems was performed and is negative with the exception of the items mentioned in the HPI PAST MEDICAL/SURGICAL HISTORY: Positive for anticoagulant use with Eliquis. Atrial fibrillation. Student digit. Coronary artery disease. Cardiac stenting. SOCIAL HISTORY: denies alcohol use at time of incident PHYSICAL EXAM 1) GENERAL: Well-developed, well-nourished, alert and oriented. Appears to be in no acute distress. Answering questions appropriately. 2) HEAD: Normocephalic, frontal abrasion and hematoma 3) HEENT: Pupils equal, round, reactive to light bilaterally. Negative [place]. Nasopharynx, oropharynx, clear. No deformity or angulation of nose. No septal hematoma. No rhinorrhea. No oral trauma. Ears bilaterally with normal tympanic membranes. No hemotympanum. No fluid or blood in the external auditory canal. No raccoon eyes. No Rich sign. Teeth are normally aligned with no gross malocclusion, TMJ bilaterally nontender, facial bones nontender including the zygomatic arch, maxilla mandible. 4) NECK: No cervical collar is on. Posterior cervical spine is nontender, no stepoff, no effusion. Full range of motion which does not elicit any midline cervical spine pain, no posterior midline tenderness, no step-off. 5) LUNGS: Clear to auscultation bilaterally, no wheezes, no rhonchi, no retractions. No obvious signs of trauma. No chest wall pain. No flaring, no grunting. Moving symmetrically. No crepitus. 6) HEART: Regular rate and rhythm, 7) ABDOMEN: No guarding, no rebound, no focal tenderness, no peritoneal signs, no signs of trauma, no ecchymosis 8) MUSCULOSKELETAL: Moving all extremities, no focal areas of tenderness, no obvious trauma. 9) BACK: No midline vertebral tenderness, no fluctuance, no step-off, no obvious trauma, no visual or palpable abnormality. 10) SKIN: No laceration. No abrasion DIFFERENTIAL DIAGNOSIS: in no particular order including but not limited to cardiac arrhythmia, intracranial hemorrhage, skull fracture, [place], PE - Personal History Tetanus Vaccine Date: 09/2009 - Medical/Surgical History Hx Asthma: No Hx Chronic Respiratory Disease: No Hx Diabetes: No Hx Cardiac Disease: Yes Hx Renal Disease: Yes Hx Cirrhosis: No Hx Alcoholism: No Hx HIV/AIDS: No Hx Splenectomy or Spleen Trauma: No Other PMH: 1. Chronic systolic heart failure ejection fraction of 25%,. hyperlipidemia. 2. Coronary artery disease status post stenting on 05/25/2016. 3. Chronic atrial fibrillation. 4. Hypertension. 5. Chronic renal insufficiency. 6. Nephrolithiasis with ureteral stent placement May of 2016. 7. Gout. 8. Right total knee arthroplasty. 9. Appendectomy. 10. kidney stones - Social History Smoking Status: Never smoked Constitutional: Initial Vital Signs Temperature (C) 36.5 C 03/06/17 14:21 Heart Rate 85 03/06/17 14:21 Respiratory Rate 16 03/06/17 14:21 Blood Pressure 104/62 03/06/17 14:21 O2 Sat (%) 91 L 03/06/17 14:21 O2 Delivery Mode Room Air Allergies/Adverse Reactions: atorvastatin calcium [From Lipitor] Allergy (Severe, Verified 02/26/17 18:41) Other-Enter Comments haloperidol [From Haldol] Allergy (Verified 02/26/17 18:41) simvastatin Allergy (Verified 02/26/17 18:41) Home Medications: Medication Instructions Recorded Allopurinol [Allopurinol 300 MG 300 mg PO DAILY 11/18/16 (RX)] Clopidogrel Bisulfate [Plavix (*)] 75 mg PO DAILY 11/18/16 Digoxin [Lanoxin 125 mcg (RX)] 125 mcg PO DAILY@19 11/18/16 Losartan Potassium [Cozaar 25 mg 12.5 mg PO DAILY 11/18/16 (*)] Metoprolol Succinate Xr [Toprol Xl 100 mg PO DAILY 11/18/16 100 mg (*)] Nitroglycerin [Nitrostat 0.4 mg 0.4 mg SL AD PRN 11/18/16 (*)] Spironolactone [Aldactone 25 MG 12.5 mg PO DAILY 11/18/16 (*)] Warfarin Sodium [Coumadin 5MG (*)] 5 mg PO MOWEFR@16 11/18/16 Furosemide [Lasix 40 MG (*)] 40 mg PO DAILY 11/26/16 Warfarin Sodium [Coumadin 5MG (*)] 7.5 mg PO SUTUTHSA@11/26/16 Furosemide [Lasix 20 MG (*)] 20 mg PO DAILY@02/26/17 Medical Decision Making ED Course/Re-evaluation: 2:29 pm: Discussed case with secondary supervising physician Dr. Willian Forbes in the ER. Old medical records reviewed. Plan will be diagnostic studies including CT imaging and likely transfer to [facility]. Head CT ordered in this patient for trauma for the following indication: greater than 65 years old, anticoagulated. 3:20 p.m.: Consultation with [facility] for the patient's syncope and patient is self-described concerns over his ability to care for himself. They request patient be admitted to [facility] 3:25 p.m.: Consultation with Dr. Zhong who will admit patient. - Data Points Laboratory Results: Laboratory Results 03/06/17 14:19 03/06/17 14:19 03/06/17 03/06/17 14:19 14:19 WBC 7.82 10^3/uL 10^3/uL (3.80-9.50) RBC 4.76 10^6/uL 10^6/uL (4.40-6.38) Hgb 13.5 g/dL L g/dL (13.7-17.5) Hct 42.1 % % (40.0-51.0) MCV 88.4 fL fL (81.5-99.8) MCH 28.4 pg pg (27.9-34.1) MCHC 32.1 g/dL L g/dL (32.4-36.7) RDW 15.7 % H % (11.5-15.2) Plt Count 188 10^3/uL 10^3/uL (150-400) MPV 10.1 fL fL (8.7-11.7) Neut % (Auto) 69.5 % % (39.3-74.2) Lymph % (Auto) 21.4 % % (15.0-45.0) [place] % (Auto) 7.0 % % (4.5-13.0) Eos % (Auto) 1.0 % % (0.6-7.6) Baso % (Auto) 0.8 % % (0.3-1.7) Nucleat RBC Rel Count 0.0 % % (0.0-0.2) Absolute Neuts (auto) 5.44 10^3/uL 10^3/uL (1.70-6.50) Absolute Lymphs (auto) 1.67 10^3/uL 10^3/uL (1.00-3.00) Absolute Monos (auto) 0.55 10^3/uL 10^3/uL (0.30-0.80) Absolute Eos (auto) 0.08 10^3/uL 10^3/uL (0.03-0.40) Absolute Basos (auto) 0.06 10^3/uL 10^3/uL (0.02-0.10) Absolute Nucleated RBC 0.00 10^3/uL 10^3/uL (0-0.01) Immature Gran % 0.3 % % (0.0-1.1) Immature Gran # 0.02 10^3/uL 10^3/uL (0.00-0.10) Sodium 138 mEq/L mEq/L (134-144) Potassium 4.2 mEq/L mEq/L (3.5-5.2) Chloride 105 mEq/L mEq/L (97-110) Carbon Dioxide 20 mEq/l L mEq/l (22-31) Anion Gap 13 mEq/L mEq/L (8-16) BUN 38 mg/dL H mg/dL (7-23) Creatinine 1.7 mg/dL H mg/dL (0.7-1.3) Estimated GFR 39 Glucose 95 mg/dL mg/dL (70-100) Calcium 9.4 mg/dL mg/dL (8.5-10.4) Creatine Kinase 61 IU/L IU/L (0-224) Troponin I 0.067 ng/mL H ng/mL (0.000-0.034) Ethyl Alcohol < 10 mg/dL mg/dL (0-10) Departure - Departure Disposition: [facility] Inpatient Acute Clinical Impression: Acute prerenal azotemia Syncope Qualifiers: Syncope type: unspecified Qualified Code(s): R55 - Syncope and collapse Head injury Qualifiers: Encounter type: initial encounter Qualified Code(s): S09.90XA - Unspecified injury of head, initial encounter Condition: Fair Referrals: Patient,NotPresent [Unknown] - As per Instructions
--- NOTE | 2017-03-06 14:30 | CPEKG ---
Heart Rate: 92 RR Interval: 652 QRSD Interval: 170 QT Interval: 432 QTC Interval: 535 QRS [place]: 114 T Wave [place]: -34 EKG Severity - ABNORMAL ECG - EKG Impression: ATRIAL FIBRILLATION, V-RATE 63-109 EKG Impression: VENTRICULAR PREMATURE COMPLEX EKG Impression: RIGHT BUNDLE BRANCH BLOCK EKG Impression: BORDERLINE ST DEPRESSION, LATERAL LEADS Electronically Signed By: Vel Puente 07-Mar-2017 14:54:16
[2017-03-06 14:31] LABS: % IMMATURE GRANULYOCYTES 0.3 % (0.0-1.1); ABSOLUTE IMMATURE GRANULOCYTES 0.02 10^3/uL (0.00-0.10); ADD DIFF? NO; ADD MORPH? NO; ADD SCAN? NO; ATYPICAL LYMPHOCYTE FLAG 0 (0-99); FRAGMENT RBC FLAG 0 (0-99); HEMATOCRIT 42.1 % (40.0-51.0); HEMOGLOBIN 13.5 g/dL (13.7-17.5); LEFT SHIFT FLG 0 (0-99); LIPEMIA HEMOLYSIS FLAG 80 (0-99); MEAN CELL HEMOGLOBIN 28.4 pg (27.9-34.1); MEAN CELL HEMOGLOBIN CONCENTR. 32.1 g/dL (32.4-36.7); MEAN CELL VOLUME 88.4 fL (81.5-99.8); MEAN PLATELET VOLUME 10.1 fL (8.7-11.7); PLATELET CLUMPS FLAG 20 (0-99); PLATELET COUNT 188 10^3/uL (150-400); RED BLOOD CELL COUNT 4.76 10^6/uL (4.40-6.38); RED CELL DISTRIBUTION WIDTH 15.7 % (11.5-15.2)
[2017-03-06 14:55] LABS: ANION GAP 13 mEq/L (8-16); CALCIUM 9.4 mg/dL (8.5-10.4); CARBON DIOXIDE 20 mEq/l (22-31); CHLORIDE 105 mEq/L (97-110); CREATININE 1.7 mg/dL (0.7-1.3); ETHANOL SERUM < 10 mg/dL (0-10); GLOMERULAR FILTRATION RATE 39; GLUCOSE 95 mg/dL (70-100); POTASSIUM 4.2 mEq/L (3.5-5.2); SODIUM 138 mEq/L (134-144)
[2017-03-06 15:06] LABS: TROPONIN I 0.067 ng/mL (0.000-0.034)
[2017-03-06] MEDS ORDERED: NS 1,000 ML IV ONE (15:21)
[2017-03-06] MEDS ORDERED: GADOBUTROL 10 ML VIAL IVP ONE (16:22)
[2017-03-06] MEDS ORDERED: ACETAMINOPHEN 325 MG TAB PO PRN (16:26)
[2017-03-06] MEDS ORDERED: ONDANSETRON DISINTEGRATING 4 MG TAB PO PRN (16:26)
[2017-03-06] MEDS ORDERED: ONDANSETRON 4 MG/2 ML VIAL IVP PRN (16:26)
--- NOTE | 2017-03-06 16:37 | PDCONSULT ---
Railroad [employer]ter Note: [facility] hospice, patient is enrolled with palliative services, they were able to corroborate the patient contacted them this morning and he reported that he was feeling short of breath, did not mention any lightheadedness, and, per the triage nurse at [facility], the patient did not sound short of breath on the telephone. They asked him if he felt anxious and when questioned, the patient reported that he would not take any Ativan. At this point, the triage nurse reports the patient hung up and ended the call. I requested that [facility] hosp[facility] intensive care medicine specialist Cady Vidales collaborate with case management tomorrow in order to provide safest discharge possible for this patient. Review of his records now that our EMR is back on line demonstrates that this is the 3rd presentation in 8 days, with the 1st 2 presentations being related to healthcare anxiety and no true pathologic process. The patient has chronically elevated troponin level secondary to his nonischemic cardiomyopathy , and is currently at his baseline. His last echocardiogram was in November of 2016 demonstrating ejection fraction of 20% with severe mitral regurgitation. Will not repeat echocardiogram at this time.
[2017-03-06 16:46] LABS: INR 2.25 (0.83-1.16); PROTIME(PATIENT) 25.1 SEC (12.0-15.0)
--- NOTE | 2017-03-06 17:09 | GHP ---
[f rep st] HISTORY AND PHYSICAL DATE OF ADMISSION: 03/06/2017 PRIMARY CONDITIONING ROOM WORKER: Dr. Felicitas Parks. PRIMARY HOSPICE SERVICE: [facility]. CHIEF COMPLAINT: Acute near syncope. HISTORY OF PRESENT ILLNESS: This 76-year-old male presented with acute near syncope characterized as dizziness with associated ataxia, slurred speech, drooling out of the left side of his mouth, with onset of symptoms at 9 a.m. on the day of presentation and duration persistent thereafter. He reports that he had otherwise been feeling well on the morning of this presentation and he had taken all of his home medications at 7:00 a.m. Approximately 2 hours after taking these medications, he began experiencing the aforementioned symptoms and he laid down on his bed. He called the [facility] contact number and he reports that he was unable to receive any affective guidance. He reports that these symptoms severity was high and that the lightheadedness was exacerbated by standing. Consequently, he laid back down on his bed after he had lost balance and struck the anterior aspect of his forehead. At that time, he called 911. He otherwise reports that he has been eating and drinking exactly adherent to his schedule and is very careful about his fluid intake. He reports that he has not been experiencing any chest pain or palpitations recently. He denies any hemiparesthesia or hemiparesis. He does note that over the past several weeks, he has had intermittent episodes of shortness of breath and lightheadedness, which have led to emergency department presentations. That being said, he reports that the symptoms he experienced on this presentation were completely different than any symptoms he has otherwise experienced. REVIEW OF SYSTEMS: Lightheadedness, ataxia, drooling, dysarthria. All other 10 -point review of systems otherwise negative. PAST MEDICAL HISTORY: 1. Atrial fibrillation. 2. Coronary artery disease status post CABG. 3. Severe mitral regurgitation. 4. Nonischemic cardiomyopathy with chronic systolic congestive heart failure, with ejection fraction around 15%. PAST SURGICAL HISTORY: 1. CABG. 2. Intra-aortic balloon pump in August 2015. HOME MEDICATIONS: Per patient's medication sheet in his personal medical binder , it reads that he is on Plavix 75 daily, digoxin 125 mcg at bedtime, allopurinol 300 mg daily, losartan 12.5 mg daily, metoprolol succinate 100 mg daily, Aldactone 12.5 mg daily, [facility]mad[facility] d[facility]. SOCIAL HISTORY: The patient reports that he is a former smoker, but does not currently smoke. He does not use marijuana or alcohol. He lives in a trailer independently. FAMILY HISTORY: The patient denies any recent sick family contacts. ALLERGIES: The patient denies any severe allergies. PHYSICAL EXAM: VITAL SIGNS: Systolic blood pressure 108, heart rate 72, SpO2 of 96% on 2 L nasal cannula, respirations are 19 per minute. GENERAL: Alert, awake and oriented x3, in no apparent distress. The patient is calm and relaxed -appearing, elderly. NEUROLOGIC: Cranial nerves 2-12 are intact and tested, with a potential slight left mouth droop. Motor strength is 5/5 in all extremities with the exception of the left lower extremity, which is 4/5. Intact sensation bilaterally. PSYCH: Concentration is 7/7. Naming is 3/3. He is cooperative and follows commands. EYES: Extraocular movements intact. Anicteric sclerae. ENT: Moist mucous membranes. The patient is notably hard of hearing. CARDIOVASCULAR: A potentially left-sided carotid bruit. Irregularly irregular rhythm. A 1/6 systolic murmur at the sternum, a 2/6 systolic murmur at the apex. Trace bilateral lower extremity edema. RESPIRATORY: Clear to auscultation bilaterally. No crackles. No wheezes. GI : The abdomen is soft, nontender, nondistended. No masses are palpated. Bowel sounds are present. GENITOURINARY: No bladder fullness or tenderness to palpation. SKIN: A small abrasion on the anterior scalp without any surrounding erythema or ecchymosis. He does have some ecchymoses on the bilateral ventral aspects of his arms. DATA: Troponin is 0.06. IMAGING: Head CT demonstrates no intracranial hemorrhage. Cardiac studies: EKG demonstrates atrial fibrillation, right bundle branch block, subtle ST depression in V6, personally interpreted EKG. Corresponds to atrial fibrillation rhythm on telemetry. OUTSIDE RECORDS: 09/23/2015, clinic note by Dr. Ti Escalona, reporting the patient had nonischemic cardiomyopathy with intra-aortic balloon pump on 2015. He was considered not eligible for heart transplant. His dry weight is 196 pounds. ASSESSMENT AND PLAN: A 76-year-old male who presents with acute near syncopal episode resulting in mechanical fall. The patient reports he is unable to care for himself in the setting of nonischemic cardiomyopathy. 1. Near-syncope. Acute, new problem for this provider, further workup indicated. The patient's description of his symptoms with their persistence raises the possibility of posterior circulation CVA, and he certainly has vascular risk factors. That being said, he is on Coumadin and Plavix, and review of his records show that he has been on triple therapy, but he does not currently appear to be on triple therapy. Consequently, if CVA is discovered on neuroimaging, then we would recommend resumption of his triple therapy. I will order a brain MRI now without contrast, MRA of the head and neck, and also consider echocardiogram, depending on what I am able to find in our most recent records once our computer system is back on line. In the meantime, the patient will have a swallow eval and if he passes, will be able to resume a cardiac diet. He will be continued on his present medications, including Plavix and Coumadin, with daily INR check as well as LDL tomorrow a.m. to guide whether to initiate statin. He will also be monitored on telemetry overnight to evaluate for any episodes of acute rapid ventricular response. If his presenting symptom is felt to not be secondary to a CVA or TIA, then secondary considerations would include medication effect versus tachyarrhythmia. Will monitor his blood pressure closely, continuing his home medications. I have discussed his case with Dr. Ti Escalona, and he reports to me that the patient' s baseline systolic blood pressure is between 80 and 100, and the patient's current systolic blood pressure is 108. Therefore, it is somewhat unusual that the patient's symptoms of near syncope continue, despite his systolic blood pressure rendering him more perfused than one would expect with a baseline systolic blood pressure lower than this value. 2. Chronic systolic congestive heart failure, nonischemic cardiomyopathy, currently on [facility]. I will attempt to connect with Cady Vidales at to notify them of the patient's presentation and coordinate care with their services following discharge. He will also be continued on his home medications, including ARB, beta reymundo, Aldactone, Coumadin. 3. Atrial fibrillation, permanent, secondary to severe mitral regurgitation and low ejection fraction. Continue on digoxin, beta reymundo, Coumadin for CVA prevention. 4. Diet: Cardiac if passes swallow eval. 5. Prophylaxis, high risk patient. Check INR. 6. Code: Full, per patient. His daughter is MDPOA. DISPOSITION: Anticipated date of discharge is uncertain at this time. ANTICIPATED LENGTH OF STAY: Anticipate discharge tomorrow if patient's symptoms are managed, and work-up negative. If requires further diagnostic work- up, will be upgraded to inpatient admission status. It should be noted that our emergency department provider, Everton Diamond, contacted [facility] and they authorized the patient to be admitted to our facility and for him to receive care at our direction. It was a pleasure serving on the care team of this patient. Copy requested to: Thea James MD [facility] Felicitas Parks MD [facility] /[id number]/MODL MTDD
[2017-03-06] MEDS ORDERED: LORazepam 2 MG/ML INJ ONE (17:25)
[2017-03-06 18:42] VITALS: BP 99/78; PULSE 87; RESP 22; TEMP 97.3; O2SAT 90
--- NOTE | 2017-03-06 21:06 | PDDCSUM ---
Discharge Summary Discharge Summary: Patient informed nurse around 9:00 p.m. that he like to be discharged from the hospital, and given that ongoing workup is still in process, do not recommend the patient leave prematurely at this time. That being said, I have received communication from Dr. Rodolfo Dougherty, radiology, the patient's MRI does not appear to have acute CVA. The patient has elected to be discharged from the hospital against medical advice and he assumes all responsibility for any injury which may occur secondary to any subsequent falls. He has yet to be evaluated by physical or occupational therapy but the patient assumes these risks as he decides to leave.
== END 2017-03-06 20:35 | disposition left against medical advice (07) ==
LOC: EDUNIT# → F3E 17:49
PROVIDERS: ADMIT Internal Medicine; ATTEND Internal Medicine
DX: R55 Syncope and collapse (principal); S09.90XA Unspecified injury of head, initial encounter; I48.91 Unspecified atrial fibrillation; I42.9 Cardiomyopathy, unspecified; I11.0 Hypertensive heart disease with heart failure; I50.22 Chronic systolic (congestive) heart failure; I25.10 Atherosclerotic heart disease of native coronary artery without angina pectoris; M10.9 Gout, unspecified; E78.5 Hyperlipidemia, unspecified; Z95.5 Presence of coronary angioplasty implant and graft; Z96.651 Presence of right artificial knee joint; Z95.1 Presence of aortocoronary bypass graft; Z79.01 Long term (current) use of anticoagulants; W01.198A Fall on same level from slipping, tripping and stumbling with subsequent striking against other object, initial encounter; Y92.018 Other place in single-family (private) house as the place of occurrence of the external cause
CPT/HCPCS: 70450; 70544; 70551; 71020; 93005; A9585; G0378; J2060; G0480

== ENCOUNTER 2018-08-19 19:09 | Inpatient (IN) | payer OTHER ==
[2018-08-19] MEDS ORDERED: AMIODARONE HCL 150 MG/100 ML BAG (1.5 MG/ML) IV ONE (19:14)
[2018-08-19] MEDS ORDERED: AMIODARONE HCL 100 ML IV ONE ×2 (19:19→23:00)
[2018-08-19] MEDS ORDERED: AMIODARONE HCL 150 MG/3 ML VIAL IVP ONE (19:28)
[2018-08-19] MEDS ORDERED: NS 500 ML IV ONE (19:28)
[2018-08-19] MEDS ORDERED: AMIODARONE HCL 150 MG/3 ML VIAL IV ONE (19:30)
[2018-08-19 19:37] LABS: PLATELET COUNT 234 10^3/uL (150-400)
--- NOTE | 2018-08-19 19:53 | EDPHY ---
H & P Time Seen by Provider: 08/19/18 19:26 HPI/ROS: HPI Palpitations. 78-year-old male by ambulance. This patient has a history of recent ventricular tachycardia. He does have a AICD in place. He is a [facility] patient. He tells me that on Monday evening he developed tachycardia with a rate of 150. His AICD shocked him. He was taken to [facility]. He was seen by the [facility] white mixing operator. He had his amiodarone increased from 200 mg to 400 mg daily. He took 400 mg of amiodarone earlier this morning. He reports about 40 min prior to arrival he developed tachycardia and a sensation of anxiety. He states that his rate at home was 145. He denies being shocked by his AICD. Initial impression from rhythm strip is that he is in ventricular tachycardia. ROS: Constitutional: No fever, no chills. As above. Eyes: No discharge. No changes in vision. ENT: No sore throat. No nasal congestion or rhinorrhea. Respiratory: No cough. No shortness of breath. Cardiac: No chest pain, as above. Gastrointestinal: No abdominal pain, no vomiting, no diarrhea. Genitourinary: No hematuria. No dysuria or increased frequency with urination. Musculoskeletal: No back pain. No neck pain. No myalgias or arthralgias. Skin: No rashes. Neurological: No headache. No focal weakness or altered sensation. Past medical history: He has a history of coronary artery disease. A history of atrial flutter and atrial fibrillation. He is on Coumadin. Other medications include amiodarone as noted above as well as metoprolol. His white mixing operator used to be Ti Escalona. He tells me that [employer] fired him years back. AICD was placed in March of 2017 secondary to frequent runs of V-tach. He also had a syncopal episode associated with this. Social history: Former smoker. Denies alcohol. Here by himself. Physical Exam: General Appearance: Alert, mildly anxious, moderately obese, no distress. This patient is responding to questions appropriately and in full sentences. This patient appears well-hydrated and well-nourished. Eyes: Pupils equal and round no pallor or injection. No lid edema, erythema or injection. Respiratory: There are no retractions, lungs are clear to auscultation anteriorly with good air movement bilaterally. Cardiovascular: Regular tachycardia. No murmur appreciated. Gastrointestinal: Obese habitus. Abdomen is soft and nontender, no masses, bowel sounds normal. No focal tenderness at McBurney's point. No Mireles sign. Neurological: Motor sensory function is grossly intact. Cranial nerves are normal. Cerebellar function normal. Skin: Warm and dry, no rashes. Musculoskeletal: Neck is supple and nontender. Extremities are symmetrical. All joints range without pain or impingement. Psychiatric: No agitation. No depression. Database: EKG: EKG time is 7:20 p.m.: EKG shows a wide complex ventricular tachycardia, rate of 145. No flutter waves are observed. Interpreted by me. EKG 2. EKG time is 7:54 p.m.; EKG shows a narrow complex normal sinus rhythm with a ventricular rate of 74. Underlying right bundle branch block noted. Atrial premature complexes noted. MD Interval is borderline prolonged. The QRS , QT intervals are within normal limits. There are no ST-T wave changes indicative of ischemic or injury pattern. No evidence of right heart strain. Interpreted by me. Imaging: Procedures: Emergency department course: Initial vital signs reviewed. Patient's blood pressure is 110/72. Pulse oximetry 95% on room air. IV placed. He was moved from room 5 to room 2. He was placed on a dry box tender. Pacer pads were placed. He was started on IV normal saline with 500 cc to be given over the next 30 min. He has no associated chest pain. He is mentating appropriately. He will initially be given 150 mg of IV amiodarone slow IV push. This will then be repeated if no conversion out of ventricular tachycardia. The patient converted after a 2nd 150 mg dose of IV amiodarone to sinus rhythm as noted above on EKG. He was started on an amiodarone drip at 1 milligram/ minute. I spoke with [facility] white mixing operator Dr. Petersen who can. Previous medical history was reviewed. AICD is a [employer] device that was placed in March of 2017. AICD was placed secondary to frequent runs of V-tach associated with syncope. 8:00 p.m., discussed case with on-call white mixing operator Dr. Madie Jensen. She agrees with emergency department management. She will consult on this patient once admitted. 8:10 p.m., spoke with on-call hospitalist. Case discussed in detail with him. Patient accepted for admission to the ICU under the care of Dr. Jean. 8:30 p.m., the patient's dry box tender shows a blood pressure of 114/72. Sinus rhythm 73 on the monitor. He has no complaints at this time. He has remained stable through his remaining emergency department course. He is currently on an amiodarone drip at 1 milligram/minute. He was admitted to the ICU in stable condition. Differential Diagnosis: The differential diagnosis on this patient includes but is not limited to ventricular tachycardia. A flutter with 2-1 av block, ventricular fibrillation , acute coronary syndrome unlikely. This represents a partial list of diagnoses considered. These considerations are based on history, physical exam , past history, reassessment and diagnostic testing. Smoking Status: Never smoked Constitutional: Initial Vital Signs O2 Sat (%) 95 08/19/18 19:28 O2 Delivery Mode Room Air O2 (L/minute) 4 Allergies/Adverse Reactions: atorvastatin calcium [From Lipitor] Allergy (Severe, Verified 08/19/18 20:30) Other-Enter Comments simvastatin Allergy (Unknown, Verified 08/19/18 20:30) Other-Enter Comments Home Medications: Medication Instructions Recorded Allopurinol [Allopurinol 300 MG 150 mg PO DAILY 11/18/16 (RX)] Losartan Potassium [Cozaar 25 mg 12.5 mg PO DAILY 11/18/16 (*)] Nitroglycerin [Nitrostat 0.4 mg 0.4 mg SL AD PRN 11/18/16 (*)] Spironolactone [Aldactone 25 MG 12.5 mg PO DAILY 11/18/16 (*)] Warfarin Sodium [Coumadin 5MG (*)] 5 mg PO SUTUTH@159911/18/16 Furosemide [Lasix 40 MG (*)] 40 mg PO DAILY@09,14 11/26/16 Warfarin Sodium [Coumadin 5MG (*)] 7.5 mg PO MOWEFRSA@159911/26/16 Amiodarone HCl [Pacerone (*)] 400 mg PO DAILY 08/19/18 Aspirin [Aspirin 81mg (*)] 81 mg PO DAILY 08/19/18 Finasteride [Proscar 5 MG (*)] 5 mg PO DAILY 08/19/18 Metoprolol Tartrate [Lopressor 25 12.5 mg PO BID 08/19/18 mg (*)] Potassium Chloride [Klor-Con M20] 20 meq PO DAILY 08/19/18 Rosuvastatin Calcium 5 mg PO MOWEFR 08/19/18 Medical Decision Making Critical Care Time: I spent a total of 67 minutes of critical care time in obtaining history, performing a physical exam, bedside monitoring of interventions, collecting and interpreting tests and discussion with consultants but not including time spent performing procedures. - Data Points Laboratory Results: Laboratory Results 08/19/18 19:24 08/19/18 19:24 Medications Given: Acetaminophen (Tylenol) 650 mg PO Q4HRS PRN PRN Reason: Pain, Mild/Fever, Can Take PO Stop: 02/15/19 20:36 Last Admin: 08/21/18 06:01 Dose: 650 mg Allopurinol (Allopurinol) 150 mg PO DAILY [facility]A Stop: 02/16/19 08:59 Last Admin: 08/20/18 10:29 Dose: 150 mg Amiodarone HCl (Amiodarone Hcl) 400 mg PO BID GENOVEVA Stop: 02/16/19 20:59 Last Admin: 08/20/18 19:53 Dose: 400 mg Aspirin (Aspirin) 81 mg PO DAILY [facility]A Stop: 02/16/19 08:59 Last Admin: 08/20/18 10:28 Dose: 81 mg Finasteride (Proscar) 5 mg PO DAILY [facility]A Stop: 02/16/19 08:59 Last Admin: 08/20/18 10:31 Dose: 5 mg Furosemide (Lasix) 40 mg PO DAILY@,14 [facility] Stop: 02/16/19 08:59 Last Admin: 08/20/18 14:26 Dose: 40 mg Losartan Potassium (Cozaar) 12.5 mg PO DAILY [facility] Stop: 02/16/19 08:59 Last Admin: 08/20/18 10:30 Dose: 12.5 mg Metoprolol Tartrate (Lopressor) 12.5 mg PO BID [facility] Stop: 02/15/19 20:59 Last Admin: 08/20/18 19:53 Dose: 12.5 mg Pantoprazole Sodium (Protonix) 40 mg IVP DAILY [facility] Stop: 02/16/19 08:59 Last Admin: 08/20/18 10:32 Dose: 40 mg Rosuvastatin Calcium (Crestor) 5 mg PO MoWeFr [facility] Stop: 02/16/19 08:59 Last Admin: 08/20/18 10:28 Dose: 5 mg Spironolactone (Aldactone) 12.5 mg PO DAILY [facility] Stop: 02/16/19 08:59 Last Admin: 08/20/18 10:31 Dose: 12.5 mg Warfarin Sodium (Coumadin) 7.5 mg PO MOWEFRSA@1600 [facility] Stop: 02/16/19 15:59 Last Admin: 08/20/18 16:26 Dose: 7.5 mg Discontinued Medications Amiodarone HCl (Amiodarone Hcl) 150 mg IVP EDNOW ONE Stop: 08/19/18 19:29 Last Admin: 08/19/18 19:36 Dose: 150 mg Amiodarone HCl (Amiodarone Hcl) 150 mg IV EDNOW ONE Stop: 08/19/18 19:31 Last Admin: 08/19/18 19:37 Dose: Not Given Amiodarone HCl (Amiodarone Hcl) 100 mls @ 600 mls/hr IV ONCE ONE Stop: 08/19/18 19:28 Last Admin: 08/19/18 19:20 Dose: 100 mls Sodium Chloride (Ns) 500 mls @ 1,000 mls/hr IV EDNOW ONE PRN Reason: Protocol Stop: 08/19/18 19:57 Last Admin: 08/19/18 19:36 Dose: 500 mls Amiodarone HCl (Amiodarone Hcl) 200 mls @ 0 mls/hr IV EDNOW ONE PRN Reason: Per Protocol Stop: 08/19/18 19:59 Last Admin: 08/19/18 20:13 Dose: 200 mls Amiodarone HCl 540 mg/ (Dextrose) 300 mls @ 16.667 mls/hr IV ONCE ONE PRN Reason: Protocol Stop: 08/20/18 19:59 Last Admin: 08/20/18 01:57 Dose: 300 mls Amiodarone HCl (Amiodarone Hcl) 100 mls @ 600 mls/hr IV ONCE ONE Stop: 08/19/18 23:09 Last Admin: 08/19/18 22:42 Dose: 100 mls Magnesium Sulfate/Dextrose (Magnesium Sulf 1 Gm (Premix)) 100 mls @ 100 mls/hr IV ONCE ONE Stop: 08/19/18 23:59 Last Admin: 08/19/18 22:42 Dose: 100 mls Oxycodone HCl (Oxycodone Ir) 5 mg PO ONCE ONE Stop: 08/21/18 04:51 Last Admin: 08/21/18 05:05 Dose: 5 mg Point of Care Test Results: Chemistry 08/19/18 19:23 POC Troponin I 0.05 ng/mL ng/mL (0.00-0.08) Departure - Departure Disposition: [facility] Inpatient Acute Clinical Impression: Ventricular tachycardia Condition: Serious
[2018-08-19] MEDS ORDERED: AMIODARONE HCL 200 ML IV ONE (19:58)
[2018-08-19 20:12] LABS: INR 2.55 (0.83-1.16); PROTIME(PATIENT) 27.4 SEC (12.0-15.0)
--- NOTE | 2018-08-19 20:29 | PDGENHP ---
History and Physical - Chief Complaint Racing heart - History of Present Illness Patient is a very pleasant 78-year-old male with past medical history of V-tach requiring AICD placement, atrial fibrillation, hypertension, hyperlipidemia, CAD with a stent placed in 2016, gout who presented to the ER with complaints of racing heart. He relates that he was just admitted to [facility] where he presented on MondayAugust 18 with the same complaints of racing heart and was found to be in V-tach who was started on a meal drip and discharged Monday morning. While there his amiodarone dose was doubled from 200 mg daily to 400 mg daily. He started the 400 mg of amiodarone this morning. Later today he noticed that his heart started racing again and he had a home pulse ox so he checked his pulse and it showed that he was about 150 beats per minute. He said that he felt slightly nauseated and dizzy while his heart was racing. His symptoms persisted for about an hour and a half and then resolve spontaneously. He did not have any chest pain during this episode. A he currently feels well and denies any shortness of breath, nausea, vomiting, chest pain, cough, fevers chills or other symptoms. History Information - Allergies/Home Medication List Allergies/Adverse Reactions: atorvastatin calcium [From Lipitor] Allergy (Severe, Verified 08/19/18 20:30) Other-Enter Comments simvastatin Allergy (Unknown, Verified 08/19/18 20:30) Other-Enter Comments Home Medications: Allopurinol [Allopurinol 300 MG (RX)] 150 mg PO DAILY 11/18/16 [Last Taken 02/26] Losartan Potassium [Cozaar 25 mg (*)] 12.5 mg PO DAILY 11/18/16 [Last Taken ] Nitroglycerin [Nitrostat 0.4 mg (*)] 0.4 mg SL AD PRN 11/18/16 [Last Taken Unknown] Spironolactone [Aldactone 25 MG (*)] 12.5 mg PO DAILY 11/18/16 [Last Taken 02/26] Warfarin Sodium [Coumadin 5MG (*)] 5 mg PO SUTUTH@1600 11/18/16 [Last Taken ] Furosemide [Lasix 40 MG (*)] 40 mg PO DAILY@09,14 11/26/16 [Last Taken 02/26/17] Warfarin Sodium [Coumadin 5MG (*)] 7.5 mg PO MOWEFRSA@1600 11/26/16 [Last Taken 02/25/17] Amiodarone HCl [Pacerone (*)] 400 mg PO DAILY 08/19/18 [Last Taken Unknown] Aspirin [Aspirin 81mg (*)] 81 mg PO DAILY 08/19/18 [Last Taken Unknown] Finasteride [Proscar 5 MG (*)] 5 mg PO DAILY 08/19/18 [Last Taken Unknown] Metoprolol Tartrate [Lopressor 25 mg (*)] 12.5 mg PO BID 08/19/18 [Last Taken Unknown] Potassium Chloride [Klor-Con M20] 20 meq PO DAILY 08/19/18 [Last Taken Unknown] Rosuvastatin Calcium 5 mg PO MOWEFR 08/19/18 [Last Taken Unknown] I have personally reviewed and updated: family history, medical history, social history, surgical history - Past Medical History atrial fibrillation ( Permanent), coronary artery disease ( with LAD stent May of 2016, ischemic cardiomyopathy), CHF ( systolic with ejection fraction 25%) Additional medical history: nonobstructive CAD. Afib on systemic anticoagulation. HTN. gout. nephrolithiasis with recent stent placed. history of left atrial thrombus. Cognitive impairment - Surgical History Additional surgical history: R total knee replacement. appendectomy. Recent ureteral stent placement. LAD stent May 2016 - Family History Additional family history: Pt reports every male family member has of CAD/ heart disease - Social History Smoking Status: Never smoked Additional social history: Retired lives alone, reportedly is independent in ADLs. Review of Systems Review of Systems: ROS: 10pt was reviewed & negative except for what was stated in HPI & below Physical Exam Physical Exam: Temp Pulse Resp BP Pulse Ox 36.7 C 77 16 104/82 H 96 08/19/18 20:03 08/19/18 20:03 08/19/18 20:03 08/19/18 20:03 08/19/18 20:03 Lab Data & Imaging Review 08/19/18 19:24 08/20/18 05:05 WBC 7.86 10^3/uL (3.80-9.50) 08/19/18 19:24 RBC 4.91 10^6/uL (4.40-6.38) 08/19/18 19:24 Hgb 16.2 g/dL (13.7-17.5) 08/19/18: Hct 47.7 % (40.0-51.0) 08/19/18: MCV 97.1 fL (81.5-99.8) 08/19/18: MCH 33.0 pg (27.9-34.1) 08/19/18: MCHC 34.0 g/dL (32.4-36.7) 08/19/18: RDW 13.5 % (11.5-15.2) 08/19/18: Plt Count 234 10^3/uL (150-400) 08/19/18 MPV 8.6 fL (8.7-11.7) L 08/19/18: Neut % (Auto) 67.3 % (39.3-74.2) 08/19/18: Lymph % (Auto) 21.6 % (15.0-45.0) 08/19/18: [place] % (Auto) 8.5 % (4.5-13.0) 08/19/18: Eos % (Auto) 1.5 % (0.6-7.6) 08/19/18: Baso % (Auto) 0.8 % (0.3-1.7) 08/19/18: Nucleat RBC Rel Count 0.0 % (0.0-0.2) 08/19/18 Absolute Neuts (auto) 5.29 10^3/uL (1.70-6.50) 08/19/18: Absolute Lymphs (auto) 1.70 10^3/uL (1.00-3.00) 08/19/18: Absolute Monos (auto) 0.67 10^3/uL (0.30-0.80) 08/19/18: Absolute Eos (auto) 0.12 10^3/uL (0.03-0.40) 08/19/18: Absolute Basos (auto) 0.06 10^3/uL (0.02-0.10) 08/19/18 19:24 Absolute Nucleated RBC 0.00 10^3/uL (0-0.01) 08/19/18 19:24 Immature Gran % 0.3 % (0.0-1.1) 08/19/18 19:24 Immature Gran # 0.02 10^3/uL (0.00-0.10) 08/19/18 19:24 PT 27.4 SEC (12.0-15.0) H 08/19/18 19:55 INR 2.55 (0.83-1.16) H 08/19/18 19:55 APTT 55.6 SEC (23.0-38.0) H 08/19/18:55 Sodium 140 mEq/L (135-145) 08/19/18 19:24 Potassium 4.1 mEq/L (3.5-5.2) 08/19/18 19:24 Chloride 104 mEq/L (97-110) 08/19/18:24 Carbon Dioxide 25 mEq/l (22-31) 08/19/18:24 Anion Gap 11 mEq/L (6-14) 08/19/18 19:24 BUN 26 mg/dL (7-23) H 08/19/18 19:24 Creatinine 1.5 mg/dL (0.7-1.3) H 08/19/18 19:24 Estimated GFR 45 08/19/18 19:24 Glucose 122 mg/dL (70-100) H 08/19/18 19:24 Calcium 9.9 mg/dL (8.5-10.4) 08/19/18 19:24 POC Troponin I 0.05 ng/mL (0.00-0.08) 08/19/18 19:23 NT-Pro-B Natriuret Pep 728 pg/mL (0-450) H 08/19/18 19:24 Assessment & Plan Assessment: 78-year-old male with past medical history of V-tach requiring an AICD placed, AFib here with V-tach. V-tach- resolved spontaneously in the emergency room. I discussed the case with the emergency room physician and he placed him on an amiodarone drip, and called cardiology will be in to evaluate the patient. His initial troponin was negative, and his BMP is within normal limits. He is normotensive and all other vitals are within normal limits. -monitor in ICU -telemetry -Continue amiodarone drip -cardiology to evaluate patient -continue Lopressor at home dose of 12.5 mg twice daily Atrial fibrillation- chads Vasc of at least 4, he is on Coumadin with INR currently therapeutic at 2.5. Also on amiodarone and Lopressor -continue Coumadin -continue Lopressor and amiodarone -monitor on telemetry CAD- with stent placed in 2015. On the appropriate medications with a aspirin statin, beta-reymundo, angiotensin receptor reymundo. I would continue these unless Cardiology feels otherwise Gout-continue allopurinol 150 daily BPH-on finasteride which should be fine to continue Prophylaxis- Coumadin and SCDs Fluids- gentle hydration Electrolytes-within normal limits would keep potassium over 4 and magnesium over 2 Nutrition-NPO until seen by Cardiology Cor-full core Dispo- observation in the ICU for V-tach
[2018-08-19] MEDS ORDERED: ACETAMINOPHEN 325 MG TAB PO PRN (20:37)
[2018-08-19] MEDS ORDERED: NS 1,000 ML IV SCH (20:45)
[2018-08-19] MEDS: METOPROLOL TARTRATE 25 MG TAB PO SCH (21:30)
--- NOTE | 2018-08-19 22:49 | CPEKG ---
Test Reason : OPEN Blood Pressure : / mmHG Vent. Rate : 145 BPM Atrial Rate : 139 BPM P-R Int : 000 ms QRS Dur : 182 ms QT Int : 391 ms P-R-T Axes : 000 078 254 degrees QTc Int : 608 ms Extreme tachycardia with wide complex, no further rhythm analysis attempted Confirmed by Jorden Beltran ([id number]) on 08/19/2018 10:48:43 PM Referred By: Ceferino Wilson Confirmed By:Jorden Beltran
--- NOTE | 2018-08-19 22:49 | CPEKG ---
Test Reason : OPEN Blood Pressure : / mmHG Vent. Rate : 074 BPM Atrial Rate : 076 BPM P-R Int : 226 ms QRS Dur : 185 ms QT Int : 464 ms P-R-T Axes : 031 232 013 degrees QTc Int : 515 ms Sinus rhythm Atrial premature complex Prolonged OK interval Right bundle branch block Confirmed by Jorden Beltran ([id number]) on 08/19/2018 10:48:43 PM Referred By: Ceferino Wilson Confirmed By:Jorden Beltran
[2018-08-19] MEDS ORDERED: MAGNESIUM SULF 1 GM/DEXTROSE 100 ML IV ONE (23:00)
[2018-08-19] MEDS ORDERED: LIDOCAINE 2% 100 MG/5 ML SYR ONE (23:02)
[2018-08-19] MEDS ORDERED: LIDOCAINE 2% 100 MG/5 ML SYR IVP PRN ×2 (23:17→23:21)
[2018-08-20] MEDS ORDERED: AMIODARONE A.FIB-18HR INFSN (ORDER 3/3) IV ONE (02:00)
[2018-08-20 05:47] LABS: INR 2.7 (0.83-1.16); PROTIME(PATIENT) 28.6 SEC (12.0-15.0)
[2018-08-20] MEDS ORDERED: ROSUVASTATIN CALCIUM 10 MG TAB PO SCH (09:00)
--- NOTE | 2018-08-20 09:47 | ASMTCMCOM ---
CM Note CM Note Notes: Pt is a 78 yo M presents with ventricular tachycardia. Pt is a [place] pt. Has been followed by Cardiology there. Pt has daughter in the area, lives alone. Dispo needs TBD. CM to follow. Plan: TBD Date Signed: 08/20/2018 09:46 AM Electronically Signed By:LIZ Krishnan
[2018-08-20] MEDS: FUROSEMIDE 40 MG TAB PO SCH ×2 (10:27→14:26)
[2018-08-20] MEDS: ASPIRIN 81 MG CHEWABLE TAB PO SCH (10:28)
[2018-08-20] MEDS: ALLOPURINOL 300 MG TAB PO SCH (10:29)
[2018-08-20] MEDS: LOSARTAN POTASSIUM 25 MG TAB PO SCH (10:30)
[2018-08-20] MEDS: METOPROLOL TARTRATE 25 MG TAB PO SCH ×2 (10:31→19:53)
[2018-08-20] MEDS: SPIRONOLACTONE 25 MG TAB PO SCH (10:31)
[2018-08-20] MEDS: FINASTERIDE 5 MG TAB PO SCH (10:31)
[2018-08-20] MEDS: PANTOPRAZOLE SODIUM 40 MG VIAL IVP SCH (10:32)
--- NOTE | 2018-08-20 13:05 | HOSPPROG ---
Hospitalist Progress Note Assessment/Plan: 78-year-old with a history of V-tach requiring AICD placement is admitted with tachycardia, found to be in V-tach. He has been in sinus rhythm since admission , cardiology has seen and evaluated him and did pacemaker interrogation this morning. Discussed with Dr. Reynolds and pulmonology. Of note he was admitted to [facility] on Monday after his AICD fired and was found to have an episode of V-tach. At that time his amiodarone was increased and he was sent home. # V-tach, symptomatic. Currently on amiodarone and patient in sinus rhythm * Pacemaker interrogation * Medical management per Cardiology, they are still gathering data * Overall patient is doing well this morning * Will need additional midnight stay for ongoing need for medications IV and amiodarone loading # atrial fibrillation on warfarin with therapeutic INR, amiodarone and metoprolol for rate control # hypertension, blood pressure stable # coronary artery disease status post stent in 2016 # gout currently on allopurinol Subjective: Patient discussed the multidisciplinary rounds. Currently in sinus rhythm and awaiting cardiology evaluation for further recommendations on his rhythm control. He has had intermittent V-tach in the past. Objective: Vital Signs Temp Pulse Resp BP Pulse Ox 36.3 C 48 L 12 130/65 H 97 08/20/18 10:00 08/20/18 10:00 08/20/18 10:00 08/20/18 10:00 08/20/18 10:00 Laboratory Results 08/20/18 05:05 08/19/18 08/20/18 08/21/18 05:59 05:59 05:59 Intake Total 2040 Output Total 700 300 Balance 1340 -300 PT 28.6 SEC (12.0-15.0) H 08/20/18 05:05 INR 2.70 (0.83-1.16) H 08/20/18 05:05 - Physical Exam Constitutional: no apparent distress, obese Eyes: PERRL Ears, Nose, Mouth, Throat: moist mucous membranes Cardiovascular: regular rate and rhythym Respiratory: no respiratory distress, clear to auscultation Gastrointestinal: soft, non-tender abdomen Genitourinary: no bladder fullness Skin: warm Musculoskeletal: full muscle strength Neurologic: AAOx3 Psychiatric: interacting appropriately ICD10 Worksheet Patient Problems: Problems Problem Status Onset Near syncope Acute Confusion with nonfocal neurological examination Acute Chest pain Acute Congestive heart failure Acute Chest pain at rest Acute Cardiomyopathy Acute Acute exacerbation of CHF (congestive heart failure) Acute Constipation Acute Atrial fibrillation with rapid ventricular response Acute Nephrolithiasis Acute Ureterolithiasis Acute Acute decompensated heart failure Acute Hematuria Acute Chest pain Acute Troponin level elevated Acute Shortness of breath Acute Syncope Acute Anxiety about blushing Acute Medication reaction Acute Lightheaded Acute Renal insufficiency Acute Shortness of breath Acute Acute prerenal azotemia Acute Syncope Acute Head injury Acute Ventricular tachycardia Acute
--- NOTE | 2018-08-20 13:45 | PDCARCONS ---
Cardiology Consult Reason for Consult: Ventricular tachycardia. Chief Complaint: Palpitations. Requesting Physician: Dr. Felicity Caruso. History of Present Illness: This is a 78-year-old male seen in consultation in the intensive care unit. His a history of known CAD with previous stenting of the LAD in May of 2017 and another vessel in the distant past. He has a known severe ischemic cardiomyopathy with ejection fraction of 17%, history of what was thought to be permanent atrial fibrillation and previous hospitalizations for congestive heart failure. In the past, he had been considered for AV node ablation and placement of a biventricular ICD however declined. He states in March of 2017 he received a single-chamber [employer] defibrillator. He recalls having had a single shock in the past. He was admitted to [facility] overnight this last Monday. At that time, he presented after receiving defibrillation therapy. Apparently he was started on a higher dose of amiodarone and discharged. Previously he had been on 200 mg daily. His dose was increased to 400 mg daily. He states that last night he developed a sensation of a rapid heart rate. His pulse was in the 150s to 160s. He had no associated chest pain or chest pressure. His symptoms were similar to those that he experienced at the time of his previous ICD shock. In the emergency department he was in a wide complex tachycardia with heart rates of 145-150 beats per minute. There is a 12 lead ECG that demonstrates a left bundle tachycardia with a inferior axis. He received 2 amiodarone boluses of 150 mg each in the emergency department with jew of sinus rhythm. He has not had further arrhythmia overnight. He states he generally feels well. In talking to the cardiologists at [facility] he was on a low-dose of amiodarone to suppress nonsustained ventricular tachycardia. Was thought that his atrial fibrillation was permanent. He is on systemic anticoagulation in the form of Coumadin. Apparently, due to bradycardia his beta-blockers have been systematically paired back from a maximum of 100 mg of extended release metoprolol down to the current dose of 12-,1/2 mg. History Information - Allergies/Home Medication List Allergies/Adverse Reactions: atorvastatin calcium [From Lipitor] Allergy (Severe, Verified 08/19/18 20:30) Other-Enter Comments simvastatin Allergy (Unknown, Verified 08/19/18 20:30) Other-Enter Comments Home Medications: Allopurinol [Allopurinol 300 MG (RX)] 150 mg PO DAILY 11/18/16 [Last Taken 02/26] Losartan Potassium [Cozaar 25 mg (*)] 12.5 mg PO DAILY 11/18/16 [Last Taken ] Nitroglycerin [Nitrostat 0.4 mg (*)] 0.4 mg SL AD PRN 11/18/16 [Last Taken Unknown] Spironolactone [Aldactone 25 MG (*)] 12.5 mg PO DAILY 11/18/16 [Last Taken 02/26] Warfarin Sodium [Coumadin 5MG (*)] 5 mg PO SUTUTH@1600 11/18/16 [Last Taken ] Furosemide [Lasix 40 MG (*)] 40 mg PO DAILY@,11/26/16 [Last Taken 02/26/17] Warfarin Sodium [Coumadin 5MG (*)] 7.5 mg PO MOWEFRSA@1600 11/26/16 [Last Taken 02/25/17] Amiodarone HCl [Pacerone (*)] 400 mg PO DAILY 08/19/18 [Last Taken Unknown] Aspirin [Aspirin 81mg (*)] 81 mg PO DAILY 08/19/18 [Last Taken Unknown] Finasteride [Proscar 5 MG (*)] 5 mg PO DAILY 08/19/18 [Last Taken Unknown] Metoprolol Tartrate [Lopressor 25 mg (*)] 12.5 mg PO BID 08/19/18 [Last Taken Unknown] Potassium Chloride [Klor-Con M20] 20 meq PO DAILY 08/19/18 [Last Taken Unknown] Rosuvastatin Calcium 5 mg PO MOWEFR 08/19/18 [Last Taken Unknown] I have personally reviewed and updated: family history, medical history, social history, surgical history Past Medical History: - Past Medical History Additional medical history: Coronary artery disease as described above, chronic systolic congestive heart failure, previously thought to have permanent atrial fibrillation, hematuria, PAWAN, chronic renal insufficiency. - Family History Positive for: non-pertinent - Social History Smoking Status: Never smoked Alcohol Use: None Drug Use: None Additional social history: He is retired. He currently is followed at [facility]. Physical Exam Physical Exam: Temp Pulse Resp BP Pulse Ox 36.3 C 43 L 12 130/65 H 97 08/20/18 10:00 08/20/18 12:00 08/20/18 12:00 08/20/18 10:00 08/20/18 12:00 O2 (L/minute) 2 Constitutional: no apparent distress, appears nourished, not in pain Eyes: PERRL, anicteric sclera, EOMI Ears, Nose, Mouth, Throat: moist mucous membranes, hearing normal, ears appear normal, no oral mucosal ulcers Cardiovascular: regular rate and rhythym, no murmur, rub, or gallop, other (ICD in place in the left infraclavicular fossa.), No edema Respiratory: no respiratory distress, no rales or rhonchi, clear to auscultation Gastrointestinal: normoactive bowel sounds, soft, non-tender abdomen, no palpable masses Genitourinary: no bladder fullness, no bladder tenderness Skin: warm, normal color, no rashes or abrasions, no fluctuance, no induration, No mottled Musculoskeletal: full muscle strength, no muscle tenderness, normal joint ROM, no joint effusions Psychiatric: interacting appropriately, not anxious, not encephalopathic, thought process linear Lymph, Heme, Immunologic: no cervical LAD, no supraclavicular LAD Lab and Imaging 08/19/18 19:24 08/20/18 05:05 WBC 7.86 10^3/uL (3.80-9.50) 08/19/18 19:24 RBC 4.91 10^6/uL (4.40-6.38) 08/19/18 19:24 Hgb 16.2 g/dL (13.7-17.5) 08/19/18 19:24 Hct 47.7 % (40.0-51.0) 08/19/18 19:24 MCV 97.1 fL (81.5-99.8) 08/19/18 19:24 MCH 33.0 pg (27.9-34.1) 08/19/18 19:24 MCHC 34.0 g/dL (32.4-36.7) 08/19/18 19:24 RDW 13.5 % (11.5-15.2) 08/19/18 19:24 Plt Count 234 10^3/uL (150-400) 08/19/18 19:24 MPV 8.6 fL (8.7-11.7) L 08/19/18: Neut % (Auto) 67.3 % (39.3-74.2) 08/19/18: Lymph % (Auto) 21.6 % (15.0-45.0) 08/19/18: [place] % (Auto) 8.5 % (4.5-13.0) 08/19/18: Eos % (Auto) 1.5 % (0.6-7.6) 08/19/18: Baso % (Auto) 0.8 % (0.3-1.7) 08/19/18 Nucleat RBC Rel Count 0.0 % (0.0-0.2) 08/19/18 Absolute Neuts (auto) 5.29 10^3/uL (1.70-6.50) 08/19/18: Absolute Lymphs (auto) 1.70 10^3/uL (1.00-3.00) 08/19/18: Absolute Monos (auto) 0.67 10^3/uL (0.30-0.80) 08/19/18: Absolute Eos (auto) 0.12 10^3/uL (0.03-0.40) 08/19/18: Absolute Basos (auto) 0.06 10^3/uL (0.02-0.10) 08/19/18 Absolute Nucleated RBC 0.00 10^3/uL (0-0.01) 08/19/18: Immature Gran % 0.3 % (0.0-1.1) 08/19/18: Immature Gran # 0.02 10^3/uL (0.00-0.10) 08/19/18 19: PT 28.6 SEC (12.0-15.0) H 08/20/18 05:05 INR 2.70 (0.83-1.16) H 08/20/18 05:05 APTT 62.2 SEC (23.0-38.0) H 08/20/18 05:05 Sodium 137 mEq/L (135-145) 08/20/18 05:05 Potassium 4.0 mEq/L (3.5-5.2) 08/20/18 05:05 Chloride 111 mEq/L (97-110) H 08/20/18 05:05 Carbon Dioxide 21 mEq/l (22-31) L 08/20/18 05:05 Anion Gap 5 mEq/L (6-14) L 08/20/18 05:05 BUN 22 mg/dL (7-23) 08/20/18 05:05 Creatinine 1.3 mg/dL (0.7-1.3) 08/20/18 05:05 Estimated GFR 53 08/20/18 05:05 Glucose 100 mg/dL (70-100) 08/20/18 05:05 Calcium 8.5 mg/dL (8.5-10.4) 08/20/18 05:05 Phosphorus 3.7 mg/dL (2.5-4.5) 08/20/18 05:05 Magnesium 2.5 mg/dL (1.6-2.3) H 08/20/18 05:05 Total Bilirubin 0.3 mg/dL (0.1-1.4) 08/20/18 05:05 AST 16 IU/L (17-59) L 08/20/18 05:05 ALT 26 IU/L (21-72) 08/20/18 05:05 Alkaline Phosphatase 73 IU/L (38-126) 08/20/18 05:05 POC Troponin I 0.05 ng/mL (0.00-0.08) 08/19/18 19:23 Troponin I 0.134 ng/mL (0.000-0.034) H 08/20/18 05:05 NT-Pro-B Natriuret Pep 728 pg/mL (0-450) H 08/19/18 19:24 Total Protein 5.4 g/dL (6.3-8.2) L 08/20/18 05:05 Albumin 3.0 g/dL (3.5-5.0) L 08/20/18 05:05 Visualized and Interpreted Chest x-ray results: No Visualized and Interpreted imaging results: No Visualized and Interpreted EKG results: Yes EKG additional interpertation: He presented with a wide complex tachycardia with a left bundle branch block vertical axis. In sinus rhythm he has a right bundle branch block. Telemetry: Sinus rhythm. A/P Assessment: This is a 78-year-old male with a history of coronary artery disease with 2 previous percutaneous coronary intervention procedures. He has a residual ischemic cardiomyopathy with a single-chamber ICD without was implanted in March of 2017. He was thought to have had permanent atrial fibrillation however is in sinus rhythm here during this hospitalization. He has had problems with significant bradycardia on higher doses of beta blockers which have necessitated a gradual down titration of his beta blockers over the last several months. He was admitted to [facility] on Monday night after receiving a single appropriate discharge from his ICD. At that time, his amiodarone was increased from 200-400 mg daily without receiving an additional load. He presents now in sustained ventricular tachycardia. His device was interrogated. He received 11 rounds of antitachycardia pacing prior to spontaneous resolution of the sustained monomorphic ventricular tachycardia. In discussing his case with the [facility] electrophysiologists it does not appear that he received an amiodarone load during his hospitalization recently at [facility]. Since admission here he has received an additional load of amiodarone. He remains in sinus rhythm. Electrolytes were normal and experience only a slight troponin bump without dynamic ST or T changes on his ECG. He has been significantly bradycardic with heart rates in the 40s. Apparently, he is programmed with a backup rate of 40 beats per minute. Plan: 1. I would like to finish his amiodarone load. 2. Following the IV amiodarone load I will plan to place him on 400 mg twice daily. 3. I did consider increasing his metoprolol however I think this would simply result in worsening of his bradycardia and right ventricular pacing. This may be deleterious to his heart failure. 4. As long as he remains stable over the next 24 hr I think we can discharge him home tomorrow afternoon. I would like him to follow up in an expedited fashion with his urology physician assistant at [facility]. 5. I think he should strongly be considered for an upgrade of his current device to a biventricular device. At that point, is beta-reymundo therapy can be ramped up to more appropriate doses. 6. If he continues to have ventricular tachycardia consideration could be given to an ablation procedure. 7. They may be worthwhile, in elective fashion, for him to undergo coronary angiography.
[2018-08-20] MEDS ORDERED: WARFARIN SODIUM 5 MG TAB PO SCH (16:00)
[2018-08-20] MEDS ORDERED: WARFARIN SODIUM 7.5 MG TAB PO SCH (16:00)
--- NOTE | 2018-08-20 16:08 | PDMN ---
Medical Necessity Medical necessity: [facility] M575 ventricular arrhythmias A-2 days: pt presented with tachycardia was found to be in V tach- PMHx: AICD in 2017 recently was at [facility] ( Monday) after his AICD fired- was sent home returned to [facility] with tachycardia- - had amiodarone started in ED - cards consult today rec. cont. IV amiodarone loading, then PO with further monitoring nec. status changed to INPT 08/20 for ongoing med nec for above monitoring and tx. > 2 MN>
--- NOTE | 2018-08-20 17:37 | PDCONSULT ---
Historic Sites Registrar Note: ASSESSMENT 78-year-old male with CAD and residual ischemic cardiomyopathy admitted with sustained ventricular tachycardia status post AICD shocks. He is followed at [facility] # sustained VT. Device interrogation revealed 11 rounds of anti tachycardia pacing. Loaded with amiodarone. Now in normal sinus rhythm. # CAD. Status post PCI x2. No recent ACS. # hypertension # BPH # hyperlipidemia # atrial fibrillation. Currently normal sinus rhythm PLAN # continue IV amiodarone # transition to oral amnio after load is complete # continue antihypertensive # continue anticoagulation with warfarin # continue finasteride # continue rosuvastatin. # maintain net even to slightly negative fluid balance. # Feeding - NPO # Analgesia APAP, fentanyl # Sedation propofol # Thromboprophylaxis - warfarin # Head of bed elevated # Ulcer prophylaxis - not indicated # Glucose SSI # Skin no skin breakdown # Delirium - delirium precautions IMAGING Reviewed 03/06/2017 chest x-ray with cardiomegaly, interstitial pulmonary edema. CONSULT I was asked by Dr. Wilson to evaluate this patient for ICU care in the setting of sustained VT Chief complaint Palpitation HPI 78-year-old male with coronary disease status post PCI, ischemic cardiomyopathy and atrial fibrillation who presents to the ER with palpitations and feelings of racing heart. He had a similar presentation was found to be in VT at [facility]. He was discharged within 24 hr. Prior to recent hospitalization he was on amnio for 200 mg daily and was subsequently increased to 400 mg daily. At time of presentation patient complained of nausea and lightheadedness. He was admitted through the ED to the ICU. He received IV amnio load +bolus. On pacer interrogation he had 10+ episodes of antiarrhythmic overdrive pacing. Patient states his symptoms have somewhat improved. He states compliance with his home medications. He denies fevers chills nausea vomiting dysuria, leg swelling, new rash Past medical history Ischemic cardiomyopathy, atrial fibrillation, coronary disease status post PCI x2 last 2015, gout, hypertension, hyperlipidemia, nephrolithiasis. Family history Father with coronary disease Social history Never smoker retired. Lives alone. Review of systems A comprehensive 10 point review of systems was obtained is negative except as per HPI Vitals Reviewed. See EMR GEN: NAD, up in chair, interactive NEURO: A&Ox3, CN 2-12 GI HEENT: PERRL, EOMI, MMM, OP clear NECK: supple, trachea midline CHEST normal shape, no pes excavatum CVS: rrr no m/r/g PULM: CTA B, no wheezes/rales/rhonchi ABD: soft, NT, ND, NABS EXT: no swelling, no cyanosis, full ROM SKIN: warm, dry, intact, no rash PSYCH CAM negative, appropriate affect Data I reviewed patient's laboratory data. 08/20/2018. Potassium 4.0, chloride 111, bicarb 21, creatinine 1.3, troponin 0.134 peaked. See imaging results as above.
[2018-08-20] MEDS: AMIODARONE HCL 200 MG TAB PO SCH (19:53)
[2018-08-21] MEDS ORDERED: oxyCODONE IR 5 MG TAB PO ONE (04:50)
[2018-08-21] MEDS ORDERED: oxyCODONE IR 5 MG TAB ONE (05:02)
[2018-08-21 05:35] LABS: INR 2.42 (0.83-1.16); PROTIME(PATIENT) 26.3 SEC (12.0-15.0)
[2018-08-21 08:27] VITALS: BP 149/64
--- NOTE | 2018-08-21 08:32 | SOAPPROG ---
[facility] Progress Note Assessment/Plan: Assessment: 1. Sustained ventricular tachycardia. Following intravenous amiodarone load and conversion to 400 mg twice daily of amiodarone he has not had any further arrhythmias. 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 They would like to see him back in office in an expedited fashion following discharge from the hospital. We talked about further potential treatment options to include continue high-dose amiodarone, upgrading his current ICD to a biventricular device which would allow for up titration of beta-blockers or potentially performing an ablation procedure. 2. Coronary artery disease. This appears to be quiescent at the present time. 3. Ischemic cardiomyopathy. He is well compensated on his current medications. 4. Paroxysmal atrial fibrillation. He is in sinus rhythm today. He is on warfarin for thromboprophylaxis. Plan: 1. I think he can be discharged from the hospital today. 2. I would like him to continue his current medications including amiodarone 400 mg twice daily until follow up with his [facility] team. 3. At this point we will sign off. 08/21/18 08:31 Subjective: He has done well overnight with no further arrhythmias. He is anxious to go home. He states he feels well and has not been experiencing angina or significant dyspnea. Objective: Vital Signs Temp Pulse Resp BP Pulse Ox 36.3 C 44 L 17 149/64 H 96 08/21/18 08:00 08/21/18 08:00 08/21/18 08:00 08/21/18 08:00 08/21/18 08:00 Laboratory Results 08/21/18 05:05 08/20/18 08/21/18 08/22/18 05:59 05:59 05:59 Intake Total 2040 2286 Output Total 700 2100 Balance 1340 186 PT 26.3 SEC (12.0-15.0) H 08/21/18 05:00 INR 2.42 (0.83-1.16) H 08/21/18 05:00 Physical Exam - Physical Exam General Appearance: WD/WN, alert, no apparent distress EENT: PERRL/EOMI, normal ENT inspection, pharynx normal, TMs normal Neck: non-tender, full range of motion, supple, normal inspection Respiratory: chest non-tender, lungs clear, normal breath sounds Cardiac/Chest: normal peripheral pulses, regular rate, rhythm, other (ICD in place and well healed.) Peripheral Pulses: 2+: carotid (R), carotid (L), femoral (R), femoral (L), dorsalis-pedis (R), dorsalis-pedis (L) Abdomen: normal bowel sounds, non-tender, soft Male Genitalia: deferred Rectal: deferred Back: Normal inspection Skin: normal color, warm/dry Lymphatic: no adenopathy Extremities: normal range of motion, non-tender, normal inspection, normal capillary refill Neuro/Psych: no motor/sensory deficits, alert, normal mood/affect, oriented x 3 ICD10 Worksheet Patient Problems: Problems Problem Status Onset Near syncope Acute Confusion with nonfocal neurological examination Acute Chest pain Acute Congestive heart failure Acute Chest pain at rest Acute Cardiomyopathy Acute Acute exacerbation of CHF (congestive heart failure) Acute Constipation Acute Atrial fibrillation with rapid ventricular response Acute Nephrolithiasis Acute Ureterolithiasis Acute Acute decompensated heart failure Acute Hematuria Acute Chest pain Acute Troponin level elevated Acute Shortness of breath Acute Syncope Acute Anxiety about blushing Acute Medication reaction Acute Lightheaded Acute Renal insufficiency Acute Shortness of breath Acute Acute prerenal azotemia Acute Syncope Acute Head injury Acute Ventricular tachycardia Acute
[2018-08-21] MEDS: FUROSEMIDE 40 MG TAB PO SCH (09:03)
[2018-08-21] MEDS: AMIODARONE HCL 200 MG TAB PO SCH (09:03)
[2018-08-21] MEDS: ASPIRIN 81 MG CHEWABLE TAB PO SCH (09:04)
[2018-08-21] MEDS: METOPROLOL TARTRATE 25 MG TAB PO SCH (09:04)
[2018-08-21] MEDS: ALLOPURINOL 300 MG TAB PO SCH (09:05)
[2018-08-21] MEDS: SPIRONOLACTONE 25 MG TAB PO SCH (09:05)
[2018-08-21] MEDS: LOSARTAN POTASSIUM 25 MG TAB PO SCH (09:06)
[2018-08-21] MEDS: FINASTERIDE 5 MG TAB PO SCH (09:07)
[2018-08-21] MEDS: PANTOPRAZOLE SODIUM 40 MG VIAL IVP SCH (09:08)
--- NOTE | 2018-08-21 09:33 | HOSPPROG ---
Hospitalist Progress Note Assessment/Plan: 78-year-old with a history of V-tach requiring AICD placement is admitted with tachycardia, found to be in V-tach. He has been in sinus rhythm since admission , cardiology has seen and evaluated him and did pacemaker interrogation this morning. Discussed with Dr. Reynolds and pulmonology. Of note he was admitted to [facility] on Monday after his AICD fired and was found to have an episode of V-tach. At that time his amiodarone was increased and he was sent home. V-tach, symptomatic. Currently on amiodarone and patient in sinus rhythm s/p amio load increase dose to 400 bid outpt cardiology follow up limited trop bump - not ACS driven atrial fibrillation on warfarin with therapeutic INR, amiodarone and metoprolol for rate control hypertension, blood pressure stable coronary artery disease status post stent in 2016 gout currently on allopurinol dispo: home today > 30 minutes Subjective: cleared by cardiology for dc. anious to go home. no events overnight on telemetry (interp by fl) Objective: Vital Signs Temp Pulse Resp BP Pulse Ox 36.3 C 44 L 17 149/64 H 96 08/21/18 08:00 08/21/18 09:04 08/21/18 08:00 08/21/18 09:06 08/21/18 08:00 Laboratory Results 08/21/18 05:05 08/20/18 08/21/18 08/22/18 05:59 05:59 05:59 Intake Total 2040 2286 Output Total 700 2100 Balance 1340 186 PT 26.3 SEC (12.0-15.0) H 08/21/18 05:00 INR 2.42 (0.83-1.16) H 08/21/18 05:00 - Physical Exam Constitutional: no apparent distress, appears nourished Eyes: PERRL, anicteric sclera Ears, Nose, Mouth, Throat: moist mucous membranes, hearing normal Cardiovascular: regular rate and rhythym, no murmur, rub, or gallop, No edema Respiratory: no respiratory distress, no rales or rhonchi Gastrointestinal: normoactive bowel sounds, soft, non-tender abdomen Genitourinary: no bladder fullness, No serna in urethra Skin: warm, normal color Musculoskeletal: full muscle strength Neurologic: AAOx3 ICD10 Worksheet Patient Problems: Problems Problem Status Onset Ventricular tachycardia Acute Acute decompensated heart failure Acute Acute exacerbation of CHF (congestive heart failure) Acute Acute prerenal azotemia Acute Anxiety about blushing Acute Atrial fibrillation with rapid ventricular response Acute Cardiomyopathy Acute Chest pain Acute Chest pain Acute Chest pain at rest Acute Confusion with nonfocal neurological examination Acute Congestive heart failure Acute Constipation Acute Head injury Acute Hematuria Acute Lightheaded Acute Medication reaction Acute Near syncope Acute Nephrolithiasis Acute Renal insufficiency Acute Shortness of breath Acute Shortness of breath Acute Syncope Acute Syncope Acute Troponin level elevated Acute Ureterolithiasis Acute
--- NOTE | 2018-08-21 10:10 | GDS ---
[f rep st] DISCHARGE SUMMARY DISCHARGE DIAGNOSES: 1. Ventricular tachycardia. 2. History of coronary disease. 3. Ischemic cardiomyopathy. 4. Atrial fibrillation. HOSPITAL COURSE: Please see admission history and physical by Dr. Ceferino Coyle. The patient presen rubio to the hospital with a feeling of a racing heart. On presentation, his initial EKG was sinus rhy thm with PACs and somewhat of a wide-complex, but then subsequent EKG showed likely ventricular tachy cardia. His single-chamber ICD was interrogated and it found that he had initiated antitachycardia pacing. H e converted spontaneously. He was seen by Cardiology and he was amiodarone loaded, and with no furth er events on telemetry. He was not bradycardic. His electrolytes were normal. His troponins were minimally elevated consistent with electrical stimu lation of the heart, and his EKG did not have ischemic changes when not in ventricular tachycardia. He was not in clinical heart failure or dehydrated when he was here. He is discharged home to follow up with his outpatient head loader at [facility]. DISCHARGE MEDICATIONS: Medication changes: Increasing his amiodarone to 400 b.i.d. He is _ provided with prescriptions. /[id number]/MODL
--- NOTE | 2018-08-21 15:56 | CPEKG ---
Test Reason : OPEN Blood Pressure : / mmHG Vent. Rate : 050 BPM Atrial Rate : 050 BPM P-R Int : 166 ms QRS Dur : 183 ms QT Int : 582 ms P-R-T Axes : 264 054 104 degrees QTc Int : 531 ms Sinus or ectopic atrial rhythm Right bundle branch block Confirmed by Lalito Borja ([id number]) on 08/21/2018 3:55:47 PM Referred By: Ceferino Wilson Confirmed By:Lalito Borja
[2018-08-21] MEDS ORDERED: WARFARIN SODIUM 5 MG TAB PO SCH ×2 (16:00)
== END 2018-08-21 09:42 | disposition home or self-care (01) | DRG 309 ==
LOC: EDUNIT# → F2N 21:01
PROVIDERS: ADMIT Internal Medicine; ATTEND Internal Medicine
DX: I47.2 Ventricular tachycardia (principal); I11.0 Hypertensive heart disease with heart failure; I50.22 Chronic systolic (congestive) heart failure; I25.5 Ischemic cardiomyopathy; E86.9 Volume depletion, unspecified; I25.10 Atherosclerotic heart disease of native coronary artery without angina pectoris; I48.2 Chronic atrial fibrillation; M10.9 Gout, unspecified; N40.0 Benign prostatic hyperplasia without lower urinary tract symptoms; E78.5 Hyperlipidemia, unspecified; G47.33 Obstructive sleep apnea (adult) (pediatric); Z95.810 Presence of automatic (implantable) cardiac defibrillator; Z96.651 Presence of right artificial knee joint; Z95.5 Presence of coronary angioplasty implant and graft
CPT/HCPCS: 84484-ER; 96374; 97165-GO; 97535-GO; G0378; J0282; J2001; J3475

== ENCOUNTER 2018-12-10 21:41 | Emergency (ER) | payer OTHER | END 2018-12-11 01:29 | disposition home or self-care (01) ==

== ENCOUNTER 2018-12-14 12:40 | Emergency (ER) | payer OTHER | END 2018-12-14 15:51 | disposition short-term general hospital (02) ==

== ENCOUNTER 2018-12-23 04:35 | Emergency (ER) | payer OTHER | END 2018-12-23 06:14 | disposition home or self-care (01) ==

== ENCOUNTER 2018-12-29 01:58 | Observation (INO) | payer OTHER | END 2018-12-29 16:50 | disposition home or self-care (01) | LOC: F2W 03:37 ==